=== PATIENT | male | born 1970 | race Caucasian/White ===

== ENCOUNTER 2018-07-04 01:47 | Outpatient (CLI) | payer OTHER, SELFPAY ==
--- NOTE | 2018-07-04 15:35 | DI.RAD_ITS ---
SYMPTOM/DIAGNOSIS: TROUBLE SWALLOWING, SMOKER, R13.10, F17.200 PA AND LATERAL CHEST: There are no prior comparison exams. The cardiac and mediastinal contours have a normal appearance. The lungs are hyperinflated and appear clear. No infiltrate, effusion, mass or adenopathy is seen. There is no evidence of pneumothorax or pneumomediastinum. There are mild degenerative changes in the thoracic spine. IMPRESSION: Hyperinflation. No acute abnormality.
== END 2018-07-04 02:07 ==
PROVIDERS: PCP Nurse Practitioner; Visit Provider Nurse Practitioner
DX: R13.10 Dysphagia, unspecified (principal); F17.200 Nicotine dependence, unspecified, uncomplicated
CPT/HCPCS: 71046

== ENCOUNTER 2018-07-20 15:23 | Outpatient (CLI) | payer OTHER, SELFPAY ==
[2018-07-20 15:48] LABS: HCT 37.2 % (40.0-50.0); HGB 12.6 g/dL (13.5-17.5); Mean Corp. HGB Concentration 33.9 g/dL (32.0-36.0); Mean Corpuscular Hemoglobin 29.8 pg (27.0-33.0); Mean Corpuscular Volume 87.9 fL (80-95); Mean Platelet Volume 10.4 fL (8.0-11.0); Platelet Count 213 x1000/uL (130-400); RBC 4.23 m/cumm (4.50-6.00); RBC Distribution Width 13.3 % (11.8-14.1); White Blood Cell Count 8.41 k/cumm (4.4-10.8)
[2018-07-20 17:12] LABS: ALT 26 U/L (12-78); AST 22 U/L (15-37); Albumin 3.3 g/dL (3.4-5.0); Alkaline Phosphatase 94 U/L (46-116); Anion Gap 7.3 mmol/L (3-11); BUN 10 mg/dL (7-18); Bilirubin, Total 0.4 mg/dL (0.2-1.0); CO2 28.7 mmol/L (21.0-32.0); CREATININE 0.81 mg/dL (0.70-1.30); Calcium 8.8 mg/dL (8.5-10.1); Chloride 103 mmol/L (98-107); Cholesterol 125 mg/dL (50-200); Glucose 89 mg/dL (70-100); HDL Cholesterol 32 mg/dL (40-60); LDL CHOLESTEROL 79 mg/dL (<100); Potassium 3.9 mmol/L (3.5-5.1); Sodium 139 mmol/L (136-145); TSH (W/Ref FT4) 0.61 uIU/mL (0.358-3.74); Total Protein 6.3 g/dL (6.4-8.2); Triglyceride 58 mg/dL (30-150)
== END 2018-07-20 15:43 ==
PROVIDERS: PCP Nurse Practitioner; Visit Provider Nurse Practitioner
DX: R63.4 Abnormal weight loss (principal); R13.10 Dysphagia, unspecified; F17.200 Nicotine dependence, unspecified, uncomplicated
CPT/HCPCS: 36415; 80053; 80061; 83721; 85027; 84443

== ENCOUNTER 2018-08-02 02:11 | Outpatient (CLI) | payer OTHER, SELFPAY | END 2018-08-02 02:31 | PROVIDERS: PCP Nurse Practitioner | DX: R13.19 Other dysphagia (principal) | CPT/HCPCS: 92610 ==

== ENCOUNTER 2018-08-12 13:40 | Inpatient (IN) | payer OTHER, SELFPAY ==
[2018-08-12] VITALS (8 sets, daily range): BP systolic 133–154; BP diastolic 81–92; PULSE 71–81; RESP 16–18; TEMP 35.9–37.1; O2SAT 96–100
[2018-08-12] MEDS: Lactated Ringers 1,000 ML 80 ML IV ×2 (12:01→13:20)
--- NOTE | 2018-08-12 12:45 | ESO_PTH ---
PATIENT: Vaughn Simpson LOC: U#:[id number] AGE/SX: 48/M ROOM: 228 RE08/12/[address]: Leatha Sorenson MD : [id number] BED: A DIS: 08/13/2018 SPEC #: [id number] RECD: 08/12/18 17:00 STATUS: KRISHNA SAHNI #: [id number] LITTLE: 08/12/18 12:[address]: Kerrie Weiss DEPT: Surgical Specimen RECD BY: Arely Posada ENTERED: 08/12/18 17:01 SP TYPE: Khadar VALLE DR: Kena Gustafson APRN Tissues: 1 - ESOPHAGUS BIOPSY Procedures: GROSS AND MICRO LEVEL 4 Comments: [id number]
--- NOTE | 2018-08-12 13:44 | W.PM.ENDDOP ---
Date of service: 08/12/18 Time of Service: 13:44 Endoscopy Report DATE OF PROCEDURE: 08/12/18 PRE-OP DIAGNOSIS: complete obstructing esohpageal cancer POST-OP DIAGNOSIS: same PROCEDURE: egd adn bx. SURGEON: Kerrie Weiss ANESTHESIA: GETA ESTIMATED BLOOD LOSS: 20 PATHOLOGY: other COMPLICATIONS: Other DISPOSITION: PACU INDICATIONS: dysphagia FINDINGS: completely obstructed by tumor could not pass scope into stomach PROCEDURE DESCRIPTION: After informed consent was obtained the patient was take to the procedure room and placed in a supine position. Monitors were applied and a time out was done. The patients name, date of , procedure type, allergies to medications and metal in their body was reviewed. A bite block was placed and the patient was sedated. Once sedated and comfortable the gastroscope was advanced through the oropharynx which was grossly normal into the esophagus. The proximal and mid-esophagus were nl. In the distal esophagus there was lg tumor noted. . The GE junction was at 40 cm. Mult. Bx are done. I am not able to maneuver the scope beyond the tumor. The scope was removed and the patient was woken up and taken back to PACU in stable condition. pt did receive 12mg decadron in OR. Pt will admitted for hydration and monitor for bleeding. CT pd. pt needs to get a feeding tube placed and started on nutritional support. Will plan on placing feeding tube wed or
[2018-08-12 14:21] LABS: HCT 37.5 % (40.0-50.0); HGB 12.5 g/dL (13.5-17.5); Mean Corp. HGB Concentration 33.3 g/dL (32.0-36.0); Mean Corpuscular Hemoglobin 29.8 pg (27.0-33.0); Mean Corpuscular Volume 89.5 fL (80-95); Platelet Count 160 x1000/uL (130-400); RBC 4.19 m/cumm (4.50-6.00); RBC Distribution Width 13.6 % (11.8-14.1)
[2018-08-12 14:41] LABS: ALT 20 U/L (12-78); AST 18 U/L (15-37); Albumin 2.9 g/dL (3.4-5.0); Alkaline Phosphatase 88 U/L (46-116); Anion Gap 5.5 mmol/L (3-11); BUN 7 mg/dL (7-18); Bilirubin, Total 0.5 mg/dL (0.2-1.0); CO2 30.5 mmol/L (21.0-32.0); CREATININE 0.73 mg/dL (0.70-1.30); Calcium 8.2 mg/dL (8.5-10.1); Chloride 101 mmol/L (98-107); Glucose 99 mg/dL (70-100); Sodium 137 mmol/L (136-145)
[2018-08-12] MEDS: Normal Saline 1,000 ML 125 ML IV (14:53)
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
--- NOTE | 2018-08-12 15:29 | DI.CT_ITS ---
SYMPTOMS/DIAGNOSIS: ESOPHAGEAL CANCER, STAGING CHEST, ABDOMEN AND PELVIS CT: CT examination of the chest, abdomen and pelvis was performed with a bolus infusion of 100 cc's of Omnipaque 350. The patient reportedly has a diagnosis of esophageal carcinoma. There is a lower esophageal mass measuring up to about 5.3 cm in diameter. There is poor delineation of the borders of the mass superiorly and inferiorly and there is very little mediastinal fat with poor delineation of the mass from the mediastinal fat. No bulky mediastinal adenopathy identified. Mildly enlarged pretracheal nodes noted at about 14 mm. There are a couple of mildly enlarged nodes adjacent to the gastric fundus posteriorly. There is gastric dilatation. There is scattered mild small bowel dilatation and a moderate amount of fluid is present in the colon. There is wall thickening of the duodenum which is nonspecific. Gastric outlet obstruction or duodenal obstruction not excluded on the basis of this examination. No gross duodenal mass identified. The liver and spleen appear normal as does the pancreas. Gallbladder and bile ducts are CT normal. There is mild generalized abdominal ascites. There is very little abdominal fat. There are predominantly linear radiodensities at the lung apices which appear to represent scarring. Vaguely nodular contour of a couple of areas in the right lung apex is noted without a discrete mass. There are diffuse central lobular emphysematous changes. Minimal areas of atelectasis and/or consolidation present in the lung bases bilaterally. Tracheobronchial tree appears intact. No pleural effusion seen. The adrenals and kidneys are normal. Aorta is unremarkable in appearance. No evidence of pulmonary embolic disease. No abdominal wall hernia seen. No gross abdominal or pelvic adenopathy. No gross evidence of bowel obstruction. Adrenals and kidneys appear normal. No bony lesion identified in the thorax, abdomen or pelvis. CONCLUSION: Esophageal mass consistent with diagnosis of esophageal carcinoma. Indeterminate borders of the mass may represent local invasion. No bulky mediastinal adenopathy. Proximal small bowel obstruction not excluded with dilated stomach and duodenum and duodenal wall thickening. Abdominal ascites is a worrisome finding. No bulky adenopathy identified in the abdomen and no solid organ metastasis identified.
[2018-08-12] MEDS: Omnipaque 350 MG/ML 50 ML BTL IJ ×2 (15:30→15:31)
[2018-08-12] MEDS: Pantoprazole 40 MG VIAL IVP (16:09)
[2018-08-12] MEDS: Normal Saline Flush 10 ML SYR IVP (16:09)
--- NOTE | 2018-08-12 16:18 | NUR.NOTE ---
Nursing Note: 08/12/18 @ 1435-Oriented to room and call nye system. Post op at thsi time. On hold for CT shortly will hold on stretcher since going for test in few minutes. See shift assessment.
[2018-08-12] MEDS: ACETAMINOPHEN 1,000 MG/100 ML BTL 400 MG IVPB (17:18)
[2018-08-12] MEDS: Nicotine 21 MG/24 HR PATCH TD (17:18)
[2018-08-12] MEDS: Budesonide/Formoterol 160/4.5 6 GM 60 PUFF INH IH (21:05)
[2018-08-12] MEDS: Normal Saline 1,000 ML 150 ML IV (21:36)
[2018-08-13] MEDS: Normal Saline 1,000 ML 150 ML IV ×2 (04:24→10:59)
[2018-08-13 07:15] VITALS: BP 131/76; PULSE 73; RESP 18; TEMP 38; O2SAT 97
[2018-08-13 07:28] LABS: Abs Immature Grans 0.02 k/cumm (0.0-0.09); Absolute Basophil Count 0.01 k/cumm (0.0-0.2); Absolute Eosinophil Count 0.01 k/cumm (0.0-0.7); Absolute Lymphocyte Count 1.37 k/cumm (1.2-3.4); Absolute Monocyte Count 0.65 k/cumm (0.11-0.7); Basophils % 0.1; Eosinophils % 0.1; HCT 37.4 % (40.0-50.0); HGB 12.4 g/dL (13.5-17.5); Immature Grans % 0.1; Lymphocytes % 10.1; Mean Corp. HGB Concentration 33.2 g/dL (32.0-36.0); Mean Corpuscular Hemoglobin 29.1 pg (27.0-33.0); Mean Corpuscular Volume 87.8 fL (80-95); Mean Platelet Volume 10.9 fL (8.0-11.0); Monocytes % 4.8; Neutrophils % 84.8; Platelet Count 209 x1000/uL (130-400); RBC 4.26 m/cumm (4.50-6.00); RBC Distribution Width 13.6 % (11.8-14.1); White Blood Cell Count 13.59 k/cumm (4.4-10.8)
[2018-08-13 07:29] LABS: Absolute Neutrophil Count 11.52 k/cumm (1.2-6.7)
[2018-08-13 07:44] LABS: ALT 18 U/L (12-78); AST 16 U/L (15-37); Albumin 2.7 g/dL (3.4-5.0); Alkaline Phosphatase 88 U/L (46-116); Anion Gap 9.9 mmol/L (3-11); BUN 11 mg/dL (7-18); Bilirubin, Total 0.5 mg/dL (0.2-1.0); CO2 24.1 mmol/L (21.0-32.0); CREATININE 0.75 mg/dL (0.70-1.30); Chloride 103 mmol/L (98-107); Glucose 142 mg/dL (70-100); Potassium 3.9 mmol/L (3.5-5.1); Sodium 137 mmol/L (136-145); Total Protein 5.8 g/dL (6.4-8.2)
[2018-08-13] MEDS: Nicotine 21 MG/24 HR PATCH TD (08:15)
[2018-08-13] MEDS: Budesonide/Formoterol 160/4.5 6 GM 60 PUFF INH IH (09:57)
--- NOTE | 2018-08-13 11:12 | PGE_ITS ---
Date of Service Date of service: 08/13/18 Time of Service: 11:01 Assessment and Plan (1) Esophageal cancer: Current visit: Yes Status: Acute A\\ newly diagnosed Near complete obstructing Esophageal cancer Able to tolerate clear liquids Biopsy results pending P\\ Advance diet to full liquids- concern for choking due to inflammation/swelling after biopsies done yesterday Will try to discuss case with either [facility] [place] [facility] surgical oncologist regarding plan of care for this patient Qualifiers: Malignant neoplasm of esophagus location: lower third Qualified Code(s): C15.5 - Malignant neoplasm of lower third of esophagus (2) Protein-calorie malnutrition, moderate: Current visit: Yes Status: Acute P\\ Advance diet to full liquids, low fiber high protein Concerned about advancing patient and having him obstruct if he tries to eat more solid foods (3) COPD (chronic obstructive pulmonary disease): Current visit: Yes Status: Chronic A\\ COPD diagnoses with no treatment at home No oxygen requirement at this time. P\\ Continue with prn INH Qualifiers: COPD type: unspecified COPD Qualified Code(s): J44.9 - Chronic obstructive pulmonary disease, unspecified (4) Tobacco dependence: Current visit: Yes Status: Acute A\\ 2 pack a day smoker for a long time Discussion with patient about need to quit. Discussed that even though he has cancer quiting would still be beneficial for healing if he is a candidate for surgery P\\ Has Nicotine patch but still has cravings. Will add IH Nicotine as well. Will have nursing give him information regarding resources to quit Subjective Interval history since last seen: Vaughn is doing well this morning. He is not having any issues with the clear liquid diet. he tells me that at home he was eating waffles smothered in maple syrup so it would go down. He had trouble with bread and pasta. He has lost 30 lb since March. Passing gas and no abdominal pain Exam Const General: ill appearing Nutritional Appearance: cachectic Orientation: alert and oriented x3 HENMT Head: normocephalic and atraumatic Neck Lymphatic: no lymphadenopathy noted Resp Effort & Inspection: normal respiratory effort Auscultation: clear to auscultation bilaterally Cardio Rate: regular rate Rhythm: regular rhythm Heart Sounds: no gallops, no murmurs and no rubs GI Inspection: normal to inspection Palpation: soft, no hepatosplenomegaly and nontender Auscultation: normal bowel sounds Objective Objective Clinical Data: Abnormal lab results 08/12/18 08/12/18 08/13/18 Range/Units 14:15 14:15 06:48 WBC 13.59 H D (4.4-10.8) k/cumm RBC 4.19 L 4.26 L (4.50-6.00) m/cumm Hgb 12.5 L 12.4 L (13.5-17.5) g/dL Hct 37.5 L 37.4 L (40.0-50.0) % Absolute Neutrophils 11.52 H (1.2-6.7) k/cumm Glucose (70-100) mg/dL Calcium 8.2 L (8.5-10.1) mg/dL Total Protein 6.0 L (6.4-8.2) g/dL Albumin 2.9 L (3.4-5.0) g/dL 08/13/18 Range/Units 06:48 WBC (4.4-10.8) k/cumm RBC (4.50-6.00) m/cumm Hgb (13.5-17.5) g/dL Hct (40.0-50.0) % Absolute Neutrophils (1.2-6.7) k/cumm Glucose 142 H (70-100) mg/dL Calcium 8.0 L (8.5-10.1) mg/dL Total Protein 5.8 L (6.4-8.2) g/dL Albumin 2.7 L (3.4-5.0) g/dL Vital Signs Temperature 100.4 F H 08/13/18 07:15 Temperature Source Tympanic 08/13/18 07:15 Pulse 73 08/13/18 07:15 Pulse Rhythm Regular 08/13/18 08:21 Respiratory Rate 18 08/13/18 07:15 Respiratory Effort Non-Labored 08/13/18 08:21 Respiratory Depth Normal 08/13/18 08:21 Respiratory Pattern Normal 08/13/18 08:21 Blood Pressure 131/76 08/13/18 07:15 Pulse Oximetry 97 08/13/18 07:15 Respiratory End-tidal CO2 34 08/12/18 14:20 Oxygen Delivery Method Room Air 08/13/18 07:15 Oxygen Flow Rate 0 08/13/18 07:15 Pain Level 0 08/13/18 07:15 Comment 08/12/18 14:35 Intake & Output 08/12/18 08/12/18 08/13/18 11:59 23:59 11:59 Intake Total 3042.500 / 3042.500 2705.0 / 2705.0 Output Total 1700 / 1700 350 / 350 Balance 1342.500 / 9279.787 6802.0 / 2355.0 Weight 131 lb 6.328 oz Intake: IV 2592.500 / 2592.500 2705.0 / 2705.0 Oral 450 / 450 Output: Urine 1700 / 1700 350 / 350 Other: Urine Color Pale Yellow Yellow Urine Appearance Clear Clear Urine Odor Normal Emesis Description None Voiding Methods Toilet Toilet Laboratory Results WBC 13.59 k/cumm (4.4-10.8) H D 08/13/18 06:48 RBC 4.26 m/cumm (4.50-6.00) L 08/13/18 06:48 Hgb 12.4 g/dL (13.5-17.5) L 08/13/18 06:48 Hct 37.4 % (40.0-50.0) L 08/13/18 06:48 MCV 87.8 fL (80-95) 08/13/18 06:48 MCH 29.1 pg (27.0-33.0) 08/13/18 06:48 MCHC 33.2 g/dL (32.0-36.0) 08/13/18 06:48 RDW 13.6 % (11.8-14.1) 08/13/18 06:48 Plt Count 209 x1000/uL (130-400) 08/13/18 06:48 MPV 10.9 fL (8.0-11.0) 08/13/18 06:48 Immature Gran % 0.1 08/13/18 06:48 Neutrophils % 84.8 08/13/18 06:48 Lymphocytes % 10.1 08/13/18 06:48 Monocytes % 4.8 08/13/18 06:48 Eosinophils % 0.1 08/13/18 06:48 Basophils % 0.1 08/13/18 06:48 Absolute Neutrophils 11.52 k/cumm (1.2-6.7) H 08/13/18 06:48 Absolute Lymphocytes 1.37 k/cumm (1.2-3.4) 08/13/18 06:48 Absolute Monocytes 0.65 k/cumm (0.11-0.7) 08/13/18 06:48 Absolute Eosinophils 0.01 k/cumm (0.0-0.7) 08/13/18 06:48 Absolute Basophils 0.01 k/cumm (0.0-0.2) 08/13/18 06:48 Sodium 137 mmol/L (136-145) 08/13/18 06:48 Potassium 3.9 mmol/L (3.5-5.1) 08/13/18 06:48 Chloride 103 mmol/L (98-107) 08/13/18 06:48 Carbon Dioxide 24.1 mmol/L (21.0-32.0) 08/13/18 06:48 Anion Gap 9.9 mmol/L (3-11) 08/13/18 06:48 BUN 11 mg/dL (7-18) 08/13/18 06:48 Creatinine 0.75 mg/dL (0.70-1.30) 08/13/18 06:48 Estimated GFR/1.73 m2 >= 60.00 (mL/min/1.73m2) 08/13/18 06:48 Glucose 142 mg/dL (70-100) H 08/13/18 06:48 Calcium 8.0 mg/dL (8.5-10.1) L 08/13/18 06:48 Total Bilirubin 0.5 mg/dL (0.2-1.0) 08/13/18 06:48 AST 16 U/L (15-37) 08/13/18 06:48 ALT 18 U/L (12-78) 08/13/18 06:48 Alkaline Phosphatase 88 U/L (46-116) 08/13/18 06:48 Total Protein 5.8 g/dL (6.4-8.2) L 08/13/18 06:48 Albumin 2.7 g/dL (3.4-5.0) L 08/13/18 06:48 Patient ABO/Rh O Negative 08/12/18 14:15 Antibody Screen Negative 08/12/18 14:15
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
[2018-08-13 15:19] VITALS: BP 124/64; PULSE 72; RESP 18; TEMP 36.8; O2SAT 99
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
[2018-08-13 15:30] VITALS: O2SAT 99
--- NOTE | 2018-08-13 15:38 | W.PM.PROGNOT ---
Date of Service Date of service: 08/13/18 Time of Service: 15:39 Assessment and Plan (1) Esophageal cancer: Current visit: Yes Status: Acute A\\ called made to [facility] and case was discussed with Thoracic surgery and internal medicine. Patient accepted by internal medicine. Patient to be transported in the morning for IR placement of feeding tube and to hopefully expedite completion of workup and to start treatment. Discussed with patient. I did also tell patient that with his low BMI nutrition will be the rollins at the beginning. I also let him know that I am not going to advance his diet past full liquids. Patient is in agreement with transfer to [facility] tomorrow for further treatments, workup and interventions as deemed appropriate by his team at [facility]. Appreciate [facility] accepting patient in transfer Qualifiers: Malignant neoplasm of esophagus location: lower third Qualified Code(s): C15.5 - Malignant neoplasm of lower third of esophagus Subjective Interval history since last seen: Patient doing well and tolerating a full liquid diet. No N/V Exam GI Inspection: normal to inspection Palpation: soft, no hepatosplenomegaly and nontender Auscultation: normal bowel sounds Objective Objective Clinical Data: Abnormal lab results 08/13/18 08/13/18 Range/Units 06:48 06:48 WBC 13.59 H D (4.4-10.8) k/cumm RBC 4.26 L (4.50-6.00) m/cumm Hgb 12.4 L (13.5-17.5) g/dL Hct 37.4 L (40.0-50.0) % Absolute Neutrophils 11.52 H (1.2-6.7) k/cumm Glucose 142 H (70-100) mg/dL Calcium 8.0 L (8.5-10.1) mg/dL Total Protein 5.8 L (6.4-8.2) g/dL Albumin 2.7 L (3.4-5.0) g/dL Vital Signs Temperature 98.2 F 08/13/18 15:19 Temperature Source Tympanic 08/13/18 15:19 Pulse 72 08/13/18 15:19 Pulse Rhythm Regular 08/13/18 08:21 Respiratory Rate 18 08/13/18 15:19 Respiratory Effort Non-Labored 08/13/18 08:21 Respiratory Depth Normal 04/13/19 08:21 Respiratory Pattern Normal 08/13/18 08:21 Blood Pressure 124/64 08/13/18 15:19 Pulse Oximetry 99 08/13/18 15:19 Respiratory End-tidal CO2 34 08/12/18 14:20 Oxygen Delivery Method Room Air 08/13/18 15:19 Oxygen Flow Rate 0 08/13/18 15:19 Pain Level 0 08/13/18 07:15 Comment 08/12/18 14:35 Intake & Output 08/12/18 08/13/18 08/13/18 23:59 11:59 23:59 Intake Total 3042.500 / 3042.500 3530.0 / 4010.0 480 / 4010.0 Output Total 1700 / 1700 350 / 350 Balance 1342.500 / 5044.469 5962.0 / 3660.0 480 / 3660.0 Intake: IV 2592.500 / 2592.500 2810.0 / 2810.0 Oral 450 / 450 720 / 1200 480 / 1200 Output: Urine 1700 / 1700 350 / 350 Other: Urine Color Pale Yellow Yellow Urine Appearance Clear Clear Urine Odor Normal Emesis Description None Voiding Methods Toilet Toilet Laboratory Results WBC 13.59 k/cumm (4.4-10.8) H D 08/13/18 06:48 RBC 4.26 m/cumm (4.50-6.00) L 08/13/18 06:48 Hgb 12.4 g/dL (13.5-17.5) L 08/13/18 06:48 Hct 37.4 % (40.0-50.0) L 08/13/18 06:48 MCV 87.8 fL (80-95) 08/13/18 06:48 MCH 29.1 pg (27.0-33.0) 08/13/18 06:48 MCHC 33.2 g/dL (32.0-36.0) 08/13/18 06:48 RDW 13.6 % (11.8-14.1) 08/13/18 06:48 Plt Count 209 x1000/uL (130-400) 08/13/18 06:48 MPV 10.9 fL (8.0-11.0) 08/13/18 06:48 Immature Gran % 0.1 08/13/18 06:48 Neutrophils % 84.8 04/13/19 06:48 Lymphocytes % 10.1 08/13/18 06:48 Monocytes % 4.8 08/13/18 06:48 Eosinophils % 0.1 08/13/18 06:48 Basophils % 0.1 08/13/18 06:48 Absolute Neutrophils 11.52 k/cumm (1.2-6.7) H 08/13/18 06:48 Absolute Lymphocytes 1.37 k/cumm (1.2-3.4) 08/13/18 06:48 Absolute Monocytes 0.65 k/cumm (0.11-0.7) 08/13/18 06:48 Absolute Eosinophils 0.01 k/cumm (0.0-0.7) 08/13/18 06:48 Absolute Basophils 0.01 k/cumm (0.0-0.2) 08/13/18 06:48 Sodium 137 mmol/L (136-145) 08/13/18 06:48 Potassium 3.9 mmol/L (3.5-5.1) 08/13/18 06:48 Chloride 103 mmol/L (98-107) 08/13/18 06:48 Carbon Dioxide 24.1 mmol/L (21.0-32.0) 08/13/18 06:48 Anion Gap 9.9 mmol/L (3-11) 08/13/18 06:48 BUN 11 mg/dL (7-18) 08/13/18 06:48 Creatinine 0.75 mg/dL (0.70-1.30) 08/13/18 06:48 Estimated GFR/1.73 m2 >= 60.00 (mL/min/1.73m2) 08/13/18 06:48 Glucose 142 mg/dL (70-100) H 08/13/18 06:48 Calcium 8.0 mg/dL (8.5-10.1) L 08/13/18 06:48 Total Bilirubin 0.5 mg/dL (0.2-1.0) 08/13/18 06:48 AST 16 U/L (15-37) 08/13/18 06:48 ALT 18 U/L (12-78) 08/13/18 06:48 Alkaline Phosphatase 88 U/L (46-116) 08/13/18 06:48 Total Protein 5.8 g/dL (6.4-8.2) L 08/13/18 06:48 Albumin 2.7 g/dL (3.4-5.0) L 08/13/18 06:48 Patient ABO/Rh O Negative 08/12/18 14:15 Antibody Screen Negative 08/12/18 14:15
--- NOTE | 2018-08-13 15:44 | PGE_ITS ---
Date of Service Date of service: 08/13/18 Time of Service: 15:39 Assessment and Plan (1) Esophageal cancer: Current visit: Yes Status: Acute A\\ called made to [facility] and case was discussed with Thoracic surgery and internal medicine. Patient accepted by internal medicine. Patient to be transported in the morning for IR placement of feeding tube and to hopefully expedite completion of workup and to start treatment. Discussed with patient. I did also tell patient that with his low BMI nutrition will be the rollins at the beginning. I also let him know that I am not going to advance his diet past full liquids. Patient is in agreement with transfer to [facility] tomorrow for further treatments, workup and interventions as deemed appropriate by his team at [facility]. Appreciate [facility] accepting patient in transfer Qualifiers: Malignant neoplasm of esophagus location: lower third Qualified Code(s): C15.5 - Malignant neoplasm of lower third of esophagus Subjective Interval history since last seen: Patient doing well and tolerating a full liquid diet. No N/V Exam GI Inspection: normal to inspection Palpation: soft, no hepatosplenomegaly and nontender Auscultation: normal bowel sounds Objective Objective Clinical Data: Abnormal lab results 08/13/18 08/13/18 Range/Units 06:48 06:48 WBC 13.59 H D (4.4-10.8) k/cumm RBC 4.26 L (4.50-6.00) m/cumm Hgb 12.4 L (13.5-17.5) g/dL Hct 37.4 L (40.0-50.0) % Absolute Neutrophils 11.52 H (1.2-6.7) k/cumm Glucose 142 H (70-100) mg/dL Calcium 8.0 L (8.5-10.1) mg/dL Total Protein 5.8 L (6.4-8.2) g/dL Albumin 2.7 L (3.4-5.0) g/dL Vital Signs Temperature 98.2 F 08/13/18 15:19 Temperature Source Tympanic 08/13/18 15:19 Pulse 72 08/13/18 15:19 Pulse Rhythm Regular 08/13/18 08:21 Respiratory Rate 18 08/13/18 15:19 Respiratory Effort Non-Labored 08/13/18 08:21 Respiratory Depth Normal 04/13/19 08:21 Respiratory Pattern Normal 08/13/18 08:21 Blood Pressure 124/64 08/13/18 15:19 Pulse Oximetry 99 08/13/18 15:19 Respiratory End-tidal CO2 34 08/12/18 14:20 Oxygen Delivery Method Room Air 08/13/18 15:19 Oxygen Flow Rate 0 08/13/18 15:19 Pain Level 0 08/13/18 07:15 Comment 08/12/18 14:35 Intake & Output 08/12/18 08/13/18 08/13/18 23:59 11:59 23:59 Intake Total 3042.500 / 3042.500 3530.0 / 4010.0 480 / 4010.0 Output Total 1700 / 1700 350 / 350 Balance 1342.500 / 3362.729 2262.0 / 3660.0 480 / 3660.0 Intake: IV 2592.500 / 2592.500 2810.0 / 2810.0 Oral 450 / 450 720 / 1200 480 / 1200 Output: Urine 1700 / 1700 350 / 350 Other: Urine Color Pale Yellow Yellow Urine Appearance Clear Clear Urine Odor Normal Emesis Description None Voiding Methods Toilet Toilet Laboratory Results WBC 13.59 k/cumm (4.4-10.8) H D 08/13/18 06:48 RBC 4.26 m/cumm (4.50-6.00) L 08/13/18 06:48 Hgb 12.4 g/dL (13.5-17.5) L 08/13/18 06:48 Hct 37.4 % (40.0-50.0) L 08/13/18 06:48 MCV 87.8 fL (80-95) 08/13/18 06:48 MCH 29.1 pg (27.0-33.0) 08/13/18 06:48 MCHC 33.2 g/dL (32.0-36.0) 08/13/18 06:48 RDW 13.6 % (11.8-14.1) 08/13/18 06:48 Plt Count 209 x1000/uL (130-400) 08/13/18 06:48 MPV 10.9 fL (8.0-11.0) 08/13/18 06:48 Immature Gran % 0.1 08/13/18 06:48 Neutrophils % 84.8 04/13/19 06:48 Lymphocytes % 10.1 08/13/18 06:48 Monocytes % 4.8 08/13/18 06:48 Eosinophils % 0.1 08/13/18 06:48 Basophils % 0.1 08/13/18 06:48 Absolute Neutrophils 11.52 k/cumm (1.2-6.7) H 08/13/18 06:48 Absolute Lymphocytes 1.37 k/cumm (1.2-3.4) 08/13/18 06:48 Absolute Monocytes 0.65 k/cumm (0.11-0.7) 08/13/18 06:48 Absolute Eosinophils 0.01 k/cumm (0.0-0.7) 08/13/18 06:48 Absolute Basophils 0.01 k/cumm (0.0-0.2) 08/13/18 06:48 Sodium 137 mmol/L (136-145) 08/13/18 06:48 Potassium 3.9 mmol/L (3.5-5.1) 08/13/18 06:48 Chloride 103 mmol/L (98-107) 08/13/18 06:48 Carbon Dioxide 24.1 mmol/L (21.0-32.0) 08/13/18 06:48 Anion Gap 9.9 mmol/L (3-11) 08/13/18 06:48 BUN 11 mg/dL (7-18) 08/13/18 06:48 Creatinine 0.75 mg/dL (0.70-1.30) 08/13/18 06:48 Estimated GFR/1.73 m2 >= 60.00 (mL/min/1.73m2) 08/13/18 06:48 Glucose 142 mg/dL (70-100) H 08/13/18 06:48 Calcium 8.0 mg/dL (8.5-10.1) L 08/13/18 06:48 Total Bilirubin 0.5 mg/dL (0.2-1.0) 08/13/18 06:48 AST 16 U/L (15-37) 08/13/18 06:48 ALT 18 U/L (12-78) 08/13/18 06:48 Alkaline Phosphatase 88 U/L (46-116) 08/13/18 06:48 Total Protein 5.8 g/dL (6.4-8.2) L 08/13/18 06:48 Albumin 2.7 g/dL (3.4-5.0) L 08/13/18 06:48 Patient ABO/Rh O Negative 08/12/18 14:15 Antibody Screen Negative 08/12/18 14:15
--- NOTE | 2018-08-13 15:45 | W.PM.DSUDISC ---
Discharge Plan Discharge Details Reason For Visit: ESOPHAGEAL OBSTRUCTION SECONDARY TO MALIG Admit Date/Time: 08/12/18 13:40 Admit Provider: Kerrie Weiss Attending Provider: Kerrie Weiss Primary Care Provider: Janice Gustafsonyce [facility] Hospital Course: Mr. Simpson is a pleasant 48 year old male who was seen in the surgical office on Wednesday08/08/18 for complaint of dysphagia and weight loss since March. His PMHx is significant for COPD and tobacco dependance. He smokes 2 packs a day. He underwent EGD on 08/12/18 and was noted to have a near complete obstruction of his distal esophagus by a mass. He had to be intubated mid-procedure for coughing and increased secretions. There was concern for aspiration. Once intubated biopsies of the mass were done. The patient was admitted for hydration and observation. Patient is malnourished with a BMI of 17.8. Patient did well overnight. He had a mild fever in the morning of 08/13/18. Ambulation and use of ISP was encouraged and fevers resolved. He tolerated a clear liquid diet through the night and was hungry. He was advanced to a full liquid diet. Diagnosis was discussed with patient as well as need for nutrition. He will need a feeding tube. [facility] was contacted for transfer to facilitate IR placement of feeding tube as well as any other treatments/work up for his newly diagnosed esophageal cancer. Patient was accepted by [facility] for transfer on 08/13/18 or 08/14/18. Appreciate assistance by [facility] Medications started on admission: Albuterol updraft prn Duoenbs prn Liquid tylenol as needed for pain Symbicort BID Home Meds and New Rx's Prescriptions: Continued multivitamin [Once Daily] 1 EACH tablet 1 tab PO DAILY RF: 0 Discharge Instructions Activity:: Activity as Tolerated Activity:: Activity as Tolerated Equipment/Supplies:: No Equipment Needed Diet:: full liquid diet DS: Diagnosis Discharge Diagnosis (1) Esophageal cancer: Status: Acute (2) Tobacco dependence: Status: Acute (3) COPD (chronic obstructive pulmonary disease): Status: Chronic (4) Protein-calorie malnutrition, moderate: Status: Acute (5) Anemia: Status: Chronic
[2018-08-13] MEDS: Normal Saline Flush 10 ML SYR IVP (15:50)
[2018-08-13] MEDS: Pantoprazole 40 MG VIAL IVP (15:50)
--- NOTE | 2018-08-13 15:56 | PDOC.DSDIS_ITS ---
Discharge Plan Discharge Details Reason For Visit: ESOPHAGEAL OBSTRUCTION SECONDARY TO MALIG Admit Date/Time: 08/12/18 13:40 Admit Provider: Kerrie Weiss Attending Provider: Kerrie Weiss Primary Care Provider: Janice Gustafsonyce [facility] Course Hospital Course: Mr. Simpson is a pleasant 48 year old male who was seen in the surgical office on Wednesday08/08/18 for complaint of dysphagia and weight loss since March. His PMHx is significant for COPD and tobacco dependance. He smokes 2 packs a day. He underwent EGD on 08/12/18 and was noted to have a near complete obstruction of his distal esophagus by a mass. He had to be intubated mid-procedure for coughing and increased secretions. There was concern for aspiration. Once intubated biopsies of the mass were done. The patient was admitted for hydration and observation. Patient is malnourished with a BMI of 17.8. Patient did well overnight. He had a mild fever in the morning of 08/13/18. Ambulation and use of ISP was encouraged and fevers resolved. He tolerated a clear liquid diet through the night and was hungry. He was advanced to a full liquid diet. Diagnosis was discussed with patient as well as need for nutrition. He will need a feeding tube. [facility] was contacted for transfer to facilitate IR placement of feeding tube as well as any other treatments/work up for his newly diagnosed esophageal cancer. Patient was accepted by [facility] for transfer on 08/13/18 or 08/14/18. Appreciate assistance by [facility] Medications started on admission: Albuterol updraft prn Duoenbs prn Liquid tylenol as needed for pain Symbicort BID Home Meds and New Rx's Prescriptions: Continued multivitamin [Once Daily] 1 EACH tablet 1 tab PO DAILY RF: 0 Discharge Instructions Activity:: Activity as Tolerated Activity:: Activity as Tolerated Equipment/Supplies:: No Equipment Needed Diet:: full liquid diet DS: Diagnosis Discharge Diagnosis (1) Esophageal cancer: Status: Acute (2) Tobacco dependence: Status: Acute (3) COPD (chronic obstructive pulmonary disease): Status: Chronic (4) Protein-calorie malnutrition, moderate: Status: Acute (5) Anemia: Status: Chronic
== END 2018-08-13 19:10 | disposition short-term general hospital (02) | DRG 375 ==
LOC: MS 14:31
PROVIDERS: Admitting Provider Surgery; PCP Nurse Practitioner; Visit Provider Surgery
PROC: 0DJ68ZZ Inspection of Stomach, Via Natural or Artificial Opening Endoscopic (ICD-10-PCS; CPT 43235; principal; 2018-08-12 12:30)
DX: C15.5 Malignant neoplasm of lower third of esophagus (principal); Z68.1 Body mass index [BMI] 19.9 or less, adult; E44.0 Moderate protein-calorie malnutrition; K22.2 Esophageal obstruction; R13.10 Dysphagia, unspecified; J44.9 Chronic obstructive pulmonary disease, unspecified; F17.210 Nicotine dependence, cigarettes, uncomplicated; D50.9 Iron deficiency anemia, unspecified; Z80.8 Family history of malignant neoplasm of other organs or systems
CPT/HCPCS: 43239; 36415; 74177; 80053; 85027; 86850; 86900; 86901; 88305; 94640; 99222; 99233; NC; 71260; 85025; J0131; J1100; Q9967

== ENCOUNTER 2018-08-18 20:09 | Outpatient (REF) | payer OTHER, SELFPAY ==
[2018-08-18 19:07] LABS: ALT 38 U/L (12-78); AST 29 U/L (15-37); Albumin 3.3 g/dL (3.4-5.0); Alkaline Phosphatase 88 U/L (46-116); BUN 12 mg/dL (7-18); Bilirubin, Total 0.5 mg/dL (0.2-1.0); CREATININE 0.72 mg/dL (0.70-1.30); Calcium 8.6 mg/dL (8.5-10.1); Chloride 101 mmol/L (98-107); Glucose 81 mg/dL (70-100); Magnesium 1.7 mg/dL (1.8-2.4); PHOSPHORUS 4.2 mg/dL (2.6-4.7); Potassium 4.3 mmol/L (3.5-5.1); Sodium 138 mmol/L (136-145); Total Protein 6.6 g/dL (6.4-8.2)
== END 2018-08-18 20:29 ==
LOC: LBN 20:09
PROVIDERS: PCP Nurse Practitioner; Visit Provider Nurse Practitioner
DX: C15.9 Malignant neoplasm of esophagus, unspecified (principal); E44.0 Moderate protein-calorie malnutrition
CPT/HCPCS: 80053; 83735; 84100

== ENCOUNTER 2018-09-22 07:04 | Outpatient (CLI) | payer OTHER, SELFPAY ==
[2018-09-22 07:40] LABS: Abs Immature Grans 0.02 k/cumm (0.0-0.09); Absolute Basophil Count 0.02 k/cumm (0.0-0.2); Absolute Eosinophil Count 0.27 k/cumm (0.0-0.7); Absolute Lymphocyte Count 1.44 k/cumm (1.2-3.4); Absolute Monocyte Count 0.66 k/cumm (0.11-0.7); Absolute Neutrophil Count 5.62 k/cumm (1.2-6.7); Basophils % 0.2; Eosinophils % 3.4; HCT 36.7 % (40.0-50.0); HGB 11.8 g/dL (13.5-17.5); Immature Grans % 0.2; Lymphocytes % 17.9; Mean Corp. HGB Concentration 32.2 g/dL (32.0-36.0); Mean Corpuscular Hemoglobin 29.2 pg (27.0-33.0); Mean Corpuscular Volume 90.8 fL (80-95); Mean Platelet Volume 10.2 fL (8.0-11.0); Monocytes % 8.2; Neutrophils % 70.1; Platelet Count 188 x1000/uL (130-400); RBC 4.04 m/cumm (4.50-6.00); RBC Distribution Width 14.6 % (11.8-14.1); White Blood Cell Count 8.03 k/cumm (4.4-10.8)
[2018-09-22 08:22] LABS: ALT 40 U/L (12-78); AST 21 U/L (15-37); Albumin 3.2 g/dL (3.4-5.0); Alkaline Phosphatase 90 U/L (46-116); Anion Gap 9.2 mmol/L (3-11); BUN 23 mg/dL (7-18); Bilirubin, Total 0.4 mg/dL (0.2-1.0); CO2 27.8 mmol/L (21.0-32.0); CREATININE 0.75 mg/dL (0.70-1.30); Calcium 8.9 mg/dL (8.5-10.1); Chloride 103 mmol/L (98-107); Glucose 110 mg/dL (70-100); Potassium 4.5 mmol/L (3.5-5.1); Sodium 140 mmol/L (136-145); Total Protein 6.8 g/dL (6.4-8.2)
== END 2018-09-22 07:24 ==
PROVIDERS: PCP Nurse Practitioner; Visit Provider Radiology Radiation Oncology
DX: K22.9 Disease of esophagus, unspecified (principal)
CPT/HCPCS: 36415; 80053; 85025

== ENCOUNTER 2018-09-27 06:32 | Outpatient (CLI) | payer OTHER, SELFPAY ==
[2018-09-27 07:41] LABS: Abs Immature Grans 0.02 k/cumm (0.0-0.09); Absolute Basophil Count 0.02 k/cumm (0.0-0.2); Absolute Eosinophil Count 0.16 k/cumm (0.0-0.7); Absolute Lymphocyte Count 1.04 k/cumm (1.2-3.4); Absolute Monocyte Count 0.37 k/cumm (0.11-0.7); Absolute Neutrophil Count 5.42 k/cumm (1.2-6.7); Basophils % 0.3; Eosinophils % 2.3; HCT 38.6 % (40.0-50.0); HGB 12.9 g/dL (13.5-17.5); Immature Grans % 0.3; Lymphocytes % 14.8; Mean Corp. HGB Concentration 33.4 g/dL (32.0-36.0); Mean Corpuscular Hemoglobin 29.9 pg (27.0-33.0); Mean Corpuscular Volume 89.4 fL (80-95); Mean Platelet Volume 10.4 fL (8.0-11.0); Monocytes % 5.3; Platelet Count 215 x1000/uL (130-400); RBC 4.32 m/cumm (4.50-6.00); RBC Distribution Width 14.5 % (11.8-14.1); White Blood Cell Count 7.03 k/cumm (4.4-10.8)
[2018-09-27 07:51] LABS: ALT 38 U/L (12-78); AST 21 U/L (15-37); Albumin 3.3 g/dL (3.4-5.0); Alkaline Phosphatase 93 U/L (46-116); Anion Gap 9.9 mmol/L (3-11); BUN 18 mg/dL (7-18); Bilirubin, Total 0.6 mg/dL (0.2-1.0); CO2 24.1 mmol/L (21.0-32.0); CREATININE 0.62 mg/dL (0.70-1.30); Calcium 8.9 mg/dL (8.5-10.1); Chloride 103 mmol/L (98-107); Glucose 106 mg/dL (70-100); Potassium 4.2 mmol/L (3.5-5.1); Sodium 137 mmol/L (136-145); Total Protein 7.3 g/dL (6.4-8.2)
== END 2018-09-27 06:52 ==
PROVIDERS: PCP Nurse Practitioner; Visit Provider Nurse Practitioner Adult Health
DX: K22.9 Disease of esophagus, unspecified (principal)
CPT/HCPCS: 36415; 80053; 85025

== ENCOUNTER 2018-10-04 01:55 | Outpatient (CLI) | payer OTHER, SELFPAY ==
[2018-10-04 08:28] LABS: Abs Immature Grans 0.02 k/cumm (0.0-0.09); Absolute Basophil Count 0.02 k/cumm (0.0-0.2); Absolute Eosinophil Count 0.08 k/cumm (0.0-0.7); Absolute Lymphocyte Count 0.46 k/cumm (1.2-3.4); Absolute Monocyte Count 0.51 k/cumm (0.11-0.7); Absolute Neutrophil Count 4.06 k/cumm (1.2-6.7); Basophils % 0.4; Eosinophils % 1.6; HCT 35.3 % (40.0-50.0); HGB 11.6 g/dL (13.5-17.5); Immature Grans % 0.4; Lymphocytes % 8.9; Mean Corp. HGB Concentration 32.9 g/dL (32.0-36.0); Mean Corpuscular Hemoglobin 29.7 pg (27.0-33.0); Mean Corpuscular Volume 90.5 fL (80-95); Mean Platelet Volume 9.8 fL (8.0-11.0); Monocytes % 9.9; Neutrophils % 78.8; Platelet Count 181 x1000/uL (130-400); RBC Distribution Width 14.6 % (11.8-14.1); White Blood Cell Count 5.15 k/cumm (4.4-10.8)
[2018-10-04 08:40] LABS: ALT 27 U/L (12-78); AST 15 U/L (15-37); Albumin 3.2 g/dL (3.4-5.0); Alkaline Phosphatase 80 U/L (46-116); Anion Gap 6.6 mmol/L (3-11); BUN 18 mg/dL (7-18); Bilirubin, Total 0.2 mg/dL (0.2-1.0); CO2 26.4 mmol/L (21.0-32.0); CREATININE 0.59 mg/dL (0.70-1.30); Calcium 8.8 mg/dL (8.5-10.1); Chloride 103 mmol/L (98-107); Glucose 105 mg/dL (70-100); Potassium 4.7 mmol/L (3.5-5.1); Sodium 136 mmol/L (136-145); Total Protein 6.8 g/dL (6.4-8.2)
== END 2018-10-04 02:15 ==
PROVIDERS: PCP Nurse Practitioner; Visit Provider Nurse Practitioner Adult Health
DX: K22.9 Disease of esophagus, unspecified (principal)
CPT/HCPCS: 36415; 80053; 85025

== ENCOUNTER 2018-10-11 01:48 | Outpatient (CLI) | payer OTHER, SELFPAY ==
[2018-10-11 08:33] LABS: Abs Immature Grans 0.03 k/cumm (0.0-0.09); Absolute Basophil Count 0.01 k/cumm (0.0-0.2); Absolute Eosinophil Count 0.05 k/cumm (0.0-0.7); Absolute Lymphocyte Count 0.43 k/cumm (1.2-3.4); Absolute Monocyte Count 0.42 k/cumm (0.11-0.7); Absolute Neutrophil Count 3.34 k/cumm (1.2-6.7); Basophils % 0.2; Eosinophils % 1.2; HCT 35.4 % (40.0-50.0); HGB 11.6 g/dL (13.5-17.5); Immature Grans % 0.7; Mean Corp. HGB Concentration 32.8 g/dL (32.0-36.0); Mean Corpuscular Hemoglobin 29.7 pg (27.0-33.0); Mean Corpuscular Volume 90.5 fL (80-95); Monocytes % 9.8; Neutrophils % 78.1; Platelet Count 151 x1000/uL (130-400); RBC 3.91 m/cumm (4.50-6.00); RBC Distribution Width 15.3 % (11.8-14.1); White Blood Cell Count 4.28 k/cumm (4.4-10.8)
[2018-10-11 08:55] LABS: ALT 41 U/L (12-78); AST 22 U/L (15-37); Albumin 3.2 g/dL (3.4-5.0); Alkaline Phosphatase 82 U/L (46-116); Anion Gap 8.8 mmol/L (3-11); BUN 17 mg/dL (7-18); Bilirubin, Total 0.4 mg/dL (0.2-1.0); CO2 27.2 mmol/L (21.0-32.0); CREATININE 0.63 mg/dL (0.70-1.30); Chloride 101 mmol/L (98-107); Glucose 103 mg/dL (70-100); Potassium 4.5 mmol/L (3.5-5.1); Sodium 137 mmol/L (136-145); Total Protein 6.8 g/dL (6.4-8.2)
== END 2018-10-11 02:08 ==
PROVIDERS: PCP Nurse Practitioner; Visit Provider Nurse Practitioner Adult Health
DX: C15.9 Malignant neoplasm of esophagus, unspecified (principal); K22.9 Disease of esophagus, unspecified
CPT/HCPCS: 36415; 80053; 85025

== ENCOUNTER 2018-10-18 01:50 | Outpatient (CLI) | payer OTHER, SELFPAY ==
[2018-10-18 08:54] LABS: Abs Immature Grans 0.02 k/cumm (0.0-0.09); Absolute Basophil Count 0.01 k/cumm (0.0-0.2); Absolute Eosinophil Count 0.05 k/cumm (0.0-0.7); Absolute Lymphocyte Count 0.26 k/cumm (1.2-3.4); Absolute Monocyte Count 0.38 k/cumm (0.11-0.7); Absolute Neutrophil Count 2.69 k/cumm (1.2-6.7); Basophils % 0.3; Eosinophils % 1.5; HCT 34.2 % (40.0-50.0); HGB 11.4 g/dL (13.5-17.5); Immature Grans % 0.6; Lymphocytes % 7.6; Mean Corp. HGB Concentration 33.3 g/dL (32.0-36.0); Mean Corpuscular Hemoglobin 30.4 pg (27.0-33.0); Mean Corpuscular Volume 91.2 fL (80-95); Mean Platelet Volume 9.2 fL (8.0-11.0); Monocytes % 11.1; Neutrophils % 78.9; Platelet Count 122 x1000/uL (130-400); RBC 3.75 m/cumm (4.50-6.00); White Blood Cell Count 3.41 k/cumm (4.4-10.8)
[2018-10-18 09:13] LABS: ALT 35 U/L (12-78); AST 19 U/L (15-37); Albumin 3.3 g/dL (3.4-5.0); Alkaline Phosphatase 81 U/L (46-116); Anion Gap 10.2 mmol/L (3-11); BUN 18 mg/dL (7-18); Bilirubin, Total 0.4 mg/dL (0.2-1.0); CO2 25.8 mmol/L (21.0-32.0); CREATININE 0.64 mg/dL (0.70-1.30); Chloride 104 mmol/L (98-107); Glucose 113 mg/dL (70-100); Potassium 4.5 mmol/L (3.5-5.1); Sodium 140 mmol/L (136-145)
== END 2018-10-18 02:10 ==
PROVIDERS: PCP Nurse Practitioner; Visit Provider Nurse Practitioner Adult Health
DX: C15.5 Malignant neoplasm of lower third of esophagus (principal)
CPT/HCPCS: 36415; 80053; 85025

== ENCOUNTER 2018-10-25 07:08 | Outpatient (CLI) | payer OTHER, SELFPAY ==
[2018-10-25 08:33] LABS: Abs Immature Grans 0.01 k/cumm (0.0-0.09); Absolute Basophil Count 0.01 k/cumm (0.0-0.2); Absolute Eosinophil Count 0.05 k/cumm (0.0-0.7); Absolute Lymphocyte Count 0.19 k/cumm (1.2-3.4); Absolute Monocyte Count 0.32 k/cumm (0.11-0.7); Absolute Neutrophil Count 2.04 k/cumm (1.2-6.7); Basophils % 0.4; Eosinophils % 1.9; HCT 32.9 % (40.0-50.0); HGB 10.7 g/dL (13.5-17.5); Immature Grans % 0.4; Lymphocytes % 7.3; Mean Corp. HGB Concentration 32.5 g/dL (32.0-36.0); Mean Corpuscular Hemoglobin 29.9 pg (27.0-33.0); Mean Corpuscular Volume 91.9 fL (80-95); Mean Platelet Volume 9.2 fL (8.0-11.0); Monocytes % 12.2; Neutrophils % 77.8; Platelet Count 120 x1000/uL (130-400); RBC 3.58 m/cumm (4.50-6.00); RBC Distribution Width 16.6 % (11.8-14.1); White Blood Cell Count 2.62 k/cumm (4.4-10.8)
[2018-10-25 08:54] LABS: ALT 29 U/L (12-78); AST 18 U/L (15-37); Albumin 3.2 g/dL (3.4-5.0); Alkaline Phosphatase 77 U/L (46-116); Anion Gap 10.3 mmol/L (3-11); BUN 16 mg/dL (7-18); Bilirubin, Total 0.2 mg/dL (0.2-1.0); CO2 26.7 mmol/L (21.0-32.0); CREATININE 0.65 mg/dL (0.70-1.30); Calcium 8.7 mg/dL (8.5-10.1); Chloride 104 mmol/L (98-107); Glucose 110 mg/dL (70-100); Potassium 4.5 mmol/L (3.5-5.1); Sodium 141 mmol/L (136-145); Total Protein 6.7 g/dL (6.4-8.2)
== END 2018-10-25 07:28 ==
PROVIDERS: PCP Nurse Practitioner; Visit Provider Nurse Practitioner Adult Health
DX: C15.5 Malignant neoplasm of lower third of esophagus (principal)
CPT/HCPCS: 36415; 80053; 85025

== ENCOUNTER 2018-12-20 10:13 | Day surgery (SDC) | payer OTHER, SELFPAY ==
[2018-12-20 10:28] VITALS: BP 109/74; PULSE 87; RESP 16; TEMP 36.4; O2SAT 96
[2018-12-20] MEDS: Lactated Ringers 1,000 ML 80 ML IV (11:00)
--- NOTE | 2018-12-20 11:57 | DI.RAD_ITS ---
SYMPTOM/DIAGNOSIS: ESOPHAGEAL CA, PICC PLACEMENT C-ARM: Fluoroscopy Time: 10.9 seconds C-arm fluoroscopy was utilized by Dr. Manzano during placement of Portacath. Hard copy shows Portacath in position via left subclavian route, the tip of the catheter overlies the SVC.
--- NOTE | 2018-12-20 12:00 | ROE_ITS ---
DATE: DECEMBER 20, 2018 Preoperative Diagnosis: Esophageal cancer Postoperative Diagnosis: Esophageal cancer Operation: Left subclavian Mediport placement Anesthesia: Local and sedation Surgeon: Ingrid Manzano M.D. Indications: This is a 48 year-old man who is receiving chemotherapy for metastatic esophageal cancer. He presents for Mediport placement. Procedure: He was placed supine on the operating table with his arms tucked. His bilateral chest and neck were prepped and draped sterilely. The skin of the upper left chest was infiltrated with local anesthetic. The subclavian vein was accessed with one pass of the #18 gauge needle. The wire threaded without difficulty and was shown to be in the superior vena cava using fluoroscopy. The needle was removed and the wire was clipped to the drape. A pocket was made by making an incision inferomedial extending down from the wire. Subcutaneous tissue was divided with cautery and then a space created above the pectoralis muscle. The port was attached to the catheter and then the port placed in the pocket. The catheter length was measured using fluoroscopy and trimmed. The peel-away and dilator were passed over the wire and then the wire and dilator removed. The port catheter was passed down the peel-away which was then removed. The port was shown to be in good position on fluoroscopy. The port was then sutured to the chest wall with a #3-0 Prolene stitch. The subcutaneous tissue was closed with interrupted #3-0 Vicryl sutures and the skin was closed with a running #4-0 Monocryl subcuticular stitch. The port was then accessed with a Hernandez needle and flushed with 4.5 cc. of heparinized saline. He tolerated the procedure well. He was stable to recovery.
--- NOTE | 2018-12-20 12:01 | W.PM.DSUDISC ---
Discharge Plan Disposition Patient Disposition: HOME Condition: Good Discharge Details Reason For Visit: Mediport placement Attending Provider: Ingrid Manzano Primary Care Provider: Kena Gustafson Home Meds and New Rx's Prescriptions: Continued potassium, sodium phosphates 280-160-250 mg powder in packet 1 packet PO QID Qty: 120 RF: 12 nicotine (polacrilex) 4 mg gum 4 mg BC Q1H Qty: 200 RF: 12 sennosides 8.8 mg/5 mL syrup 5 ml Feeding Tube DAILY PRNRF: 0 prochlorperazine maleate [Compazine] 10 mg tablet 10 mg PO Q6H PRNRF: 0 Osmolite 1.5 Liam 0.06 gram-1.5 kcal/mL liquid See Patient Comments Feeding Tube .COMPLEX Qty: 279 RF: 12 albuterol sulfate 90 mcg/actuation HFA aerosol inhaler 2 puff IH Q6H PRN (Reason: shortness of breath or wheezing) Qty: 18 RF: 12 multivitamin [Once Daily] 1 EACH tablet 1 tab PO DAILY RF: 0 acetaminophen 325 mg Tablet 325 mg PO Q4H PRN PRNRF: 0 ibuprofen 200 mg Capsule 400 mg PO Q6H PRNRF: 0 Mag-Al-Sim 15 - 30 ml PO .Q2H PRN RF: 0 Discharge Instructions Additional Instructions: The top bandage can be removed in two or three days. The steri strips will usually stick for about a week. When the edges start to curl up, they can be removed. It is okay to shower tomorrow, the water can run over the dressing. Do not swim or soak in a tub for two weeks Call for any concerns including fever, increased pain, shortness of breath, incision redness or drainage. Referrals: Ingrid Manzano MD [ [facility] ST[facility]FF PHYSICIAN] - (Follow up as needed) Activity:: Activity as Tolerated Remove Dressings/Wound Care:: 72 hours Shower/Bathe:: 24 hours Diet:: As Tolerated Discharge Orders Discharge Orders: Discharge Order (Routine); Ordered 12/20/18 Ordered By: Ingrid Manzano DS: Diagnosis Discharge Diagnosis (1) Esophageal cancer: Status: Acute (2) Port-A-Cath in place:
[2018-12-20] MEDS: ceFAZolin 2 GM/50 ML BAG IVPB (12:18)
[2018-12-20] MEDS: Heparin 500 UNITS/5 ML SYRINGE (12:44)
[2018-12-20] MEDS: Normal Saline 50 ML (12:44)
[2018-12-20] MEDS: Lidocaine 1% Multi-Dose 50 ML VIAL (12:46)
[2018-12-20 13:45] VITALS: BP 94/64; PULSE 72; RESP 16; TEMP 36; O2SAT 95
== END 2018-12-20 14:19 | disposition home or self-care (01) ==
PROVIDERS: PCP Nurse Practitioner; Visit Provider Surgery
PROC: (CPT 36561; principal; 2018-12-20 11:30)
DX: C15.5 Malignant neoplasm of lower third of esophagus (principal); Z45.2 Encounter for adjustment and management of vascular access device; J44.9 Chronic obstructive pulmonary disease, unspecified; F17.210 Nicotine dependence, cigarettes, uncomplicated
CPT/HCPCS: 36561; 77001; C1788; J0690; J2250

== ENCOUNTER 2019-01-17 01:12 | Outpatient (RCR) | payer OTHER, SELFPAY ==
[2019-01-04] MEDS: Normal Saline Flush 10 ML SYR IVP (08:19)
[2019-01-04 08:35] LABS: Abs Immature Grans 0.02 k/cumm (0.0-0.09); Absolute Basophil Count 0.02 k/cumm (0.0-0.2); Absolute Eosinophil Count 0.17 k/cumm (0.0-0.7); Absolute Lymphocyte Count 0.59 k/cumm (1.2-3.4); Absolute Monocyte Count 0.48 k/cumm (0.11-0.7); Basophils % 0.4; Eosinophils % 3.5; HCT 37.4 % (40.0-50.0); Immature Grans % 0.4; Lymphocytes % 12.1; Mean Corp. HGB Concentration 32.1 g/dL (32.0-36.0); Mean Corpuscular Hemoglobin 31.7 pg (27.0-33.0); Mean Corpuscular Volume 98.7 fL (80-95); Monocytes % 9.8; Neutrophils % 73.8; Platelet Count 163 x1000/uL (130-400); RBC 3.79 m/cumm (4.50-6.00); RBC Distribution Width 14.1 % (11.8-14.1); White Blood Cell Count 4.88 k/cumm (4.4-10.8)
[2019-01-04 08:50] LABS: ALT 42 U/L (16-63); AST 27 U/L (15-37); Albumin 3.5 g/dL (3.4-5.0); Alkaline Phosphatase 129 U/L (46-116); Anion Gap 8.5 mmol/L (3-11); BUN 22 mg/dL (7-18); Bilirubin, Total 0.3 mg/dL (0.2-1.0); CO2 27.5 mmol/L (21.0-32.0); CREATININE 0.75 mg/dL (0.70-1.30); Calcium 8.7 mg/dL (8.5-10.1); Chloride 104 mmol/L (98-107); Glucose 104 mg/dL (70-100); Sodium 140 mmol/L (136-145); Total Protein 7.4 g/dL (6.4-8.2)
[2019-01-05 10:04] LABS: CEA 1.9 ng/ml
[2019-01-17 08:29] LABS: Abs Immature Grans 0.01 k/cumm (0.0-0.09); Absolute Basophil Count 0.02 k/cumm (0.0-0.2); Absolute Eosinophil Count 0.12 k/cumm (0.0-0.7); Absolute Lymphocyte Count 0.47 k/cumm (1.2-3.4); Absolute Neutrophil Count 1.75 k/cumm (1.2-6.7); Basophils % 0.7; Eosinophils % 4.3; HGB 12.3 g/dL (13.5-17.5); Immature Grans % 0.4; Mean Corp. HGB Concentration 32.4 g/dL (32.0-36.0); Mean Corpuscular Hemoglobin 31.5 pg (27.0-33.0); Mean Corpuscular Volume 97.4 fL (80-95); Mean Platelet Volume 9.9 fL (8.0-11.0); Monocytes % 14.4; Neutrophils % 63.2; Platelet Count 135 x1000/uL (130-400); RBC Distribution Width 13.5 % (11.8-14.1); White Blood Cell Count 2.77 k/cumm (4.4-10.8)
[2019-01-17 08:54] LABS: ALT 42 U/L (16-63); AST 31 U/L (15-37); Albumin 3.6 g/dL (3.4-5.0); Alkaline Phosphatase 137 U/L (46-116); Anion Gap 10.5 mmol/L (3-11); BUN 18 mg/dL (7-18); Bilirubin, Total 0.7 mg/dL (0.2-1.0); CO2 26.5 mmol/L (21.0-32.0); CREATININE 0.77 mg/dL (0.70-1.30); Calcium 8.8 mg/dL (8.5-10.1); Chloride 106 mmol/L (98-107); Glucose 106 mg/dL (70-100); Potassium 3.7 mmol/L (3.5-5.1); Sodium 143 mmol/L (136-145); Total Protein 7.4 g/dL (6.4-8.2)
[2019-01-18 09:55] LABS: CEA 2.3 ng/ml
== END 2019-01-30 23:59 | disposition home or self-care (01) ==
LOC: INF 01:12
PROVIDERS: PCP Nurse Practitioner; Visit Provider Registered Nurse Oncology
DX: C15.5 Malignant neoplasm of lower third of esophagus (principal); Z45.2 Encounter for adjustment and management of vascular access device
CPT/HCPCS: 36591; 80053; 82378; 85025

== ENCOUNTER 2019-02-21 01:54 | Outpatient (RCR) | payer MEDICAID, SELFPAY ==
[2019-01-31] MEDS: Normal Saline Flush 10 ML SYR IVP (13:19)
[2019-01-31 13:35] LABS: Abs Immature Grans 0.01 k/cumm (0.0-0.09); Absolute Basophil Count 0.01 k/cumm (0.0-0.2); Absolute Eosinophil Count 0.06 k/cumm (0.0-0.7); Absolute Lymphocyte Count 0.53 k/cumm (1.2-3.4); Absolute Monocyte Count 0.76 k/cumm (0.11-0.7); Basophils % 0.5; HCT 36.9 % (40.0-50.0); HGB 12.2 g/dL (13.5-17.5); Immature Grans % 0.5; Lymphocytes % 26.9; Mean Corp. HGB Concentration 33.1 g/dL (32.0-36.0); Mean Corpuscular Hemoglobin 31.9 pg (27.0-33.0); Mean Corpuscular Volume 96.3 fL (80-95); Monocytes % 38.6; Neutrophils % 30.5; Platelet Count 150 x1000/uL (130-400); RBC 3.83 m/cumm (4.50-6.00); RBC Distribution Width 13.9 % (11.8-14.1)
[2019-01-31 13:48] LABS: ALT 39 U/L (16-63); AST 25 U/L (15-37); Albumin 3.4 g/dL (3.4-5.0); Alkaline Phosphatase 136 U/L (46-116); Anion Gap 9.4 mmol/L (3-11); BUN 16 mg/dL (7-18); Bilirubin, Total 0.4 mg/dL (0.2-1.0); CO2 26.6 mmol/L (21.0-32.0); CREATININE 0.83 mg/dL (0.70-1.30); Calcium 8.9 mg/dL (8.5-10.1); Chloride 105 mmol/L (98-107); Glucose 102 mg/dL (70-100); Potassium 3.9 mmol/L (3.5-5.1); Sodium 141 mmol/L (136-145); Total Protein 7.5 g/dL (6.4-8.2)
[2019-01-31 13:57] LABS: White Blood Cell Count 1.97 k/cumm (4.4-10.8)
[2019-01-31 13:59] LABS: Diff Comment Diff Reviewed; RBC Morphology Normal
[2019-02-01 16:39] LABS: CEA 2.8 ng/ml
[2019-02-07] MEDS: Normal Saline Flush 10 ML SYR IVP (09:21)
[2019-02-07 09:31] LABS: Abs Immature Grans 0.15 k/cumm (0.0-0.09); HGB 11.9 g/dL (13.5-17.5); Mean Corp. HGB Concentration 32.2 g/dL (32.0-36.0); Mean Corpuscular Hemoglobin 31.3 pg (27.0-33.0); Mean Corpuscular Volume 97.4 fL (80-95); Mean Platelet Volume 9.6 fL (8.0-11.0); Platelet Count 196 x1000/uL (130-400); RBC Distribution Width 14.4 % (11.8-14.1)
[2019-02-07 09:40] LABS: ALT 34 U/L (16-63); AST 28 U/L (15-37); Albumin 3.2 g/dL (3.4-5.0); Alkaline Phosphatase 143 U/L (46-116); BUN 20 mg/dL (7-18); Bilirubin, Total 0.3 mg/dL (0.2-1.0); CREATININE 0.81 mg/dL (0.70-1.30); Calcium 8.8 mg/dL (8.5-10.1); Chloride 105 mmol/L (98-107); Glucose 101 mg/dL (70-100); Potassium 4.3 mmol/L (3.5-5.1); Sodium 142 mmol/L (136-145); Total Protein 7.4 g/dL (6.4-8.2)
[2019-02-07 09:48] LABS: Absolute Lymphocyte Count 0.53 k/cumm (1.2-3.4); Absolute Neutrophil Count 4.31 k/cumm (1.2-6.7)
[2019-02-07 09:49] LABS: Absolute Eosinophil Count 0.12 k/cumm (0.0-0.7); Absolute Monocyte Count 0.77 k/cumm (0.11-0.7); Basophilic Stippling Present; Diff Comment Manual Differential; Polychromasia Present
[2019-02-08 10:04] LABS: CEA 2.8 ng/ml
[2019-02-21] MEDS: Normal Saline Flush 10 ML SYR IVP (10:41)
[2019-02-21 10:57] LABS: Abs Immature Grans 0.15 k/cumm (0.0-0.09); Absolute Basophil Count 0.03 k/cumm (0.0-0.2); Absolute Eosinophil Count 0.18 k/cumm (0.0-0.7); Absolute Lymphocyte Count 0.62 k/cumm (1.2-3.4); Absolute Monocyte Count 1.02 k/cumm (0.11-0.7); Absolute Neutrophil Count 7.48 k/cumm (1.2-6.7); Basophils % 0.3; Eosinophils % 1.9; HGB 12.2 g/dL (13.5-17.5); Immature Grans % 1.6; Lymphocytes % 6.5; Mean Corp. HGB Concentration 32.1 g/dL (32.0-36.0); Mean Corpuscular Hemoglobin 30.9 pg (27.0-33.0); Mean Corpuscular Volume 96.2 fL (80-95); Mean Platelet Volume 10.2 fL (8.0-11.0); Monocytes % 10.8; Neutrophils % 78.9; Platelet Count 113 x1000/uL (130-400); RBC 3.95 m/cumm (4.50-6.00); RBC Distribution Width 14.9 % (11.8-14.1); White Blood Cell Count 9.48 k/cumm (4.4-10.8)
[2019-02-21 11:08] LABS: ALT 50 U/L (16-63); AST 42 U/L (15-37); Albumin 3.4 g/dL (3.4-5.0); Alkaline Phosphatase 165 U/L (46-116); Anion Gap 9.9 mmol/L (3-11); BUN 15 mg/dL (7-18); Bilirubin, Total 0.2 mg/dL (0.2-1.0); CO2 29.1 mmol/L (21.0-32.0); CREATININE 0.79 mg/dL (0.70-1.30); Calcium 8.7 mg/dL (8.5-10.1); Chloride 105 mmol/L (98-107); Glucose 99 mg/dL (70-100); Potassium 3.7 mmol/L (3.5-5.1); Sodium 144 mmol/L (136-145); Total Protein 7.3 g/dL (6.4-8.2)
[2019-02-22 10:58] LABS: CEA 2.4 ng/ml
== END 2019-03-02 23:59 | disposition home or self-care (01) ==
LOC: INF 01:54
PROVIDERS: PCP Nurse Practitioner; Visit Provider Registered Nurse Oncology
DX: C15.5 Malignant neoplasm of lower third of esophagus (principal); Z45.2 Encounter for adjustment and management of vascular access device
CPT/HCPCS: 36591; 80053; 82378; 85025

== ENCOUNTER 2019-03-14 00:41 | Outpatient (CLI) | payer MEDICAID, SELFPAY ==
--- NOTE | 2019-03-14 08:00 | DI.CT_ITS ---
EXAM: CT CHEST/ABD W CLINICAL HISTORY: ESOPHAGUS CA,LIVER METS,RESTAGING EXAM, ? RESPONSE, C78.7, C15.5. TECHNIQUE: Imaging Protocol: Axial computed tomography images with coronal and sagittal reformatted images were created and reviewed CONTRAST MATERIAL: Intravenous: Omnipaque 350 Contrast volume:100 ml contrast route:IV - Oral: yes COMPARISON: CT CHEST/ABD/PEL W from 08/12/2018 FINDINGS: CHEST: Tracheobronchial tree: Patent where visualized. Mediastinum and Rubi: There is persistent thickening of the wall of the distal esophagus consistent w ith the patient's history of esophageal carcinoma. No significant mediastinal adenopathy is present. Pulmonary parenchyma: Centrilobular emphysematous changes are present in the lungs. There is scarrin g or atelectasis seen in the lower lobes bilaterally. No pulmonary nodules are identified. No archi tectural distortion. Pleura: No effusion or pneumothorax. Lymph nodes: Within normal limits. Aorta: Thoracic portion non-dilated. ABDOMEN: Liver: Normal density. There is a 2.4 x 3 x 2.4 cm heterogeneous mass in the right lobe of the liver. The portal, superior mesenteric and splenic veins are patent. Gallbladder and biliary tract: No radiodense calculus or dilation. Pancreas: Normal density, no abnormal calcifications or inflammatory process. Spleen: Normal. Kidneys: Normal size, contour and axis. No radiodense stones or obstructive uropathy. No masses seen. There is a stable left renal cyst. Adrenal glands: No masses seen. Aorta: Abdominal portion non-dilated. Atherosclerosis. Lymph nodes: Within normal limits. Bowel: No obstruction or bowel wall thickening. The appendix is normal in size without evidence of ad jacent mesenteric fat stranding or adjacent fluid collection. There is an enteric feeding tube in th e left upper quadrant. Peritoneal cavity: No ascites, collection or mesenteric inflammatory response. Bones: Within normal limits. IMPRESSION: 1. 2.4 x 3 x 2.4 cm heterogeneous mass in the right lobe of the liver. The findings suspicious from hepatic metastasis. 2. Esophageal mass consistent with the patient's diagnosis of esophageal carcinoma. DATA REPOSITORY: All CT scans at this facility are submitted to the National Radiology Data Registry (NRDR) Dose Index Registry (DIR) with the [employer] (A[employer]). RADIATION OPTIMIZATION: All CT scans at this facility use at least one of these dose optimization te chniques: automated exposure control; mA and/or kV adjustment per patient size (includes targeted exa ms where dose is matched to clinical indication); or iterative reconstruction.
[2019-03-14] MEDS: Omnipaque 350 MG/ML 50 ML BTL IJ (08:38)
[2019-03-14] MEDS: Omnipaque 350 MG/ML 100 ML BTL IJ (08:40)
[2019-03-14] MEDS: Breeza Beverage 473 ML BTL PO (08:40)
== END 2019-03-14 01:01 ==
PROVIDERS: PCP Nurse Practitioner; Visit Provider Internal Medicine
DX: C78.7 Secondary malignant neoplasm of liver and intrahepatic bile duct (principal); C15.5 Malignant neoplasm of lower third of esophagus; Z12.89 Encounter for screening for malignant neoplasm of other sites; J98.4 Other disorders of lung
CPT/HCPCS: 71260; 74160; J3490; Q9967

== ENCOUNTER 2019-03-22 07:00 | Outpatient (RCR) | payer MEDICAID, SELFPAY ==
[2019-03-07] MEDS: Normal Saline Flush 10 ML SYR IVP (13:21)
[2019-03-07 13:29] LABS: Absolute Basophil Count 0.02 k/cumm (0.0-0.2); Absolute Eosinophil Count 0.15 k/cumm (0.0-0.7); Absolute Lymphocyte Count 0.76 k/cumm (1.2-3.4); Absolute Monocyte Count 1.35 k/cumm (0.11-0.7); Absolute Neutrophil Count 9.74 k/cumm (1.2-6.7); Basophils % 0.2; Eosinophils % 1.2; HCT 35.9 % (40.0-50.0); HGB 11.7 g/dL (13.5-17.5); Immature Grans % 0.8; Lymphocytes % 6.3; Mean Corp. HGB Concentration 32.6 g/dL (32.0-36.0); Mean Corpuscular Hemoglobin 31.3 pg (27.0-33.0); Mean Platelet Volume 10.7 fL (8.0-11.0); Monocytes % 11.1; Neutrophils % 80.4; Platelet Count 104 x1000/uL (130-400); RBC 3.74 m/cumm (4.50-6.00); RBC Distribution Width 16.2 % (11.8-14.1); White Blood Cell Count 12.12 k/cumm (4.4-10.8)
[2019-03-07 13:45] LABS: ALT 63 U/L (16-63); AST 37 U/L (15-37); Albumin 3.4 g/dL (3.4-5.0); Alkaline Phosphatase 156 U/L (46-116); Anion Gap 9.8 mmol/L (3-11); BUN 9 mg/dL (7-18); Bilirubin, Total 0.4 mg/dL (0.2-1.0); CO2 29.2 mmol/L (21.0-32.0); CREATININE 0.75 mg/dL (0.70-1.30); Calcium 8.7 mg/dL (8.5-10.1); Chloride 106 mmol/L (98-107); Glucose 93 mg/dL (70-100); Potassium 3.5 mmol/L (3.5-5.1); Sodium 145 mmol/L (136-145); Total Protein 7.2 g/dL (6.4-8.2)
[2019-03-22] MEDS: Normal Saline Flush 10 ML SYR IVP (07:15)
[2019-03-22 07:30] LABS: Absolute Basophil Count 0.03 k/cumm (0.0-0.2); Absolute Eosinophil Count 0.16 k/cumm (0.0-0.7); Absolute Neutrophil Count 4.06 k/cumm (1.2-6.7); Basophils % 0.5; Eosinophils % 2.8; HCT 36.4 % (40.0-50.0); HGB 11.7 g/dL (13.5-17.5); Immature Grans % 1.8; Lymphocytes % 10.6; Mean Corp. HGB Concentration 32.1 g/dL (32.0-36.0); Mean Corpuscular Volume 96.6 fL (80-95); Mean Platelet Volume 10.7 fL (8.0-11.0); Monocytes % 12.4; Neutrophils % 71.9; Platelet Count 119 x1000/uL (130-400); RBC 3.77 m/cumm (4.50-6.00); RBC Distribution Width 17.9 % (11.8-14.1); White Blood Cell Count 5.65 k/cumm (4.4-10.8)
[2019-03-22 07:37] LABS: ALT 68 U/L (16-63); AST 53 U/L (15-37); Albumin 3.4 g/dL (3.4-5.0); Alkaline Phosphatase 157 U/L (46-116); Anion Gap 10.2 mmol/L (3-11); BUN 9 mg/dL (7-18); Bilirubin, Total 0.4 mg/dL (0.2-1.0); CO2 27.8 mmol/L (21.0-32.0); CREATININE 0.79 mg/dL (0.70-1.30); Calcium 8.9 mg/dL (8.5-10.1); Chloride 106 mmol/L (98-107); Glucose 107 mg/dL (74-106); Potassium 3.5 mmol/L (3.5-5.1); Sodium 144 mmol/L (136-145); Total Protein 6.9 g/dL (6.4-8.2)
[2019-03-23 11:47] LABS: CEA 3.4 ng/mL (See Note)
== END 2019-04-01 23:59 | disposition home or self-care (01) ==
LOC: INF 07:00
PROVIDERS: PCP Nurse Practitioner; Visit Provider Registered Nurse Oncology
DX: C15.5 Malignant neoplasm of lower third of esophagus (principal); Z45.2 Encounter for adjustment and management of vascular access device
CPT/HCPCS: 36591; 80053; 96523; 82378; 85025

== ENCOUNTER 2019-04-12 18:24 | Emergency (ER) | payer MEDICAID, SELFPAY ==
[2019-04-12] VITALS (38 sets, daily range): BP systolic 75–115; BP diastolic 39–84; PULSE 89–115; RESP 10–18; TEMP 36.5–36.7; O2SAT 82–100
[2019-04-12] MEDS: LORazepam 2 MG/ML VIAL (18:50)
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
[2019-04-12 19:04] LABS: Abs Immature Grans 0.36 k/cumm (0.0-0.09); Absolute Eosinophil Count 0.04 k/cumm (0.0-0.7); Absolute Lymphocyte Count 2.38 k/cumm (1.2-3.4); Absolute Neutrophil Count 14.29 k/cumm (1.2-6.7); Basophils % 0.3; Eosinophils % 0.2; HCT 41.6 % (40.0-50.0); HGB 13.1 g/dL (13.5-17.5); Immature Grans % 1.8; Mean Corp. HGB Concentration 31.5 g/dL (32.0-36.0); Mean Corpuscular Hemoglobin 32.6 pg (27.0-33.0); Mean Corpuscular Volume 103.5 fL (80-95); Mean Platelet Volume 10.5 fL (8.0-11.0); Monocytes % 13.8; Neutrophils % 71.9; Platelet Count 232 x1000/uL (130-400); RBC 4.02 m/cumm (4.50-6.00); RBC Distribution Width 19.3 % (11.8-14.1); White Blood Cell Count 19.87 k/cumm (4.4-10.8)
[2019-04-12 19:05] LABS: Absolute Basophil Count 0.06 k/cumm (0.0-0.2); Absolute Monocyte Count 2.74 k/cumm (0.11-0.7)
--- NOTE | 2019-04-12 19:10 | DI.CT_ITS ---
EXAM: CT HEAD WO CLINICAL HISTORY: s/p seizure, h/o esophageal cancer TECHNIQUE: Noncontrast COMPARISON: No exams were available for comparison FINDINGS: There is a mass in the right temporoparietal region measuring 4.5 cm. There is a large amount of mays rrounding edema, causing midline shift. There is some compression of the right lateral ventricle and dilatation of the posterior horn of the left lateral ventricle. The midline shift is 7 millimeters and there is mild uncal herniation. There is high density within the mass which could represent hemor rhagic or calcific components. The patient has a history of esophageal carcinoma and the findings ar e suspicious for metastatic lesion. No additional masses are identified. No destructive bony lesion s are seen. The orbits, sinuses and mastoid air cells are unremarkable. IMPRESSION: 4.5 centimeter lobulated mass in the right temporoparietal lobe with significant vasogenic edema caus ing midline shift and mild uncal herniation.
--- NOTE | 2019-04-12 19:10 | DI.RAD_ITS ---
EXAM: XR CHEST 1V IN DI DEPT INDICATION: seizure, r/o acute disease. COMPARISON: XR CHEST 2V PA LATERAL from 07/04/2018 TECHNIQUE: 2D digital imaging was performed. FINDINGS: A port has been placed via the left subclavian since the previous exam. The tip lies in the superior vena cava. Heart size is normal. The lungs appear clear. IMPRESSION: Negative portable chest.
[2019-04-12 19:18] LABS: AST 61 U/L (15-37); Albumin 3.8 g/dL (3.4-5.0); Alkaline Phosphatase 162 U/L (46-116); Anion Gap 33.9 mmol/L (3-11); BUN 12 mg/dL (7-18); Bilirubin, Total 0.6 mg/dL (0.2-1.0); CO2 10.1 mmol/L (21.0-32.0); Calcium 9.2 mg/dL (8.5-10.1); Chloride 104 mmol/L (98-107); Estimated GFR 49.54 (mL/min/1.73m2); Glucose 159 mg/dL (74-106); Magnesium 2.2 mg/dL (1.8-2.4); Sodium 148 mmol/L (136-145); Total Protein 7.8 g/dL (6.4-8.2)
[2019-04-12 19:19] LABS: Potassium 2.9 mmol/L (3.5-5.1); Troponin I < 0.05 ng/Ml (<0.06)
--- NOTE | 2019-04-12 19:30 | DI.VRAD_ITS ---
PROCEDURE INFORMATION: Exam: CT Head Without Contrast Exam date and time: 04/12/2019 7:04 PM Age: 48 years old Clinical history: Patient HX: Seizure, known esophageal cancer TECHNIQUE: Imaging protocol: Computed tomography of the head without contrast. Radiation optimization: All CT scans at this facility use at least one of these dose optimization techniques: automated exposure control; mA and/or kV adjustment per patient size (includes targeted exams where dose is matched to clinical indication); or iterative reconstruction. COMPARISON: No relevant prior studies available. FINDINGS: Brain: There is a large lobulated heterogeneous and hyperdense mass centered in the posterior right temporal lobe measuring approximately 4.5 x 4.1 x 3.2 cm (craniocaudal x AP x transverse). There is significant surrounding vasogenic edema and findings are concerning for a metastatic lesion. Linear regions of increased density within the lesion may be secondary to foci of hemorrhage or calcification. There is significant mass effect associated with the lesion and vasogenic edema with a 7.5 mm leftward midline shift and mild right uncal herniation. No acute infarct is seen. A region of hypodensity seen in the right bright may be artifactual. Ventricles: No ventriculomegaly. There is effacement of the right lateral ventricle and 3rd ventricle secondary to mass effect. Bones/joints: Unremarkable. No acute fracture. Sinuses: Visualized sinuses are unremarkable. No fluid levels. Mastoid air cells: Visualized mastoid air cells are well aerated. Soft tissues: Unremarkable. IMPRESSION: Large 4.5 cm lobulated mass centered in the right posterior temporal lobe with significant associated vasogenic edema. There is a 7.5 mm leftward midline shift and mild right uncal herniation. Findings are suspicious for a solitary metastatic lesion. Increased density associated with the lesion could be secondary to associated hemorrhage or calcifications. An MRI with and without contrast is recommended for further evaluation. THIS REPORT CONTAINS FINDINGS THAT MAY BE CRITICAL TO PATIENT CARE. The findings were verbally communicated via telephone conference with Joanna Castorena at 7:15 PM EST on 04/12/2019. The findings were acknowledged and understood. Dictated and Authenticated by: Jacqui Alatorre MD. Ordering:ANASTASIA Marshall MD
--- NOTE | 2019-04-12 19:31 | DI.VRAD_ITS ---
PROCEDURE INFORMATION: Exam: XR Chest, 1 View Exam date and time: 04/12/2019 7:13 PM Age: 48 years old Clinical history: Other: Seizure; Patient HX: Esophageal cancer TECHNIQUE: Imaging protocol: XR of the chest Views: 1 view. COMPARISON: CR XR CHEST 2V PA LATERAL 07/04/2018 3:37 PM FINDINGS: Tubes, catheters and devices: A left-sided chest port is noted with tip at the superior cavoatrial junction. Lungs: Unremarkable. No consolidation. Pleural space: Unremarkable. No pleural effusion. No pneumothorax. Heart/Mediastinum: Unremarkable. No cardiomegaly. Bones/joints: Unremarkable. IMPRESSION: No definite acute lung findings. Dictated and Authenticated by: Jacqui Alatorre MD. Ordering:ANASTASIA Marshall MD
[2019-04-12 19:34] LABS: Diff Comment Agrees w/ Instrument; RBC Morphology Normal
[2019-04-12] MEDS: Dexamethasone 10 MG/ML VIAL IVP (19:34)
[2019-04-12 19:45] LABS: ALT 73 U/L (16-63)
[2019-04-12] MEDS: levETIRAcetam 1,000 MG in Normal Saline 100 ML 400 MG IVPB (19:45)
[2019-04-12] MEDS: Normal Saline 1,000 ML 1000 ML IV (19:50)
[2019-04-12] MEDS: POTASSIUM CHLORIDE 20 MEQ/100 ML BAG 50 MEQ IVPB ×2 (20:07→21:53)
[2019-04-12] MEDS: Normal Saline 1,000 ML 250 ML IV (21:00)
[2019-04-12 21:10] LABS: Bilirubin Negative (Negative); Blood Moderate (Negative); Clarity Clear (Clear); Glucose Negative (Negative); Ketones Negative (Negative); Leukocyte Esterase Negative (Negative); Nitrite Negative (Negative); Specific Gravity >= 1.030 (1.005-1.025); Urobilinogen 0.2 EU/dL (Up TO 0.2); pH 5.5 (5-8)
[2019-04-12 21:23] LABS: Bacteria Negative HPF (Negative); C & S Indicated? No; Casts 5-10 Hyaline LPF (Negative); Crystals Negative HPF (Negative); Epithelial Cells Negative HPF (Negative); Mucus Trace (Negative); WBC 0-2 HPF (0-5)
== END 2019-04-12 22:25 | disposition short-term general hospital (02) ==
PROVIDERS: Emergency Provider Physician Assistant; PCP Nurse Practitioner
DX: G93.6 Cerebral edema (principal); C79.31 Secondary malignant neoplasm of brain; R56.9 Unspecified convulsions; E87.6 Hypokalemia; C15.9 Malignant neoplasm of esophagus, unspecified; C78.7 Secondary malignant neoplasm of liver and intrahepatic bile duct; Z79.899 Other long term (current) drug therapy; J44.9 Chronic obstructive pulmonary disease, unspecified; F17.210 Nicotine dependence, cigarettes, uncomplicated; Z95.828 Presence of other vascular implants and grafts
CPT/HCPCS: 36591; 80053; 93005; 96361; 96365; 96366; 96372; 96375; 99291; 70450; 71045; 81003; 81015; 83735; 84484; 85025; 93010; J1100; J1953; J2060; J3480

== ENCOUNTER 2019-04-14 01:18 | Outpatient (RCR) | payer MEDICAID, SELFPAY ==
[2019-04-04 07:54] LABS: Abs Immature Grans 0.08 k/cumm (0.0-0.09); Absolute Basophil Count 0.03 k/cumm (0.0-0.2); Absolute Eosinophil Count 0.41 k/cumm (0.0-0.7); Absolute Lymphocyte Count 0.51 k/cumm (1.2-3.4); Absolute Monocyte Count 0.77 k/cumm (0.11-0.7); Basophils % 0.5; Eosinophils % 6.7; HCT 36.8 % (40.0-50.0); HGB 11.7 g/dL (13.5-17.5); Immature Grans % 1.3; Lymphocytes % 8.4; Mean Corp. HGB Concentration 31.8 g/dL (32.0-36.0); Mean Corpuscular Hemoglobin 31.2 pg (27.0-33.0); Mean Corpuscular Volume 98.1 fL (80-95); Mean Platelet Volume 10.9 fL (8.0-11.0); Monocytes % 12.6; Neutrophils % 70.5; RBC 3.75 m/cumm (4.50-6.00); RBC Distribution Width 18.8 % (11.8-14.1)
[2019-04-04 08:07] LABS: ALT 97 U/L (16-63); AST 63 U/L (15-37); Albumin 3.5 g/dL (3.4-5.0); Alkaline Phosphatase 163 U/L (46-116); Anion Gap 10.6 mmol/L (3-11); BUN 11 mg/dL (7-18); Bilirubin, Total 0.6 mg/dL (0.2-1.0); CO2 28.4 mmol/L (21.0-32.0); CREATININE 0.86 mg/dL (0.70-1.30); Calcium 8.9 mg/dL (8.5-10.1); Chloride 104 mmol/L (98-107); Glucose 97 mg/dL (74-106); Potassium 3.3 mmol/L (3.5-5.1); Sodium 143 mmol/L (136-145); Total Protein 7.2 g/dL (6.4-8.2)
[2019-04-04 08:15] LABS: Diff Comment Diff Reviewed; Platelet Count 61 x1000/uL (130-400)
[2019-04-04 08:16] LABS: RBC Morphology Normal
[2019-04-04] MEDS: Normal Saline Flush 10 ML SYR IVP (08:17)
[2019-04-11] MEDS: Normal Saline Flush 10 ML SYR IVP (08:35)
[2019-04-11 08:53] LABS: Abs Immature Grans 0.03 k/cumm (0.0-0.09); Absolute Basophil Count 0.03 k/cumm (0.0-0.2); Absolute Eosinophil Count 0.16 k/cumm (0.0-0.7); Absolute Lymphocyte Count 0.47 k/cumm (1.2-3.4); Absolute Monocyte Count 0.74 k/cumm (0.11-0.7); Absolute Neutrophil Count 5.73 k/cumm (1.2-6.7); Basophils % 0.4; Eosinophils % 2.2; HCT 37.3 % (40.0-50.0); HGB 11.9 g/dL (13.5-17.5); Immature Grans % 0.4; Lymphocytes % 6.6; Mean Corp. HGB Concentration 31.9 g/dL (32.0-36.0); Mean Corpuscular Hemoglobin 31.8 pg (27.0-33.0); Mean Corpuscular Volume 99.7 fL (80-95); Mean Platelet Volume 10.1 fL (8.0-11.0); Monocytes % 10.3; Neutrophils % 80.1; Platelet Count 145 x1000/uL (130-400); RBC 3.74 m/cumm (4.50-6.00); RBC Distribution Width 19.2 % (11.8-14.1); White Blood Cell Count 7.16 k/cumm (4.4-10.8)
[2019-04-11 09:06] LABS: ALT 75 U/L (16-63); AST 62 U/L (15-37); Albumin 3.4 g/dL (3.4-5.0); Alkaline Phosphatase 144 U/L (46-116); Anion Gap 11.2 mmol/L (3-11); BUN 7 mg/dL (7-18); Bilirubin, Total 0.5 mg/dL (0.2-1.0); CO2 26.8 mmol/L (21.0-32.0); CREATININE 0.93 mg/dL (0.70-1.30); Chloride 106 mmol/L (98-107); Glucose 127 mg/dL (74-106); Potassium 3.5 mmol/L (3.5-5.1); Sodium 144 mmol/L (136-145); Total Protein 7.1 g/dL (6.4-8.2)
== END 2019-05-02 23:59 | disposition home or self-care (01) ==
LOC: INF 01:18
PROVIDERS: Registered Nurse Oncology; PCP Nurse Practitioner; Visit Provider Internal Medicine
DX: C15.5 Malignant neoplasm of lower third of esophagus (principal); Z45.2 Encounter for adjustment and management of vascular access device
CPT/HCPCS: 36591; 80053; 85025

== ENCOUNTER 2019-05-23 08:37 | Outpatient (RCR) | payer MEDICAID, SELFPAY ==
[2019-05-23] MEDS: Normal Saline Flush 10 ML SYR IVP (08:48)
[2019-05-23 09:02] LABS: Abs Immature Grans 0.01 k/cumm (0.0-0.09); Absolute Basophil Count 0.03 k/cumm (0.0-0.2); Absolute Eosinophil Count 0.08 k/cumm (0.0-0.7); Absolute Lymphocyte Count 0.68 k/cumm (1.2-3.4); Absolute Monocyte Count 0.72 k/cumm (0.11-0.7); Absolute Neutrophil Count 3.63 k/cumm (1.2-6.7); Basophils % 0.6; Eosinophils % 1.6; HCT 35.3 % (40.0-50.0); HGB 11.1 g/dL (13.5-17.5); Immature Grans % 0.2 %; Lymphocytes % 13.2; Mean Corp. HGB Concentration 31.4 g/dL (32.0-36.0); Mean Corpuscular Hemoglobin 31.9 pg (27.0-33.0); Mean Corpuscular Volume 101.4 fL (80-95); Mean Platelet Volume 8.9 fL (8.0-11.0); Neutrophils % 70.4; Platelet Count 203 x1000/uL (130-400); RBC 3.48 m/cumm (4.50-6.00); RBC Distribution Width 14.8 % (11.8-14.1); White Blood Cell Count 5.15 k/cumm (4.4-10.8)
[2019-05-23 09:16] LABS: ALT 31 U/L (16-63); AST 27 U/L (15-37); Albumin 3.3 g/dL (3.4-5.0); Alkaline Phosphatase 120 U/L (46-116); Anion Gap 9.6 mmol/L (3-11); BUN 20 mg/dL (7-18); Bilirubin, Total 0.4 mg/dL (0.2-1.0); CO2 26.4 mmol/L (21.0-32.0); CREATININE 0.64 mg/dL (0.70-1.30); Calcium 8.5 mg/dL (8.5-10.1); Chloride 107 mmol/L (98-107); Glucose 103 mg/dL (74-106); Potassium 4.3 mmol/L (3.5-5.1); Sodium 143 mmol/L (136-145); Total Protein 6.9 g/dL (6.4-8.2)
[2019-05-24 10:20] LABS: CEA 1.9 ng/mL (See Note)
== END 2019-06-02 23:59 | disposition home or self-care (01) ==
LOC: INF 08:37
PROVIDERS: PCP Nurse Practitioner; Visit Provider Internal Medicine
DX: C15.9 Malignant neoplasm of esophagus, unspecified (principal); Z45.2 Encounter for adjustment and management of vascular access device
CPT/HCPCS: 36591; 80053; 82378; 85025

== ENCOUNTER 2019-06-15 02:04 | Outpatient (CLI) | payer MEDICAID, SELFPAY ==
--- NOTE | 2019-06-15 07:40 | DI.CT_ITS ---
EXAM: CT CHEST/ABD/PEL W CLINICAL HISTORY: ESOPHAGEAL CA STAGE IV, C15.9, RESTAGING exam TECHNIQUE: Imaging Protocol: Axial computed tomography images with coronal and sagittal reformatted images were created and reviewed CONTRAST MATERIAL: Intravenous: Omnipaque 350 Contrast volume:100 mL Oral: Yes COMPARISON: CT CHEST/ABD W from 03/14/2019 FINDINGS: CHEST: Thyroid: Visualized portions unremarkable. Tracheobronchial tree: Patent where visualized. Mediastinum and Rubi: No dominant adenopathy or fluid collection. Persistent thickening of the wall o f the distal esophagus. This appears unchanged compared to the prior examination. Pulmonary parenchyma: Emphysematous changes in the lungs. No pulmonary nodules. No focal consolidat ing infiltrates are present. Pleura: No effusion or pneumothorax. Lymph nodes: Within normal limits. Aorta: Thoracic portion non-dilated. Heart: No cardiomegaly. Moderate coronary artery calcification. No significant pericardial effusion. Bones: Degenerative changes seen in the spine. Stable appearance of the thoracic spine. Stable scle rotic focus seen at T5. Bone scan may be considered for evaluation of osseous metastatic disease. ABDOMEN: Liver: Normal density. There has been interval increase in size of the mass in the right lobe of the liver since the prior examination. The mass currently measures 5.5 AP by 4.6 transverse cm. This com pares with 3.3 x 2.7 cm on the prior examination. No new hepatic masses are seen. Gallbladder and biliary tract: No radiodense calculus or dilation. Pancreas: Normal density, no abnormal calcifications or inflammatory process. Spleen: Normal. Kidneys: Normal size, contour and axis. No radiodense stones or obstructive uropathy. Stable renal cy sts. Adrenal glands: No masses seen. Aorta: Abdominal portion non-dilated. Atherosclerosis. Lymph nodes: Within normal limits. PELVIS: Bladder: Symmetric distention, no gross wall thickening. Bowel: No obstruction or bowel wall thickening. Normal appendix is visualized. Peritoneal cavity: No ascites, collection or mesenteric inflammatory response. Bones: Mild degenerative changes. No aggressive osseous changes. Reproductive organs: Within normal limits. IMPRESSION: 1. Interval increase in size of hepatic mass. 2. Stable appearance of the distal esophagus. Persistent wall thickening in the distal esophagus sug gesting carcinoma. 3. Stable sclerotic focus in the T5 vertebral body. If there is concern for osseous metastatic disea se, a bone scan should be considered. DATA REPOSITORY: All CT scans at this facility are submitted to the National Radiology Data Registry (NRDR) Dose Index Registry (DIR) with the [employer] (ACR). RADIATION OPTIMIZATION: All CT scans at this facility use at least one of these dose optimization te chniques: automated exposure control; mA and/or kV adjustment per patient size (includes targeted exa ms where dose is matched to clinical indication); or iterative reconstruction.
[2019-06-15] MEDS: Omnipaque 350 MG/ML 100 ML BTL IJ (09:47)
== END 2019-06-15 02:24 ==
PROVIDERS: PCP Nurse Practitioner; Visit Provider Internal Medicine
DX: C15.9 Malignant neoplasm of esophagus, unspecified (principal); Z12.89 Encounter for screening for malignant neoplasm of other sites; N28.1 Cyst of kidney, acquired; K76.89 Other specified diseases of liver
CPT/HCPCS: 74177; 71260; J3490

== ENCOUNTER 2019-06-20 09:00 | Outpatient (RCR) | payer MEDICAID, SELFPAY ==
[2019-06-13 08:55] LABS: Absolute Basophil Count 0.01 k/cumm (0.0-0.2); Absolute Eosinophil Count 0.08 k/cumm (0.0-0.7); Absolute Lymphocyte Count 0.44 k/cumm (1.2-3.4); Absolute Monocyte Count 0.33 k/cumm (0.11-0.7); Absolute Neutrophil Count 4.77 k/cumm (1.2-6.7); Basophils % 0.2; Eosinophils % 1.4; HCT 36.5 % (40.0-50.0); HGB 11.7 g/dL (13.5-17.5); Lymphocytes % 7.8; Mean Corp. HGB Concentration 32.1 g/dL (32.0-36.0); Mean Corpuscular Hemoglobin 31.3 pg (27.0-33.0); Mean Corpuscular Volume 97.6 fL (80-95); Mean Platelet Volume 9.2 fL (8.0-11.0); Monocytes % 5.9; Neutrophils % 84.7; Platelet Count 238 x1000/uL (130-400); RBC 3.74 m/cumm (4.50-6.00); RBC Distribution Width 13.7 % (11.8-14.1); White Blood Cell Count 5.63 k/cumm (4.4-10.8)
[2019-06-13 09:16] LABS: ALT 28 U/L (16-63); AST 20 U/L (15-37); Albumin 3.7 g/dL (3.4-5.0); Alkaline Phosphatase 104 U/L (46-116); Anion Gap 10.9 mmol/L (3-11); BUN 21 mg/dL (7-18); Bilirubin, Total 0.4 mg/dL (0.2-1.0); CO2 26.1 mmol/L (21.0-32.0); CREATININE 0.87 mg/dL (0.70-1.30); Chloride 105 mmol/L (98-107); Glucose 120 mg/dL (74-106); Potassium 3.9 mmol/L (3.5-5.1); Sodium 142 mmol/L (136-145); Total Protein 7.2 g/dL (6.4-8.2)
[2019-06-13] MEDS: Normal Saline Flush 10 ML SYR IVP (09:22)
[2019-06-15] MEDS: Normal Saline Flush 10 ML SYR IVP (07:42)
[2019-06-15] MEDS: Heparin 500 UNITS/5 ML SYRINGE IV (07:43)
[2019-06-20] MEDS: Normal Saline Flush 10 ML SYR IVP (09:15)
[2019-06-20 09:32] LABS: Abs Immature Grans 0.01 k/cumm (0.0-0.09); Absolute Basophil Count 0.01 k/cumm (0.0-0.2); Absolute Eosinophil Count 0.07 k/cumm (0.0-0.7); Absolute Lymphocyte Count 0.37 k/cumm (1.2-3.4); Absolute Monocyte Count 0.27 k/cumm (0.11-0.7); Absolute Neutrophil Count 5.28 k/cumm (1.2-6.7); Basophils % 0.2; Eosinophils % 1.2; HCT 37.2 % (40.0-50.0); HGB 11.8 g/dL (13.5-17.5); Immature Grans % 0.2 %; Lymphocytes % 6.2; Mean Corp. HGB Concentration 31.7 g/dL (32.0-36.0); Mean Corpuscular Hemoglobin 30.8 pg (27.0-33.0); Mean Corpuscular Volume 97.1 fL (80-95); Mean Platelet Volume 9.1 fL (8.0-11.0); Monocytes % 4.5; Neutrophils % 87.7; Platelet Count 187 x1000/uL (130-400); RBC 3.83 m/cumm (4.50-6.00); RBC Distribution Width 13.4 % (11.8-14.1); White Blood Cell Count 6.01 k/cumm (4.4-10.8)
[2019-06-20 09:44] LABS: ALT 39 U/L (16-63); AST 22 U/L (15-37); Albumin 3.5 g/dL (3.4-5.0); Alkaline Phosphatase 101 U/L (46-116); Anion Gap 9.7 mmol/L (3-11); BUN 21 mg/dL (7-18); Bilirubin, Total 0.3 mg/dL (0.2-1.0); CO2 28.3 mmol/L (21.0-32.0); CREATININE 0.76 mg/dL (0.70-1.30); Calcium 8.6 mg/dL (8.5-10.1); Chloride 103 mmol/L (98-107); Glucose 113 mg/dL (74-106); Potassium 4.2 mmol/L (3.5-5.1); Sodium 141 mmol/L (136-145); Total Protein 6.9 g/dL (6.4-8.2)
[2019-06-21 10:09] LABS: CEA 1.6 ng/mL (See Note)
== END 2019-07-01 23:59 | disposition home or self-care (01) ==
LOC: INF 09:00
PROVIDERS: Internal Medicine Hematology & Oncology; PCP Nurse Practitioner; Visit Provider Internal Medicine
DX: C15.9 Malignant neoplasm of esophagus, unspecified (principal); Z45.2 Encounter for adjustment and management of vascular access device
CPT/HCPCS: 36591; 80053; 96523; 82378; 85025

== ENCOUNTER 2019-08-01 04:02 | Outpatient (RCR) | payer MEDICAID, SELFPAY ==
[2019-07-04 09:01] LABS: Absolute Basophil Count 0.02 k/cumm (0.0-0.2); Absolute Eosinophil Count 0.13 k/cumm (0.0-0.7); Absolute Lymphocyte Count 0.37 k/cumm (1.2-3.4); Absolute Monocyte Count 0.32 k/cumm (0.11-0.7); Absolute Neutrophil Count 1.13 k/cumm (1.2-6.7); Eosinophils % 6.6; HGB 11.4 g/dL (13.5-17.5); Lymphocytes % 18.8; Mean Corp. HGB Concentration 32.6 g/dL (32.0-36.0); Mean Corpuscular Hemoglobin 30.6 pg (27.0-33.0); Mean Corpuscular Volume 93.8 fL (80-95); Mean Platelet Volume 8.5 fL (8.0-11.0); Monocytes % 16.2; Neutrophils % 57.4; Platelet Count 129 x1000/uL (130-400); RBC 3.73 m/cumm (4.50-6.00); RBC Distribution Width 13.5 % (11.8-14.1)
[2019-07-04 09:13] LABS: White Blood Cell Count 1.97 k/cumm (4.4-10.8)
[2019-07-04 09:25] LABS: ALT 35 U/L (16-63); AST 26 U/L (15-37); Albumin 3.3 g/dL (3.4-5.0); Alkaline Phosphatase 119 U/L (46-116); BUN 8 mg/dL (7-18); Bilirubin, Total 0.2 mg/dL (0.2-1.0); CREATININE 0.81 mg/dL (0.70-1.30); Calcium 7.7 mg/dL (8.5-10.1); Chloride 108 mmol/L (98-107); Glucose 93 mg/dL (74-106); Potassium 3.3 mmol/L (3.5-5.1); Sodium 144 mmol/L (136-145); Total Protein 6.9 g/dL (6.4-8.2)
[2019-07-04] MEDS: Normal Saline Flush 10 ML SYR IVP (09:55)
[2019-07-05 11:45] LABS: CEA 1.9 ng/mL (See Note)
[2019-07-18] MEDS: Normal Saline Flush 10 ML SYR IVP (08:54)
[2019-07-18 09:18] LABS: Abs Immature Grans 0.09 k/cumm (0.0-0.09); Absolute Basophil Count 0.03 k/cumm (0.0-0.2); Absolute Lymphocyte Count 0.63 k/cumm (1.2-3.4); Absolute Neutrophil Count 6.51 k/cumm (1.2-6.7); Basophils % 0.4; Eosinophils % 3.6; HCT 39.4 % (40.0-50.0); HGB 12.4 g/dL (13.5-17.5); Immature Grans % 1.1 %; Lymphocytes % 7.6; Mean Corp. HGB Concentration 31.5 g/dL (32.0-36.0); Mean Corpuscular Hemoglobin 29.8 pg (27.0-33.0); Mean Corpuscular Volume 94.7 fL (80-95); Monocytes % 8.5; Neutrophils % 78.8; Platelet Count 148 x1000/uL (130-400); RBC 4.16 m/cumm (4.50-6.00); RBC Distribution Width 15.1 % (11.8-14.1); White Blood Cell Count 8.26 k/cumm (4.4-10.8)
[2019-07-18 09:26] LABS: ALT 26 U/L (16-63); AST 23 U/L (15-37); Albumin 3.7 g/dL (3.4-5.0); Alkaline Phosphatase 144 U/L (46-116); Anion Gap 8.2 mmol/L (3-11); BUN 12 mg/dL (7-18); Bilirubin, Total 0.3 mg/dL (0.2-1.0); CO2 28.8 mmol/L (21.0-32.0); CREATININE 0.91 mg/dL (0.70-1.30); Calcium 8.7 mg/dL (8.5-10.1); Chloride 107 mmol/L (98-107); Glucose 105 mg/dL (74-106); Potassium 4.1 mmol/L (3.5-5.1); Sodium 144 mmol/L (136-145); Total Protein 7.4 g/dL (6.4-8.2)
[2019-07-19 08:46] LABS: CEA 1.9 ng/mL (See Note)
[2019-08-01 09:47] LABS: Abs Immature Grans 0.11 k/cumm (0.0-0.09); Basophils % 0.1; Eosinophils % 1.9; HCT 37.2 % (40.0-50.0); HGB 11.7 g/dL (13.5-17.5); Immature Grans % 0.7 %; Mean Corp. HGB Concentration 31.5 g/dL (32.0-36.0); Mean Corpuscular Hemoglobin 30.1 pg (27.0-33.0); Mean Corpuscular Volume 95.6 fL (80-95); Mean Platelet Volume 9.4 fL (8.0-11.0); Monocytes % 8.3; Platelet Count 147 x1000/uL (130-400); RBC 3.89 m/cumm (4.50-6.00)
[2019-08-01 09:48] LABS: Absolute Basophil Count 0.01 k/cumm (0.0-0.2); Absolute Eosinophil Count 0.28 k/cumm (0.0-0.7); Absolute Monocyte Count 1.24 k/cumm (0.11-0.7); Absolute Neutrophil Count 12.67 k/cumm (1.2-6.7)
[2019-08-01] MEDS: Normal Saline Flush 10 ML SYR 30 ML IVP (09:49)
[2019-08-01 10:03] LABS: ALT 31 U/L (16-63); AST 20 U/L (15-37); Albumin 3.7 g/dL (3.4-5.0); Alkaline Phosphatase 158 U/L (46-116); Anion Gap 8.4 mmol/L (3-11); BUN 14 mg/dL (7-18); Bilirubin, Total 0.4 mg/dL (0.2-1.0); CO2 28.6 mmol/L (21.0-32.0); CREATININE 0.89 mg/dL (0.70-1.30); Calcium 8.9 mg/dL (8.5-10.1); Chloride 106 mmol/L (98-107); Glucose 108 mg/dL (74-106); Sodium 143 mmol/L (136-145); Total Protein 7.2 g/dL (6.4-8.2)
[2019-08-02 10:15] LABS: CEA 1.9 ng/mL (See Note)
== END 2019-08-01 23:59 | disposition home or self-care (01) ==
LOC: INF 04:02
PROVIDERS: PCP Nurse Practitioner; Visit Provider Internal Medicine
DX: C15.9 Malignant neoplasm of esophagus, unspecified (principal); Z45.2 Encounter for adjustment and management of vascular access device
CPT/HCPCS: 36591; 80053; 82378; 85025

== ENCOUNTER 2019-08-29 09:00 | Outpatient (RCR) | payer MEDICAID, SELFPAY ==
[2019-08-15] MEDS: Normal Saline Flush 10 ML SYR IVP (08:19)
[2019-08-15 08:27] LABS: Abs Immature Grans 0.11 k/cumm (0.0-0.09); Absolute Basophil Count 0.03 k/cumm (0.0-0.2); Absolute Eosinophil Count 0.17 k/cumm (0.0-0.7); Absolute Lymphocyte Count 0.62 k/cumm (1.2-3.4); Absolute Monocyte Count 0.65 k/cumm (0.11-0.7); Absolute Neutrophil Count 5.69 k/cumm (1.2-6.7); Basophils % 0.4; Eosinophils % 2.3; HCT 35.9 % (40.0-50.0); HGB 11.3 g/dL (13.5-17.5); Immature Grans % 1.5 %; Lymphocytes % 8.5; Mean Corp. HGB Concentration 31.5 g/dL (32.0-36.0); Mean Corpuscular Hemoglobin 30.4 pg (27.0-33.0); Mean Corpuscular Volume 96.5 fL (80-95); Mean Platelet Volume 9.3 fL (8.0-11.0); Monocytes % 8.9; Neutrophils % 78.4; Platelet Count 185 x1000/uL (130-400); RBC 3.72 m/cumm (4.50-6.00); RBC Distribution Width 18.7 % (11.8-14.1); White Blood Cell Count 7.27 k/cumm (4.4-10.8)
[2019-08-15 08:45] LABS: ALT 36 U/L (16-63); AST 27 U/L (15-37); Albumin 3.7 g/dL (3.4-5.0); Alkaline Phosphatase 168 U/L (46-116); BUN 16 mg/dL (7-18); Bilirubin, Total 0.4 mg/dL (0.2-1.0); CREATININE 1.06 mg/dL (0.70-1.30); Calcium 8.6 mg/dL (8.5-10.1); Chloride 107 mmol/L (98-107); Glucose 126 mg/dL (74-106); Potassium 3.6 mmol/L (3.5-5.1); Sodium 144 mmol/L (136-145); Total Protein 7.2 g/dL (6.4-8.2)
[2019-08-16 15:16] LABS: CEA 1.9 ng/mL (See Note)
[2019-08-29] MEDS: Normal Saline Flush 10 ML SYR IVP (09:24)
[2019-08-29 09:31] LABS: Abs Immature Grans 0.12 k/cumm (0.0-0.09); Absolute Basophil Count 0.02 k/cumm (0.0-0.2); Absolute Lymphocyte Count 0.65 k/cumm (1.2-3.4); Absolute Monocyte Count 0.75 k/cumm (0.11-0.7); Absolute Neutrophil Count 6.73 k/cumm (1.2-6.7); Basophils % 0.2; Eosinophils % 2.4; HCT 35.2 % (40.0-50.0); Immature Grans % 1.4 %; Lymphocytes % 7.7; Mean Corp. HGB Concentration 31.3 g/dL (32.0-36.0); Mean Corpuscular Hemoglobin 30.3 pg (27.0-33.0); Mean Platelet Volume 9.6 fL (8.0-11.0); Monocytes % 8.9; Neutrophils % 79.4; Platelet Count 179 x1000/uL (130-400); RBC 3.63 m/cumm (4.50-6.00); RBC Distribution Width 19.2 % (11.8-14.1); White Blood Cell Count 8.47 k/cumm (4.4-10.8)
[2019-08-29 09:48] LABS: ALT 42 U/L (16-63); AST 26 U/L (15-37); Albumin 3.6 g/dL (3.4-5.0); Alkaline Phosphatase 167 U/L (46-116); Anion Gap 8.8 mmol/L (3-11); BUN 12 mg/dL (7-18); Bilirubin, Total 0.4 mg/dL (0.2-1.0); CO2 27.2 mmol/L (21.0-32.0); CREATININE 1.02 mg/dL (0.70-1.30); Calcium 8.7 mg/dL (8.5-10.1); Chloride 107 mmol/L (98-107); Glucose 103 mg/dL (74-106); Potassium 3.7 mmol/L (3.5-5.1); Sodium 143 mmol/L (136-145)
[2019-08-30 10:46] LABS: CEA 1.7 ng/mL (See Note)
== END 2019-08-31 23:59 | disposition home or self-care (01) ==
LOC: INF 09:00
PROVIDERS: PCP Nurse Practitioner; Visit Provider Internal Medicine
DX: C15.9 Malignant neoplasm of esophagus, unspecified (principal); Z45.2 Encounter for adjustment and management of vascular access device
CPT/HCPCS: 36591; 80053; 82378; 85025

== ENCOUNTER 2019-09-08 01:49 | Outpatient (CLI) | payer MEDICAID, SELFPAY ==
--- NOTE | 2019-09-08 | DI.MRI_ITS ---
EXAM: MR BRAIN WO/W CLINICAL HISTORY: ESOPHAGEAL CA,C15.9,BRAIN METS, C79.31,METASTATIC HER2 GE JUNCTION. TECHNIQUE: Multiplanar multisequence MRI of the brain was performed. CONTRAST MATERIAL: IV Contrast: 14 ML of Dotarem contrast administered. COMPARISON: CT CT HEAD WO from 04/12/2019 MR MRI BRAIN WWO CONTRAST (GENERIC) from 06/01/2019 FINDINGS: There is a 5 millimeter enhancing lesion seen posteriorly near the midline of the right parietal lobe . There is no longer significant surrounding edema. The enhancing focus has decreased significantly in size when compared with the previous exam. Previously noted mass in the right temporal lobe as w ell as 2 lesions in the left cerebellar hemisphere, and small lesion in the right occipital lobe are no longer seen. Postsurgical changes are seen in the right temporoparietal region. There are no new abnormalities. There is a small old area of infarct in the high left parietal region. The vascular flow voids appea r intact. The orbits, sinuses and mastoid air cells are unremarkable. IMPRESSION: Marked interval improvement when compared with the previous exam. There has been significant interva l decrease in size of previously noted right parietal mass, now measuring 5 millimeters in greatest d imension. The previously noted surrounding edema has resolved. The other smaller lesions are no keisha anais seen. Stable postsurgical changes in the right temporoparietal region.. DATA REPOSITORY:
[2019-09-08] MEDS: Normal Saline Flush 10 ML SYR IVP (11:17)
[2019-09-08] MEDS: Gadoterate meglumine 20 ML VIAL 14 ML IVP (11:18)
== END 2019-09-08 02:09 ==
PROVIDERS: PCP Nurse Practitioner; Visit Provider Internal Medicine
DX: C15.9 Malignant neoplasm of esophagus, unspecified (principal); C79.31 Secondary malignant neoplasm of brain
CPT/HCPCS: 70553

== ENCOUNTER 2019-09-13 01:53 | Outpatient (CLI) | payer MEDICAID, SELFPAY ==
--- NOTE | 2019-09-13 07:37 | DI.US_ITS ---
APPROVED REPORT EXAM: Comprehensive 2D, Doppler, and color-flow Echocardiogram Patient Location: Out-Patient Professional Caster: Aleah Wheatley RDCS (AE) Indications: Metastatic Cancer, Chemotherapy Other Information Study Quality: Good Conclusion Left Ventricle : The left ventricle is normal size. The left ventricular systolic function is normal. The left ventricular ejection fraction is within the normal range. There is normal left ventricular wall thickness. There is normal LV segmental wall motion. The left ventricular diastolic function is normal. LVEF is 55-60%. Average global longitudinal strain is -16%. Right Ventricle : The right ventricle is normal size. The right ventricular systolic function is norm al. The RVSP is 17.4 mmHg. Atria : The left atrium size is normal. The right atrium size is normal. Aortic Valve : The Aortic valve is sclerotic. Aortic valve is bicuspid. Mild aortic stenosis. Mild to moderate aortic regurgitation. Great Vessels : IVC is normal in size and collapses >50% with inspiration. Please see remainder of study for additional findings. There was no prior echocardiogram available for comparison. Wall motion Left Ventricle The left ventricle is normal size. The left ventricular systolic function is normal. The left ventric ular ejection fraction is within the normal range. There is normal left ventricular wall thickness. T here is normal LV segmental wall motion. The left ventricular diastolic function is normal. There is no ventricular septal defect visualized. LVEF is 55-60%. Average global longitudinal strain is -16%. Right Ventricle The right ventricle is normal size. The right ventricular systolic function is normal. The RVSP is 17 .4 mmHg. Atria The left atrium size is normal. The right atrium size is normal. The interatrial septum is intact wit h no evidence for an atrial septal defect. Aortic Valve The Aortic valve is sclerotic. Aortic valve is bicuspid. Mild aortic stenosis. Mild to moderate aorti c regurgitation. Mitral Valve The mitral valve is normal in structure. No evidence of mitral valve stenosis. Trace mitral regurgita tion. Tricuspid Valve The tricuspid valve is normal in structure. There is no tricuspid valve stenosis. Trace tricuspid reg urgitation. Pulmonic Valve The pulmonary valve is normal in structure. There is no pulmonic valvular stenosis. There is no pulmo david valvular regurgitation. Great Vessels The aortic root is normal in size. The ascending aorta is normal in size. Aortic arch is normal in ca liber. IVC is normal in size and collapses >50% with inspiration. Pericardium Trace pericardial effusion. There is no pleural effusion. 2D Dimensions IVSD d PLAX 0.69 cm M: 0.6-1.2 LV Vol A2C d MOD 99.3 mL LVPW d PLAX 0.68 cm M: 0.6 - 1.2 LV Vol A4C d MOD 101.2 mL LVID d PLAX 4.61 cm M: 4.2 - 5.8 LA vol/ BSA A2C s A-L 21.5 mL/m2 LVDs 3.45 cm M: 2.5 - 4.0 LA vol/ BSA A4C s A-L 30.8 mL/m2 Ao Root d 3.45 cm M: 3.1 - 3.7 LA Vol/ BSA Biplane s A-L 28.4 mL/m2 RA Area A4C 12.09 cm2 LA Area A4C s MOD 21.03 cm2 RA Vol/ BSA A4C s A-L 14.9 mL/m2 LA Area A2C s MOD 15.92 cm2 Ao Asc Diam d 3.54 cm M: 2.6 - 3.4 LV EF A4C MOD 57.5 % LV EF Teichholz 48.5 % LV EF A2C MOD 58.4 % LVEF (Priest's) 57.45 % M: 52 - 72 LV EF Biplane MOD 57.4 % LV Volume 80.32 mL M: 62 - 150 SV 58.10 mL LV Volume Index 42.49 mL/m2 M: 34 - 74 SV Index 30.60 mL/m2 LV Vol Biplane MOD 105.2 mL FS 24.35 % M-Mode TAPSE 2.24 cm (M/F) >1.7 LV Diastology MV E' medial 0.081 (>0.07 m/s) E/A Ratio 0.9 LV E/e MED 9.85 (<14) MV E Vmax 0.80 (0.4-1.3 m/s) MV E' lateral 0.093 (>0.1 m/s) MV A Vmax 0.90 (0.4-1.3 m/s) LV E/e LAT 8.55 (<14) MV E/A Ratio 0.85 MV E/E' medial 9.87 MV E/E' lateral 8.57 Aortic Valve LVOT Area 3.54 cm2 AoV Area Vmax 1.86 cm2 LVOT Vmax 1.09 m/s AoV Area/ BSA (Vmax) 0.98 cm2/m2 LVOT Mean Andrea. 0.75 m/s MARCIE Mean Andrea. 1.74 cm2 LVOT Peak Grad 4.8 mmHg MARCIE Mean Andrea. Index 0.91 cm2/m2 LVOT Mean Grad 2.6 mmHg AR DT 1774 msec LVOT VTI 0.237 m AR PHT 514 msec LVOT Diam s 2.10 cm (M/F) 1.5-2.5 AoV Vmax 2.07 (0.5-1.3 m/s) Velocity Ratio 0.52 AoV Mean Andrea. 1.53 m/s AoV Peak Grad 17.2 mmHg LVOT SV 83.99 mL AoV Mean Grad 10.0 (<5 mmHg) AoV VTI 0.399 (0.18-0.25 m) AoV Area VTI 2.10 (2.5-4.5 cm2) AoV Area/ BSA (VTI) 1.11 cm/m2 Mitral Valve MV DT 233 (160-240 msec) MV PHT 68 msec MV Area PHT 3.25 cm2 Pulmonary Valve PV Vmax 0.83 (0.5-1.5 m/s) RVOT Peak Gr. 1.82 mmHg PV Peak Grad 2.8 mmHg RVOT Mean Gr. 0.90 mmHg PV Mean Grad 1.5 mmHg RVOT VTI 0.136 m PV VTI 0.163 m RVOT Vmax 0.68 m/s Tricuspid Valve TR Peak Grad 14.3 mmHg TR Vmax 1.89 m/s RA Pressure 3.00 mmHg RVSP (TR) 17.4 mmHg
== END 2019-09-13 02:13 ==
PROVIDERS: PCP Nurse Practitioner; Visit Provider Internal Medicine
DX: C15.4 Malignant neoplasm of middle third of esophagus (principal); Z92.21 Personal history of antineoplastic chemotherapy; I35.2 Nonrheumatic aortic (valve) stenosis with insufficiency
CPT/HCPCS: 93306

== ENCOUNTER 2019-09-14 00:50 | Outpatient (CLI) | payer MEDICAID, SELFPAY ==
--- NOTE | 2019-09-14 | DI.CT_ITS ---
EXAM: CT CHEST/ABD/PEL W CLINICAL HISTORY: GE JUNCTION CA, C79.9, C16.0, LIVER METS, C78.7, ESOPHAGEAL CA, C15.9, RESTAGING E XAM TECHNIQUE: CT examination of the chest, abdomen and pelvis was performed with a bolus infusion of 1 00 cc of Omnipaque 350. COMPARISON: CT CT CHEST/ABD/PEL W from 06/15/2019 FINDINGS: There are emphysematous changes of the lungs. There is a 3 millimeter in diameter anteriorly located nodule in the right upper lobe, unchanged from prior study of June 15. No additional intrapul monary lesion seen. No pleural effusion. Marked thickening of the wall of distal esophagus again no laney, grossly unchanged from prior study. No gross mediastinal or hilar adenopathy. Left Port-A-Cath noted in position with tip in superior vena cava. No evidence of pulmonary embolic disease. Unremarkable appearance of the thoracic aorta and major br anches. Previously noted 56 millimeter in diameter right lobe hepatic lesion now measures 45 millimeters in d iameter. Spleen is unremarkable in appearance. No biliary dilatation. Pancreas appears normal. Ad renals and kidneys are unremarkable in appearance. No significant change in appearance of abdominal aorta and major visceral branches, dilatation of celiac trunk noted, which may be poststenotic. No abdominal or pelvic adenopathy. No evidence of bowel obstruction or focal bowel lesion. Normal a ppearance of the appendix. Fat-containing left inguinal hernia noted with possible undescended testi s. Geographic decreased attenuation of lower thoracic and upper lumbar vertebral bodies is presumably se condary to radiation therapy. No convincing destructive lesion or sclerotic lesion identified at thi s time in the bones on scanning of the chest, abdomen and pelvis. Previously noted T5 questionable v ertebral body lesion is grossly unchanged. IMPRESSION: Interval decrease in size of right lobe hepatic metastatic lesion, which now measures 45 millimeters in diameter. No gross interval change in wall thickening of the distal esophagus. Patient reportedly has history of esophageal carcinoma.
[2019-09-14] MEDS: Omnipaque 350 MG/ML 100 ML BTL IJ (13:26)
[2019-09-14] MEDS: Breeza Beverage 473 ML BTL PO (13:28)
[2019-09-14] MEDS: Omnipaque 350 MG/ML 50 ML BTL IJ (13:28)
== END 2019-09-14 01:10 ==
PROVIDERS: PCP Nurse Practitioner; Visit Provider Internal Medicine
DX: C78.7 Secondary malignant neoplasm of liver and intrahepatic bile duct; C15.4 Malignant neoplasm of middle third of esophagus; J43.8 Other emphysema; R91.1 Solitary pulmonary nodule
CPT/HCPCS: 74177; 80053; 71260; 85025; J3490; Q9967

== ENCOUNTER 2019-09-26 07:30 | Outpatient (RCR) | payer MEDICAID, SELFPAY ==
[2019-09-08] MEDS: Normal Saline Flush 10 ML SYR IVP (10:47)
[2019-09-08] MEDS: Heparin 500 UNITS/5 ML SYRINGE IV (10:47)
[2019-09-08 10:56] LABS: Abs Immature Grans 0.02 k/cumm (0.0-0.09); HCT 32.4 % (40.0-50.0); HGB 10.3 g/dL (13.5-17.5); Mean Corp. HGB Concentration 31.8 g/dL (32.0-36.0); Mean Corpuscular Hemoglobin 30.4 pg (27.0-33.0); Mean Corpuscular Volume 95.6 fL (80-95); Mean Platelet Volume 10.4 fL (8.0-11.0); RBC 3.39 m/cumm (4.50-6.00); RBC Distribution Width 18.5 % (11.8-14.1); White Blood Cell Count 2.51 k/cumm (4.4-10.8)
[2019-09-08 11:15] LABS: ALT 51 U/L (16-63); AST 26 U/L (15-37); Absolute Basophil Count 0.03 k/cumm (0.0-0.2); Absolute Eosinophil Count 0.23 k/cumm (0.0-0.7); Absolute Lymphocyte Count 0.45 k/cumm (1.2-3.4); Absolute Monocyte Count 0.55 k/cumm (0.11-0.7); Absolute Neutrophil Count 1.26 k/cumm (1.2-6.7); Albumin 3.7 g/dL (3.4-5.0); Alkaline Phosphatase 171 U/L (46-116); Anion Gap 10.3 mmol/L (3-11); Atypical Lymphocytes % 3; BUN 9 mg/dL (7-18); Bilirubin, Total 0.5 mg/dL (0.2-1.0); CO2 26.7 mmol/L (21.0-32.0); CREATININE 0.93 mg/dL (0.70-1.30); Calcium 9.2 mg/dL (8.5-10.1); Chloride 104 mmol/L (98-107); Glucose 97 mg/dL (74-106); Platelet Count 90 x1000/uL (130-400); Potassium 3.4 mmol/L (3.5-5.1); Sodium 141 mmol/L (136-145); Total Protein 7.1 g/dL (6.4-8.2)
[2019-09-08 11:16] LABS: Anisocytosis 2+; Diff Comment Manual Differential; Nucleated RBC 1 /100WBC; Polychromasia Present
[2019-09-11 08:53] LABS: CEA 1.3 ng/mL (See Note)
[2019-09-12 08:36] LABS: Absolute Basophil Count 0.03 k/cumm (0.0-0.2); Absolute Eosinophil Count 0.15 k/cumm (0.0-0.7); Absolute Lymphocyte Count 0.58 k/cumm (1.2-3.4); Absolute Monocyte Count 0.76 k/cumm (0.11-0.7); Absolute Neutrophil Count 5.49 k/cumm (1.2-6.7); Basophils % 0.4; Eosinophils % 2.1; HGB 10.9 g/dL (13.5-17.5); Immature Grans % 1.4 %; Lymphocytes % 8.2; Mean Corp. HGB Concentration 31.1 g/dL (32.0-36.0); Mean Corpuscular Hemoglobin 30.5 pg (27.0-33.0); Mean Platelet Volume 9.9 fL (8.0-11.0); Monocytes % 10.7; Neutrophils % 77.2; Platelet Count 151 x1000/uL (130-400); RBC 3.57 m/cumm (4.50-6.00); RBC Distribution Width 19.4 % (11.8-14.1); White Blood Cell Count 7.11 k/cumm (4.4-10.8)
[2019-09-12] MEDS: Normal Saline Flush 10 ML SYR IVP (08:46)
[2019-09-14] MEDS: Heparin 500 UNITS/5 ML SYRINGE IV (14:40)
[2019-09-14] MEDS: Normal Saline Flush 10 ML SYR IVP (14:40)
[2019-09-26 08:02] LABS: Abs Immature Grans 0.07 k/cumm (0.0-0.09); Absolute Basophil Count 0.02 k/cumm (0.0-0.2); Absolute Eosinophil Count 0.23 k/cumm (0.0-0.7); Absolute Lymphocyte Count 0.67 k/cumm (1.2-3.4); Absolute Monocyte Count 0.79 k/cumm (0.11-0.7); Absolute Neutrophil Count 5.92 k/cumm (1.2-6.7); Basophils % 0.3; HCT 35.9 % (40.0-50.0); HGB 11.3 g/dL (13.5-17.5); Immature Grans % 0.9 %; Lymphocytes % 8.7; Mean Corp. HGB Concentration 31.5 g/dL (32.0-36.0); Mean Corpuscular Hemoglobin 30.9 pg (27.0-33.0); Mean Corpuscular Volume 98.1 fL (80-95); Mean Platelet Volume 10.2 fL (8.0-11.0); Monocytes % 10.3; Neutrophils % 76.8; Platelet Count 164 x1000/uL (130-400); RBC 3.66 m/cumm (4.50-6.00); RBC Distribution Width 18.6 % (11.8-14.1)
[2019-09-26 08:21] LABS: ALT 79 U/L (16-63); AST 37 U/L (15-37); Albumin 3.8 g/dL (3.4-5.0); Alkaline Phosphatase 227 U/L (46-116); Anion Gap 6.8 mmol/L (3-11); BUN 4 mg/dL (7-18); Bilirubin, Total 0.7 mg/dL (0.2-1.0); CO2 29.2 mmol/L (21.0-32.0); Calcium 8.6 mg/dL (8.5-10.1); Chloride 105 mmol/L (98-107); Glucose 97 mg/dL (74-106); Sodium 141 mmol/L (136-145); Total Protein 6.8 g/dL (6.4-8.2)
[2019-09-26 08:25] LABS: Potassium 2.9 mmol/L (3.5-5.1)
[2019-09-26] MEDS: Normal Saline Flush 10 ML SYR IVP (08:26)
== END 2019-10-01 23:59 | disposition home or self-care (01) ==
LOC: INF 07:30
PROVIDERS: PCP Nurse Practitioner; Visit Provider Internal Medicine
DX: C15.9 Malignant neoplasm of esophagus, unspecified (principal); Z45.2 Encounter for adjustment and management of vascular access device
CPT/HCPCS: 36591; 80053; 96523; 82378; 85025

== ENCOUNTER 2019-10-24 00:45 | Outpatient (RCR) | payer MEDICAID, SELFPAY ==
[2019-10-10] MEDS: Normal Saline Flush 10 ML SYR IVP (07:51)
[2019-10-10 08:06] LABS: ALT 62 U/L (16-63); AST 29 U/L (15-37); Abs Immature Grans 0.04 k/cumm (0.0-0.09); Absolute Basophil Count 0.01 k/cumm (0.0-0.2); Absolute Eosinophil Count 0.18 k/cumm (0.0-0.7); Absolute Lymphocyte Count 0.63 k/cumm (1.2-3.4); Absolute Monocyte Count 0.71 k/cumm (0.11-0.7); Absolute Neutrophil Count 3.97 k/cumm (1.2-6.7); Albumin 3.5 g/dL (3.4-5.0); Alkaline Phosphatase 209 U/L (46-116); Anion Gap 9.2 mmol/L (3-11); BUN 5 mg/dL (7-18); Basophils % 0.2; Bilirubin, Total 0.4 mg/dL (0.2-1.0); CO2 27.8 mmol/L (21.0-32.0); CREATININE 1.01 mg/dL (0.70-1.30); Calcium 8.6 mg/dL (8.5-10.1); Chloride 109 mmol/L (98-107); Eosinophils % 3.2; Glucose 108 mg/dL (74-106); HGB 10.8 g/dL (13.5-17.5); Immature Grans % 0.7 %; Lymphocytes % 11.4; Mean Corp. HGB Concentration 30.9 g/dL (32.0-36.0); Mean Corpuscular Hemoglobin 30.7 pg (27.0-33.0); Mean Corpuscular Volume 99.4 fL (80-95); Monocytes % 12.8; Neutrophils % 71.7; Platelet Count 196 x1000/uL (130-400); Potassium 3.2 mmol/L (3.5-5.1); RBC 3.52 m/cumm (4.50-6.00); RBC Distribution Width 17.1 % (11.8-14.1); Sodium 146 mmol/L (136-145); Total Protein 6.6 g/dL (6.4-8.2); White Blood Cell Count 5.54 k/cumm (4.4-10.8)
[2019-10-11 09:52] LABS: CEA 2.2 ng/mL (See Note)
[2019-10-24] MEDS: Normal Saline Flush 10 ML SYR IVP (07:52)
[2019-10-24 08:06] LABS: Abs Immature Grans 0.07 k/cumm (0.0-0.09); Absolute Basophil Count 0.03 k/cumm (0.0-0.2); Absolute Eosinophil Count 0.19 k/cumm (0.0-0.7); Absolute Lymphocyte Count 0.95 k/cumm (1.2-3.4); Absolute Monocyte Count 0.61 k/cumm (0.11-0.7); Absolute Neutrophil Count 4.14 k/cumm (1.2-6.7); Basophils % 0.5; Eosinophils % 3.2; HCT 34.7 % (40.0-50.0); HGB 10.9 g/dL (13.5-17.5); Immature Grans % 1.2 %; Lymphocytes % 15.9; Mean Corp. HGB Concentration 31.4 g/dL (32.0-36.0); Mean Corpuscular Hemoglobin 31.3 pg (27.0-33.0); Mean Corpuscular Volume 99.7 fL (80-95); Mean Platelet Volume 9.9 fL (8.0-11.0); Monocytes % 10.2; Platelet Count 184 x1000/uL (130-400); RBC 3.48 m/cumm (4.50-6.00); RBC Distribution Width 16.3 % (11.8-14.1); White Blood Cell Count 5.99 k/cumm (4.4-10.8)
[2019-10-24 08:16] LABS: ALT 39 U/L (16-63); AST 24 U/L (15-37); Albumin 3.5 g/dL (3.4-5.0); Alkaline Phosphatase 216 U/L (46-116); Anion Gap 9.7 mmol/L (3-11); BUN 6 mg/dL (7-18); Bilirubin, Total 0.4 mg/dL (0.2-1.0); CO2 26.3 mmol/L (21.0-32.0); CREATININE 1.05 mg/dL (0.70-1.30); Calcium 8.6 mg/dL (8.5-10.1); Chloride 107 mmol/L (98-107); Glucose 109 mg/dL (74-106); Potassium 3.3 mmol/L (3.5-5.1); Sodium 143 mmol/L (136-145); Total Protein 6.7 g/dL (6.4-8.2)
== END 2019-10-31 23:59 | disposition home or self-care (01) ==
LOC: INF 00:45
PROVIDERS: PCP Nurse Practitioner; Visit Provider Internal Medicine
DX: C15.9 Malignant neoplasm of esophagus, unspecified (principal); Z45.2 Encounter for adjustment and management of vascular access device
CPT/HCPCS: 36591; 80053; 82378; 85025

== ENCOUNTER 2019-11-21 01:51 | Outpatient (RCR) | payer MEDICAID, SELFPAY ==
[2019-11-07] MEDS: Normal Saline Flush 10 ML SYR IVP (07:51)
[2019-11-07 08:06] LABS: Abs Immature Grans 0.18 k/cumm (0.0-0.09); Absolute Eosinophil Count 0.21 k/cumm (0.0-0.7); Absolute Lymphocyte Count 0.91 k/cumm (1.2-3.4); Basophils % 0.2; Eosinophils % 1.7; HCT 35.5 % (40.0-50.0); HGB 10.9 g/dL (13.5-17.5); Immature Grans % 1.5 %; Lymphocytes % 7.4; Mean Corp. HGB Concentration 30.7 g/dL (32.0-36.0); Mean Corpuscular Hemoglobin 30.6 pg (27.0-33.0); Mean Corpuscular Volume 99.7 fL (80-95); Mean Platelet Volume 9.9 fL (8.0-11.0); Monocytes % 8.6; Neutrophils % 80.6; Platelet Count 210 x1000/uL (130-400); RBC 3.56 m/cumm (4.50-6.00); White Blood Cell Count 12.28 k/cumm (4.4-10.8)
[2019-11-07 08:07] LABS: Absolute Basophil Count 0.02 k/cumm (0.0-0.2); Absolute Monocyte Count 1.06 k/cumm (0.11-0.7)
[2019-11-07 08:18] LABS: ALT 24 U/L (16-63); AST 16 U/L (15-37); Albumin 3.5 g/dL (3.4-5.0); Alkaline Phosphatase 190 U/L (46-116); Anion Gap 9.5 mmol/L (3-11); BUN 11 mg/dL (7-18); Bilirubin, Total 0.3 mg/dL (0.2-1.0); CO2 27.5 mmol/L (21.0-32.0); CREATININE 0.84 mg/dL (0.70-1.30); Calcium 8.6 mg/dL (8.5-10.1); Chloride 106 mmol/L (98-107); Glucose 111 mg/dL (74-106); Potassium 3.3 mmol/L (3.5-5.1); Sodium 143 mmol/L (136-145); Total Protein 6.7 g/dL (6.4-8.2)
[2019-11-08 08:52] LABS: CEA 2.8 ng/mL (See Note)
[2019-11-21] MEDS: Normal Saline Flush 10 ML SYR IVP (07:40)
[2019-11-21 07:59] LABS: Abs Immature Grans 0.11 k/cumm (0.0-0.09); Absolute Basophil Count 0.02 k/cumm (0.0-0.2); Absolute Eosinophil Count 0.18 k/cumm (0.0-0.7); Absolute Lymphocyte Count 0.65 k/cumm (1.2-3.4); Absolute Monocyte Count 0.96 k/cumm (0.11-0.7); Absolute Neutrophil Count 7.42 k/cumm (1.2-6.7); Basophils % 0.2; Eosinophils % 1.9; HCT 34.5 % (40.0-50.0); HGB 10.7 g/dL (13.5-17.5); Immature Grans % 1.2 %; Mean Corpuscular Hemoglobin 30.5 pg (27.0-33.0); Mean Corpuscular Volume 98.3 fL (80-95); Mean Platelet Volume 9.5 fL (8.0-11.0); Monocytes % 10.3; Neutrophils % 79.4; Platelet Count 197 x1000/uL (130-400); RBC 3.51 m/cumm (4.50-6.00); RBC Distribution Width 15.7 % (11.8-14.1); White Blood Cell Count 9.34 k/cumm (4.4-10.8)
[2019-11-21 08:16] LABS: ALT 22 U/L (16-63); AST 18 U/L (15-37); Albumin 3.3 g/dL (3.4-5.0); Alkaline Phosphatase 167 U/L (46-116); Anion Gap 9.7 mmol/L (3-11); BUN 10 mg/dL (7-18); Bilirubin, Total 0.3 mg/dL (0.2-1.0); CO2 27.3 mmol/L (21.0-32.0); Calcium 8.6 mg/dL (8.5-10.1); Chloride 105 mmol/L (98-107); Glucose 113 mg/dL (74-106); Potassium 3.8 mmol/L (3.5-5.1); Sodium 142 mmol/L (136-145); Total Protein 6.6 g/dL (6.4-8.2)
[2019-11-22 09:19] LABS: CEA 2.5 ng/mL (See Note)
== END 2019-12-01 23:59 | disposition home or self-care (01) ==
LOC: INF 01:51
PROVIDERS: PCP Nurse Practitioner; Visit Provider Internal Medicine
DX: C15.9 Malignant neoplasm of esophagus, unspecified (principal); Z45.2 Encounter for adjustment and management of vascular access device
CPT/HCPCS: 36591; 80053; 82378; 85025

== ENCOUNTER 2019-12-11 01:34 | Outpatient (CLI) | payer MEDICAID, SELFPAY ==
--- NOTE | 2019-12-11 | DI.CT_ITS ---
EXAM: CT CHEST/ABD/PEL W CLINICAL HISTORY: ESOPHAGEAL CA,C15.5,METASTATIC CA,C79.9,C16.0,LIVER METS,C78.7 TECHNIQUE: Imaging Protocol: Axial computed tomography images with coronal and sagittal reformatted images were created and reviewed CONTRAST MATERIAL: Intravenous: Omnipaque 350 Contrast volume:100 mL Oral: Yes COMPARISON: CT CT CHEST/ABD/PEL W from 09/14/2019 FINDINGS: CHEST: Tracheobronchial tree: Patent where visualized. Mediastinum and Rubi: No thoracic adenopathy. Persistent concentric thickening of the wall of the di stal esophagus. Pulmonary parenchyma: Centrilobular and paraseptal emphysematous changes are present. There is a sta ble 3 mm nodule in the anterior aspect of the right upper lobe. Scarring in the lung bases. No new pulmonary nodules or focal consolidating infiltrates are seen. Pleura: No effusion or pneumothorax. Heart: The heart is not dilated. Mild coronary artery calcification. No pericardial effusion. Aorta: Thoracic aorta non-dilated. Lymph nodes: Within normal limits. Bones:Stable probable post radiation changes in the sternum, lower thoracic and upper lumbar spine. Degenerative changes in the thoracic spine. Tubes, Catheters, and Lines: The tip of the indwelling central venous catheter is in good position in the superior vena cava. Soft tissues: Unremarkable. ABDOMEN: Liver: Normal density. As measured on the arterial images, the right hepatic mass has shown interval increase in size measuring 6.5 x 5.4 cm compared with 5.1 x 3.6 cm on the prior examination. No new hepatic masses are identified. Portal, Superior Mesenteric, and Splenic Veins: Unremarkable. Gallbladder and Biliary Tract: No radiodense calculus or dilation. Pancreas: Normal density, no abnormal calcifications or inflammatory process. Spleen: Normal. Adrenals: No masses seen. Kidneys: Normal size, contour and axis. No radiodense stones or obstructive uropathy. Cyst on the sup erior pole of the left kidney. Abdominal Aorta: Abdominal portion non-dilated. Atherosclerosis. Bowel: No obstruction or bowel wall thickening. Normal appendix is identified. There is an enteric f eeding tube again noted. Peritoneal Cavity: No ascites, collection or mesenteric inflammatory response. Lymph Nodes: Within normal limits. Bones: Probable post radiation therapy changes in the lower thoracic and upper lumbar vertebral kaci s. Degenerative changes are present. No suspicious osseous lesions are seen. Soft Tissues: Unremarkable. PELVIS: Bladder: Symmetric distention, no gross wall thickening. Reproductive Organs: Unremarkable as visualized. Lymph Nodes: Within normal limits. Bones: Please see above. IMPRESSION: 1. Interval increase in size of hepatic metastasis. 2. No gross interval change in the thickening of the wall of the distal esophagus. RADIATION DOSE DELIVERED: 1,286.33mGy.cm Total DLP DATA REPOSITORY: All CT scans at this facility are submitted to the National Radiology Data Registry (NRDR) Dose Index Registry (DIR) with the [employer] (ACR). RADIATION OPTIMIZATION: All CT scans at this facility use at least one of these dose optimization te chniques: automated exposure control; mA and/or kV adjustment per patient size (includes targeted exa ms where dose is matched to clinical indication); or iterative reconstruction.
[2019-12-11] MEDS: Omnipaque 350 MG/ML 50 ML BTL IJ (10:51)
[2019-12-11] MEDS: Breeza Beverage 473 ML BTL PO ×2 (10:52→10:53)
[2019-12-11] MEDS: Omnipaque 350 MG/ML 100 ML BTL IJ (11:46)
[2019-12-11] MEDS: Normal Saline - Diluent 50 ML VIAL IV (11:48)
== END 2019-12-11 01:54 ==
PROVIDERS: PCP Nurse Practitioner; Visit Provider Internal Medicine
DX: C15.5 Malignant neoplasm of lower third of esophagus (principal); C78.7 Secondary malignant neoplasm of liver and intrahepatic bile duct; C16.0 Malignant neoplasm of cardia
CPT/HCPCS: 74177; 71260; J3490; Q9967

== ENCOUNTER 2019-12-13 01:33 | Outpatient (CLI) | payer MEDICAID, SELFPAY ==
--- NOTE | 2019-12-13 | DI.MRI_ITS ---
EXAM: MR BRAIN WO/W CLINICAL HISTORY: NEOPLASM GE JUNCTION,C79.9,C16.0,BRAIN METS,C79.31. TECHNIQUE: Multiplanar multisequence MRI of the brain was performed. CONTRAST MATERIAL: IV Contrast: 13 ML of Dotarem contrast administered. COMPARISON: MR MRI BRAIN WWO CONTRAST (GENERIC) from 06/01/2019 MR MR BRAIN WO/W from 09/08/2019 FINDINGS: VENTRICLES AND EXTRA AXIAL SPACES: Normal in size and morphology for the patient's age. HEMORRHAGE: None. CEREBRAL PARENCHYMA: No focus of restricted diffusion to suggest acute infarct. There are two 2 mm en hancing nodules in the left cerebellum and a 2 mm lesion in the right temporal lobe. They correspond in location to the metastases seen on the examination from 06/01/2019. The posterior right parietal e nhancing lesion now measures 3 mm compared with 5 mm on 09/08/2019. There is a new 3 mm enhancing lesi on in the right parietal lobe with associated edema. There also is a question of a 1-2 mm enhancing lesion in the left frontal lobe. There is associated edema seen on the FLAIR and T2 weighted images in this region not present on prior examinations. Multiple foci of hyperintense signal on the T2 and FLAIR images are noted likely reflecting microvascular ischemic disease. Postsurgical changes are a gain seen in the right parietal temporal lobe. Stable area of encephalomalacia in the high left carmencita etal lobe. MIDLINE SHIFT: None. BRAINSTEM/CEREBELLUM: Normal. CALVARIUM: Normal. ENHANCEMENT: Please see cerebral parenchyma above. VISUALIZED PARANASAL SINUSES/MASTOIDS: Clear. [place]: Normal flow void. [place]IT[place]: Unremarkable. OTHER FINDINGS: IMPRESSION: 1. Two new enhancing lesions. One in the left frontal lobe and 1 in the right parietal lobe. These are consistent with metastatic disease. 2. Stable postsurgical changes in the right temporoparietal lobe. DATA REPOSITORY:
[2019-12-13] MEDS: Normal Saline Flush 10 ML SYR IVP (11:21)
[2019-12-13] MEDS: Gadoterate meglumine 20 ML VIAL 13 ML IVP (11:22)
== END 2019-12-13 01:53 ==
PROVIDERS: PCP Nurse Practitioner; Visit Provider Internal Medicine
DX: C79.9 Secondary malignant neoplasm of unspecified site (principal); C16.0 Malignant neoplasm of cardia; C79.31 Secondary malignant neoplasm of brain; Z98.890 Other specified postprocedural states
CPT/HCPCS: 70553

== ENCOUNTER 2019-12-19 01:23 | Outpatient (RCR) | payer MEDICAID, SELFPAY ==
[2019-12-05] MEDS: Normal Saline Flush 10 ML SYR IVP (08:10)
[2019-12-05 08:58] LABS: Abs Immature Grans 0.15 10^3/uL (0.0-0.06); Absolute Eosinophil Count 0.32 10^3/uL (0.0-0.7); Absolute Lymphocyte Count 0.74 10^3/uL (1.2-3.4); Absolute Monocyte Count 1.21 10^3/uL (0.1-0.8); Basophils % 0.4; Eosinophils % 2.3; HCT 33.1 % (40.0-50.0); HGB 10.3 g/dL (13.5-17.5); Immature Grans % 1.1; Lymphocytes % 5.4; MCH 29.6 pg (27.0-33.0); MCHC 31.1 % (32.0-36.0); MCV 95.1 fL (80-95); MPV 10.4 fL (8.0-11.0); Monocytes % 8.8; Platelet Count 196 10^3/uL (130-400); RBC 3.48 10^6/uL (4.36-5.78); RDW 15.5 % (11.8-14.1); RDW-SD 54.1 fL; WBC 13.76 10^3/uL (4.4-10.8)
[2019-12-05 08:59] LABS: Absolute Basophil Count 0.06 10^3/uL (0.0-0.2); Absolute Neutrophil Count 11.28 10^3/uL (1.2-6.7)
[2019-12-05 09:11] LABS: ALT 20 U/L (16-63); AST 15 U/L (15-37); Albumin 3.4 g/dL (3.4-5.0); Alkaline Phosphatase 163 U/L (46-116); Anion Gap 9.5 mmol/L (3-11); BUN 11 mg/dL (7-18); Bilirubin, Total 0.4 mg/dL (0.2-1.0); CO2 26.5 mmol/L (21.0-32.0); CREATININE 0.84 mg/dL (0.70-1.30); Calcium 8.7 mg/dL (8.5-10.1); Chloride 106 mmol/L (98-107); Glucose 99 mg/dL (74-106); Potassium 4.1 mmol/L (3.5-5.1); Sodium 142 mmol/L (136-145); Total Protein 6.7 g/dL (6.4-8.2)
[2019-12-06 09:41] LABS: CEA 1.5 ng/mL (See Note)
[2019-12-11] MEDS: Heparin 500 UNITS/5 ML SYRINGE IV (10:25)
[2019-12-11] MEDS: Normal Saline Flush 10 ML SYR IVP (10:25)
[2019-12-11 10:58] LABS: ALT 26 U/L (16-63); AST 16 U/L (15-37); Albumin 3.5 g/dL (3.4-5.0); Alkaline Phosphatase 254 U/L (46-116); Anion Gap 8.7 mmol/L (3-11); BUN 21 mg/dL (7-18); Bilirubin, Total 0.5 mg/dL (0.2-1.0); CO2 27.3 mmol/L (21.0-32.0); CREATININE 0.73 mg/dL (0.70-1.30); Calcium 8.5 mg/dL (8.5-10.1); Chloride 103 mmol/L (98-107); Glucose 118 mg/dL (74-106); Potassium 3.7 mmol/L (3.5-5.1); Sodium 139 mmol/L (136-145); Total Protein 6.9 g/dL (6.4-8.2)
[2019-12-13] MEDS: Normal Saline Flush 10 ML SYR IVP (11:55)
[2019-12-13] MEDS: Heparin 500 UNITS/5 ML SYRINGE IV (11:55)
[2019-12-19] MEDS: Normal Saline Flush 10 ML SYR IVP (09:05)
[2019-12-19 09:25] LABS: Abs Immature Grans 0.19 10^3/uL (0.0-0.06); Absolute Basophil Count 0.04 10^3/uL (0.0-0.2); Absolute Eosinophil Count 0.26 10^3/uL (0.0-0.7); Absolute Lymphocyte Count 0.64 10^3/uL (1.2-3.4); Absolute Monocyte Count 0.98 10^3/uL (0.1-0.8); Absolute Neutrophil Count 10.73 10^3/uL (1.2-6.7); Basophils % 0.3; HGB 10.7 g/dL (13.5-17.5); Immature Grans % 1.5; MCH 29.2 pg (27.0-33.0); MCHC 30.6 % (32.0-36.0); MCV 95.6 fL (80-95); MPV 9.6 fL (8.0-11.0); Monocytes % 7.6; Neutrophils % 83.6; Nucleated RBC 0 %; Platelet Count 205 10^3/uL (130-400); RBC 3.66 10^6/uL (4.36-5.78); RDW 15.8 % (11.8-14.1); RDW-SD 55.5 fL; WBC 12.84 10^3/uL (4.4-10.8)
[2019-12-19 09:46] LABS: ALT 21 U/L (16-63); AST 15 U/L (15-37); Albumin 3.5 g/dL (3.4-5.0); Alkaline Phosphatase 152 U/L (46-116); Anion Gap 10.1 mmol/L (3-11); BUN 12 mg/dL (7-18); Bilirubin, Total 0.3 mg/dL (0.2-1.0); CO2 27.9 mmol/L (21.0-32.0); Calcium 8.7 mg/dL (8.5-10.1); Chloride 105 mmol/L (98-107); Glucose 106 mg/dL (74-106); Potassium 4.3 mmol/L (3.5-5.1); Sodium 143 mmol/L (136-145); Total Protein 6.7 g/dL (6.4-8.2)
[2019-12-20 08:29] LABS: CEA 1.9 ng/mL (See Note)
== END 2020-01-01 23:59 | disposition home or self-care (01) ==
LOC: INF 01:23
PROVIDERS: PCP Nurse Practitioner; Visit Provider Internal Medicine
DX: C15.9 Malignant neoplasm of esophagus, unspecified (principal); Z45.2 Encounter for adjustment and management of vascular access device
CPT/HCPCS: 36591; 80053; 96523; 82378; 85025

== ENCOUNTER 2020-01-11 00:47 | Outpatient (CLI) | payer MEDICAID, SELFPAY ==
--- NOTE | 2020-01-11 | DI.US_ITS ---
APPROVED REPORT EXAM: Comprehensive 2D, Doppler, and color-flow Echocardiogram Patient Location: Out-Patient Geochemical Manager: Aleah Wheatley RDCS (AE) Indications: Metastatic Cancer, High risk Medication Other Information Study Quality: Adequate Conclusion Left Ventricle : The left ventricle is normal size. The left ventricular ejection fraction is within the normal range. There is normal left ventricular wall thickness. There is normal LV segmental wall motion. The left ventricular diastolic function is normal. LVEF is 55-60%. Global longitudinal strai n is -15% Right Ventricle : The right ventricle is normal size. The right ventricular systolic function is norm al. The RVSP is 18.9mmHg. Atria : The left atrium size is normal. The right atrium size is normal. Aortic Valve : The Aortic valve is sclerotic. Aortic valve is bicuspid. No hemodynamically significan t valvular aortic stenosis. Mild to moderate aortic regurgitation. Great Vessels : The aortic root is normal in size. The ascending aorta is normal in size. Aortic arch is normal in caliber. IVC is normal in size and collapses >50% with inspiration. Compared to study from 09/13/2019, global longitudinal strain has decreased from -16% to -15% which is just below normal. Wall motion Left Ventricle The left ventricle is normal size. The left ventricular ejection fraction is within the normal range. There is normal left ventricular wall thickness. There is normal LV segmental wall motion. The left ventricular diastolic function is normal. There is no ventricular septal defect visualized. LVEF is 5 5-60%. Global longitudinal strain is -15% Right Ventricle The right ventricle is normal size. The right ventricular systolic function is normal. The RVSP is 18 .9mmHg. Atria The left atrium size is normal. The right atrium size is normal. The interatrial septum is intact wit h no evidence for an atrial septal defect. Aortic Valve The Aortic valve is sclerotic. Aortic valve is bicuspid. No hemodynamically significant valvular aort ic stenosis. Mild to moderate aortic regurgitation. Mitral Valve The mitral valve is normal in structure. No evidence of mitral valve stenosis. Trace mitral regurgita tion. Tricuspid Valve The tricuspid valve is normal in structure. There is no tricuspid valve stenosis. Trace tricuspid reg urgitation. Pulmonic Valve The pulmonary valve is normal in structure. There is no pulmonic valvular stenosis. Trace pulmonic re gurgitation. Great Vessels The aortic root is normal in size. The ascending aorta is normal in size. Aortic arch is normal in ca liber. IVC is normal in size and collapses >50% with inspiration. Pericardium There is no pericardial effusion. 2D Dimensions IVSD d PLAX 0.65 cm M: 0.6-1.2 LV Vol A2C d MOD 98.8 mL LVPW d PLAX 0.67 cm M: 0.6 - 1.2 LV Vol A4C d MOD 89.3 mL LVID d PLAX 4.53 cm M: 4.2 - 5.8 LA vol/ BSA A2C s A-L 23.7 mL/m2 LVDs 3.25 cm M: 2.5 - 4.0 LA vol/ BSA A4C s A-L 16.3 mL/m2 Ao Root d 3.39 cm M: 3.1 - 3.7 LA Vol/ BSA Biplane s A-L 20.5 mL/m2 RA Area A4C 9.46 cm2 LA Area A4C s MOD 13.37 cm2 RA Vol/ BSA A4C s A-L 9.3 mL/m2 LA Area A2C s MOD 15.46 cm2 Ao Asc Diam d 3.34 cm M: 2.6 - 3.4 LV EF A4C MOD 55.2 % LV EF Teichholz 53.7 % LV EF A2C MOD 58.1 % LVEF (Priest's) 55.74 % M: 52 - 72 LV EF Biplane MOD 55.7 % LV Volume 73.89 mL M: 62 - 150 SV 53.42 mL LV Volume Index 40.15 mL/m2 M: 34 - 74 SV Index 28.96 mL/m2 LV Vol Biplane MOD 95.8 mL FS 27.55 % M-Mode TAPSE 1.66 cm (M/F) >1.7 LV Diastology MV E' medial 0.100 (>0.07 m/s) E/A Ratio 0.7 LV E/e MED 6.40 (<14) MV E Vmax 0.64 (0.4-1.3 m/s) MV E' lateral 0.065 (>0.1 m/s) MV A Vmax 0.90 (0.4-1.3 m/s) LV E/e LAT 9.90 (<14) MV E/A Ratio 0.69 MV E/E' medial 6.41 MV E/E' lateral 9.91 Aortic Valve LVOT Area 3.28 cm2 AoV Area Vmax 1.73 cm2 LVOT Vmax 1.09 m/s AoV Area/ BSA (Vmax) 0.94 cm2/m2 LVOT Mean Andrea. 0.72 m/s MARCIE Mean Andrea. 1.59 cm2 LVOT Peak Grad 4.7 mmHg MARCIE Mean Andrea. Index 0.86 cm2/m2 LVOT Mean Grad 2.4 mmHg AR DT 1364 msec LVOT VTI 0.177 m AR PHT 396 msec LVOT Diam s 2.00 cm AoV Vmax 2.05 m/s Velocity Ratio 0.53 AoV Mean Andrea. 1.49 m/s AoV Peak Grad 16.9 mmHg LVOT SV 58.09 mL AoV Mean Grad 9.6 mmHg AoV VTI 0.328 m AoV Area VTI 1.77 cm2 AoV Area/ BSA (VTI) 0.96 cm/m2 Mitral Valve MV DT 131 (160-240 msec) MV PHT 38 msec MV Area PHT 5.81 cm2 Pulmonary Valve PV Vmax 0.76 (0.5-1.5 m/s) RVOT Peak Gr. 1.49 mmHg PV Peak Grad 2.3 mmHg RVOT Mean Gr. 0.85 mmHg PV Mean Grad 1.3 mmHg RVOT VTI 0.113 m PV VTI 0.107 m RVOT Vmax 0.61 m/s Tricuspid Valve TR Peak Grad 15.8 mmHg TR Vmax 1.99 m/s RA Pressure 3.00 mmHg RVSP (TR) 18.9 mmHg
== END 2020-01-11 01:07 ==
PROVIDERS: PCP Nurse Practitioner; Visit Provider Internal Medicine
DX: I35.1 Nonrheumatic aortic (valve) insufficiency (principal)
CPT/HCPCS: 93306

== ENCOUNTER 2020-01-30 01:58 | Outpatient (RCR) | payer MEDICAID, SELFPAY ==
[2020-01-02 08:02] LABS: Abs Immature Grans 0.02 10^3/uL (0.0-0.06); Absolute Basophil Count 0.07 10^3/uL (0.0-0.2); Absolute Eosinophil Count 0.26 10^3/uL (0.0-0.7); Absolute Lymphocyte Count 0.58 10^3/uL (1.2-3.4); Absolute Monocyte Count 0.61 10^3/uL (0.1-0.8); Absolute Neutrophil Count 5.89 10^3/uL (1.2-6.7); Basophils % 0.9; Eosinophils % 3.5; HCT 33.4 % (40.0-50.0); HGB 10.3 g/dL (13.5-17.5); Immature Grans % 0.3; Lymphocytes % 7.8; MCH 28.8 pg (27.0-33.0); MCHC 30.8 % (32.0-36.0); MCV 93.3 fL (80-95); MPV 9.9 fL (8.0-11.0); Monocytes % 8.2; Neutrophils % 79.3; Nucleated RBC 0 %; RBC 3.58 10^6/uL (4.36-5.78); RDW 15.4 % (11.8-14.1); RDW-SD 52.4 fL; WBC 7.43 10^3/uL (4.4-10.8)
[2020-01-02 08:03] LABS: Platelet Count 314 10^3/uL (130-400)
[2020-01-02 08:14] LABS: ALT 34 U/L (16-63); AST 21 U/L (15-37); Albumin 3.3 g/dL (3.4-5.0); Alkaline Phosphatase 145 U/L (46-116); Anion Gap 8.6 mmol/L (3-11); BUN 16 mg/dL (7-18); Bilirubin, Total 0.3 mg/dL (0.2-1.0); CO2 29.4 mmol/L (21.0-32.0); CREATININE 0.69 mg/dL (0.70-1.30); Chloride 103 mmol/L (98-107); Glucose 114 mg/dL (74-106); Potassium 4.1 mmol/L (3.5-5.1); Sodium 141 mmol/L (136-145); Total Protein 7.1 g/dL (6.4-8.2)
[2020-01-02] MEDS: Normal Saline Flush 10 ML SYR IVP (08:35)
[2020-01-09] MEDS: Normal Saline Flush 10 ML SYR IVP (07:49)
[2020-01-09 08:01] LABS: Abs Immature Grans 0.04 10^3/uL (0.0-0.06); Absolute Basophil Count 0.05 10^3/uL (0.0-0.2); Absolute Eosinophil Count 0.35 10^3/uL (0.0-0.7); Absolute Lymphocyte Count 0.61 10^3/uL (1.2-3.4); Absolute Monocyte Count 0.29 10^3/uL (0.1-0.8); Absolute Neutrophil Count 3.61 10^3/uL (1.2-6.7); Eosinophils % 7.1; HCT 32.7 % (40.0-50.0); HGB 10.2 g/dL (13.5-17.5); Immature Grans % 0.8; Lymphocytes % 12.3; MCH 28.5 pg (27.0-33.0); MCHC 31.2 % (32.0-36.0); MCV 91.3 fL (80-95); MPV 9.7 fL (8.0-11.0); Monocytes % 5.9; Neutrophils % 72.9; Nucleated RBC 0 %; Platelet Count 279 10^3/uL (130-400); RBC 3.58 10^6/uL (4.36-5.78); RDW 15.2 % (11.8-14.1); RDW-SD 50.4 fL; WBC 4.95 10^3/uL (4.4-10.8)
[2020-01-09 08:13] LABS: ALT 31 U/L (16-63); AST 20 U/L (15-37); Albumin 3.5 g/dL (3.4-5.0); Alkaline Phosphatase 118 U/L (46-116); Anion Gap 6.5 mmol/L (3-11); BUN 15 mg/dL (7-18); Bilirubin, Total 0.3 mg/dL (0.2-1.0); CO2 30.5 mmol/L (21.0-32.0); CREATININE 0.68 mg/dL (0.70-1.30); Calcium 8.8 mg/dL (8.5-10.1); Chloride 103 mmol/L (98-107); Glucose 111 mg/dL (74-106); Potassium 3.9 mmol/L (3.5-5.1); Sodium 140 mmol/L (136-145); Total Protein 6.9 g/dL (6.4-8.2)
[2020-01-16 08:00] LABS: Abs Immature Grans 0.02 10^3/uL (0.0-0.06); Absolute Basophil Count 0.04 10^3/uL (0.0-0.2); Absolute Eosinophil Count 0.18 10^3/uL (0.0-0.7); Absolute Lymphocyte Count 0.54 10^3/uL (1.2-3.4); Absolute Neutrophil Count 2.11 10^3/uL (1.2-6.7); Basophils % 1.3; Eosinophils % 5.8; HCT 31.8 % (40.0-50.0); HGB 10.2 g/dL (13.5-17.5); Immature Grans % 0.6; Lymphocytes % 17.5; MCHC 32.1 % (32.0-36.0); MCV 90.3 fL (80-95); MPV 10.1 fL (8.0-11.0); Monocytes % 6.5; Neutrophils % 68.3; Nucleated RBC 0 %; Platelet Count 225 10^3/uL (130-400); RBC 3.52 10^6/uL (4.36-5.78); RDW 15.3 % (11.8-14.1); RDW-SD 50.4 fL; WBC 3.09 10^3/uL (4.4-10.8)
[2020-01-16] MEDS: Normal Saline Flush 10 ML SYR IVP (08:00)
[2020-01-16 08:10] LABS: ALT 37 U/L (16-63); AST 27 U/L (15-37); Albumin 3.5 g/dL (3.4-5.0); Alkaline Phosphatase 111 U/L (46-116); Anion Gap 5.7 mmol/L (3-11); BUN 15 mg/dL (7-18); Bilirubin, Total 0.5 mg/dL (0.2-1.0); CO2 30.3 mmol/L (21.0-32.0); CREATININE 0.81 mg/dL (0.70-1.30); Calcium 8.8 mg/dL (8.5-10.1); Chloride 105 mmol/L (98-107); Glucose 110 mg/dL (74-106); Potassium 3.9 mmol/L (3.5-5.1); Sodium 141 mmol/L (136-145); Total Protein 6.8 g/dL (6.4-8.2)
[2020-01-30] MEDS: Normal Saline Flush 10 ML SYR IVP (09:53)
[2020-01-30 09:57] LABS: Abs Immature Grans 0.05 10^3/uL (0.0-0.06); Absolute Basophil Count 0.05 10^3/uL (0.0-0.2); Absolute Eosinophil Count 0.09 10^3/uL (0.0-0.7); Absolute Lymphocyte Count 0.74 10^3/uL (1.2-3.4); Absolute Monocyte Count 0.81 10^3/uL (0.1-0.8); Absolute Neutrophil Count 6.58 10^3/uL (1.2-6.7); Basophils % 0.6; Eosinophils % 1.1; HCT 35.3 % (40.0-50.0); HGB 10.9 g/dL (13.5-17.5); Immature Grans % 0.6; Lymphocytes % 8.9; MCH 28.8 pg (27.0-33.0); MCHC 30.9 % (32.0-36.0); MCV 93.1 fL (80-95); MPV 9.5 fL (8.0-11.0); Monocytes % 9.7; Neutrophils % 79.1; Nucleated RBC 0 %; Platelet Count 209 10^3/uL (130-400); RBC 3.79 10^6/uL (4.36-5.78); RDW 17.3 % (11.8-14.1); RDW-SD 57.4 fL; WBC 8.32 10^3/uL (4.4-10.8)
[2020-01-30 10:10] LABS: ALT 30 U/L (16-63); AST 20 U/L (15-37); Albumin 3.6 g/dL (3.4-5.0); Alkaline Phosphatase 117 U/L (46-116); Anion Gap 7.8 mmol/L (3-11); BUN 20 mg/dL (7-18); Bilirubin, Total 0.4 mg/dL (0.2-1.0); CO2 28.2 mmol/L (21.0-32.0); Calcium 8.7 mg/dL (8.5-10.1); Chloride 106 mmol/L (98-107); Glucose 107 mg/dL (74-106); Potassium 4.3 mmol/L (3.5-5.1); Sodium 142 mmol/L (136-145); Total Protein 6.9 g/dL (6.4-8.2)
== END 2020-01-31 23:59 | disposition home or self-care (01) ==
LOC: INF 01:58
PROVIDERS: PCP Nurse Practitioner; Visit Provider Internal Medicine
DX: C15.9 Malignant neoplasm of esophagus, unspecified (principal); Z45.2 Encounter for adjustment and management of vascular access device
CPT/HCPCS: 36591; 80053; 85025

== ENCOUNTER 2020-02-29 01:17 | Outpatient (CLI) | payer MEDICAID, SELFPAY ==
--- NOTE | 2020-02-29 | DI.MRI_ITS ---
EXAM: MR BRAIN WO/W CLINICAL HISTORY: BRAIN METS FROM GE [place],S/P SRS. TECHNIQUE: Multiplanar multisequence MRI was performed. COMPARISON: MR MR BRAIN WO/W from 12/13/2019 FINDINGS: Brain MRI was performed according to the usual protocol with additional post contrast axial and coron al T1 weighted imaging. Examination is compared with prior scan of December 12, the previous examina tion showed enhance sing lesions consistent with widespread intracranial metastatic disease, 2 of the se were identified as new on prior examination, these were in the right parietal lobe. These 2 lesions have now increased in size, lesion in the anterior portion of parietal lobe on the ri ght measures about 9 millimeters in diameter as compared to 3 millimeters in diameter on the prior st udy. The more posteriorly located lesion measures up to about 4 millimeters in diameter as compared to about 3 millimeters in diameter on the prior study. Tiny lesions are now seen in the right occipital lobe which were not present on prior study, these me asure 1-2 millimeters in diameter. A right temporal lobe lesion has mildly increased in size. Left cerebellar hemisphere lesions are grossly unchanged. New or enlarging left frontal lobe lesion also seen measuring up to about 6 millimeters in diameter. There is no evidence of intracranial hemorrhage. Diffusion-weighted imaging is within normal limits. No other significant change in comparison with the prior study. IMPRESSION: Interval increase in size of previously noted intracranial metastatic lesions, the largest in the rig ht parietal lobe now measures about 9 millimeters in diameter. A couple of tiny new lesions are also present in the right occipital lobe as described above. DATA REPOSITORY:
[2020-02-29] MEDS: Normal Saline Flush 10 ML SYR IVP (14:16)
[2020-02-29] MEDS: Gadoterate meglumine 20 ML VIAL 14 ML IVP (14:17)
== END 2020-02-29 01:37 ==
PROVIDERS: PCP Nurse Practitioner; Visit Provider Radiology Radiation Oncology
DX: C79.31 Secondary malignant neoplasm of brain (principal)
CPT/HCPCS: 70553

== ENCOUNTER 2020-02-29 01:36 | Outpatient (RCR) | payer MEDICAID, SELFPAY ==
[2020-02-06] MEDS: Normal Saline Flush 10 ML SYR IVP (08:15)
[2020-02-06 08:21] LABS: Abs Immature Grans 0.04 10^3/uL (0.0-0.06); Absolute Basophil Count 0.05 10^3/uL (0.0-0.2); Absolute Eosinophil Count 0.09 10^3/uL (0.0-0.7); Absolute Lymphocyte Count 0.68 10^3/uL (1.2-3.4); Absolute Monocyte Count 0.22 10^3/uL (0.1-0.8); Absolute Neutrophil Count 2.82 10^3/uL (1.2-6.7); Basophils % 1.3; Eosinophils % 2.3; HCT 32.3 % (40.0-50.0); HGB 10.1 g/dL (13.5-17.5); Lymphocytes % 17.4; MCHC 31.3 % (32.0-36.0); MCV 92.8 fL (80-95); MPV 10.1 fL (8.0-11.0); Monocytes % 5.6; Neutrophils % 72.4; Nucleated RBC 0 %; Platelet Count 223 10^3/uL (130-400); RBC 3.48 10^6/uL (4.36-5.78); RDW 16.8 % (11.8-14.1); RDW-SD 55.8 fL
[2020-02-06 08:35] LABS: ALT 31 U/L (16-63); AST 23 U/L (15-37); Albumin 3.5 g/dL (3.4-5.0); Alkaline Phosphatase 98 U/L (46-116); Anion Gap 6.7 mmol/L (3-11); BUN 19 mg/dL (7-18); Bilirubin, Total 0.5 mg/dL (0.2-1.0); CO2 28.3 mmol/L (21.0-32.0); CREATININE 0.74 mg/dL (0.70-1.30); Calcium 8.4 mg/dL (8.5-10.1); Chloride 106 mmol/L (98-107); Glucose 99 mg/dL (74-106); Potassium 4.1 mmol/L (3.5-5.1); Sodium 141 mmol/L (136-145); Total Protein 6.7 g/dL (6.4-8.2)
[2020-02-06 10:53] LABS: Magnesium 2.1 mg/dL (1.8-2.4)
[2020-02-06 18:10] LABS: CEA 1.5 ng/mL (See Note)
[2020-02-13] MEDS: Normal Saline Flush 10 ML SYR IVP (10:17)
[2020-02-13 10:25] LABS: Absolute Basophil Count 0.03 10^3/uL (0.0-0.2); Absolute Eosinophil Count 0.13 10^3/uL (0.0-0.7); Absolute Lymphocyte Count 0.44 10^3/uL (1.2-3.4); Absolute Monocyte Count 0.14 10^3/uL (0.1-0.8); Absolute Neutrophil Count 0.97 10^3/uL (1.2-6.7); Basophils % 1.8; Eosinophils % 7.6; HCT 30.1 % (40.0-50.0); HGB 9.5 g/dL (13.5-17.5); Lymphocytes % 25.7; MCH 28.8 pg (27.0-33.0); MCHC 31.6 % (32.0-36.0); MCV 91.2 fL (80-95); MPV 9.8 fL (8.0-11.0); Monocytes % 8.2; Neutrophils % 56.7; Nucleated RBC 0 %; Platelet Count 253 10^3/uL (130-400); RDW 16.7 % (11.8-14.1); RDW-SD 55.2 fL
[2020-02-13 10:41] LABS: ALT 38 U/L (16-63); AST 26 U/L (15-37); Albumin 3.6 g/dL (3.4-5.0); Alkaline Phosphatase 99 U/L (46-116); Anion Gap 5.9 mmol/L (3-11); BUN 19 mg/dL (7-18); Bilirubin, Total 0.4 mg/dL (0.2-1.0); CO2 30.1 mmol/L (21.0-32.0); CREATININE 0.68 mg/dL (0.70-1.30); Calcium 8.6 mg/dL (8.5-10.1); Chloride 105 mmol/L (98-107); Glucose 101 mg/dL (74-106); Potassium 4.3 mmol/L (3.5-5.1); Sodium 141 mmol/L (136-145); Total Protein 6.8 g/dL (6.4-8.2)
[2020-02-13 10:59] LABS: Diff Comment Agrees w/ Instrument; WBC 1.71 10^3/uL (4.4-10.8)
[2020-02-13 11:00] LABS: RBC Morphology Normal
[2020-02-27] MEDS: Normal Saline Flush 10 ML SYR IVP (08:23)
[2020-02-27 08:24] LABS: Abs Immature Grans 0.02 10^3/uL (0.0-0.06); Absolute Basophil Count 0.04 10^3/uL (0.0-0.2); Absolute Eosinophil Count 0.11 10^3/uL (0.0-0.7); Absolute Lymphocyte Count 0.64 10^3/uL (1.2-3.4); Basophils % 0.6; Eosinophils % 1.6; HCT 35.3 % (40.0-50.0); HGB 10.9 g/dL (13.5-17.5); Immature Grans % 0.3; Lymphocytes % 9.4; MCH 28.4 pg (27.0-33.0); MCHC 30.9 % (32.0-36.0); MCV 91.9 fL (80-95); MPV 10.5 fL (8.0-11.0); Monocytes % 8.8; Neutrophils % 79.3; Nucleated RBC 0 %; Platelet Count 197 10^3/uL (130-400); RBC 3.84 10^6/uL (4.36-5.78); RDW 18.7 % (11.8-14.1); RDW-SD 62.1 fL; WBC 6.81 10^3/uL (4.4-10.8)
[2020-02-27 08:37] LABS: ALT 25 U/L (16-63); AST 17 U/L (15-37); Albumin 3.7 g/dL (3.4-5.0); Alkaline Phosphatase 125 U/L (46-116); Anion Gap 4.6 mmol/L (3-11); BUN 24 mg/dL (7-18); Bilirubin, Total 0.4 mg/dL (0.2-1.0); CO2 28.4 mmol/L (21.0-32.0); Calcium 8.5 mg/dL (8.5-10.1); Chloride 105 mmol/L (98-107); Glucose 110 mg/dL (74-106); Potassium 4.1 mmol/L (3.5-5.1); Sodium 138 mmol/L (136-145); Total Protein 7.2 g/dL (6.4-8.2)
[2020-02-29] MEDS: Normal Saline Flush 10 ML SYR IVP (14:16)
[2020-02-29] MEDS: Heparin 500 UNITS/5 ML SYRINGE IV (14:16)
== END 2020-03-02 23:59 | disposition home or self-care (01) ==
LOC: INF 01:36
PROVIDERS: PCP Nurse Practitioner; Visit Provider Internal Medicine
DX: C15.9 Malignant neoplasm of esophagus, unspecified (principal); Z45.2 Encounter for adjustment and management of vascular access device
CPT/HCPCS: 36591; 80053; 96523; 82378; 83735; 85025

== ENCOUNTER 2020-03-07 00:46 | Outpatient (CLI) | payer MEDICAID, SELFPAY ==
[2020-03-07] MEDS: Omnipaque 350 MG/ML 50 ML BTL IJ (09:19)
[2020-03-07] MEDS: Breeza Beverage 473 ML BTL PO ×2 (09:19→09:20)
[2020-03-07] MEDS: Omnipaque 350 MG/ML 100 ML BTL IJ (11:19)
--- NOTE | 2020-03-07 11:30 | DI.CT_ITS ---
EXAM: CT CHEST/ABD/PEL W CLINICAL HISTORY: ESOPHAGEAL CA,C15.9,BRAIN METS,C79.31,LIVER METS,C78.7,RECENT MRI SHOWED TECHNIQUE: Imaging Protocol: Axial computed tomography images with coronal and sagittal reformatted images were created and reviewed CONTRAST MATERIAL: Intravenous: Omnipaque 350 Contrast volume:100 mL Oral: Yes COMPARISON: CT CT CHEST/ABD/PEL W from 12/11/2019 FINDINGS: CHEST: Tracheobronchial tree: Patent where visualized. Mediastinum and Rubi: No dominant adenopathy or fluid collection. Persistent thickening of the wall o f the esophagus distally. Pulmonary parenchyma: No focal consolidation. Emphysematous changes in the lungs. There is a stable nodule in the anterior aspect of the right upper lobe. The nodule in the lateral aspect of the left upper lobe is unchanged. No new pulmonary nodules are identified Pleura: No effusion or pneumothorax. Heart: The heart is not dilated. Mild coronary artery calcification. No pericardial effusion. Aorta: Thoracic aorta non-dilated. Lymph nodes: Within normal limits. Bones:Degenerative changes. Tubes, Catheters, and Lines: There is a indwelling central venous catheter. The tip is in good posit ion at the junction of the superior vena cava and right atrium. Soft tissues: Unremarkable. ABDOMEN: Liver: Normal density. The mass in the right lobe of the liver measures 6.3 x 5.5 cm. This compares with 6.5 x 5.4 cm on the prior examination. No new hepatic masses are present. Portal, Superior Mesenteric, and Splenic Veins: Unremarkable. Gallbladder and Biliary Tract: No radiodense calculus or dilation. Pancreas: Normal density, no abnormal calcifications or inflammatory process. Spleen: Normal. Adrenals: No masses seen. Kidneys: Normal size, contour and axis. No radiodense stones or obstructive uropathy. Stable cyst in the superior pole of the left kidney. Abdominal Aorta: Abdominal portion non-dilated. Atherosclerosis. 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 Bowel: No obstruction or bowel wall thickening. Appendix is unremarkable. Colonic diverticulosis. No evidence of acute diverticulitis. There is an enteric feeding tube present. Peritoneal Cavity: No ascites, collection or mesenteric inflammatory response. Lymph Nodes: Within normal limits. Bones: Post radiation changes are seen in the lower thoracic and upper lumbar spine. No acute fractu re or subluxation. No suspicious lytic or sclerotic lesions are seen in the bones. Soft Tissues: Unremarkable. PELVIS: Bladder: Symmetric distention, no gross wall thickening. Reproductive Organs: Unremarkable as visualized. Lymph Nodes: Within normal limits. Bones: Please see above. IMPRESSION: 1. No significant change in appearance of the chest, abdomen or pelvis since 12/11/2019. 2. RADIATION DOSE DELIVERED: 1,357.67mGy.cm Total DLP DATA REPOSITORY: All CT scans at this facility are submitted to the National Radiology Data Registry (NRDR) Dose Index Registry (DIR) with the [employer] (ACR). RADIATION OPTIMIZATION: All CT scans at this facility use at least one of these dose optimization te chniques: automated exposure control; mA and/or kV adjustment per patient size (includes targeted exa ms where dose is matched to clinical indication); or iterative reconstruction.
== END 2020-03-07 01:06 ==
PROVIDERS: PCP Nurse Practitioner; Visit Provider Nurse Practitioner Adult Health
DX: C79.31 Secondary malignant neoplasm of brain (principal); C78.7 Secondary malignant neoplasm of liver and intrahepatic bile duct; C15.9 Malignant neoplasm of esophagus, unspecified
CPT/HCPCS: 74177; 80053; 71260; 85025; J3490; Q9967

== ENCOUNTER 2020-03-07 01:52 | Outpatient (RCR) | payer MEDICAID, SELFPAY ==
[2020-03-07] MEDS: Heparin 500 UNITS/5 ML SYRINGE IV (09:07)
[2020-03-07] MEDS: Normal Saline Flush 10 ML SYR IVP (09:07)
== END 2020-04-01 23:59 | disposition home or self-care (01) ==
LOC: INF 01:52
PROVIDERS: PCP Nurse Practitioner; Visit Provider Internal Medicine
DX: C15.5 Malignant neoplasm of lower third of esophagus (principal); Z45.2 Encounter for adjustment and management of vascular access device
CPT/HCPCS: 96523

== ENCOUNTER 2020-04-01 13:56 | Outpatient (RCR) | payer MEDICAID, SELFPAY ==
[2020-03-05] MEDS: Normal Saline Flush 10 ML SYR IVP (08:42)
[2020-03-05 08:56] LABS: Abs Immature Grans 0.02 10^3/uL (0.0-0.06); Absolute Basophil Count 0.04 10^3/uL (0.0-0.2); Absolute Eosinophil Count 0.28 10^3/uL (0.0-0.7); Absolute Lymphocyte Count 1.22 10^3/uL (1.2-3.4); Absolute Monocyte Count 0.37 10^3/uL (0.1-0.8); Absolute Neutrophil Count 3.48 10^3/uL (1.2-6.7); Basophils % 0.7; Eosinophils % 5.2; HCT 34.3 % (40.0-50.0); HGB 10.9 g/dL (13.5-17.5); Immature Grans % 0.4; Lymphocytes % 22.6; MCH 29.2 pg (27.0-33.0); MCHC 31.8 % (32.0-36.0); MPV 10.3 fL (8.0-11.0); Monocytes % 6.8; Neutrophils % 64.3; Nucleated RBC 0 %; Platelet Count 258 10^3/uL (130-400); RBC 3.73 10^6/uL (4.36-5.78); RDW 18.2 % (11.8-14.1); WBC 5.41 10^3/uL (4.4-10.8)
[2020-03-05 09:11] LABS: ALT 28 U/L (16-63); AST 22 U/L (15-37); Albumin 3.7 g/dL (3.4-5.0); Alkaline Phosphatase 106 U/L (46-116); Anion Gap 6.2 mmol/L (3-11); BUN 21 mg/dL (7-18); Bilirubin, Total 0.4 mg/dL (0.2-1.0); CO2 27.8 mmol/L (21.0-32.0); CREATININE 0.82 mg/dL (0.70-1.30); Calcium 8.6 mg/dL (8.5-10.1); Chloride 106 mmol/L (98-107); Glucose 113 mg/dL (74-106); Potassium 4.2 mmol/L (3.5-5.1); Sodium 140 mmol/L (136-145); Total Protein 7.1 g/dL (6.4-8.2)
== END 2020-04-01 23:59 | disposition home or self-care (01) ==
LOC: INF 13:56
PROVIDERS: PCP Nurse Practitioner; Visit Provider Internal Medicine
DX: C15.9 Malignant neoplasm of esophagus, unspecified (principal); Z45.2 Encounter for adjustment and management of vascular access device
CPT/HCPCS: 36591; 80053; 85025

== ENCOUNTER 2020-04-23 01:28 | Outpatient (RCR) | payer MEDICAID, SELFPAY ==
[2020-04-02] MEDS: Normal Saline Flush 10 ML SYR IVP (08:21)
[2020-04-02 08:23] LABS: Abs Immature Grans 0.01 10^3/uL (0.0-0.06); Absolute Basophil Count 0.02 10^3/uL (0.0-0.2); Absolute Eosinophil Count 0.25 10^3/uL (0.0-0.7); Absolute Lymphocyte Count 0.79 10^3/uL (1.2-3.4); Absolute Monocyte Count 0.44 10^3/uL (0.1-0.8); Basophils % 0.4; HCT 37.8 % (40.0-50.0); Immature Grans % 0.2; Lymphocytes % 15.8; MCH 28.6 pg (27.0-33.0); MCHC 31.7 % (32.0-36.0); MCV 90.2 fL (80-95); Monocytes % 8.8; Neutrophils % 69.8; Nucleated RBC 0 %; Platelet Count 232 10^3/uL (130-400); RBC 4.19 10^6/uL (4.36-5.78); RDW 17.3 % (11.8-14.1); RDW-SD 57.7 fL; WBC 5.01 10^3/uL (4.4-10.8)
[2020-04-02 08:45] LABS: ALT 39 U/L (16-63); AST 28 U/L (15-37); Albumin 3.8 g/dL (3.4-5.0); Alkaline Phosphatase 121 U/L (46-116); Anion Gap 6.4 mmol/L (3-11); BUN 29 mg/dL (7-18); Bilirubin, Total 0.4 mg/dL (0.2-1.0); CO2 27.6 mmol/L (21.0-32.0); CREATININE 0.84 mg/dL (0.70-1.30); Calcium 8.7 mg/dL (8.5-10.1); Chloride 108 mmol/L (98-107); FREE T4 1.28 ng/dL (0.76-1.46); Glucose 100 mg/dL (74-106); Potassium 4.3 mmol/L (3.5-5.1); Sodium 142 mmol/L (136-145); Total Protein 7.5 g/dL (6.4-8.2)
[2020-04-23] MEDS: Normal Saline Flush 10 ML SYR IVP (09:33)
[2020-04-23 09:36] LABS: Abs Immature Grans 0.01 10^3/uL (0.0-0.06); Absolute Basophil Count 0.02 10^3/uL (0.0-0.2); Absolute Eosinophil Count 0.14 10^3/uL (0.0-0.7); Absolute Lymphocyte Count 0.82 10^3/uL (1.2-3.4); Absolute Monocyte Count 0.57 10^3/uL (0.1-0.8); Absolute Neutrophil Count 3.37 10^3/uL (1.2-6.7); Basophils % 0.4; Eosinophils % 2.8; HCT 39.1 % (40.0-50.0); HGB 12.4 g/dL (13.5-17.5); Immature Grans % 0.2; Lymphocytes % 16.6; MCH 28.2 pg (27.0-33.0); MCHC 31.7 % (32.0-36.0); MCV 88.9 fL (80-95); MPV 9.6 fL (8.0-11.0); Monocytes % 11.6; Neutrophils % 68.4; Nucleated RBC 0 %; Platelet Count 223 10^3/uL (130-400); RDW 16.4 % (11.8-14.1); RDW-SD 53.7 fL; WBC 4.93 10^3/uL (4.4-10.8)
[2020-04-23 09:57] LABS: ALT 32 U/L (16-63); AST 33 U/L (15-37); Albumin 3.7 g/dL (3.4-5.0); Alkaline Phosphatase 126 U/L (46-116); Anion Gap 8.9 mmol/L (3-11); BUN 23 mg/dL (7-18); Bilirubin, Total 0.4 mg/dL (0.2-1.0); CO2 28.1 mmol/L (21.0-32.0); CREATININE 0.77 mg/dL (0.70-1.30); Calcium 8.7 mg/dL (8.5-10.1); Chloride 104 mmol/L (98-107); FREE T4 1.41 ng/dL (0.76-1.46); Glucose 105 mg/dL (74-106); Potassium 4.5 mmol/L (3.5-5.1); Sodium 141 mmol/L (136-145); TSH 0.89 uIU/mL (0.36-3.74); Total Protein 7.5 g/dL (6.4-8.2)
== END 2020-05-02 23:59 | disposition home or self-care (01) ==
LOC: INF 01:28
PROVIDERS: PCP Nurse Practitioner; Visit Provider Internal Medicine
DX: C15.5 Malignant neoplasm of lower third of esophagus (principal); Z45.2 Encounter for adjustment and management of vascular access device; R94.6 Abnormal results of thyroid function studies; Z79.899 Other long term (current) drug therapy
CPT/HCPCS: 36591; 80053; 84439; 84443; 85025

== ENCOUNTER 2020-05-14 01:48 | Outpatient (RCR) | payer MEDICAID, SELFPAY ==
[2020-05-14 13:11] LABS: Abs Immature Grans 0.02 10^3/uL (0.0-0.06); Absolute Basophil Count 0.02 10^3/uL (0.0-0.2); Absolute Eosinophil Count 0.12 10^3/uL (0.0-0.7); Absolute Lymphocyte Count 0.75 10^3/uL (1.2-3.4); Absolute Monocyte Count 0.72 10^3/uL (0.1-0.8); Absolute Neutrophil Count 3.84 10^3/uL (1.2-6.7); Basophils % 0.4; Eosinophils % 2.2; HCT 37.7 % (40.0-50.0); Immature Grans % 0.4; Lymphocytes % 13.7; MCHC 31.8 % (32.0-36.0); MCV 88.1 fL (80-95); MPV 9.9 fL (8.0-11.0); Monocytes % 13.2; Neutrophils % 70.1; Nucleated RBC 0 %; Platelet Count 207 10^3/uL (130-400); RBC 4.28 10^6/uL (4.36-5.78); RDW 15.9 % (11.8-14.1); RDW-SD 51.9 fL; WBC 5.47 10^3/uL (4.4-10.8)
[2020-05-14 13:35] LABS: ALT 63 U/L (16-63); AST 49 U/L (15-37); Albumin 3.4 g/dL (3.4-5.0); Alkaline Phosphatase 145 U/L (46-116); Anion Gap 9.7 mmol/L (3-11); BUN 28 mg/dL (7-18); Bilirubin, Total 0.5 mg/dL (0.2-1.0); CO2 26.3 mmol/L (21.0-32.0); CREATININE 0.71 mg/dL (0.70-1.30); Calcium 9.4 mg/dL (8.5-10.1); Chloride 106 mmol/L (98-107); FREE T4 5.93 ng/dL (0.76-1.46); Glucose 107 mg/dL (74-106); Potassium 4.5 mmol/L (3.5-5.1); Sodium 142 mmol/L (136-145); Total Protein 7.6 g/dL (6.4-8.2)
[2020-05-14 13:36] LABS: TSH < 0.01 uIU/mL (0.36-3.74)
[2020-05-14] MEDS: Normal Saline Flush 10 ML SYR IVP (13:37)
== END 2020-06-02 23:59 | disposition home or self-care (01) ==
LOC: INF 01:48
PROVIDERS: PCP Nurse Practitioner; Visit Provider Internal Medicine
DX: C15.5 Malignant neoplasm of lower third of esophagus (principal); Z45.2 Encounter for adjustment and management of vascular access device; Z79.899 Other long term (current) drug therapy; R94.6 Abnormal results of thyroid function studies
CPT/HCPCS: 36591; 80053; 84439; 84443; 85025

== ENCOUNTER 2020-06-12 02:01 | Outpatient (CLI) | payer MEDICAID, SELFPAY ==
[2020-06-12] MEDS: Omnipaque 350 MG/ML 50 ML BTL IJ (11:20)
[2020-06-12] MEDS: Breeza Beverage 473 ML BTL PO ×2 (11:20→11:21)
--- NOTE | 2020-06-12 12:00 | DI.CT_ITS ---
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 TECHNIQUE: Imaging Protocol: Axial computed tomography images with coronal and sagittal reformatted images were created and reviewed CONTRAST MATERIAL: Intravenous: Omnipaque 350 Contrast volume:100 cc ml Oral: yes / COMPARISON: CT CT CHEST/ABD/PEL W from 03/07/2020 FINDINGS: CHEST: Thyroid: Unremarkable Tracheobronchial tree: Patent where visualized. Mediastinum and Rubi: No dominant adenopathy. Dilated esophagus. Stable appearance of wall thickeni ng of the distal esophagus. No discrete visible mass. Pulmonary parenchyma: There has been interval increase in size of a previously noted right upper lobe nodule to 6 millimeters. Numerous other pulmonary nodules are seen. There is a 7.5 millimeter nodule in the right middle lobe which is significantly increased in size. There is 7 millimeter nodule in t he lateral left upper lobe which was barely visible on the previous exam. Other small bilateral lower lobe nodules are seen measuring 4-5 millimeters in size. There are underlying emphysematous changes. No infiltrates, pleural or pericardial effusions are seen. Pleura: No effusion or pneumothorax. Lymph nodes: Within normal limits. Aorta: Ascending aorta measures 3.7 cm in diameter. The descending aorta measures 2.5 cm. There is no evidence dissection. Heart: Normal size. Bones: No lytic or blastic lesions are seen. Mild degenerative changes in the spine. ABDOMEN: Liver: Normal density. Marked interval increase in size of hepatic metastases. The largest mass is in the right lobe and now measures the 11 x 8 by 11.5 cm compared with 6.3 x 5.5 cm on previous exam. M asses in the left lobe however also significantly increased in size. The portal vein appears patent. Gallbladder and biliary tract: No radiodense calculus or dilation. Pancreas: Normal density, no abnormal calcifications or inflammatory process. Spleen: Normal. Kidneys: Normal size, contour and axis. No radiodense stones or obstructive uropathy. No masses seen. Adrenal glands: No masses seen. Aorta: Abdominal portion non-dilated. Lymph nodes: Within normal limits. PELVIS: Bladder: Symmetric distention, no gross wall thickening. Bowel: The feeding tube is again noted. Normal appendix. Mild diverticulosis. No obstruction or neil l wall thickening. Peritoneal cavity: No ascites, collection or mesenteric inflammatory response. Bones: Stable post radiations sclerosis in the lower thoracic and upper lumbar spine. No lytic or saurav stic lesions. Mild degenerative changes. Reproductive organs: Within normal limits. IMPRESSION: Marked interval increase in size of hepatic metastases. Marked interval increase in size and number o f pulmonary metastases. RADIATION DOSE DELIVERED: 1,364.3mGy.cm Total DLP DATA REPOSITORY: All CT scans at this facility are submitted to the National Radiology Data Registry (NRDR) Dose Index Registry (DIR) with the [employer] (ACR). RADIATION OPTIMIZATION: All CT scans at this facility use at least one of these dose optimization te chniques: automated exposure control; mA and/or kV adjustment per patient size (includes targeted exa ms where dose is matched to clinical indication); or iterative reconstruction.
[2020-06-12] MEDS: Omnipaque 350 MG/ML 100 ML BTL IJ (13:49)
== END 2020-06-12 02:02 ==
LOC: DI 02:02
PROVIDERS: PCP Nurse Practitioner; Visit Provider Nurse Practitioner Adult Health
DX: C78.7 Secondary malignant neoplasm of liver and intrahepatic bile duct (principal); C79.31 Secondary malignant neoplasm of brain; C15.9 Malignant neoplasm of esophagus, unspecified
CPT/HCPCS: 74177; 71260; J3490; Q9967

== ENCOUNTER 2020-06-25 01:51 | Outpatient (RCR) | payer MEDICAID, SELFPAY ==
[2020-06-04] MEDS: Normal Saline Flush 10 ML SYR IVP (12:21)
[2020-06-04 12:25] LABS: Abs Immature Grans 0.02 10^3/uL (0.0-0.06); Absolute Basophil Count 0.03 10^3/uL (0.0-0.2); Absolute Eosinophil Count 0.25 10^3/uL (0.0-0.7); Absolute Lymphocyte Count 0.95 10^3/uL (1.2-3.4); Absolute Monocyte Count 0.46 10^3/uL (0.1-0.8); Basophils % 0.5; Eosinophils % 4.5; HGB 12.4 g/dL (13.5-17.5); Immature Grans % 0.4; Lymphocytes % 17.2; MCH 28.2 pg (27.0-33.0); MCHC 32.6 % (32.0-36.0); MCV 86.4 fL (80-95); MPV 10.5 fL (8.0-11.0); Monocytes % 8.3; Neutrophils % 69.1; Nucleated RBC 0 %; Platelet Count 203 10^3/uL (130-400); RDW 15.3 % (11.8-14.1); RDW-SD 48.2 fL; WBC 5.51 10^3/uL (4.4-10.8)
[2020-06-04 12:47] LABS: ALT 50 U/L (16-63); AST 45 U/L (15-37); Albumin 3.5 g/dL (3.4-5.0); Alkaline Phosphatase 170 U/L (46-116); Anion Gap 6.8 mmol/L (3-11); BUN 23 mg/dL (7-18); Bilirubin, Total 0.4 mg/dL (0.2-1.0); CO2 29.2 mmol/L (21.0-32.0); CREATININE 0.7 mg/dL (0.70-1.30); Calcium 9.2 mg/dL (8.5-10.1); Chloride 104 mmol/L (98-107); FREE T4 1.12 ng/dL (0.76-1.46); Glucose 95 mg/dL (74-106); Potassium 4.4 mmol/L (3.5-5.1); Sodium 140 mmol/L (136-145); TSH 0.01 uIU/mL (0.36-3.74); Total Protein 7.4 g/dL (6.4-8.2)
[2020-06-12] MEDS: Heparin 500 UNITS/5 ML SYRINGE IV (11:44)
[2020-06-12] MEDS: Normal Saline Flush 10 ML SYR IVP (11:44)
[2020-06-18] MEDS: Heparin 500 UNITS/5 ML SYRINGE IV (14:59)
[2020-06-18] MEDS: Normal Saline Flush 10 ML SYR IVP (14:59)
[2020-06-18 15:17] LABS: Abs Immature Grans 0.02 10^3/uL (0.0-0.06); Absolute Basophil Count 0.03 10^3/uL (0.0-0.2); Absolute Eosinophil Count 0.22 10^3/uL (0.0-0.7); Absolute Monocyte Count 0.51 10^3/uL (0.1-0.8); Absolute Neutrophil Count 4.79 10^3/uL (1.2-6.7); Basophils % 0.5; Eosinophils % 3.4; HCT 37.7 % (40.0-50.0); HGB 12.1 g/dL (13.5-17.5); Immature Grans % 0.3; Lymphocytes % 13.9; MCH 28.1 pg (27.0-33.0); MCHC 32.1 % (32.0-36.0); MCV 87.5 fL (80-95); Monocytes % 7.9; Nucleated RBC 0 %; Platelet Count 214 10^3/uL (130-400); RBC 4.31 10^6/uL (4.36-5.78); RDW 15.9 % (11.8-14.1); RDW-SD 51.2 fL; WBC 6.47 10^3/uL (4.4-10.8)
[2020-06-18 15:30] LABS: ALT 65 U/L (16-63); AST 77 U/L (15-37); Albumin 3.7 g/dL (3.4-5.0); Alkaline Phosphatase 182 U/L (46-116); Anion Gap 9.2 mmol/L (3-11); BUN 20 mg/dL (7-18); Bilirubin, Total 0.4 mg/dL (0.2-1.0); CO2 28.8 mmol/L (21.0-32.0); CREATININE 0.8 mg/dL (0.70-1.30); Chloride 102 mmol/L (98-107); FREE T4 0.78 ng/dL (0.76-1.46); Glucose 88 mg/dL (74-106); Potassium 4.2 mmol/L (3.5-5.1); Sodium 140 mmol/L (136-145); TSH 13.99 uIU/mL (0.36-3.74); Total Protein 7.6 g/dL (6.4-8.2)
== END 2020-06-30 23:59 | disposition home or self-care (01) ==
LOC: INF 01:51
PROVIDERS: PCP Nurse Practitioner; Visit Provider Internal Medicine
DX: C15.5 Malignant neoplasm of lower third of esophagus (principal); Z45.2 Encounter for adjustment and management of vascular access device; R94.6 Abnormal results of thyroid function studies; Z79.899 Other long term (current) drug therapy
CPT/HCPCS: 36591; 80053; 96523; 84439; 84443; 85025

== ENCOUNTER 2020-07-03 00:55 | Outpatient (CLI) | payer MEDICAID, SELFPAY ==
--- NOTE | 2020-07-03 | DI.MRI_ITS ---
EXAM: MR BRAIN WO/W CLINICAL HISTORY: SECONDARY BRAIN METS,C79.31,S/P SRS,F/U,RESTAGING TECHNIQUE: Multiplanar multisequence MRI of the brain was performed. CONTRAST MATERIAL: IV Contrast: 14 ML of Dotarem contrast administered. COMPARISON: MR MR BRAIN WO/W from 02/29/2020 FINDINGS: VENTRICLES AND EXTRA AXIAL SPACES: Normal in size and morphology for the patient's age. HEMORRHAGE: None. CEREBRAL PARENCHYMA: No focus of restricted diffusion to suggest acute infarct. There are scattered areas of T2 hyperintensity in the brain consistent with microvascular ischemic change. MIDLINE SHIFT: None. BRAINSTEM/CEREBELLUM: Normal. CALVARIUM: Normal. ENHANCEMENT: There is a new 1.3 x 0.9 cm enhancing lesion in the left cerebellum. Mild residual enha ncement is again seen in the right temporal lobe. The left frontal lesion now measures 5.3 mm compar ed with 5.7 mm on the prior examination. The enhancing focus previously seen in the splenium of the corpus callosum is not visualized on the current examination. There has been interval decrease in si ze of the enhancing lesion in the right parietal lobe which now measures 6.4 mm compared with 9.0 mm. There is a new enhancing lesion in the left parietal lobe measuring 5.3 mm. Mild edema is associat ed with each of these lesions. VISUALIZED PARANASAL SINUSES/MASTOIDS: Clear. [place]: Normal flow void. PITUITARY GLAND: Unremarkable. OTHER FINDINGS: IMPRESSION: 1. Interval decrease in size of the right parietal and left frontal lesions since 02/29/2020. 2. New intracranial metastases are present. The largest is seen in the left cerebellum and measures 1.3 x 0.9 cm. DATA REPOSITORY:
[2020-07-03] MEDS: Gadoterate meglumine 20 ML VIAL 14 ML IVP (10:11)
[2020-07-03] MEDS: Normal Saline Flush 10 ML SYR IVP (10:11)
== END 2020-07-03 01:15 ==
PROVIDERS: PCP Nurse Practitioner; Visit Provider Radiology Radiation Oncology
DX: C79.31 Secondary malignant neoplasm of brain (principal)
CPT/HCPCS: 70553

== ENCOUNTER 2020-07-30 03:01 | Outpatient (RCR) | payer MEDICAID, SELFPAY ==
[2020-07-02 07:36] LABS: HCT 35.7 % (40.0-50.0); HGB 11.2 g/dL (13.5-17.5); MCH 28.1 pg (27.0-33.0); MCHC 31.4 % (32.0-36.0); MCV 89.5 fL (80-95); MPV 9.9 fL (8.0-11.0); Platelet Count 236 10^3/uL (130-400); RBC 3.99 10^6/uL (4.36-5.78); RDW 15.8 % (11.8-14.1); RDW-SD 51.5 fL; WBC 4.42 10^3/uL (4.4-10.8)
[2020-07-02] MEDS: Normal Saline Flush 10 ML SYR IVP (07:39)
[2020-07-02 07:54] LABS: ALT 82 U/L (16-63); AST 85 U/L (15-37); Albumin 3.1 g/dL (3.4-5.0); Alkaline Phosphatase 247 U/L (46-116); Anion Gap 9.8 mmol/L (3-11); BUN 27 mg/dL (7-18); Bilirubin, Total 0.3 mg/dL (0.2-1.0); CO2 27.2 mmol/L (21.0-32.0); CREATININE 0.8 mg/dL (0.70-1.30); Calcium 8.6 mg/dL (8.5-10.1); Chloride 107 mmol/L (98-107); FREE T4 0.93 ng/dL (0.76-1.46); Glucose 99 mg/dL (74-106); Potassium 4.4 mmol/L (3.5-5.1); Sodium 144 mmol/L (136-145); TSH 11.75 uIU/mL (0.36-3.74); Total Protein 7.5 g/dL (6.4-8.2)
[2020-07-02 08:14] LABS: Abs Immature Grans 0.01 10^3/uL (0.0-0.06); Absolute Basophil Count 0.04 10^3/uL (0.0-0.2); Absolute Lymphocyte Count 0.74 10^3/uL (1.2-3.4); Absolute Monocyte Count 0.43 10^3/uL (0.1-0.8); Absolute Neutrophil Count 2.87 10^3/uL (1.2-6.7); Basophils % 0.9; Eosinophils % 4.7; Immature Grans % 0.2; Lymphocytes % 17.2
[2020-07-09 07:16] LABS: Abs Immature Grans 0.02 10^3/uL (0.0-0.06); Absolute Basophil Count 0.04 10^3/uL (0.0-0.2); Absolute Eosinophil Count 0.13 10^3/uL (0.0-0.7); Absolute Lymphocyte Count 0.86 10^3/uL (1.2-3.4); Absolute Monocyte Count 0.36 10^3/uL (0.1-0.8); Absolute Neutrophil Count 2.29 10^3/uL (1.2-6.7); Basophils % 1.1; Eosinophils % 3.5; HCT 37.8 % (40.0-50.0); HGB 11.9 g/dL (13.5-17.5); Immature Grans % 0.5; Lymphocytes % 23.2; MCH 28.5 pg (27.0-33.0); MCHC 31.5 % (32.0-36.0); MCV 90.6 fL (80-95); Monocytes % 9.7; Nucleated RBC 0 %; Platelet Count 317 10^3/uL (130-400); RBC 4.17 10^6/uL (4.36-5.78); RDW 16.3 % (11.8-14.1); RDW-SD 52.9 fL
[2020-07-09] MEDS: Normal Saline Flush 10 ML SYR IVP (07:20)
[2020-07-09 07:40] LABS: ALT 54 U/L (16-63); AST 62 U/L (15-37); Albumin 3.4 g/dL (3.4-5.0); Alkaline Phosphatase 251 U/L (46-116); Anion Gap 8.7 mmol/L (3-11); BUN 27 mg/dL (7-18); Bilirubin, Total 0.3 mg/dL (0.2-1.0); CO2 26.3 mmol/L (21.0-32.0); CREATININE 0.8 mg/dL (0.70-1.30); Calcium 8.6 mg/dL (8.5-10.1); Chloride 107 mmol/L (98-107); FREE T4 0.92 ng/dL (0.76-1.46); Glucose 102 mg/dL (74-106); Potassium 4.5 mmol/L (3.5-5.1); Sodium 142 mmol/L (136-145); Total Protein 7.6 g/dL (6.4-8.2)
[2020-07-23] MEDS: Normal Saline Flush 10 ML SYR IVP (10:05)
[2020-07-23 10:48] LABS: Abs Immature Grans 0.03 10^3/uL (0.0-0.06); Absolute Basophil Count 0.05 10^3/uL (0.0-0.2); Absolute Eosinophil Count 0.09 10^3/uL (0.0-0.7); Absolute Lymphocyte Count 0.86 10^3/uL (1.2-3.4); Absolute Monocyte Count 0.63 10^3/uL (0.1-0.8); Absolute Neutrophil Count 2.87 10^3/uL (1.2-6.7); Basophils % 1.1; HCT 39.3 % (40.0-50.0); HGB 12.6 g/dL (13.5-17.5); Immature Grans % 0.7; MCH 28.9 pg (27.0-33.0); MCHC 32.1 % (32.0-36.0); MCV 90.1 fL (80-95); Monocytes % 13.9; Neutrophils % 63.3; Nucleated RBC 0 %; Platelet Count 187 10^3/uL (130-400); RBC 4.36 10^6/uL (4.36-5.78); RDW 16.8 % (11.8-14.1); WBC 4.53 10^3/uL (4.4-10.8)
[2020-07-23 11:07] LABS: ALT 49 U/L (16-63); AST 41 U/L (15-37); Albumin 3.6 g/dL (3.4-5.0); Alkaline Phosphatase 190 U/L (46-116); Anion Gap 8.4 mmol/L (3-11); BUN 26 mg/dL (7-18); Bilirubin, Total 0.3 mg/dL (0.2-1.0); CO2 28.6 mmol/L (21.0-32.0); CREATININE 0.8 mg/dL (0.70-1.30); Calcium 8.6 mg/dL (8.5-10.1); Chloride 106 mmol/L (98-107); FREE T4 0.98 ng/dL (0.76-1.46); Glucose 95 mg/dL (74-106); Potassium 4.7 mmol/L (3.5-5.1); Sodium 143 mmol/L (136-145); TSH 4.17 uIU/mL (0.36-3.74); Total Protein 7.5 g/dL (6.4-8.2)
[2020-07-30 09:58] LABS: Abs Immature Grans 0.02 10^3/uL (0.0-0.06); Absolute Basophil Count 0.05 10^3/uL (0.0-0.2); Absolute Eosinophil Count 0.14 10^3/uL (0.0-0.7); Absolute Lymphocyte Count 0.79 10^3/uL (1.2-3.4); Absolute Monocyte Count 0.25 10^3/uL (0.1-0.8); Absolute Neutrophil Count 3.27 10^3/uL (1.2-6.7); Basophils % 1.1; Eosinophils % 3.1; HCT 38.8 % (40.0-50.0); HGB 12.3 g/dL (13.5-17.5); Immature Grans % 0.4; Lymphocytes % 17.5; MCH 28.6 pg (27.0-33.0); MCHC 31.7 % (32.0-36.0); MCV 90.2 fL (80-95); MPV 10.1 fL (8.0-11.0); Monocytes % 5.5; Neutrophils % 72.4; Nucleated RBC 0 %; Platelet Count 187 10^3/uL (130-400); RDW 16.6 % (11.8-14.1); RDW-SD 54.2 fL; WBC 4.52 10^3/uL (4.4-10.8)
[2020-07-30] MEDS: Normal Saline Flush 10 ML SYR IVP (10:10)
[2020-07-30 10:26] LABS: ALT 53 U/L (16-63); AST 45 U/L (15-37); Albumin 3.5 g/dL (3.4-5.0); Alkaline Phosphatase 181 U/L (46-116); Anion Gap 8.8 mmol/L (3-11); BUN 23 mg/dL (7-18); Bilirubin, Total 0.4 mg/dL (0.2-1.0); CO2 27.2 mmol/L (21.0-32.0); CREATININE 0.7 mg/dL (0.70-1.30); Calcium 8.8 mg/dL (8.5-10.1); Chloride 106 mmol/L (98-107); Glucose 102 mg/dL (74-106); Potassium 4.8 mmol/L (3.5-5.1); Sodium 142 mmol/L (136-145); TSH 4.04 uIU/mL (0.36-3.74); Total Protein 7.5 g/dL (6.4-8.2)
== END 2020-07-31 23:59 | disposition home or self-care (01) ==
LOC: INF 03:01
PROVIDERS: PCP Nurse Practitioner; Visit Provider Internal Medicine
DX: R94.6 Abnormal results of thyroid function studies (principal); Z79.899 Other long term (current) drug therapy; C15.5 Malignant neoplasm of lower third of esophagus; Z45.2 Encounter for adjustment and management of vascular access device
CPT/HCPCS: 36591; 80053; 85027; 84439; 84443; 85007; 85025

== ENCOUNTER 2020-08-27 02:38 | Outpatient (RCR) | payer MEDICAID, SELFPAY ==
[2020-08-06] MEDS: Normal Saline Flush 10 ML SYR IVP (09:49)
[2020-08-06 09:57] LABS: Abs Immature Grans 0.01 10^3/uL (0.0-0.06); Absolute Basophil Count 0.03 10^3/uL (0.0-0.2); Absolute Eosinophil Count 0.08 10^3/uL (0.0-0.7); Absolute Lymphocyte Count 0.79 10^3/uL (1.2-3.4); Absolute Monocyte Count 0.23 10^3/uL (0.1-0.8); Absolute Neutrophil Count 1.45 10^3/uL (1.2-6.7); Basophils % 1.2; Eosinophils % 3.1; HCT 37.4 % (40.0-50.0); HGB 11.9 g/dL (13.5-17.5); Immature Grans % 0.4; Lymphocytes % 30.5; MCH 29.2 pg (27.0-33.0); MCHC 31.8 % (32.0-36.0); MCV 91.9 fL (80-95); Monocytes % 8.9; Neutrophils % 55.9; Nucleated RBC 0 %; Platelet Count 187 10^3/uL (130-400); RBC 4.07 10^6/uL (4.36-5.78); RDW 17.3 % (11.8-14.1); RDW-SD 56.7 fL; WBC 2.59 10^3/uL (4.4-10.8)
[2020-08-06 10:28] LABS: ALT 60 U/L (16-63); AST 50 U/L (15-37); Albumin 3.6 g/dL (3.4-5.0); Alkaline Phosphatase 169 U/L (46-116); Anion Gap 8.8 mmol/L (3-11); BUN 23 mg/dL (7-18); Bilirubin, Total 0.3 mg/dL (0.2-1.0); CO2 28.2 mmol/L (21.0-32.0); CREATININE 0.8 mg/dL (0.70-1.30); Calcium 8.5 mg/dL (8.5-10.1); Chloride 106 mmol/L (98-107); FREE T4 1.08 ng/dL (0.76-1.46); Glucose 110 mg/dL (74-106); Potassium 4.3 mmol/L (3.5-5.1); Sodium 143 mmol/L (136-145); TSH 3.42 uIU/mL (0.36-3.74); Total Protein 7.2 g/dL (6.4-8.2)
[2020-08-27] MEDS: Normal Saline Flush 10 ML SYR IVP (09:39)
[2020-08-27 09:46] LABS: Abs Immature Grans 0.03 10^3/uL (0.0-0.06); Absolute Basophil Count 0.07 10^3/uL (0.0-0.2); Absolute Eosinophil Count 0.18 10^3/uL (0.0-0.7); Absolute Lymphocyte Count 0.87 10^3/uL (1.2-3.4); Absolute Monocyte Count 0.64 10^3/uL (0.1-0.8); Absolute Neutrophil Count 6.76 10^3/uL (1.2-6.7); Basophils % 0.8; Eosinophils % 2.1; HCT 41.6 % (40.0-50.0); HGB 13.1 g/dL (13.5-17.5); Immature Grans % 0.4; Lymphocytes % 10.2; MCH 29.4 pg (27.0-33.0); MCHC 31.5 % (32.0-36.0); MCV 93.5 fL (80-95); MPV 10.1 fL (8.0-11.0); Monocytes % 7.5; Nucleated RBC 0 %; Platelet Count 187 10^3/uL (130-400); RBC 4.45 10^6/uL (4.36-5.78); RDW 18.2 % (11.8-14.1); RDW-SD 61.3 fL; WBC 8.55 10^3/uL (4.4-10.8)
[2020-08-27 10:09] LABS: ALT 68 U/L (16-63); AST 58 U/L (15-37); Albumin 3.6 g/dL (3.4-5.0); Alkaline Phosphatase 188 U/L (46-116); Anion Gap 6.6 mmol/L (3-11); BUN 27 mg/dL (7-18); Bilirubin, Total 0.3 mg/dL (0.2-1.0); CO2 27.4 mmol/L (21.0-32.0); CREATININE 0.8 mg/dL (0.70-1.30); Calcium 8.8 mg/dL (8.5-10.1); Chloride 107 mmol/L (98-107); FREE T4 1.13 ng/dL (0.76-1.46); Glucose 100 mg/dL (74-106); Potassium 4.9 mmol/L (3.5-5.1); Sodium 141 mmol/L (136-145); TSH 3.83 uIU/mL (0.36-3.74); Total Protein 7.5 g/dL (6.4-8.2)
== END 2020-08-30 23:59 | disposition home or self-care (01) ==
LOC: INF 02:38
PROVIDERS: PCP Nurse Practitioner; Visit Provider Internal Medicine
DX: C15.5 Malignant neoplasm of lower third of esophagus (principal); Z45.2 Encounter for adjustment and management of vascular access device; R94.6 Abnormal results of thyroid function studies; Z79.899 Other long term (current) drug therapy
CPT/HCPCS: 36591; 80053; 84439; 84443; 85025

== ENCOUNTER 2020-09-25 20:27 | Outpatient (REF) | payer MEDICAID, SELFPAY ==
[2020-09-25 18:02] LABS: PROTEIN 56.9 mg/dL (0.0-11.9)
[2020-09-25 18:03] LABS: TOTAL PROTEIN,URINE TIMED 398.3 mg/24hr (0.0-149.1); Total Volume 700 ml
== END 2020-09-25 20:28 | disposition home or self-care (01) ==
LOC: LBN 20:27
PROVIDERS: PCP Nurse Practitioner; Visit Provider Nurse Practitioner Adult Health
DX: C15.9 Malignant neoplasm of esophagus, unspecified (principal); C79.31 Secondary malignant neoplasm of brain; E86.0 Dehydration; R80.9 Proteinuria, unspecified
CPT/HCPCS: 81050; 84155

== ENCOUNTER 2020-09-27 03:19 | Outpatient (CLI) | payer MEDICAID, SELFPAY ==
--- NOTE | 2020-09-27 | DI.CT_ITS ---
Exam(s) CT CHEST/ABD/PEL W EXAM: CT CHEST/ABD/PEL W CLINICAL HISTORY: ESOPHAGEAL CA,C15.9,BRAIN METS,C79.31,ON CHEMO,COMPARE TO 06/12/20 TECHNIQUE: CT examination of the chest, abdomen, and pelvis was performed utilizing intravenous inf usion of 100 cc of Omnipaque 350 with biphasic hepatic imaging. Oral contrast was also administered. COMPARISON: CT CT CHEST/ABD/PEL W from 06/12/2020 FINDINGS: There are numerous bilateral pulmonary metastatic lesions. Many of these are unchanged in size, higgins lian there is also increased size of multiple nodules, largest nodule is a 12-13 millimeter in diamete r right basilar nodule which measured about 5 millimeters in diameter on the prior examination. Ther e are 2 or 3 new of 4-5 millimeter in diameter left lower lobe nodules.. No pleural effusion. No pl eural based mass. No mediastinal or hilar adenopathy. No axillary or supraclavicular adenopathy. Tracheobronchial stephen e appears intact. Previously described thickening of the distal esophagus is slightly more prominent on today's examina tion. Paraesophageal soft tissue planes are not ideally defined, presumably due to prior radiation t herapy. No evidence of pulmonary embolic disease. Unremarkable appearance of thoracic aorta and major branch vessels. Previously described large hepatic metastases are significantly smaller on today's examination, the l argest lesion in the right hepatic lobe previously measured up to 11.5 cm in diameter and now measure s about 8 x 6 cm in diameter. Spleen is unremarkable in appearance. Pancreas appears intact. Adrenals appear normal. Kidneys are unremarkable in appearance with no renal mass, hydronephrosis, or nephrolithiasis. Abdominal aorta and major visceral branches appear intact. No focal bowel pathology. Appendix is normal. No evidence of diverticulitis. No abdominal or pelvic adenopathy. No significant abdominal wall hernia. And enterostomy tube is again noted in position. No focal bony lesion identified on scanning of the chest, abdomen, and pelvis. Note is made of lucen cy of vertebral bodies T7 through L1 in a pattern suggestive of radiation therapy portal. IMPRESSION: Interval increase in number and size of intrapulmonary metastatic lesions. Interval decrease in size of hepatic metastatic lesions. RADIATION DOSE DELIVERED: 1,382.89mGy.cm Total DLP 1,382.89mGy.cm Total DLP RADIATION OPTIMIZATION: All CT scans at this facility use at least one of these dose optimization te chniques: automated exposure control; mA and/or kV adjustment per patient size (includes targeted exa ms where dose is matched to clinical indication); or iterative reconstruction.
[2020-09-27] MEDS: Breeza Beverage 473 ML BTL PO (09:46)
[2020-09-27] MEDS: Omnipaque 350 MG/ML 50 ML BTL IJ (09:47)
[2020-09-27] MEDS: Omnipaque 350 MG/ML 100 ML BTL IV (11:36)
[2020-09-27] MEDS: Normal Saline - Diluent 50 ML VIAL IV (11:36)
[2020-09-27] MEDS: Normal Saline Flush 10 ML SYR IVP (11:37)
== END 2020-09-27 03:39 ==
PROVIDERS: PCP Nurse Practitioner; Visit Provider Nurse Practitioner Adult Health
DX: C15.9 Malignant neoplasm of esophagus, unspecified (principal); C79.31 Secondary malignant neoplasm of brain; Z92.21 Personal history of antineoplastic chemotherapy; C78.01 Secondary malignant neoplasm of right lung; C78.02 Secondary malignant neoplasm of left lung; C78.7 Secondary malignant neoplasm of liver and intrahepatic bile duct
CPT/HCPCS: 74177; 71260; J3490; Q9967

== ENCOUNTER 2020-09-27 03:57 | Outpatient (RCR) | payer MEDICAID, SELFPAY ==
[2020-09-03] MEDS: Normal Saline Flush 10 ML SYR IVP (09:45)
[2020-09-03 09:51] LABS: Abs Immature Grans 0.03 10^3/uL (0.0-0.06); Absolute Basophil Count 0.06 10^3/uL (0.0-0.2); Absolute Eosinophil Count 0.22 10^3/uL (0.0-0.7); Absolute Lymphocyte Count 0.84 10^3/uL (1.2-3.4); Absolute Monocyte Count 0.32 10^3/uL (0.1-0.8); Absolute Neutrophil Count 4.33 10^3/uL (1.2-6.7); Eosinophils % 3.8; HCT 38.9 % (40.0-50.0); HGB 12.2 g/dL (13.5-17.5); Immature Grans % 0.5; Lymphocytes % 14.5; MCH 29.5 pg (27.0-33.0); MCHC 31.4 % (32.0-36.0); MCV 94.2 fL (80-95); MPV 9.9 fL (8.0-11.0); Monocytes % 5.5; Neutrophils % 74.7; Nucleated RBC 0 %; Platelet Count 186 10^3/uL (130-400); RBC 4.13 10^6/uL (4.36-5.78); RDW 18.2 % (11.8-14.1); RDW-SD 61.6 fL
[2020-09-03 10:13] LABS: ALT 61 U/L (16-63); AST 45 U/L (15-37); Albumin 3.5 g/dL (3.4-5.0); Alkaline Phosphatase 163 U/L (46-116); Anion Gap 9.1 mmol/L (3-11); BUN 25 mg/dL (7-18); Bilirubin, Total 0.4 mg/dL (0.2-1.0); CO2 27.9 mmol/L (21.0-32.0); CREATININE 0.8 mg/dL (0.70-1.30); Calcium 8.5 mg/dL (8.5-10.1); Chloride 109 mmol/L (98-107); FREE T4 1.06 ng/dL (0.76-1.46); Glucose 105 mg/dL (74-106); Potassium 4.9 mmol/L (3.5-5.1); Sodium 146 mmol/L (136-145); TSH 3.47 uIU/mL (0.36-3.74); Total Protein 7.3 g/dL (6.4-8.2)
[2020-09-11] MEDS: Normal Saline Flush 10 ML SYR IVP (07:46)
[2020-09-11 07:54] LABS: Abs Immature Grans 0.01 10^3/uL (0.0-0.06); Absolute Basophil Count 0.04 10^3/uL (0.0-0.2); Absolute Eosinophil Count 0.15 10^3/uL (0.0-0.7); Absolute Monocyte Count 0.62 10^3/uL (0.1-0.8); Absolute Neutrophil Count 2.84 10^3/uL (1.2-6.7); Basophils % 0.8; Eosinophils % 3.1; HCT 38.9 % (40.0-50.0); HGB 12.2 g/dL (13.5-17.5); Immature Grans % 0.2; Lymphocytes % 24.7; MCH 30.3 pg (27.0-33.0); MCHC 31.4 % (32.0-36.0); MCV 96.8 fL (80-95); MPV 10.1 fL (8.0-11.0); Monocytes % 12.8; Neutrophils % 58.4; Nucleated RBC 0 %; Platelet Count 230 10^3/uL (130-400); RBC 4.02 10^6/uL (4.36-5.78); RDW 18.7 % (11.8-14.1); RDW-SD 65.4 fL; WBC 4.86 10^3/uL (4.4-10.8)
[2020-09-11 08:16] LABS: ALT 58 U/L (16-63); AST 42 U/L (15-37); Albumin 3.5 g/dL (3.4-5.0); Alkaline Phosphatase 175 U/L (46-116); Anion Gap 8.1 mmol/L (3-11); BUN 30 mg/dL (7-18); Bilirubin, Total 0.3 mg/dL (0.2-1.0); CO2 27.9 mmol/L (21.0-32.0); CREATININE 0.8 mg/dL (0.70-1.30); Calcium 8.5 mg/dL (8.5-10.1); Chloride 110 mmol/L (98-107); FREE T4 1.13 ng/dL (0.76-1.46); Glucose 103 mg/dL (74-106); Potassium 4.4 mmol/L (3.5-5.1); Sodium 146 mmol/L (136-145); TSH 3.73 uIU/mL (0.36-3.74); Total Protein 7.6 g/dL (6.4-8.2)
[2020-09-24] MEDS: Normal Saline Flush 10 ML SYR IVP (09:34)
[2020-09-24 09:51] LABS: Abs Immature Grans 0.01 10^3/uL (0.0-0.06); Absolute Basophil Count 0.04 10^3/uL (0.0-0.2); Absolute Eosinophil Count 0.09 10^3/uL (0.0-0.7); Absolute Neutrophil Count 3.75 10^3/uL (1.2-6.7); Basophils % 0.7; Eosinophils % 1.7; HCT 39.7 % (40.0-50.0); HGB 12.3 g/dL (13.5-17.5); Immature Grans % 0.2; Lymphocytes % 14.8; MCH 29.7 pg (27.0-33.0); MCV 95.9 fL (80-95); Neutrophils % 69.6; Nucleated RBC 0 %; Platelet Count 197 10^3/uL (130-400); RBC 4.14 10^6/uL (4.36-5.78); RDW 18.2 % (11.8-14.1); RDW-SD 63.6 fL; WBC 5.39 10^3/uL (4.4-10.8)
[2020-09-24 10:14] LABS: ALT 47 U/L (16-63); AST 36 U/L (15-37); Albumin 3.5 g/dL (3.4-5.0); Alkaline Phosphatase 160 U/L (46-116); Anion Gap 7.2 mmol/L (3-11); BUN 26 mg/dL (7-18); Bilirubin, Total 0.3 mg/dL (0.2-1.0); CO2 29.8 mmol/L (21.0-32.0); CREATININE 0.8 mg/dL (0.70-1.30); Calcium 8.7 mg/dL (8.5-10.1); Chloride 108 mmol/L (98-107); FREE T4 1.09 ng/dL (0.76-1.46); Glucose 103 mg/dL (74-106); Potassium 4.8 mmol/L (3.5-5.1); Sodium 145 mmol/L (136-145); TSH 2.87 uIU/mL (0.36-3.74); Total Protein 7.6 g/dL (6.4-8.2)
[2020-09-27] MEDS: Normal Saline Flush 10 ML SYR IVP (09:00)
[2020-09-27] MEDS: Heparin 500 UNITS/5 ML SYRINGE IV (09:00)
== END 2020-09-30 23:59 | disposition home or self-care (01) ==
LOC: INF 03:57
PROVIDERS: PCP Nurse Practitioner; Visit Provider Internal Medicine
DX: C15.5 Malignant neoplasm of lower third of esophagus (principal); R94.6 Abnormal results of thyroid function studies; Z79.899 Other long term (current) drug therapy; Z45.2 Encounter for adjustment and management of vascular access device
CPT/HCPCS: 36591; 80053; 96523; 84439; 84443; 85025

== ENCOUNTER 2020-10-29 02:38 | Outpatient (RCR) | payer MEDICAID, SELFPAY ==
[2020-10-01] MEDS: Normal Saline Flush 10 ML SYR IVP (08:14)
[2020-10-01 08:40] LABS: Abs Immature Grans 0.02 10^3/uL (0.0-0.06); Absolute Basophil Count 0.05 10^3/uL (0.0-0.2); Absolute Eosinophil Count 0.19 10^3/uL (0.0-0.7); Absolute Lymphocyte Count 0.84 10^3/uL (1.2-3.4); Absolute Monocyte Count 0.43 10^3/uL (0.1-0.8); Absolute Neutrophil Count 4.18 10^3/uL (1.2-6.7); Basophils % 0.9; Eosinophils % 3.3; HCT 38.6 % (40.0-50.0); HGB 12.5 g/dL (13.5-17.5); Immature Grans % 0.4; Lymphocytes % 14.7; MCH 30.3 pg (27.0-33.0); MCHC 32.4 % (32.0-36.0); MCV 93.5 fL (80-95); MPV 10.5 fL (8.0-11.0); Monocytes % 7.5; Neutrophils % 73.2; Nucleated RBC 0 %; Platelet Count 240 10^3/uL (130-400); RBC 4.13 10^6/uL (4.36-5.78); RDW 17.6 % (11.8-14.1); WBC 5.71 10^3/uL (4.4-10.8)
[2020-10-01 09:05] LABS: ALT 39 U/L (16-63); AST 32 U/L (15-37); Albumin 3.3 g/dL (3.4-5.0); Alkaline Phosphatase 161 U/L (46-116); Anion Gap 8.4 mmol/L (3-11); BUN 19 mg/dL (7-18); Bilirubin, Total 0.4 mg/dL (0.2-1.0); CO2 28.6 mmol/L (21.0-32.0); CREATININE 0.8 mg/dL (0.70-1.30); Calcium 8.7 mg/dL (8.5-10.1); Chloride 103 mmol/L (98-107); Glucose 117 mg/dL (74-106); Potassium 4.2 mmol/L (3.5-5.1); Sodium 140 mmol/L (136-145); TSH 9.69 uIU/mL (0.36-3.74); Total Protein 7.5 g/dL (6.4-8.2)
[2020-10-08] MEDS: Normal Saline Flush 10 ML SYR IVP (07:47)
[2020-10-08 07:52] LABS: Abs Immature Grans 0.02 10^3/uL (0.0-0.06); Absolute Basophil Count 0.05 10^3/uL (0.0-0.2); Absolute Eosinophil Count 0.16 10^3/uL (0.0-0.7); Absolute Lymphocyte Count 1.19 10^3/uL (1.2-3.4); Absolute Monocyte Count 0.61 10^3/uL (0.1-0.8); Absolute Neutrophil Count 4.01 10^3/uL (1.2-6.7); Basophils % 0.8; Eosinophils % 2.6; HCT 41.5 % (40.0-50.0); Immature Grans % 0.3; Lymphocytes % 19.7; MCH 30.4 pg (27.0-33.0); MCHC 31.3 % (32.0-36.0); MPV 9.9 fL (8.0-11.0); Monocytes % 10.1; Neutrophils % 66.5; Nucleated RBC 0 %; Platelet Count 318 10^3/uL (130-400); RBC 4.28 10^6/uL (4.36-5.78); RDW 17.8 % (11.8-14.1); RDW-SD 62.5 fL; WBC 6.04 10^3/uL (4.4-10.8)
[2020-10-08 08:17] LABS: ALT 79 U/L (16-63); AST 62 U/L (15-37); Albumin 3.8 g/dL (3.4-5.0); Alkaline Phosphatase 244 U/L (46-116); Anion Gap 11.5 mmol/L (3-11); BUN 74 mg/dL (7-18); Bilirubin, Total 0.4 mg/dL (0.2-1.0); CO2 26.5 mmol/L (21.0-32.0); CREATININE 1.6 mg/dL (0.70-1.30); Calcium 9.1 mg/dL (8.5-10.1); Chloride 105 mmol/L (98-107); Estimated GFR 45.62 (mL/min/1.73m2); FREE T4 1.26 ng/dL (0.76-1.46); Glucose 143 mg/dL (74-106); Potassium 4.2 mmol/L (3.5-5.1); Sodium 143 mmol/L (136-145); TSH 2.29 uIU/mL (0.36-3.74); Total Protein 8.6 g/dL (6.4-8.2)
[2020-10-09] MEDS: Normal Saline Flush 10 ML SYR IVP (08:36)
[2020-10-09 08:57] LABS: ALT 62 U/L (16-63); AST 45 U/L (15-37); Albumin 3.6 g/dL (3.4-5.0); Alkaline Phosphatase 219 U/L (46-116); BUN 48 mg/dL (7-18); Bilirubin, Total 0.3 mg/dL (0.2-1.0); CREATININE 1.1 mg/dL (0.70-1.30); Calcium 8.9 mg/dL (8.5-10.1); Chloride 109 mmol/L (98-107); Glucose 114 mg/dL (74-106); Potassium 4.1 mmol/L (3.5-5.1); Sodium 145 mmol/L (136-145); Total Protein 7.9 g/dL (6.4-8.2)
[2020-10-22 09:03] LABS: Abs Immature Grans 0.02 10^3/uL (0.0-0.06); Absolute Basophil Count 0.04 10^3/uL (0.0-0.2); Absolute Eosinophil Count 0.12 10^3/uL (0.0-0.7); Absolute Lymphocyte Count 0.97 10^3/uL (1.2-3.4); Absolute Monocyte Count 0.78 10^3/uL (0.1-0.8); Absolute Neutrophil Count 4.49 10^3/uL (1.2-6.7); Basophils % 0.6; Eosinophils % 1.9; HCT 37.3 % (40.0-50.0); HGB 11.6 g/dL (13.5-17.5); Immature Grans % 0.3; Lymphocytes % 15.1; MCHC 31.1 % (32.0-36.0); MCV 96.4 fL (80-95); MPV 9.4 fL (8.0-11.0); Monocytes % 12.1; Nucleated RBC 0 %; Platelet Count 225 10^3/uL (130-400); RBC 3.87 10^6/uL (4.36-5.78); RDW 17.9 % (11.8-14.1); RDW-SD 62.6 fL; WBC 6.42 10^3/uL (4.4-10.8)
[2020-10-22] MEDS: Normal Saline Flush 10 ML SYR IVP (09:10)
[2020-10-22 09:28] LABS: ALT 49 U/L (16-63); AST 45 U/L (15-37); Albumin 3.2 g/dL (3.4-5.0); Alkaline Phosphatase 185 U/L (46-116); Anion Gap 13.2 mmol/L (3-11); BUN 24 mg/dL (7-18); Bilirubin, Total 0.3 mg/dL (0.2-1.0); CO2 23.8 mmol/L (21.0-32.0); CREATININE 0.8 mg/dL (0.70-1.30); Calcium 8.4 mg/dL (8.5-10.1); Chloride 109 mmol/L (98-107); FREE T4 1.11 ng/dL (0.76-1.46); Glucose 109 mg/dL (74-106); Potassium 4.4 mmol/L (3.5-5.1); Sodium 146 mmol/L (136-145); TSH 1.99 uIU/mL (0.36-3.74); Total Protein 7.3 g/dL (6.4-8.2)
[2020-10-29] MEDS: Normal Saline Flush 10 ML SYR IVP (08:50)
[2020-10-29 08:58] LABS: Abs Immature Grans 0.04 10^3/uL (0.0-0.06); Absolute Basophil Count 0.06 10^3/uL (0.0-0.2); Absolute Eosinophil Count 0.17 10^3/uL (0.0-0.7); Absolute Lymphocyte Count 0.76 10^3/uL (1.2-3.4); Absolute Monocyte Count 0.52 10^3/uL (0.1-0.8); Absolute Neutrophil Count 5.68 10^3/uL (1.2-6.7); Basophils % 0.8; Eosinophils % 2.4; HCT 38.5 % (40.0-50.0); HGB 11.9 g/dL (13.5-17.5); Immature Grans % 0.6; Lymphocytes % 10.5; MCHC 30.9 % (32.0-36.0); MPV 10.2 fL (8.0-11.0); Monocytes % 7.2; Neutrophils % 78.5; Nucleated RBC 0 %; Platelet Count 226 10^3/uL (130-400); RBC 3.97 10^6/uL (4.36-5.78); RDW 17.4 % (11.8-14.1); RDW-SD 61.7 fL; WBC 7.23 10^3/uL (4.4-10.8)
[2020-10-29 09:35] LABS: ALT 62 U/L (16-63); AST 50 U/L (15-37); Albumin 3.4 g/dL (3.4-5.0); Alkaline Phosphatase 194 U/L (46-116); Anion Gap 8.2 mmol/L (3-11); BUN 23 mg/dL (7-18); Bilirubin, Total 0.4 mg/dL (0.2-1.0); CO2 26.8 mmol/L (21.0-32.0); CREATININE 0.8 mg/dL (0.70-1.30); Calcium 8.6 mg/dL (8.5-10.1); Chloride 108 mmol/L (98-107); FREE T4 1.26 ng/dL (0.76-1.46); Glucose 107 mg/dL (74-106); Potassium 4.8 mmol/L (3.5-5.1); Sodium 143 mmol/L (136-145); TSH 2.83 uIU/mL (0.36-3.74); Total Protein 7.4 g/dL (6.4-8.2)
== END 2020-10-30 23:59 | disposition home or self-care (01) ==
LOC: INF 02:38
PROVIDERS: PCP Nurse Practitioner; Visit Provider Internal Medicine
DX: C15.5 Malignant neoplasm of lower third of esophagus (principal); Z45.2 Encounter for adjustment and management of vascular access device; R94.6 Abnormal results of thyroid function studies; Z79.899 Other long term (current) drug therapy
CPT/HCPCS: 36415; 36591; 80053; 84439; 84443; 85025

== ENCOUNTER 2020-11-07 13:51 | Outpatient (CLI) | payer MEDICAID, SELFPAY ==
--- NOTE | 2020-11-07 10:00 | DI.RAD_ITS ---
Exam(s) RF GI TUBE INJECTION EXAM: RF GI TUBE INJECTION CLINICAL HISTORY: leakage around J tube,jejunostomy tube leak,neoplasm esophagus,mets liver/. TECHNIQUE: 2D and realtime digital imaging was performed. CONTRAST MATERIAL: 50 cc Omnipaque 350 injected via the percutaneous jejunostomy tube. COMPARISON: CT CT CHEST/ABD/PEL W from 09/27/[address] CHEST/ABD/PEL W from 09/27/2020 FINDINGS: Contrast was injected into the jejunostomy tube. The contrast flowed into the jejunum without resist ance. No leak was observed. There is no bowel dilatation. Fluoro time: 25 seconds RADIATION DOSE DELIVERED: Ka,r=12.5 mGy
[2020-11-07] MEDS: Omnipaque 350 MG/ML 50 ML BTL IJ (14:38)
== END 2020-11-07 14:11 ==
PROVIDERS: PCP Nurse Practitioner; Visit Provider Surgery
DX: K94.13 Enterostomy malfunction (principal); C15.5 Malignant neoplasm of lower third of esophagus; C78.7 Secondary malignant neoplasm of liver and intrahepatic bile duct; C79.31 Secondary malignant neoplasm of brain; D64.9 Anemia, unspecified; E44.0 Moderate protein-calorie malnutrition; F17.200 Nicotine dependence, unspecified, uncomplicated; J44.9 Chronic obstructive pulmonary disease, unspecified
CPT/HCPCS: 49465; Q9967

== ENCOUNTER 2020-11-21 00:41 | Outpatient (CLI) | payer MEDICAID, SELFPAY ==
--- NOTE | 2020-11-21 | DI.CT_ITS ---
Exam(s) CT CHEST/ABD/PEL W EXAM: CT CHEST/ABD/PEL W CLINICAL HISTORY: CA OF ESOPHAGUS,C15.9,BRAIN METS,C79.31,COMPARE TO 09/17/20, ASSESS TREATMEN. TECHNIQUE: Imaging Protocol: Axial computed tomography images with coronal and sagittal reformatted images were created and reviewed CONTRAST MATERIAL: Intravenous: Omnipaque 350 Contrast volume:100 ml Oral: None COMPARISON: CT CT CHEST/ABD/PEL W from 09/27/2020 FINDINGS: CHEST: LUNGS: A few of the bilateral pulmonary nodules have slightly decreased in size.. None have increase d in size and there are no new additional nodules. Largest nodules again noted to be the nodule post erior basal segment of the right lower lobe which again measures 10 millimeters by 8 millimeters. Th ere are no pleural effusions. No new findings in the trachea and mainstem bronchi. MEDIASTINUM: There is no hilar nor mediastinal adenopathy. Visualized thyroid unremarkable.The lower esophagus is again noted be circumferentially thickened in similar fashion to the previous study. CARDIAC: Heart size is normal. There is no pericardial effusion.Ascending thoracic diameters slightl y prominent, measuring 3.8 cm. Aortic arch diameter is 2.5 cm. Descending thoracic aorta diameter i s upper normal at 2.5 cm. There is no dissection. OSSEOUS: No significant osseous lesions.. ABDOMEN: There is no ascites. LIVER: There is stable appearance of the previously described multiple hepatic lesions. There do not appear to be additional lesions nor significant growth in size of the pre-existing lesions. GALLBLADDER/BILIARY: No obvious gallbladder pathology. CBD is not dilated. PANCREAS: No evidence of pancreatic mass nor dilatation of the pancreatic duct. SPLEEN: Spleen size is unchanged. There are no intrasplenic lesions identified. Splenic and portal veins are patent. ADRENALS: There are no significant adrenal masses. KIDNEYS: Small benign cysts are again noted superior pole of the left kidney. No other significant r enal findings. No hydronephrosis.. No solid renal masses ABDOMINAL AORTA: Calcified-atherosclerotic but not enlarged. No para-aortic adenopathy. LYMPH NODES: There is no retroperitoneal nor paraaortic adenopathy. ABDOMINAL WALL: No evidence of significant anterior abdominal wall hernia. GI: There is a left of center percutaneous enterostomy tube it is secured by an intraluminal balloon which exhibits a diameter of 2.5 cm. Mild dilatation the bowel loop just proximal to this. There is no free air nor abnormal fluid collection related to the central ostomy tube. PELVIS: LYMPH NODES: There is no intrapelvic nor inguinal adenopathy. GI: There is subtle suggestion of a colitis pattern throughout the length of the colon. There is no oral contrast in the colon at the time of image acquisition.Appendix appears unremarkable. Few sigmo id diverticuli noted but without evidence of acute diverticulitis. URINARY BLADDER: No calculi nor masses evident REPRODUCTIVE: Prostate mildly enlarged. OSSEOUS: No significant osseous lesions. IMPRESSION: 1. Compared to the prior CT scan of 09/27/2020 there are no new additional pulmonary nodules and some of the previously present pulmonary nodules have slightly decreased in size. None of increased in s ize. No new nodules and no pleural effusions nor intrathoracic adenopathy. 2. Circumferential thickening of the lower esophagus is again noted. There is no obvious paraesophag eal adenopathy. 3. Stable appearance of the multiple previously described lesions in the liver. There is no ascites. No omental cake. No obvious new mesenteric adenopathy. 4. There appears to be a landin colitis pattern on today's study. This may be exaggerated by lack of or al contrast within the lumen of the colon on today's study. Nevertheless, the appearance is differen t from the appearance of the colon on the prior study. 5. Left-sided enterostomy tube again noted. Balloon diameter is 2.5 cm. No free fluid nor free air around the tube. RADIATION DOSE DELIVERED: 1,250.99mGy.cm Total DLP DATA REPOSITORY: All CT scans at this facility are submitted to the National Radiology Data Registry (NRDR) Dose Index Registry (DIR) with the [employer] (ACR). RADIATION OPTIMIZATION: All CT scans at this facility use at least one of these dose optimization te chniques: automated exposure control; mA and/or kV adjustment per patient size (includes targeted exa ms where dose is matched to clinical indication); or iterative reconstruction.
[2020-11-21] MEDS: Omnipaque 350 MG/ML 100 ML BTL IV (08:34)
[2020-11-21] MEDS: Normal Saline - Diluent 50 ML VIAL IV (08:34)
[2020-11-21] MEDS: Breeza Beverage 473 ML BTL PO ×2 (08:35→08:36)
[2020-11-21] MEDS: Omnipaque 350 MG/ML 50 ML BTL PO (08:36)
== END 2020-11-21 01:01 ==
PROVIDERS: PCP Nurse Practitioner; Visit Provider Internal Medicine
DX: C79.31 Secondary malignant neoplasm of brain; C15.9 Malignant neoplasm of esophagus, unspecified; R91.8 Other nonspecific abnormal finding of lung field; K22.8 Other specified diseases of esophagus; K76.9 Liver disease, unspecified; K52.9 Noninfective gastroenteritis and colitis, unspecified; Z93.4 Other artificial openings of gastrointestinal tract status
CPT/HCPCS: 74177; 71260; J3490; Q9967

== ENCOUNTER 2020-11-21 03:55 | Outpatient (CLI) | payer MEDICAID, SELFPAY ==
[2020-11-21] MEDS: Inhaler, Assist Device 1 EACH MC (10:59)
[2020-11-21] MEDS: Albuterol HFA 18 GM 200 PUFF INH IH (10:59)
--- NOTE | 2020-11-22 15:41 | W.PFT ---
Date of service: 11/21/20 Time of Service: 09:58 Pulmonary Function Test Result Requesting Provider Kayla Alcazar Interpretation Spirometry: There is no airflow obstruction. There is no significant bronchodilator effect. Lung Volumes: Lung volumes are normal with the exception of a slightly elevated residual volume. Diffusion Capacity: Diffusion is reduced. Airway Pressure: Airways resistance is within normal limits by sGaw. Impression Normal airflow. The reduced diffusion capacity along with the elevated residual volume may indicate pulmonary function changes related to emphysema. Clinical Correlation therefore is recommended.
== END 2020-11-21 03:56 | disposition home or self-care (01) ==
LOC: RT 03:55
PROVIDERS: PCP Nurse Practitioner; Visit Provider Nurse Practitioner Adult Health
DX: C15.9 Malignant neoplasm of esophagus, unspecified (principal); C79.31 Secondary malignant neoplasm of brain; Z01.811 Encounter for preprocedural respiratory examination
CPT/HCPCS: 94060; 94726; 94729

== ENCOUNTER 2020-11-28 03:54 | Outpatient (RCR) | payer MEDICAID, SELFPAY ==
[2020-11-05 08:22] LABS: Abs Immature Grans 0.01 10^3/uL (0.0-0.06); Absolute Basophil Count 0.04 10^3/uL (0.0-0.2); Absolute Eosinophil Count 0.13 10^3/uL (0.0-0.7); Absolute Lymphocyte Count 0.84 10^3/uL (1.2-3.4); Absolute Monocyte Count 0.48 10^3/uL (0.1-0.8); Absolute Neutrophil Count 3.47 10^3/uL (1.2-6.7); Basophils % 0.8; Eosinophils % 2.6; HGB 12.2 g/dL (13.5-17.5); Immature Grans % 0.2; Lymphocytes % 16.9; MCH 30.3 pg (27.0-33.0); MCHC 31.3 % (32.0-36.0); MCV 96.8 fL (80-95); MPV 9.8 fL (8.0-11.0); Monocytes % 9.7; Neutrophils % 69.8; Nucleated RBC 0 %; Platelet Count 224 10^3/uL (130-400); RBC 4.03 10^6/uL (4.36-5.78); RDW 17.8 % (11.8-14.1); WBC 4.97 10^3/uL (4.4-10.8)
[2020-11-05] MEDS: Normal Saline Flush 10 ML SYR IVP (08:44)
[2020-11-05 08:46] LABS: ALT 59 U/L (16-63); AST 55 U/L (15-37); Albumin 3.4 g/dL (3.4-5.0); Alkaline Phosphatase 191 U/L (46-116); Anion Gap 9.9 mmol/L (3-11); BUN 21 mg/dL (7-18); Bilirubin, Total 0.3 mg/dL (0.2-1.0); CO2 25.1 mmol/L (21.0-32.0); CREATININE 0.8 mg/dL (0.70-1.30); Calcium 8.6 mg/dL (8.5-10.1); Chloride 107 mmol/L (98-107); Glucose 120 mg/dL (74-106); Magnesium 2.1 mg/dL (1.8-2.4); Potassium 4.4 mmol/L (3.5-5.1); Sodium 142 mmol/L (136-145); Total Protein 7.4 g/dL (6.4-8.2)
[2020-11-12] MEDS: Normal Saline Flush 10 ML SYR IVP (09:10)
[2020-11-12 09:33] LABS: Abs Immature Grans 0.02 10^3/uL (0.0-0.06); Absolute Basophil Count 0.05 10^3/uL (0.0-0.2); Absolute Eosinophil Count 0.11 10^3/uL (0.0-0.7); Absolute Lymphocyte Count 0.75 10^3/uL (1.2-3.4); Absolute Monocyte Count 0.42 10^3/uL (0.1-0.8); Absolute Neutrophil Count 2.54 10^3/uL (1.2-6.7); Basophils % 1.3; Eosinophils % 2.8; Immature Grans % 0.5; Lymphocytes % 19.3; MCH 30.6 pg (27.0-33.0); MCHC 31.6 % (32.0-36.0); MCV 96.9 fL (80-95); MPV 10.5 fL (8.0-11.0); Monocytes % 10.8; Neutrophils % 65.3; Nucleated RBC 0 %; Platelet Count 250 10^3/uL (130-400); RBC 3.92 10^6/uL (4.36-5.78); RDW 18.4 % (11.8-14.1); RDW-SD 64.5 fL; WBC 3.89 10^3/uL (4.4-10.8)
[2020-11-12 09:57] LABS: ALT 64 U/L (16-63); AST 47 U/L (15-37); Albumin 3.4 g/dL (3.4-5.0); Alkaline Phosphatase 214 U/L (46-116); Anion Gap 9.8 mmol/L (3-11); BUN 21 mg/dL (7-18); Bilirubin, Total 0.3 mg/dL (0.2-1.0); CO2 26.2 mmol/L (21.0-32.0); CREATININE 0.9 mg/dL (0.70-1.30); Calcium 8.6 mg/dL (8.5-10.1); Chloride 108 mmol/L (98-107); FREE T4 1.23 ng/dL (0.76-1.46); Glucose 108 mg/dL (74-106); Magnesium 2.1 mg/dL (1.8-2.4); Potassium 4.4 mmol/L (3.5-5.1); Sodium 144 mmol/L (136-145); TSH 4.41 uIU/mL (0.36-3.74); Total Protein 7.7 g/dL (6.4-8.2)
[2020-11-21] MEDS: Heparin 500 UNITS/5 ML SYRINGE IV (07:14)
[2020-11-21] MEDS: Normal Saline Flush 10 ML SYR IVP (07:14)
== END 2020-11-30 23:59 | disposition home or self-care (01) ==
LOC: INF 03:54
PROVIDERS: PCP Nurse Practitioner; Visit Provider Internal Medicine
DX: C15.5 Malignant neoplasm of lower third of esophagus (principal); Z45.2 Encounter for adjustment and management of vascular access device; R94.6 Abnormal results of thyroid function studies; Z79.899 Other long term (current) drug therapy
CPT/HCPCS: 36591; 80053; 96523; 83735; 84439; 84443; 85025

== ENCOUNTER 2020-12-10 01:27 | Outpatient (CLI) | payer MEDICAID, SELFPAY ==
--- NOTE | 2020-12-10 07:38 | DI.US_ITS ---
APPROVED REPORT EXAM: Comprehensive 2D, Doppler, and color-flow Echocardiogram Patient Location: [facility] Sales Consultant: Aleah Wheatley RDCS (AE) Indications: Esophageal Cancer, Brain Mets, Chemo Other Information Study Quality: Poor. Technically limited study due to abdominal bandage from surgery one week ago.. Conclusion Left Ventricle : The left ventricle is normal size. The left ventricular ejection fraction is within the normal range. There is normal left ventricular wall thickness. There is normal LV segmental wall motion. LVEF is 56%. Right Ventricle : Right ventricle is grossly normal in size. Right ventricular systolic function is g rossly normal. Atria : The left atrium size is normal. The right atrium size is normal. Valves: There are no hemodynamically significant valvular lesions. Great Vessels : The aortic root is normal in size. Ascending aorta is not well visualized. Due to ext ensive abdominal bandage the IVC could not be assessed. Please see remainder of study for further details. Wall motion Left Ventricle The left ventricle is normal size. The left ventricular ejection fraction is within the normal range. There is normal left ventricular wall thickness. There is normal LV segmental wall motion. LVEF is 56%. Right Ventricle Right ventricle is grossly normal in size. Right ventricular systolic function is grossly normal. Atria The left atrium size is normal. The right atrium size is normal. Aortic Valve The aortic valve is normal in structure. There is no aortic valvular stenosis. No aortic regurgitatio n is present. Mitral Valve The mitral valve is normal in structure. No evidence of mitral valve stenosis. Trace mitral regurgita tion. Tricuspid Valve The tricuspid valve is normal in structure. There is no tricuspid valve stenosis. Trace tricuspid reg urgitation. Unable to assess PA pressure. Pulmonic Valve Pulmonic valve is not well visualized. There is no pulmonic valvular stenosis. There is no pulmonic v alvular regurgitation. Great Vessels The aortic root is normal in size. Ascending aorta is not well visualized. Due to extensive abdominal bandage the IVC could not be assessed. 2D Dimensions IVSD d PLAX 0.70 cm M: 0.6-1.2 LV Vol A2C d MOD 75.7 mL LVPW d PLAX 0.78 cm M: 0.6 - 1.2 LV Vol A4C d MOD 98.8 mL LVID d PLAX 4.61 cm M: 4.2 - 5.8 LA vol/ BSA A2C s A-L 17.3 mL/m2 LVDs 3.25 cm M: 2.5 - 4.0 LA vol/ BSA A4C s A-L 17.0 mL/m2 Ao Root d 3.40 cm M: 3.1 - 3.7 LA Vol/ BSA Biplane s A-L 17.8 mL/m2 RA Area A4C 8.53 cm2 LA Area A4C s MOD 12.73 cm2 RA Vol/ BSA A4C s A-L 9.1 mL/m2 LA Area A2C s MOD 12.37 cm2 LV EF Teichholz 56.0 % LV EF A4C MOD 56.6 % LVEF (Priest's) 56.46 % M: 52 - 72 LV EF A2C MOD 56.1 % LV Volume 67.30 mL M: 62 - 150 LV EF Biplane MOD 56.5 % LV Volume Index 36.57 mL/m2 M: 34 - 74 SV 49.28 mL LV Vol Biplane MOD 87.3 mL SV Index 26.71 mL/m2 FS 29.15 % LV Diastology E/A Ratio 0.7 MV E Vmax 0.72 (0.4-1.3 m/s) MV A Vmax 1.00 (0.4-1.3 m/s) MV E/A Ratio 0.71 Aortic Valve LVOT Area 3.35 cm2 AoV Area Vmax 2.56 cm2 LVOT Vmax 1.04 m/s AoV Area/ BSA (Vmax) 1.39 cm2/m2 LVOT Mean Andrea. 0.62 m/s MARCIE Mean Andrea. 2.48 cm2 LVOT Peak Grad 4.3 mmHg MARCIE Mean Andrea. Index 1.34 cm2/m2 LVOT Mean Grad 1.9 mmHg LVOT VTI 0.172 m LVOT Diam s 2.05 cm AoV Vmax 1.36 m/s Velocity Ratio 0.76 AoV Mean Andrea. 0.84 m/s AoV Peak Grad 7.4 mmHg LVOT SV 57.80 mL AoV Mean Grad 3.3 mmHg AoV VTI 0.167 m AoV Area VTI 3.46 cm2 AoV Area/ BSA (VTI) 1.87 cm/m2 Mitral Valve MV DT 386 (160-240 msec) MV PHT 112 msec MV Area PHT 1.96 cm2 Pulmonary Valve PV Vmax 0.73 (0.5-1.5 m/s) RVOT Peak Gr. 1.72 mmHg PV Peak Grad 2.1 mmHg RVOT Mean Gr. 0.75 mmHg PV Mean Grad 1.5 mmHg RVOT VTI 0.082 m PV VTI 0.101 m RVOT Vmax 0.66 m/s
== END 2020-12-10 01:47 ==
PROVIDERS: PCP Nurse Practitioner; Visit Provider Internal Medicine
DX: C15.9 Malignant neoplasm of esophagus, unspecified (principal); C79.31 Secondary malignant neoplasm of brain; Z79.899 Other long term (current) drug therapy
CPT/HCPCS: 93306

== ENCOUNTER 2020-12-24 03:59 | Outpatient (RCR) | payer MEDICAID, SELFPAY ==
[2020-12-03] MEDS: Normal Saline Flush 10 ML SYR IVP (10:30)
[2020-12-03 10:45] LABS: Abs Immature Grans 0.02 10^3/uL (0.0-0.06); Absolute Basophil Count 0.07 10^3/uL (0.0-0.2); Absolute Eosinophil Count 0.19 10^3/uL (0.0-0.7); Absolute Lymphocyte Count 0.68 10^3/uL (1.2-3.4); Absolute Monocyte Count 0.75 10^3/uL (0.1-0.8); Absolute Neutrophil Count 4.25 10^3/uL (1.2-6.7); Basophils % 1.2; Eosinophils % 3.2; HCT 38.3 % (40.0-50.0); HGB 12.3 g/dL (13.5-17.5); Immature Grans % 0.3; Lymphocytes % 11.4; MCH 31.4 pg (27.0-33.0); MCHC 32.1 % (32.0-36.0); MCV 97.7 fL (80-95); Monocytes % 12.6; Neutrophils % 71.3; Nucleated RBC 0 %; Platelet Count 207 10^3/uL (130-400); RBC 3.92 10^6/uL (4.36-5.78); RDW 19.1 % (11.8-14.1); RDW-SD 68.4 fL; WBC 5.96 10^3/uL (4.4-10.8)
[2020-12-03 11:17] LABS: ALT 44 U/L (16-63); AST 36 U/L (15-37); Albumin 3.3 g/dL (3.4-5.0); Alkaline Phosphatase 153 U/L (46-116); Anion Gap 6.9 mmol/L (3-11); BUN 19 mg/dL (7-18); Bilirubin, Total 0.3 mg/dL (0.2-1.0); CO2 28.1 mmol/L (21.0-32.0); CREATININE 0.6 mg/dL (0.70-1.30); Calcium 8.7 mg/dL (8.5-10.1); Chloride 108 mmol/L (98-107); FREE T4 1.16 ng/dL (0.76-1.46); Glucose 101 mg/dL (74-106); Magnesium 2.1 mg/dL (1.8-2.4); Potassium 4.4 mmol/L (3.5-5.1); Sodium 143 mmol/L (136-145); TSH 1.94 uIU/mL (0.36-3.74); Total Protein 7.3 g/dL (6.4-8.2)
[2020-12-24] MEDS: Normal Saline Flush 10 ML SYR IVP (09:45)
[2020-12-24 09:54] LABS: Abs Immature Grans 0.04 10^3/uL (0.0-0.06); Absolute Basophil Count 0.08 10^3/uL (0.0-0.2); Absolute Lymphocyte Count 0.96 10^3/uL (1.2-3.4); Absolute Monocyte Count 0.87 10^3/uL (0.1-0.8); Absolute Neutrophil Count 4.99 10^3/uL (1.2-6.7); Basophils % 1.1; Eosinophils % 4.1; HCT 38.3 % (40.0-50.0); HGB 11.9 g/dL (13.5-17.5); Immature Grans % 0.6; Lymphocytes % 13.3; MCH 30.7 pg (27.0-33.0); MCHC 31.1 % (32.0-36.0); MPV 9.4 fL (8.0-11.0); Neutrophils % 68.9; Nucleated RBC 0 %; Platelet Count 233 10^3/uL (130-400); RBC 3.87 10^6/uL (4.36-5.78); RDW 18.9 % (11.8-14.1); RDW-SD 67.4 fL; WBC 7.24 10^3/uL (4.4-10.8)
[2020-12-24 10:17] LABS: ALT 29 U/L (16-63); AST 24 U/L (15-37); Albumin 3.4 g/dL (3.4-5.0); Alkaline Phosphatase 137 U/L (46-116); Anion Gap 8.2 mmol/L (3-11); BUN 21 mg/dL (7-18); Bilirubin, Total 0.3 mg/dL (0.2-1.0); CO2 27.8 mmol/L (21.0-32.0); CREATININE 0.7 mg/dL (0.70-1.30); Chloride 106 mmol/L (98-107); FREE T4 1.18 ng/dL (0.76-1.46); Glucose 104 mg/dL (74-106); Potassium 4.7 mmol/L (3.5-5.1); Sodium 142 mmol/L (136-145); TSH 2.37 uIU/mL (0.36-3.74); Total Protein 7.6 g/dL (6.4-8.2)
== END 2020-12-31 23:59 | disposition home or self-care (01) ==
LOC: INF 03:59
PROVIDERS: PCP Nurse Practitioner; Visit Provider Internal Medicine
DX: R94.6 Abnormal results of thyroid function studies (principal); Z79.899 Other long term (current) drug therapy; C15.5 Malignant neoplasm of lower third of esophagus; Z45.2 Encounter for adjustment and management of vascular access device
CPT/HCPCS: 36591; 80053; 83735; 84439; 84443; 85025

== ENCOUNTER 2021-01-02 01:19 | Outpatient (CLI) | payer MEDICAID, SELFPAY ==
--- NOTE | 2021-01-02 | DI.MRI_ITS ---
Exam(s) MR BRAIN WO/W EXAM: MR BRAIN WO/W CLINICAL HISTORY: BRAIN METS,S/P TREATMENT,ASSESS RESPONSE. TECHNIQUE: Multiplanar multisequence MRI of the brain was performed. CONTRAST MATERIAL: IV Contrast: ML of Dotarem contrast administered. COMPARISON: MR MR BRAIN WO/W from 07/03/2020 FINDINGS: VENTRICLES AND EXTRA AXIAL SPACES: Normal in size and morphology for the patient's age. HEMORRHAGE: None. CEREBRAL PARENCHYMA: No focus of restricted diffusion to suggest acute infarct. Significant interval increase in size of right parietal lesion now measuring 17 millimeters AP by 12 millimeters transver se. There has been significant interval increase in surrounding edema. A right temporal craniotomy defect is again noted. There has been marked interval increase in size of the right temporal lobe le kevon areas of abnormal enhancement extending to the meninges. The meninges also show thickening and enhancement. The area of abnormal enhancement measures 2.5 cm transverse by 3.2 cm AP. A smaller f ocus of abnormal enhancement is seen more anteriorly in the right temporal measuring 10 millimeters. There has been interval increase in size of the lesion in the anterior inferior left frontal lobe me asuring 10 millimeters compared with 5 on the previous exam. Two tiny areas of abnormal enhancement are noted in the left cerebellum. The more anterior left cerebellar lesion is no longer seen. The s mall focus of enhancement seen in the high left parietal lobe is no longer seen.. MIDLINE SHIFT: None. VISUALIZED PARANASAL SINUSES/MASTOIDS: Clear. Orbits: Unremarkable. Pituitary normal in size. Vascular flow voids are intact. IMPRESSION: Interval increase in size previously noted right temporal, right parietal and left frontal lobe maverick hammonds. DATA REPOSITORY:
[2021-01-02] MEDS: Normal Saline Flush 10 ML SYR IVP (11:24)
[2021-01-02] MEDS: Gadoterate meglumine 20 ML VIAL 13 ML IVP (11:24)
== END 2021-01-02 01:39 ==
PROVIDERS: PCP Nurse Practitioner; Visit Provider Radiology Radiation Oncology
DX: C79.31 Secondary malignant neoplasm of brain (principal)
CPT/HCPCS: 70553

== ENCOUNTER 2021-01-14 06:37 | Outpatient (RCR) | payer MEDICAID, SELFPAY ==
[2021-01-02] MEDS: Heparin 500 UNITS/5 ML SYRINGE IV (10:40)
[2021-01-02] MEDS: Normal Saline Flush 10 ML SYR IVP (10:40)
[2021-01-14 08:25] LABS: Abs Immature Grans 0.03 10^3/uL (0.0-0.06); Absolute Basophil Count 0.05 10^3/uL (0.0-0.2); Absolute Eosinophil Count 0.19 10^3/uL (0.0-0.7); Absolute Lymphocyte Count 0.71 10^3/uL (1.2-3.4); Absolute Monocyte Count 0.68 10^3/uL (0.1-0.8); Absolute Neutrophil Count 4.14 10^3/uL (1.2-6.7); Basophils % 0.9; Eosinophils % 3.3; HCT 35.9 % (40.0-50.0); HGB 11.3 g/dL (13.5-17.5); Immature Grans % 0.5; Lymphocytes % 12.2; MCH 31.7 pg (27.0-33.0); MCHC 31.5 % (32.0-36.0); MCV 100.8 fL (80-95); MPV 9.4 fL (8.0-11.0); Monocytes % 11.7; Neutrophils % 71.4; Nucleated RBC 0 %; Platelet Count 194 10^3/uL (130-400); RBC 3.56 10^6/uL (4.36-5.78); RDW 18.1 % (11.8-14.1); RDW-SD 67.2 fL
[2021-01-14] MEDS: Normal Saline Flush 10 ML SYR IVP (08:35)
[2021-01-14 08:47] LABS: ALT 43 U/L (16-63); AST 36 U/L (15-37); Albumin 3.5 g/dL (3.4-5.0); Alkaline Phosphatase 157 U/L (46-116); BUN 20 mg/dL (7-18); Bilirubin, Total 0.3 mg/dL (0.2-1.0); CREATININE 0.7 mg/dL (0.70-1.30); Calcium 9.1 mg/dL (8.5-10.1); Chloride 106 mmol/L (98-107); FREE T4 1.17 ng/dL (0.76-1.46); Glucose 114 mg/dL (74-106); Potassium 4.4 mmol/L (3.5-5.1); Sodium 142 mmol/L (136-145); TSH 2.07 uIU/mL (0.36-3.74); Total Protein 7.5 g/dL (6.4-8.2)
== END 2021-01-30 23:59 | disposition home or self-care (01) ==
LOC: INF 06:37
PROVIDERS: PCP Nurse Practitioner; Visit Provider Internal Medicine
DX: C15.5 Malignant neoplasm of lower third of esophagus (principal); Z45.2 Encounter for adjustment and management of vascular access device
CPT/HCPCS: 36591; 80053; 96523; 83735; 84439; 84443; 85025

== ENCOUNTER 2021-02-04 10:01 | Emergency (ER) | payer MEDICARE, MEDICAID, SELFPAY ==
[2021-02-04 10:03] VITALS: PULSE 103; RESP 16; TEMP 36.5; O2SAT 98
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
[2021-02-04 11:22] LABS: PTT Activated 25.8 sec (21.0-27.5); Prothrombin Time 10.4 sec (9.3-11.0)
--- NOTE | 2021-02-04 12:01 | DI.CT_ITS ---
Exam(s) CT BRAIN NECK CTA EXAM: CT BRAIN NECK CTA CLINICAL HISTORY: Left sided weakness, Hx of Brain CA. TECHNIQUE: Imaging Protocol: Axial CT angiography was performed with multi-slice acquisition and mu lti-planar and/or 3D reconstructions. CONTRAST MATERIAL: Intravenous: Omnipaque 350 Contrast volume:85 mL COMPARISON: MR MR BRAIN WO/W from 01/02/2021 MR MR BRAIN WO/W from 01/02/2021 FINDINGS: CT Head W/O and W: Ventricles and Extra axial spaces: Normal in size and morphology for the patient's age. Hemorrhage: None. Cerebral parenchyma: There has been interval increase in size of the peripherally enhancing lesion in the right parietal lobe. It currently measures 1.8 x 2.0 cm. This compares to 1.1 x 1.5 cm on 2020. There is an increase in the vasogenic edema and sulcal effacement. The left frontal lesion me asures 0.8 x 0.9 cm. This compares to 0.7 x 0.9 cm. There is a persistent enhancement in the right parietal lobe. The left frontal and right parietal edema appears stable. No new enhancing lesions a re identified. Midline shift: None. Brainstem/Cerebellum: Normal. Calvarium: Old right parietal craniotomy. Visualized Paranasal sinuses/Mastoids: Clear. Soft Tissues: Unremarkable. Enhancement: Please see above. CTA Neck W: Common Carotid: Right: No dissection, occlusion or significant stenosis. Atherosclerosis in the carotid bulb. Left: No dissection, occlusion or significant stenosis. Atherosclerosis in the carotid bulb. External Carotid: Right: No occlusion or significant stenosis. Left: No occlusion or significant stenosis. Internal Carotid: Right: No dissection, occlusion or significant stenosis. Left: No dissection, occlusion or significant stenosis. Vertebral Artery: Right: No dissection, occlusion or significant stenosis. Left: No dissection, occlusion or significant stenosis. Lung Apices: Centrilobular and paraseptal emphysema. Bones: Normal. Soft Tissues: There is new left supraclavicular adenopathy. The largest measures 2.2 x 2.3 cm. Ther e is a 1.4 x 1.4 cm left supraclavicular lymph node. CTA Brain W: Internal Carotid Arteries: Petrous: Normal. Cavernous: Normal. Cerebral: Normal. Anterior Cerebral Arteries: Right: No aneurysm, occlusion or significant stenosis. Left: No aneurysm, occlusion or significant stenosis. Middle Cerebral Arteries: Right: No aneurysm, occlusion or significant stenosis. Left: No aneurysm, occlusion or significant stenosis. Posterior cerebral Arteries: Right: No aneurysm, occlusion or significant stenosis. The right ZINC PLATER appears to arise from the right PCOM which is a normal variant. Left: No aneurysm, occlusion or significant stenosis. Vertebral Arteries: Right: No aneurysm, occlusion or significant stenosis. Left: No aneurysm, occlusion or significant stenosis. Basilar Artery: No aneurysm, occlusion or significant stenosis. IMPRESSION: 1. No large vessel occlusion or significant stenosis on the CT angiography of the head. 2. New left supraclavicular adenopathy. 3. There are again seen findings of intracranial metastatic disease. 4. Interval increase in size and surrounding edema of the right parietal lesion as described above. 5. No occlusion or significant stenosis on the CT angiography of the neck. 6. Results of this exam have been verbally communicated with provider. RADIATION DOSE DELIVERED: 1,941.29mGy.cm Total DLP DATA REPOSITORY: All CT scans at this facility are submitted to the National Radiology Data Registry (NRDR) Dose Index Registry (DIR) with the [employer] (ACR). RADIATION OPTIMIZATION: All CT scans at this facility use at least one of these dose optimization te chniques: automated exposure control; mA and/or kV adjustment per patient size (includes targeted exa ms where dose is matched to clinical indication); or iterative reconstruction.
[2021-02-04 12:09] VITALS: BP 114/77; PULSE 94; RESP 18; O2SAT 99
[2021-02-04] MEDS: Normal Saline - Diluent 50 ML VIAL IV (12:10)
[2021-02-04] MEDS: Omnipaque 350 MG/ML 100 ML BTL IJ (12:11)
--- NOTE | 2021-02-04 12:14 | NUR.NOTE ---
Patient unable to void at this time. Urinal provided. Verbalizes understanding and agreement. Call light in reach.Nursing Note:
[2021-02-04 12:31] LABS: Bilirubin Negative (Negative); Blood Negative (Negative); Clarity Clear (Clear); Glucose Negative (Negative); Ketones Negative (Negative); Leukocyte Esterase Negative (Negative); Nitrite Negative (Negative); Specific Gravity 1.015 (1.005-1.025); Urobilinogen 0.2 EU/dL (Up TO 0.2); pH 5.5 (5-8)
[2021-02-04 12:40] LABS: Bacteria Rare HPF (Negative); C & S Indicated? No; Casts Negative LPF (Negative); Crystals Negative HPF (Negative); Epithelial Cells Negative HPF (Negative); Mucus Trace (Negative); Other Cells Negative (Negative); RBC Negative HPF (0-2); WBC Negative HPF (0-5)
[2021-02-04 13:11] VITALS: BP 114/81; PULSE 70; RESP 16; TEMP 36.3; O2SAT 98
[2021-02-04] MEDS: Heparin 500 UNITS/5 ML SYRINGE IVP (13:15)
[2021-02-04] MEDS: Normal Saline Flush 10 ML SYR IVP (13:15)
--- NOTE | 2021-02-04 13:43 | NT_ITS ---
Date of service: 02/04/21 Time of Service: 13:43 PT Notes Patient left the ED ealier with plan to refer to OP PT services. No skilled services provided for this referral. Thank you for the opportunity to participate in the care of this patient. Ara Lewis PT, DPT, CLT [facility] [place], [place]
== END 2021-02-04 13:31 | disposition home or self-care (01) ==
PROVIDERS: Emergency Provider Registered Nurse Emergency; PCP Nurse Practitioner
DX: G81.94 Hemiplegia, unspecified affecting left nondominant side (principal); C71.3 Malignant neoplasm of parietal lobe; Z45.2 Encounter for adjustment and management of vascular access device
CPT/HCPCS: 36415; 36591; 70496; 70498; 80053; 99285; 81003; 81015; 83735; 85025; 85610; 85730; J3490

== ENCOUNTER 2021-02-25 01:04 | Outpatient (RCR) | payer MEDICARE, MEDICAID, SELFPAY ==
[2021-02-04] MEDS: Normal Saline Flush 10 ML SYR IVP (08:28)
[2021-02-04 08:31] LABS: Abs Immature Grans 0.01 10^3/uL (0.0-0.06); Absolute Basophil Count 0.04 10^3/uL (0.0-0.2); Absolute Eosinophil Count 0.18 10^3/uL (0.0-0.7); Absolute Lymphocyte Count 0.86 10^3/uL (1.2-3.4); Absolute Monocyte Count 0.86 10^3/uL (0.1-0.8); Absolute Neutrophil Count 3.52 10^3/uL (1.2-6.7); Basophils % 0.7; Eosinophils % 3.3; HCT 34.9 % (40.0-50.0); Immature Grans % 0.2; Lymphocytes % 15.7; MCH 32.3 pg (27.0-33.0); MCHC 31.5 % (32.0-36.0); MCV 102.3 fL (80-95); MPV 9.7 fL (8.0-11.0); Monocytes % 15.7; Neutrophils % 64.4; Nucleated RBC 0 %; Platelet Count 200 10^3/uL (130-400); RBC 3.41 10^6/uL (4.36-5.78); RDW 17.9 % (11.8-14.1); RDW-SD 66.7 fL; WBC 5.47 10^3/uL (4.4-10.8)
[2021-02-04 08:39] LABS: ALT 48 U/L (16-63); AST 50 U/L (15-37); Albumin 3.4 g/dL (3.4-5.0); Alkaline Phosphatase 186 U/L (46-116); Anion Gap 8.3 mmol/L (3-11); BUN 19 mg/dL (7-18); Bilirubin, Total 0.4 mg/dL (0.2-1.0); CO2 27.7 mmol/L (21.0-32.0); CREATININE 0.8 mg/dL (0.70-1.30); Calcium 8.9 mg/dL (8.5-10.1); Chloride 108 mmol/L (98-107); Glucose 101 mg/dL (74-106); Potassium 4.4 mmol/L (3.5-5.1); Sodium 144 mmol/L (136-145); Total Protein 7.3 g/dL (6.4-8.2)
[2021-02-25] MEDS: Normal Saline Flush 10 ML SYR IVP (08:16)
[2021-02-25 08:34] LABS: Abs Immature Grans 0.19 10^3/uL (0.0-0.06); Absolute Basophil Count 0.02 10^3/uL (0.0-0.2); Absolute Eosinophil Count 0.04 10^3/uL (0.0-0.7); Absolute Monocyte Count 0.74 10^3/uL (0.1-0.8); Basophils % 0.1; Eosinophils % 0.2; HCT 40.4 % (40.0-50.0); HGB 13.2 g/dL (13.5-17.5); Immature Grans % 1.1; Lymphocytes % 2.8; MCH 31.9 pg (27.0-33.0); MCHC 32.7 % (32.0-36.0); MCV 97.6 fL (80-95); MPV 9.1 fL (8.0-11.0); Monocytes % 4.2; Neutrophils % 91.6; Nucleated RBC 0 %; Platelet Count 258 10^3/uL (130-400); RBC 4.14 10^6/uL (4.36-5.78); RDW 15.3 % (11.8-14.1); RDW-SD 55.2 fL; WBC 17.62 10^3/uL (4.4-10.8)
[2021-02-25 08:39] LABS: Absolute Lymphocyte Count 0.49 10^3/uL (1.2-3.4); Absolute Neutrophil Count 16.14 10^3/uL (1.2-6.7)
[2021-02-25 09:00] LABS: ALT 85 U/L (16-63); AST 51 U/L (15-37); Albumin 3.2 g/dL (3.4-5.0); Alkaline Phosphatase 190 U/L (46-116); Anion Gap 7.8 mmol/L (3-11); BUN 25 mg/dL (7-18); Bilirubin, Total 0.6 mg/dL (0.2-1.0); CO2 30.2 mmol/L (21.0-32.0); CREATININE 0.8 mg/dL (0.70-1.30); Calcium 8.7 mg/dL (8.5-10.1); Chloride 100 mmol/L (98-107); Glucose 104 mg/dL (74-106); Magnesium 2.2 mg/dL (1.8-2.4); Potassium 4.1 mmol/L (3.5-5.1); Sodium 138 mmol/L (136-145); Total Protein 7.1 g/dL (6.4-8.2)
== END 2021-03-02 23:59 | disposition home or self-care (01) ==
LOC: INF 01:04
PROVIDERS: PCP Nurse Practitioner; Visit Provider Internal Medicine
DX: C15.5 Malignant neoplasm of lower third of esophagus (principal); Z45.2 Encounter for adjustment and management of vascular access device
CPT/HCPCS: 36591; 80053; 83735; 85025

== ENCOUNTER 2021-03-20 01:40 | Outpatient (RCR) | payer MEDICARE, MEDICAID, SELFPAY ==
[2021-03-18 09:41] LABS: Abs Immature Grans 0.32 10^3/uL (0.0-0.06); Absolute Basophil Count 0.01 10^3/uL (0.0-0.2); Absolute Eosinophil Count 0.01 10^3/uL (0.0-0.7); Absolute Lymphocyte Count 0.59 10^3/uL (1.2-3.4); Absolute Monocyte Count 0.68 10^3/uL (0.1-0.8); Absolute Neutrophil Count 6.87 10^3/uL (1.2-6.7); Basophils % 0.1; Eosinophils % 0.1; HCT 38.9 % (40.0-50.0); HGB 12.8 g/dL (13.5-17.5); Immature Grans % 3.8; MCHC 32.9 % (32.0-36.0); MCV 94.2 fL (80-95); Nucleated RBC 1 %; Platelet Count 172 10^3/uL (130-400); RBC 4.13 10^6/uL (4.36-5.78); RDW 17.2 % (11.8-14.1); RDW-SD 57.7 fL; WBC 8.48 10^3/uL (4.4-10.8)
[2021-03-18 10:29] LABS: ALT 89 U/L (16-63); AST 45 U/L (15-37); Albumin 3.1 g/dL (3.4-5.0); Alkaline Phosphatase 165 U/L (46-116); Anion Gap 9.1 mmol/L (3-11); BUN 20 mg/dL (7-18); Bilirubin, Total 0.6 mg/dL (0.2-1.0); CO2 29.9 mmol/L (21.0-32.0); CREATININE 0.8 mg/dL (0.70-1.30); Calcium 8.5 mg/dL (8.5-10.1); Chloride 101 mmol/L (98-107); FREE T4 0.83 ng/dL (0.76-1.46); Glucose 97 mg/dL (74-106); Magnesium 2.1 mg/dL (1.8-2.4); Potassium 4.2 mmol/L (3.5-5.1); Sodium 140 mmol/L (136-145); TSH 0.49 uIU/mL (0.36-3.74); Total Protein 6.4 g/dL (6.4-8.2)
[2021-03-18] MEDS: Normal Saline Flush 10 ML SYR IVP (14:05)
[2021-03-20] MEDS: Normal Saline Flush 10 ML SYR IVP (08:47)
[2021-03-20] MEDS: Heparin 500 UNITS/5 ML SYRINGE IV (08:47)
== END 2021-04-01 23:59 | disposition home or self-care (01) ==
LOC: INF 01:40
PROVIDERS: Nurse Practitioner Adult Health; PCP Nurse Practitioner; Visit Provider Internal Medicine
DX: C15.9 Malignant neoplasm of esophagus, unspecified (principal); Z45.2 Encounter for adjustment and management of vascular access device; C79.89 Secondary malignant neoplasm of other specified sites
CPT/HCPCS: 36591; 74177; 80053; 71260; 83735; 84439; 84443; 85025; J3490; Q9967

== ENCOUNTER 2021-04-07 12:50 | Inpatient (IN) | payer MEDICARE, MEDICAID, SELFPAY ==
[2021-04-07] VITALS (27 sets, daily range): BP systolic 96–127; BP diastolic 64–84; PULSE 85–108; RESP 15–25; TEMP 36.6–36.7; O2SAT 91–95
--- NOTE | 2021-04-07 12:45 | RT.EKG_ITS ---
APPROVED REPORT Exam: Resting ECG Reason for Exam: weakness Patient Location: E HR:93 bpm ECG Measurements Heart Rate 93 AXIS MI 156 P 65 QRSd 83 QRS 65 QT 348 T 53 QTc 434 Conclusion Sinus rhythm...normal P axis, V-rate 60- 99. Sinus. No STEMI. I have reviewed and interpreted ECG and agree with software generated interpretation.
[2021-04-07 13:34] LABS: HGB 10.8 g/dL (13.5-17.5); MCHC 32.7 % (32.0-36.0); MCV 94.8 fL (80-95); MPV 9.1 fL (8.0-11.0); Nucleated RBC 0 %; Platelet Count 197 10^3/uL (130-400); RBC 3.48 10^6/uL (4.36-5.78); RDW 18.8 % (11.8-14.1); RDW-SD 61.6 fL; WBC 6.09 10^3/uL (4.4-10.8)
[2021-04-07 13:34] LABS: Source Nasal/Nares
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
[2021-04-07 13:57] LABS: Bilirubin Negative (Negative); Blood Negative (Negative); Clarity Clear (Clear); Glucose Negative (Negative); Ketones Negative (Negative); Leukocyte Esterase Negative (Negative); Nitrite Negative (Negative); Specific Gravity 1.025 (1.005-1.025); Urobilinogen 0.2 EU/dL (Up TO 0.2); pH 5.5 (5-8)
[2021-04-07 13:57] LABS: Absolute Lymphocyte Count 0.12 10^3/uL (1.2-3.4); Absolute Monocyte Count 0.37 10^3/uL (0.1-0.8); Absolute Neutrophil Count 5.48 10^3/uL (1.2-6.7); Bands % 5; Metamyelocytes % 2
[2021-04-07 13:58] LABS: Diff Comment Manual Differential; RBC Morphology Normal
[2021-04-07 14:03] LABS: ALT 223 U/L (16-63); AST 74 U/L (15-37); Alkaline Phosphatase 506 U/L (46-116); Anion Gap 8.5 mmol/L (3-11); BUN 46 mg/dL (7-18); Bilirubin, Total 0.7 mg/dL (0.2-1.0); CO2 28.5 mmol/L (21.0-32.0); CREATININE 0.9 mg/dL (0.70-1.30); Calcium 8.8 mg/dL (8.5-10.1); Chloride 104 mmol/L (98-107); Glucose 174 mg/dL (74-106); Magnesium 2.6 mg/dL (1.8-2.4); Potassium 4.3 mmol/L (3.5-5.1); Sodium 141 mmol/L (136-145); Troponin I < 0.05 ng/mL (<0.06)
[2021-04-07 14:09] LABS: Bacteria Rare HPF (Negative); Crystals Negative HPF (Negative); Epithelial Cells Negative HPF (Negative); Mucus Negative (Negative); RBC Negative HPF (0-2)
[2021-04-07 14:10] LABS: C & S Indicated? Yes
[2021-04-07 14:16] LABS: COVID-19 PCR Negative (Negative)
[2021-04-07] MEDS: Omnipaque 350 MG/ML 100 ML BTL IJ (15:02)
--- NOTE | 2021-04-07 15:04 | DI.CT_ITS ---
Exam(s) CT THORACIC LUMBAR SPINE REC EXAM: CT THORACIC LUMBAR SPINE REC CLINICAL HISTORY: RECONs, h/o liver ca with mets TECHNIQUE: COMPARISON: CT CT CHEST/ABD/PEL W from 03/20/2021 FINDINGS: THORACIC SPINAL COLUMN: No evidence of fracture. No osseous lesions. Facets unremarkable. Right pl eural effusion now evident volume loss right lower lobe segments. This was not evident CT scan of LUMBOSACRAL SPINAL COLUMN: There are no fractures evident. No listhesis. No disc space narrowing. No lytic osseous lesions evident IMPRESSION: No fractures nor lytic osseous lesions in the thoracolumbar spine Right pleural effusion evident which was not evident on prior CT scan of 03/20/2021. Metastatic lesi ons in the liver again noted. Distended urinary bladder.
--- NOTE | 2021-04-07 15:25 | DI.CT_ITS ---
Exam(s) CT CHEST PE ABD PELVIS W EXAM: CT CHEST PE ABD PELVIS W CLINICAL HISTORY: R sided chest pain, R mid/ L low back pain. TECHNIQUE: Imaging Protocol: Axial CT angiography was performed with multi-slice acquisition and m ulti-planar and/or 3D reconstructions. CONTRAST MATERIAL: Intravenous: Omnipaque 350 Contrast volume:100 ml Oral: None COMPARISON: CT CT CHEST/ABD/PEL W from 03/20/2021 FINDINGS: CHEST: PULMONARY ARTERIES: There are no intra-arterial filling defects to suggest the presence of acute pulm onary emboli. LUNGS: There is a new sub pulmonic right pleural effusion moderate-large size with volume loss in the right lower lobe basal segments. This finding was not evident on 03/20/2021.. No pleural effusion on the opposite-left side. There is a small pleural based 6 millimeter nodule in the posterior basa l segment of the left lower lobe, unchanged. No pleural effusion on the left side. MEDIASTINUM: There is no hilar nor mediastinal adenopathy. Visualized thyroid unremarkable.There is a n enlarged abnormal lymph node in the lower left neck noted which measures 2.8 by 2 cm located optometric coordinator ior to left common carotid artery in the supraclavicular region. A slightly smaller but also patholo gic left supraclavicular lymph node is also noted just lateral to this. Most probably consistent wit h Virchow pathologic lymph node. CARDIAC: Heart size is normal. There is no pericardial effusion. There is no significant shift of t he interventricular septum.Ascending thoracic aorta is dilated to diameter of 3.9 cm. No dissection evident. OSSEOUS: No significant osseous lesions.. ABDOMEN: Gastric PEG appears extra luminal on the present study, different from previous. There is no ascites. Epigastric lymphadenopathy noted. Largest lymph node at this level measures 17 by 11 millimeters unchanged other lymph nodes slightly below this are also unchanged. Also unchange d para-aortic adenopathy just below the left renal vein, slightly right of center. Also left para-ao rtic adenopathy which show some is unchanged. Atherosclerotic abdominal aorta again noted maximum di ameter 2 cm.. LIVER: The previously described large hepatic metastases are again noted. Largest of these is again noted to be in the right hepatic lobe. No dilatation of intrahepatic ducts. GALLBLADDER/BILIARY: No obvious acute gallbladder pathology CBD is not dilated. PANCREAS: No evidence of pancreatic mass nor dilatation of the pancreatic duct. SPLEEN: Spleen size upper normal. No intrasplenic lesions. Splenic and portal veins are patent. ADRENALS: No significant adrenal masses. KIDNEYS:Small left kidney cysts again noted. No calculi nor hydronephrosis. No solid renal masses. ABDOMINAL AORTA: Abdominal aorta is not enlarged. LYMPH NODES: Stable lymphadenopathy as described above. ABDOMINAL WALL/GI: Peg is no longer in satisfactory position in the stomach. No bowel obstruction. PELVIS: LYMPH NODES: There is no intrapelvic nor inguinal adenopathy. GI: No evidence of appendicitis.No evidence of sigmoid diverticulitis. URINARY BLADDER: Distended. REPRODUCTIVE: Prostate not enlarged. OSSEOUS: Sclerotic bone lesion in the right iliac bone again noted IMPRESSION: 1. Compared to the CT scan of 03/20/2021 there is now a prominent new right-sided pleural effusion wi th significant volume loss basal segments of the right lower lobe. 2. No pleural effusion on the opposite-left side. Small 6 millimeter pleural-based left lower lobe n odule again noted. 3. Left supraclavicular adenopathy again noted (Virchow nodes). 4. Dilated 4 cm diameter ascending thoracic aorta. No dissection 5. Multiple hepatic masses/metastases again noted. 6. Epigastric and retroperitoneal para-aortic adenopathy again noted. The gastric PEG does not appear to be in satisfactory position within the stomach on the present stud y. Is distal tip appears to be in the anterior abdominal wall musculature. There is no abnormal flu id collection. No free air. RADIATION DOSE DELIVERED: Total DLP DATA REPOSITORY: All CT scans at this facility are submitted to the National Radiology Data Registry (NRDR) Dose Index Registry (DIR) with the [employer] (ACR). RADIATION OPTIMIZATION: All CT scans at this facility use at least one of these dose optimization te chniques: automated exposure control; mA and/or kV adjustment per patient size (includes targeted exa ms where dose is matched to clinical indication); or iterative reconstruction.
--- NOTE | 2021-04-07 15:38 | DI.MRI_ITS ---
Exam(s) MR LUMBAR SPINE WO/W EXAM: MR LUMBAR SPINE WO/W CLINICAL HISTORY: low back pain, r/o cauda equina syndrome. TECHNIQUE: Multiplanar multisequence MRI of the Lumbar Spine was performed. CONTRAST MATERIAL: IV Contrast: 13 mL of Dotarem contrast administered. COMPARISON: CT CT THORACIC LUMBAR SPINE REC from 04/07/[address] THORACIC LUMBAR SPINE REC from 04/07/[address] CHEST PE ABD PELVIS W from 04/07/[address] CHEST PE ABD PELVIS W from 04/07/2021 FINDINGS: Bones: The last intervertebral disc space is designated the L5/S1 level for the numbering purpose of this examination. The vertebral body heights are well maintained. Alignment is satisfactory. There i s a 1 cm hyperintense lesion seen in the T1 and T2 weighted images in the L3 vertebral body. It show s mild peripheral enhancement following contrast administration. Cord: The conus tip ends at the L1 level. It is of normal size and signal intensity. T12-L1: No disc herniations or bulges are present. No central spinal canal or neural foraminal stenos is. L1-2: No disc herniations or bulges are present. No central spinal canal or neural foraminal stenosis . L2-3: No disc herniations or bulges are present. No central spinal canal or neural foraminal stenosis . L3-4: No disc herniations or bulges are present. No central spinal canal or neural foraminal stenosis . L4-5: There is a diffuse disc bulge. There is disc desiccation. Minimal narrowing of the central sp inal canal and left neural foramen is present. L5-S1: No disc herniations or bulges are present. No central spinal canal or neural foraminal stenosi s. Soft tissues: The visualized SI joints and sacrum are well maintained. The paraspinal soft tissues ar e unremarkable. There is a right pleural effusion. There are small simple left renal cysts. There i s again seen a heterogeneously enhancing right hepatic mass. This is incompletely imaged. It is bet ter characterized on the CT scan of the chest abdomen and pelvis performed the same day. There is no evidence of suspicious enhancement. IMPRESSION: 1. Solitary lesion in the L3 vertebral body as described above. This may represent a hemangioma alth ough metastatic focus cannot be entirely excluded. 2. Degenerative changes in the lumbar spine particularly at the L4-L5 level. 3. Right hepatic mass consistent with the patient's known metastatic disease. 4. Right pleural effusion. 5. No spinal cord or intrathecal lesion. DATA REPOSITORY:
[2021-04-07] MEDS: Normal Saline Flush 10 ML SYR IVP (16:15)
[2021-04-07] MEDS: Gadoterate meglumine 20 ML VIAL 13 ML IVP (16:17)
[2021-04-07] MEDS: Normal Saline 1,000 ML 1000 ML IV (17:30)
--- NOTE | 2021-04-07 17:39 | DI.VRAD_ITS ---
PROCEDURE INFORMATION: Exam: MR Lumbar Spine Without and With Contrast Exam date and time: 04/07/2021 4:18 PM Age: 50 years old Clinical indication: Weakness and other: Low back pain, unable to stand due to leg/hip weakness; Patient HX: H/o cancer (esophagus, brain, liver) TECHNIQUE: Imaging protocol: Multiplanar magnetic resonance images of the lumbar spine without and with intravenous contrast. Total images: 341 Contrast material: DOTAREM; Contrast volume: 13 ml; Contrast route: INTRAVENOUS (IV); COMPARISON: CT THORACIC LUMBAR SPINE REC 04/07/2021 3:18 PM FINDINGS: Vertebrae: There is a 9 mm T1/T2 hyperintense well-circumscribed nodule in the L3 vertebral body with mild rim enhancement. No additional significant bony lesion. Spinal cord: Conus and roots of the cauda equina are unremarkable. L1-L2: No significant disc disease. No significant spinal canal stenosis. No neural foraminal stenosis. L2-L3: No significant disc disease. No significant spinal canal stenosis. No neural foraminal stenosis. L3-L4: Minimal disc bulging at L3-L4 associated with mild ligamentum flavum hypertrophy which results in mild central canal narrowing without stenosis. L4-L5: At L4-L5 there is disc bulging which mildly narrows the central canal without stenosis. There is mild left neural foraminal narrowing at L4-L5. L5-S1: No significant disc disease. No significant spinal canal stenosis. No neural foraminal stenosis. Soft tissues: Unremarkable. Liver: There is a large partially visualized mass demonstrating heterogeneous enhancement occupying much of the visualized right hepatic lobe. Kidneys and ureters: Small left upper pole renal cysts. IMPRESSION: 1. Solitary bony lesion in the L3 vertebral body which may represent an hemangioma although a solitary metastatic focus cannot be completely excluded. 2. L3-L4 and L4-L5 disc bulging. Mild secondary central canal narrowing and mild left foraminal narrowing at L4-L5. No associated stenosis. 3. Evidence of known right hepatic metastasis. 4. No evidence of intrathecal metastatic disease. Dictated and Authenticated by: Colby De Jesus MD. Ordering:ANASTASIA Marshall MD
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
[2021-04-07] MEDS: Lactated Ringers 1,000 ML 100 ML IV (21:45)
[2021-04-07] MEDS: CIPROFLOXACIN 400 MG/200 ML BAG 200 MG IVPB (22:41)
[2021-04-08] MEDS: LORazepam 2 MG/ML VIAL 1 MG IVP ×2 (01:18→21:56)
[2021-04-08] MEDS: Dexamethasone 4 MG/ML VIAL IVP ×3 (01:18→21:16)
[2021-04-08 01:22] VITALS: BP 114/72; PULSE 105; RESP 16; TEMP 37.5; O2SAT 94
[2021-04-08] MEDS: levETIRAcetam 1,000 MG in Normal Saline 100 ML 440 MG IVPB ×2 (01:54→14:13)
[2021-04-08] MEDS: MORPHine 4 MG/ML SYR IVP ×5 (06:55→21:57)
[2021-04-08 07:18] LABS: HCT 31.3 % (40.0-50.0); MCH 30.8 pg (27.0-33.0); MCHC 31.9 % (32.0-36.0); MCV 96.3 fL (80-95); MPV 9.7 fL (8.0-11.0); Platelet Count 188 10^3/uL (130-400); RBC 3.25 10^6/uL (4.36-5.78); RDW 18.6 % (11.8-14.1); RDW-SD 62.2 fL; WBC 6.14 10^3/uL (4.4-10.8)
[2021-04-08 07:26] LABS: Anion Gap 10.8 mmol/L (3-11); BUN 26 mg/dL (7-18); CO2 27.2 mmol/L (21.0-32.0); CREATININE 0.7 mg/dL (0.70-1.30); Calcium 8.5 mg/dL (8.5-10.1); Chloride 105 mmol/L (98-107); Glucose 114 mg/dL (74-106); Potassium 3.9 mmol/L (3.5-5.1); Sodium 143 mmol/L (136-145)
[2021-04-08] MEDS: Lactated Ringers 1,000 ML 100 ML IV (08:32)
[2021-04-08 08:38] VITALS: BP 94/62; PULSE 91; RESP 16; TEMP 36.6; O2SAT 92
[2021-04-08] MEDS: Normal Saline Flush 10 ML SYR IVP ×3 (10:15→18:18)
[2021-04-08] MEDS: CIPROFLOXACIN 400 MG/200 ML BAG 200 MG IVPB ×2 (10:15→21:16)
[2021-04-08] MEDS: Pantoprazole 40 MG VIAL IVP (10:15)
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
--- NOTE | 2021-04-08 10:48 | NUR.NOTE ---
Nursing Note: spoke with pt's partner, Nichelle, about pt's tube feeds. She informed me that pt uses osmolite 1.5, with no free water flushes, and that pt has been adjusting his own rate.
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
--- NOTE | 2021-04-08 12:33 | W.NUTRFU ---
Date of service: 04/08/21 Time of Service: 12:33 Nutrition Note NOTE: 50yo male admitted with weakness and back pain with PMH significant for esophageal cancer with brain and liver mets. J-tube in place and pt states osmolite 1.2 is the formula he uses at home. [employer] does not have this formula in stock currently and will order. Due to j-tube placement, a low fiber, isotonic formula would be appropriate and closest option currently carried would be Vital AF 1.2. Delivered this to nursing to find he doesn?t follow a set feeding volume at home and does not usually administer free water at feeds. Nursing verbalized that they are sorting out some barriers to other aspects of his 3-port j-tube and would like to consult pt on his delivery and rate as they would like him to have some control in decision making. Recommendation at this time would be to run Vital AF 1.2 continuously over 24hours @ 65mL/hr to provide 117g protein (1.7g/kg ? 118% of estimated needs), 1872kcals (28kcal/kg ? 102% of estimated needs) and 1248mL fluid (.67mL/kcal - 68% of estimated needs). Ad garrison 600mL in total flushes per day to meet his fluid needs of 1840mL. Will monitor and communicate with nursing and Mr. Simpson to best meet his wishes and nutrition needs with enteral feeding support. Delvin Sarmiento NDTR ? Stem Processing Machine Operator Time Spent in Nutritional Counseling and Treatment: 30 minutes
--- NOTE | 2021-04-08 13:13 | PGE_ITS ---
Date of Service Date of service: 04/08/21 Time of Service: 13:14 Assessment and Plan Assessment and plan (1) Back pain: Status: Acute Assessment and plan: Does have a solitary bony lesion in L3. It may or may not be responsible for his back pain. It seems like his back pain is better controlled today with morphine and lorazepam. Until his J tube set up is figured out, will keep his medications IV with plans to transition to per tube. (2) Weakness: Status: Acute Assessment and plan: ?due to UTI. The patient does not have evidence of leucocyte esterase or nitrites on UA, but is immunosuppressed and is not necessarily expected to mount leucocyte esterase in the urine. For this reason, I do think the patient should complete at least 3 days of therapy and we need to r/o urinary retention. Meanwhile, continue working with PT. Anticipate discharge home with home health services. 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 The patient states he is not quite interested in hospice and not interested in palliative care while in the hospital. Continue keppra, dexamethasone. Tube feeding. (4) Brain metastases: Status: Acute Assessment and plan: As above (5) DVT prophylaxis: Status: Acute Assessment and plan: SCDs Will avoid chemical DVT ppx due to brain mets. (6) Discharge planning issues: Status: Acute Assessment and plan: Full code at this time. Not interested in palliative care or hospice. Subjective Subjective Interval history since last seen: Mr Simpson states he is feeling a little bit better. He admits to sometimes having difficulty emptying his bladder. Ativan really helps with his back pain. He has been able to do some walking today. He is not interested in going to a usp but would agree to home health PT/nursing, he states. He is not interested in discussion about hospice at this time. We had a long conversation about palliative care - he stated that he would definitely consider meeting with them as an outpatient, but is not interested in doing so on this admission. I did spend a long time explaining to him what palliative care does, including but not limited to maximizing quality of life, advocating on behalf of the patient, pain control. Denies dizziness, chest pain, shortness of breath, nausea. Exam Narrative Exam Narrative: General: Very plesasant middle-aged male, jaundiced, A&Ox3, NAD HEENT: EOMI, MMM Heart: RRR Lungs: CTAB Abdomen: soft, nondistended Extremities: no edema BLE's Objective Last Vital Signs Temp 36.6 C 04/08/21 08:38 Pulse 91 H 04/08/21 08:38 Resp 16 04/08/21 08:38 BP 94/62 L 04/08/21 08:38 Pulse Ox 92 04/08/21 08:38 Laboratory Results - last 24 hr 04/07/21 04/07/21 04/07/21 13:25 13:25 13:30 WBC 6.09 RBC 3.48 L Hgb 10.8 L Hct 33.0 L MCV 94.8 MCH 31.0 MCHC 32.7 RDW 18.8 H Plt Count 197 MPV 9.1 Immature Gran % 0.0 Neutrophils % 85.0 Band Neutrophils % 5 Lymphocytes % 2.0 Monocytes % 6.0 Eosinophils % 0.0 Basophils % 0.0 Metamyelocytes % 2 Nucleated RBC % 0 Absolute Neutrophils 5.48 Absolute Lymphocytes 0.12 L Absolute Monocytes 0.37 Absolute Eosinophils 0.00 Absolute Basophils 0.00 RBC Morphology Normal Sodium 141 Potassium 4.3 Chloride 104 Carbon Dioxide 28.5 Anion Gap 8.5 BUN 46 H Creatinine 0.9 Estimated GFR/1.73 m2 >= 60.00 Glucose 174 H Calcium 8.8 Magnesium 2.6 H Total Bilirubin 0.7 AST 74 H ALT 223 H Alkaline Phosphatase 506 H Troponin I < 0.05 Total Protein 7.0 Albumin 2.0 L Urine Color Urine Clarity Urine pH Ur Specific [place] Urine Protein Urine Ketones Urine Blood Urine Nitrite Urine Bilirubin Urine Urobilinogen Ur Leukocyte Esterase Urine RBC Urine WBC Ur Epithelial Cells Urine Crystals Urine Bacteria Urine Casts Urine Mucus Ur Culture Indicated? Urine Glucose COVID-19 Source Nasal/Nares SARS-CoV-2 (PCR) Negative 04/07/21 04/08/21 04/08/21 13:40 06:50 06:50 WBC 6.14 RBC 3.25 L Hgb 10.0 L Hct 31.3 L MCV 96.3 H MCH 30.8 MCHC 31.9 L RDW 18.6 H Plt Count 188 MPV 9.7 Immature Gran % Neutrophils % Band Neutrophils % Lymphocytes % Monocytes % Eosinophils % Basophils % Metamyelocytes % Nucleated RBC % Absolute Neutrophils Absolute Lymphocytes Absolute Monocytes Absolute Eosinophils Absolute Basophils RBC Morphology Sodium 143 Potassium 3.9 Chloride 105 Carbon Dioxide 27.2 Anion Gap 10.8 BUN 26 H D Creatinine 0.7 Estimated GFR/1.73 m2 >= 60.00 Glucose 114 H Calcium 8.5 Magnesium Total Bilirubin AST ALT Alkaline Phosphatase Troponin I Total Protein Albumin Urine Color Yellow Urine Clarity Clear Urine pH 5.[address] [place] [address] [place] 1.025 Urine Protein 100 H Urine Ketones Negative Urine Blood Negative Urine Nitrite Negative Urine Bilirubin Negative Urine Urobilinogen 0.2 Ur Leukocyte Esterase Negative Urine RBC Negative Urine WBC 5-10 Ur Epithelial Cells Negative Urine Crystals Negative Urine Bacteria Rare Urine Casts 5-10 WBC Urine Mucus Negative Ur Culture Indicated? Yes Urine Glucose Negative COVID-19 Source SARS-CoV-2 (PCR)
--- NOTE | 2021-04-08 13:23 | PHA.REVIEW ---
Pharmacy Admission Review - Admission Clinical Review (Last Reviewed 04/07/21 @ 18:30 by Christophe Castillo MD) Weakness (Acute) Back pain (Acute) Generalized weakness (Acute) Bilateral leg weakness (Acute) Liver metastases (Acute) Brain metastases (Acute) History of esophageal cancer (Acute) No Known Allergies Allergy (Verified 04/07/21 13:03) Resuscitation Status Full Code Height 5 ft 11 in Weight 66.224 kg WEAKNESS - Comments Comments/Follow Ups: Palliative care consult possibly at discharge, Esophageal cancer w/mets, pain, has Morphine/Ativan. J-tube with tube feeds, most meds being given IV. Watch for BM and if not, suggest additional scheduled bowel meds. Cipro IV for UTI (<10K gram neg nakul preliminary), follow Micro, anemia workup, dietary assessment. On IV steroids and IV Keppra - Renal Dosing Renal Dosing: BUN 26 mg/dL (7-18) H D 04/08/21 06:50 Creatinine 0.7 mg/dL (0.70-1.30) 04/08/21 06:50 Medications needing adjustments: Reviewed (CrCl>100ml/min) - Anticoagulation Anticoagulation: Hgb 10.0 g/dL (13.5-17.5) L 04/08/21 06:50 Hct 31.3 % (40.0-50.0) L 04/08/21 06:50 Plt Count 188 10^3/uL (130-400) 04/08/21 06:50 Creatinine 0.7 mg/dL (0.70-1.30) 04/08/21 06:50 DVT Prophylaxis: N/A - Opiate Usage Evaluate Pain Scale/Pains Meds: Reviewed (Pain 11/09, Morphine 4mg q3h/prn) Scheduled Bowel Reg ordered if on Opiates?: No (Docusate prn) - Relevant Labs Sodium 143 mmol/L (136-145) 04/08/21 06:50 Potassium 3.9 mmol/L (3.5-5.1) 04/08/21 06:50 Chloride 105 mmol/L (98-107) 04/08/21 06:50 Magnesium 2.6 mg/dL (1.8-2.4) H 04/07/21 13:25 Electrolytes, C-Reactive P, ESR: Reviewed (H/H 10.0/31.3-follow) - DM Control DM Control: Glucose 114 mg/dL (74-106) H 04/08/21 06:50 Insulin Dosing: N/A - Heart Failure/NH Heart Failure/NH: Troponin I < 0.05 ng/mL (<0.06) 04/07/21 13:25 EF%, WINNIE's, B-Blockers, Diuretics: N/A - BP Control BP Control: Blood Pressure 94/62 If elevated: N/A (BP soft 94/62) - Qtc Review If Elevated: Reviewed (QTC 434) - IV to PO Switch IV Medications: Reviewed (troubles with J-tube and special adapters for tube feeds, will obtain, all meds IV at this time) - Home Meds Home Med List reviewed: Reviewed (ordered as inpt)
--- NOTE | 2021-04-08 15:25 | PT.INTREAT ---
Date of service: 04/08/21 Time of Service: 15:03 PT Notes Visit Reasons: Weakness Inpatient Physical Therapy Treatment Note [facility] Date: 04/08/2021 PRECAUTIONS: Activity as tolerated SUBJECTIVE: Vaughn is pleasant and agreeable to participating in PT. He declines all OOB activities this afternoon, stating that he is very tired. OBJECTIVE: PAIN: No c/o pain BED MOBILITY/TRANSFERS/GAIT: Declined THEREX: Patient was instructed in a resisted supine UE and LE strengthening program, as per flow sheet. He demonstrates global weakness L>R at this time. Utilized yellow Theraband and 1# dumbbells with all exercises. ASSESSMENT: Patient tolerated session well, with increased fatigue with ther ex completion. He demonstrates global weakness L>R. PLAN: Continue with global strengthening and general conditioning, as tolerated for improved mobility and activity tolerance. TREATMENT CODE/TIME: 19 minutes; 97209 (15:03)
--- NOTE | 2021-04-08 16:06 | CHAPLAIN ---
Cristobal is a patient with back pain and esophageal cancer, here to gain some strength and return home. He has 10 steps to get into his house, he told me. He's been about to be in contact with family and friends by phone. Vaughn was very pleasant when I introduced myself, explained my role and offered support. I also let him know that bio medical technician is available 23/11. I will continue to visit.
[2021-04-08] MEDS: Lactated Ringers 1,000 ML 75 ML IV (18:13)
[2021-04-08 18:16] VITALS: BP 100/66; PULSE 94; RESP 17; TEMP 36.5; O2SAT 91
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
[2021-04-08 22:47] VITALS: BP 104/69; PULSE 99; RESP 16; TEMP 37.2; O2SAT 94
[2021-04-09] MEDS: levETIRAcetam 1,000 MG in Normal Saline 100 ML 440 MG IVPB ×2 (02:08→15:19)
[2021-04-09 06:10] VITALS: BP 102/69; PULSE 95; RESP 16; TEMP 36.4; O2SAT 97
[2021-04-09 07:32] LABS: HCT 28.9 % (40.0-50.0); HGB 9.3 g/dL (13.5-17.5); MCH 30.6 pg (27.0-33.0); MCHC 32.2 % (32.0-36.0); MCV 95.1 fL (80-95); MPV 9.2 fL (8.0-11.0); Nucleated RBC 0 %; Platelet Count 167 10^3/uL (130-400); RBC 3.04 10^6/uL (4.36-5.78); RDW 18.7 % (11.8-14.1); WBC 5.57 10^3/uL (4.4-10.8)
[2021-04-09 07:34] VITALS: BP 108/70; PULSE 101; RESP 17; TEMP 37; O2SAT 90
[2021-04-09 07:44] LABS: ALT 103 U/L (16-63); AST 37 U/L (15-37); Albumin 1.5 g/dL (3.4-5.0); Alkaline Phosphatase 325 U/L (46-116); Anion Gap 10.4 mmol/L (3-11); BUN 22 mg/dL (7-18); Bilirubin, Direct 0.3 mg/dL (0.0-0.2); Bilirubin, Total 0.7 mg/dL (0.2-1.0); CO2 25.6 mmol/L (21.0-32.0); CREATININE 0.5 mg/dL (0.70-1.30); Calcium 8.2 mg/dL (8.5-10.1); Chloride 103 mmol/L (98-107); Glucose 103 mg/dL (74-106); Magnesium 1.9 mg/dL (1.8-2.4); Potassium 3.7 mmol/L (3.5-5.1); Sodium 139 mmol/L (136-145); Total Protein 5.6 g/dL (6.4-8.2)
[2021-04-09] MEDS: Pantoprazole 40 MG VIAL IVP (07:56)
[2021-04-09] MEDS: Lactated Ringers 1,000 ML 75 ML IV (07:56)
[2021-04-09] MEDS: MORPHine 4 MG/ML SYR IVP ×3 (07:57→19:41)
[2021-04-09] MEDS: CIPROFLOXACIN 400 MG/200 ML BAG 200 MG IVPB ×2 (07:57→21:47)
[2021-04-09] MEDS: Dexamethasone 4 MG/ML VIAL IVP ×2 (07:57→19:41)
[2021-04-09 08:04] LABS: Absolute Lymphocyte Count 0.22 10^3/uL (1.2-3.4); Absolute Monocyte Count 0.39 10^3/uL (0.1-0.8); Absolute Neutrophil Count 4.96 10^3/uL (1.2-6.7); Atypical Lymphocytes % 0; Bands % 11
[2021-04-09 08:05] LABS: Anisocytosis 1+; Diff Comment Manual Differential; Macrocytosis 1+
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
--- NOTE | 2021-04-09 14:40 | W.PM.PROGNOT ---
Date of Service Date of service: 04/09/21 Time of Service: 14:40 Assessment and Plan Assessment and plan (1) Dislodged gastrostomy tube: Status: Acute Assessment and plan: Replaced last night by Dr. Weiss Working well (2) Pleural effusion, right: Status: Acute Assessment and plan: Patient is not short of breath Most likely malignant Doesn't need a tap at this time If he becomes short of breath then we can perform a thorasenthesis. We will sign off for now Please call us if you need us for anything Subjective Subjective Interval history since last seen: Patient sleeping comfortably. Feeding tube working per nursing staff No SOB Objective Last Vital Signs Temp 98.6 F 04/09/21 07:34 Pulse 101 H 04/09/21 07:34 Resp 17 04/09/21 07:34 BP 108/70 04/09/21 07:34 Pulse Ox 90 L 04/09/21 07:34 Laboratory Results - last 24 hr 04/09/21 04/09/21 07:15 07:15 WBC 5.57 RBC 3.04 L Hgb 9.3 L Hct 28.9 L MCV 95.1 H MCH 30.6 MCHC 32.2 RDW 18.7 H Plt Count 167 MPV 9.2 Immature Gran % 0.0 Neutrophils % 78.0 Band Neutrophils % 11 Lymphocytes % 4.0 Atypical Lymphs % 0 Monocytes % 7.0 Eosinophils % 0.0 Basophils % 0.0 Nucleated RBC % 0 Absolute Neutrophils 4.96 Absolute Lymphocytes 0.22 L Absolute Monocytes 0.39 Absolute Eosinophils 0.00 Absolute Basophils 0.00 RBC Morphology See Below Anisocytosis 1+ Macrocytosis 1+ Sodium 139 Potassium 3.7 Chloride 103 Carbon Dioxide 25.6 Anion Gap 10.4 BUN 22 H Creatinine 0.5 L Estimated GFR/1.73 m2 >= 60.00 Glucose 103 Calcium 8.2 L Magnesium 1.9 Total Bilirubin 0.7 Conjugated Bilirubin 0.3 H AST 37 ALT 103 H Alkaline Phosphatase 325 H Total Protein 5.6 L Albumin 1.5 L
--- NOTE | 2021-04-09 16:21 | W.PM.PROGNOT ---
Date of Service Date of service: 04/09/21 Time of Service: 16:21 Assessment and Plan Assessment and plan (1) Back pain: Status: Acute Assessment and plan: Does have a solitary bony lesion in L3. Pain is better. Will try heat as well. It seems like his back pain is better controlled today with morphine and lorazepam. Will hold off of transitioning to PO meds for today as the tube is leaking, and the patient does not want anything to be given through it. (2) Weakness: Status: Acute Assessment and plan: ?due to UTI. The patient does not have evidence of leucocyte esterase or nitrites on UA, but is immunosuppressed and is not necessarily expected to mount leucocyte esterase in the urine. Complete 3 days of abx. Meanwhile, continue working with PT. Anticipate discharge home with home health services, but may require swing bed stay until then. 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 The patient states he is not quite interested in hospice and not interested in palliative care while in the hospital. His oncologist, Dr Penaloza, made it clear in his notes that the chemo he is receiving is palliative. Continue keppra, dexamethasone. Tube feeding. Not interested in palliative care. Consider ethics consult as still is full code. (4) Brain metastases: Status: Acute Assessment and plan: As above (5) DVT prophylaxis: Status: Acute Assessment and plan: SCDs Will avoid chemical DVT ppx due to brain mets. (6) Discharge planning issues: Status: Acute Assessment and plan: Full code at this time. Not interested in palliative care or hospice. Subjective Subjective Interval history since last seen: The patient states that his back pain is better - it is being controlled with IV medicines. He denies dizziness, chest pain, shortness of breath, nausea. Has 10 steps to walk up in his house. He has not tried steps yet with PT, but has been walking in his room with a walker. He is interested in the possibility of staying here in a swing bed. G-tube had come out and was replaced yesterday. The patient did not feel comfortable with getting feeds overnight, afraid that the stoma was too wide and needed to tigten a little bit so that it would not leak. Apparently it did leak after he did some walking today, so he asked to place his tubefeeding on hold again for tonight. Exam Narrative Exam Narrative: General: Very plesasant middle-aged male, jaundiced, A&Ox3, NAD, sitting comfortably in a chair, bright affect HEENT: EOMI, MMM Heart: RRR Lungs: CTAB Abdomen: soft, nondistended Extremities: no edema BLE's Objective Last Vital Signs Temp 37.0 C 04/09/21 07:34 Pulse 101 H 04/09/21 07:34 Resp 17 04/09/21 07:34 BP 108/70 04/09/21 07:34 Pulse Ox 90 L 04/09/21 07:34 Laboratory Results - last 24 hr 04/09/21 04/09/21 07:15 07:15 WBC 5.57 RBC 3.04 L Hgb 9.3 L Hct 28.9 L MCV 95.1 H MCH 30.6 MCHC 32.2 RDW 18.7 H Plt Count 167 MPV 9.2 Immature Gran % 0.0 Neutrophils % 78.0 Band Neutrophils % 11 Lymphocytes % 4.0 Atypical Lymphs % 0 Monocytes % 7.0 Eosinophils % 0.0 Basophils % 0.0 Nucleated RBC % 0 Absolute Neutrophils 4.96 Absolute Lymphocytes 0.22 L Absolute Monocytes 0.39 Absolute Eosinophils 0.00 Absolute Basophils 0.00 RBC Morphology See Below Anisocytosis 1+ Macrocytosis 1+ Sodium 139 Potassium 3.7 Chloride 103 Carbon Dioxide 25.6 Anion Gap 10.4 BUN 22 H Creatinine 0.5 L Estimated GFR/1.73 m2 >= 60.00 Glucose 103 Calcium 8.2 L Magnesium 1.9 Total Bilirubin 0.7 Conjugated Bilirubin 0.3 H AST 37 ALT 103 H Alkaline Phosphatase 325 H Total Protein 5.6 L Albumin 1.5 L
--- NOTE | 2021-04-09 17:56 | PTTR_ITS ---
Date of service: 04/09/21 Time of Service: 14:30 PT Notes Visit Reasons: Weakness Inpatient Physical Therapy Treatment Note [facility] Date: 04/09/2021 PRECAUTIONS: Fall. Activity as toelrated. G-tube in situ and L subclavian vein port-a-cath in place, place gait belt around pelvis. SUBJECTIVE: Vaughn is highly anxious about messing up his G-tube site while on feeding. Agreeable to working with PT if feeding is temporarily stopped. Reports pain in L back area which Nurse Ioana is aware of. OBJECTIVE: PAIN: Moderate pain in L back area BED MOBILITY/TRANSFERS/GAIT: Supine to sit minimal assist with HOB at 45 degrees Sit to stand contact-guard assist Stand to sit contact-guard assist Bed to chair contact-guard assist THEREX: Continue with upper extremity and lower extremity strengthening exercises as documented in the exercise therapy sheet to facilitate functional mobility progression. Gait: Continued to train patient with level surface ambulation of 20 feet +20 feet to and from toilet seat using a walker with full weight bearing requiring contact-guard assist with patient reporting pain in his L back area. Complained of fatigue after activity and demonstrated mild shortness of breath that resolved with rest. ASSESSMENT: Per nurse supervisor rough end Kayla patient is ordered to be on continuous G- tube feeding with change schedule to every after 8 hours. Feeding may be temporarily stopped for physical therapy sessions as patient gets highly anxious about causing any leak with movement. Minimal leak did occur after today's session even with feeding stopped. We will plan on coordinating with nurse assigned regarding feeding hold for PT sessions and premedication for pain. PLAN: Progress functional mobility level and strength to patient's tolerance to achieve goals. DISCHARGE RECOMMENDATIONS: [] Home with no services [] [X] Home with services. Patient will benefit from home health PT services in order to progress mobility level using least restrictive assistive ambulatory device, assess home safety, caregiver education, identify additional equipment needs, and establish a functional maintenance program that will increase ability of patient to remain at home. [] Home with outpatient PT [] [] SNF for continued rehabilitation [] [] [facility] [facility] [] [] SNF versus LTC based on ability to participate and progress [] TREATMENT CODE/TIME: 83772 x 15 minutes, 51999 x 12 minutes beginning at 14:30 PM.
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
[2021-04-09] MEDS: LORazepam 2 MG/ML VIAL 1 MG IVP (19:41)
[2021-04-09 21:29] VITALS: BP 103/72; PULSE 100; RESP 18; TEMP 37.4; O2SAT 91
[2021-04-10] MEDS: levETIRAcetam 1,000 MG in Normal Saline 100 ML 440 MG IVPB ×2 (02:05→14:52)
[2021-04-10] MEDS: MORPHine 4 MG/ML SYR IVP ×4 (05:53→20:19)
[2021-04-10 07:40] VITALS: BP 103/67; PULSE 95; RESP 17; TEMP 36.9; O2SAT 93
[2021-04-10] MEDS: Normal Saline Flush 10 ML SYR IVP ×4 (08:38→20:18)
[2021-04-10] MEDS: Dexamethasone 4 MG/ML VIAL IVP ×2 (08:38→20:18)
[2021-04-10] MEDS: Pantoprazole 40 MG VIAL IVP (08:38)
--- NOTE | 2021-04-10 08:48 | PDOC.CMPRO ---
- If Service Date Differs Date of service: 04/10/21 Time of Service: 08:48 Care Management Progress Note S/O: Vaughn was sitting up in bed low kimble's position when CM met with him. No changes from yesterday. He was pleasant, easily engaged in conversation and remains incredibly optimistic. He denies pain and reports that he feels pretty good. He shared with CM that he met with a palliative provider yesterday and his views have not changed. He wants to continue medical treatment and remain a full code. A: 50 year old male admitted to [facility] on 04/07/21 for Weakness, Acute Back Pain P: Anticipate Vaughn will return home with new [facility] services vs. [facility] for short term rehab before returning home. Transportation will be dependent on his disposition and ability to transfer. CM will continue to support discharge planning needs.
[2021-04-10] MEDS: CIPROFLOXACIN 400 MG/200 ML BAG 200 MG IVPB (10:00)
[2021-04-10] MEDS: Doxazosin 1 MG TAB NG (12:34)
--- NOTE | 2021-04-10 15:19 | PT.INTREAT ---
Date of service: 04/10/21 Time of Service: 14:32 PT Notes Visit Reasons: Weakness Inpatient Physical Therapy Treatment Note [facility] Date: 04/10/2021 PRECAUTIONS: Fall, activity as tolerated SUBJECTIVE: Vaughn states that he is feeling a little better today, although admits that he is very weak. He remains very positive and polite in conversation with hopes of continuing to regain global strength. OBJECTIVE: PAIN: Patient c/o back pain BED MOBILITY/TRANSFERS Supine-sit: SBA at 40 degrees Sit-stand: SBA Stand-sit: SBA GAIT Assistive Device: FWW Weight bearing: Full Assist: CGA Distance: 80' Deviation: C/o back pain, step-through instruction, cueing for continuous FWW advancement THEREX:Patient was instructed in standing heel raises. He declined further ther ex due to increased fatigue. ASSESSMENT: Patient tolerated session with c/o increased fatigue and back pain with all activity. He was able to tolerate a progression in gait distance with FWW support and CGA. At this point, it does not appear that he could tolerate ascending 10 stairs to get into his home. PLAN: Continue with global strengthening and general conditioning for improved mobility and activity tolerance. Recommending SNF for continued strengthening and mobility training upon discharge. TREATMENT CODE/TIME: 24 minutes; [id number] x2 (14:32)
[2021-04-10 16:12] VITALS: BP 101/69; PULSE 97; RESP 16; TEMP 36.9; O2SAT 92
--- NOTE | 2021-04-10 17:09 | CHAPLAIN ---
Vaughn was resting in bed when I visited this morning. He has cancer has metastasized. He remains full code and want to continue with whatever treatment is available, according to Dr. Anton Palliative Care notes. He moved to [place] from [place] and lives with his a son. His has had some health issue as well so their so, who is 21, has been providing care and support. Vaughn said he is here because of weakness and he can't walk very far right now. He is working with PT to walk farther and so he can make it up 10 steps to his home. He is not connected to a karuna community, but includes traditions from other faiths in his belief system.
--- NOTE | 2021-04-10 17:31 | W.PM.PROGNOT ---
Date of Service Date of service: 04/10/21 Time of Service: 17:31 Assessment and Plan Assessment and plan (1) Back pain: Status: Acute Assessment and plan: Does have a solitary bony lesion in L3. Pain is better. Continue working with PT. Tomorrow, will transition to PO meds. (2) Weakness: Status: Chronic Assessment and plan: ?due to UTI. The patient does not have evidence of leucocyte esterase or nitrites on UA, but is immunosuppressed and is not necessarily expected to mount leucocyte esterase in the urine. Completed abx. Meanwhile, continue working with PT. Anticipate discharge home with home health services, but may require swing bed stay until then. 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 The patient states he is not quite interested in hospice and not interested in palliative care while in the hospital. His oncologist, Dr Penaloza, made it clear in his notes that the chemo he is receiving is palliative. Continue keppra, dexamethasone. Tube feeding. Met with palliative care, wants to continue aggressive measures and to remain full code. (4) Brain metastases: Status: Acute Assessment and plan: As above (5) DVT prophylaxis: Status: Acute Assessment and plan: SCDs Will avoid chemical DVT ppx due to brain mets. (6) Discharge planning issues: Status: Acute Assessment and plan: Full code at this time. Not interested in palliative care or hospice. Subjective Subjective Interval history since last seen: States he is not feeling too bad today. States he does not like being on tube feeding all the time - his stomach needs time to empty, he says. Denies dizziness, chest pain, shortness of breath, nausea. We talked about how he is not getting enough calories because he does not permit tube feeding to run. Exam Narrative Exam Narrative: General: Very plesasant middle-aged male, jaundiced, A&Ox3, NAD, sitting comfortably in a chair, bright affect HEENT: EOMI, MMM Heart: RRR Lungs: CTAB Abdomen: soft, nondistended Extremities: no edema BLE's Objective Last Vital Signs Temp 36.9 C 04/10/21 16:12 Pulse 97 H 04/10/21 16:12 Resp 16 04/10/21 16:12 BP 101/69 04/10/21 16:12 Pulse Ox 92 04/10/21 16:12
[2021-04-10] MEDS: LORazepam 2 MG/ML VIAL 1 MG IVP (20:19)
[2021-04-10 22:42] VITALS: BP 107/69; PULSE 88; RESP 16; TEMP 37.4; O2SAT 90
--- NOTE | 2021-04-11 | DI.RAD_ITS ---
Exam(s) XR PORTABLE CHEST AP EXAM: XR PORTABLE CHEST AP CLINICAL HISTORY: Cough, concern for aspiration pneumonia TECHNIQUE: 2D digital imaging was performed of the chest. One image was obtained. An AP view was ob tained. COMPARISON: CR,XR XR CHEST 1V IN DI DEPT from 04/12/2019 CR,XR XR CHEST 1V IN DI DEPT from 04/12/2019 CR,RF RF GI TUBE INJECTION from 11/07/2020 CR,RF RF GI TUBE INJECTION from 11/07/[address] CHEST PE ABD PELVIS W from 04/07/[address] CHEST PE ABD PELVIS W from 04/07/2021 FINDINGS: MEDIASTINUM: Normal. HEART: Normal. PULMONARY VASCULATURE: Normal. LUNGS: No focal consolidating infiltrates are seen. PLEURAL SPACE: There is again seen a large right pleural effusion. BONE:Within normal limits for the patient's age. OTHER FINDINGS:There is a left sided indwelling central venous catheter. The tip is in good position at the cavoatrial junction. IMPRESSION: There is a large right pleural effusion which obscures the right lung base. DATA REPOSITORY: RADIATION DOSE DELIVERED:
[2021-04-11] MEDS: levETIRAcetam 1,000 MG in Normal Saline 100 ML 440 MG IVPB ×2 (01:25→14:54)
[2021-04-11] MEDS: Normal Saline Flush 10 ML SYR IVP ×4 (01:26→19:40)
[2021-04-11] MEDS: MORPHine 4 MG/ML SYR IVP (06:04)
[2021-04-11 08:11] VITALS: BP 104/69; PULSE 100; RESP 18; TEMP 37.4; O2SAT 92
[2021-04-11] MEDS: Dexamethasone 4 MG/ML VIAL IVP ×2 (08:20→19:41)
[2021-04-11] MEDS: Pantoprazole 40 MG VIAL IVP (08:21)
[2021-04-11] MEDS: Doxazosin 1 MG TAB NG (08:21)
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
[2021-04-11] MEDS: guaiFENesin 200 MG/10 ML CUP JT ×2 (12:22→17:08)
[2021-04-11] MEDS: oxyCODONE 5 MG/5 ML CUP JT ×3 (12:22→21:18)
--- NOTE | 2021-04-11 13:18 | PT.INTREAT ---
Date of service: 04/11/21 Time of Service: 12:48 PT Notes Visit Reasons: Weakness Inpatient Physical Therapy Treatment Note [facility] Date: 04/11/2021 PRECAUTIONS: Fall, activity as tolerated SUBJECTIVE: Vaughn continues to admit that he is very weak. He is adament that he will not go to an old people home or rehab. He states that his goals are to get stronger and go back home, where he has 24/7 care. He remains very positive and polite in conversation with hopes of continuing to regain global strength. OBJECTIVE: PAIN: Patient c/o back soreness BED MOBILITY/TRANSFERS Supine-sit: I at 40 degrees Sit-stand: SBA from bed-level surface; Min A from low wc surface Stand-sit: CGA onto low wc surface GAIT Assistive Device: FWW Weight bearing: Full Assist: SBA Distance: 15' + 5' Deviation: C/o back pain STAIRS: Up/down 3x4 using B rails and a step-to pattern with Min A due to global weakness. ASSESSMENT: Patient tolerated session with c/o increased fatigue and back pain with all activity. He was able to tolerate the addition of stair training, although requires Min A due to global weakness. He was unable to participate in further therapeutic interventions due to excessive fatigue. At this point, it does not appear that he would tolerate ascending 10 stairs to get into his home, nor does it appear that he will make significant functional mobility progress due to increasing weakness, decreased caloric intake, and progressive disease process. PLAN: Will continue with light global strengthening, as tolerated. Recommending SNF for LTC or home with 24/7 care and lift assist into home, as patient demonstrates inability to ascend 10 consecutive stairs. These recommendations are based on patient's inconsistency with mobility and functional ability due to globalized pain, constant fatigue, and progressive disease. TREATMENT CODE/TIME: 23 minutes; 53697 x2 (12:48)
--- NOTE | 2021-04-11 14:24 | PDOC.CMPRO ---
Care Management Progress Note S/O: Vaughn was sitting up in bed low kimble's position when CM met with him. He remains pleasant, easily engaged in conversation and remains optimistic. He shared feeling he's doing all he needs to do to improve including following a reasonable feeding schedule and working with PT. CM navigated goal planning discussion central to focusing on solutions to increase safety in the home setting-as this remains Vaughn's goal. He also identified wanting ear plugs, to share with staff that he does not want to be constantly questioned about he conceptualization of his illness and treatment path and requested something to supress his cough and feeling like his throat is dry and full. CM communicated Vaughns wishes to Dr. Romero who stated she would likely order some imaging and cough suppressant. Anticipate Vaughn may require short term SWB1 prior to returning home. He is advocating for the opportunity to strengthen for a few more days but is not agreeable to SNF. CM continues to follow. A: 50 year old male admitted to [facility] on 04/07/21 for Weakness, Acute Back Pain P: Anticipate Vaughn will return home with new [facility] services after a short term swing bed stay at [facility]. He is agreeable to private transport with lift assist as needed upon discharge. He will continue to be followed by Palliative Care. CM continues to follow.
--- NOTE | 2021-04-11 15:48 | W.NUTRFU ---
Date of service: 04/11/21 Time of Service: 15:48 Nutrition Note NOTE: Follow up on enteral feeding toleration. Unable to visit with pt this morning ? it appears the Vital AF is being tolerated per nursing but not run continuously run due to Vaughn?s concerns about needing his ?stomach to empty? and does not want it running all the time. As the rate and concentration is calculated to meet pt?s entire nutrition needs, his hesitancy to have it run continuously at 65mL/hr will most likely compound his already existing nutrition deficit and weakness. Will continue to follow up with patient and encourage continuous feeds as ordered. Delvin Sarmiento NDTR ? Supervisor [employer] Time Spent in Nutritional Counseling and Treatment: 15 minutes
--- NOTE | 2021-04-11 15:49 | W.PM.PROGNOT ---
Date of Service Date of service: 04/11/21 Time of Service: 15:49 Assessment and Plan Assessment and plan (1) Cough: Status: Acute Assessment and plan: Probably being triggers by underlying esophageal cancer vs large R pleural effusion. The patient is not short of breath and feels that he just needs something to help him bring up his secretions. Will trial guaifenesin, IS, and acapella. Consider thoracenthesis. (2) Back pain: Status: Acute Assessment and plan: Does have a solitary bony lesion in L3. Pain is better. Continue working with PT. Transition to PO meds (3) Weakness: Status: Chronic Assessment and plan: ?due to UTI (UA was not consistent). The patient does not have evidence of leucocyte esterase or nitrites on UA, but is immunosuppressed and is not necessarily expected to mount leucocyte esterase in the urine. Abx now completed. Meanwhile, continue working with PT. Anticipate discharge home with home health services, but may require swing bed stay until then. 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 The patient states he is not quite interested in hospice and not interested in palliative care while in the hospital. His oncologist, Dr Penaloza, made it clear in his notes that the chemo he is receiving is palliative. Continue keppra, dexamethasone. Tube feeding. Met with palliative care, wants to continue aggressive measures and to remain full code. (5) Brain metastases: Status: Acute Assessment and plan: As above (6) DVT prophylaxis: Status: Acute Assessment and plan: SCDs Will avoid chemical DVT ppx due to brain mets. (7) Discharge planning issues: Status: Acute Assessment and plan: Full code at this time. Not interested in palliative care or hospice. Subjective Subjective Interval history since last seen: Mr Simpson states that the thing that bothers him the most today is his nonproductive cough. He denies dizziness chest pain, shortness of breath, nausea. This has been going on for 1-2 weeks, he says. Exam Narrative Exam Narrative: General: Very plesasant middle-aged male, jaundiced, A&Ox3, laying comfortably in bed, does have a cough HEENT: EOMI, MMM Heart: RRR Lungs: Diminished at B bases, R>L Abdomen: soft, nondistended Extremities: no edema BLE's Objective Last Vital Signs Temp 37.4 C 04/11/21 08:11 Pulse 100 H 04/11/21 08:11 Resp 18 04/11/21 08:11 BP 104/69 04/11/21 08:11 Pulse Ox 92 04/11/21 08:11 Objective Narrative Objective Narrative: CXR: There is a large right pleural effusion which obscures the right lung base.
[2021-04-11 19:30] VITALS: BP 94/58; PULSE 96; RESP 18; TEMP 36.8; O2SAT 92
[2021-04-11] MEDS: Docusate Sodium 100 MG/10 ML CUP JT (19:40)
[2021-04-11] MEDS: LORazepam 2 MG/1 ML Oral Concentrate 1 MG UD (21:18)
[2021-04-11 22:55] VITALS: O2SAT 92
[2021-04-12] MEDS: guaiFENesin 200 MG/10 ML CUP JT ×4 (00:29→17:23)
[2021-04-12 00:46] VITALS: BP 108/61; PULSE 105; RESP 16; TEMP 37.4; O2SAT 92
[2021-04-12] MEDS: levETIRAcetam 1,000 MG in Normal Saline 100 ML 440 MG IVPB ×2 (02:15→13:52)
[2021-04-12] MEDS: Normal Saline Flush 10 ML SYR IVP ×4 (02:16→19:59)
[2021-04-12] MEDS: Normal Saline 500 ML 30 ML IVPB (02:20)
[2021-04-12] MEDS: LORazepam 2 MG/1 ML Oral Concentrate 1 MG UD ×2 (04:40→17:29)
[2021-04-12] MEDS: oxyCODONE 5 MG/5 ML CUP JT ×3 (04:41→16:15)
[2021-04-12] MEDS: ACETAMINOPHEN 1,000 MG/100 ML BTL 400 MG IVPB (04:42)
[2021-04-12 07:18] VITALS: BP 93/56; PULSE 94; RESP 17; TEMP 36.5; O2SAT 93
[2021-04-12] MEDS: Dexamethasone 4 MG/ML VIAL IVP ×2 (08:09→19:59)
[2021-04-12] MEDS: Pantoprazole 40 MG VIAL IVP (08:09)
[2021-04-12 08:47] VITALS: BP 94/52
[2021-04-12] MEDS: Doxazosin 1 MG TAB NG (09:10)
--- NOTE | 2021-04-12 09:51 | PT.INTREAT ---
PT Notes Visit Reasons: Weakness 04/12/2021 SUBJECTIVE: Some discomfort noted L sided low back with weight bearing. Pt notes he is determined to get a little stronger each day. OBJECTIVE: TRANSFERS Supine to sit: Min A Sit to stand: Min A Stand to sit: Min A GAIT Device: FWW Weight bearing: AT Assist: CGA x 2 Distance: 50' Deviation: Increasing fatigue with distance THEREX: Supine light UE/LE strengthening exercises performed per flow sheet. ASSESSMENT: Tolerates slightly increased gait distance today although is quite fatigued afterwards. Was not able to perform stair climbing today due to increased fatigue. We will continue to progress per pt's symptoms and fatigue level. PLAN: Continue per POC. Treatment time: 23' [id number], [id number] Araseli Lara, ITZEL
[2021-04-12 11:49] VITALS: BP 99/66
[2021-04-12 12:28] LABS: C Diff PCR Negative (Negative)
[2021-04-12] MEDS: Normal Saline 500 ML 100 ML IVPB (13:52)
--- NOTE | 2021-04-12 14:40 | W.PM.PROGNOT ---
Date of Service Date of service: 04/12/21 Time of Service: 14:40 Assessment and Plan Assessment and plan (1) Cough: Status: Acute Assessment and plan: Probably being triggers by underlying esophageal cancer vs large R pleural effusion. The patient is not short of breath and feels that he just needs something to help him bring up his secretions. Improved guaifenesin, IS, and acapella. Consider thoracentesis if doesn't cont to improve (2) Back pain: Status: Acute Assessment and plan: Does have a solitary bony lesion in L3. Pain is better. Continue working with PT. Now on PO meds (3) Weakness: Status: Chronic Assessment and plan: Considered UTI as a cause (UA was not consistent) but cx neg. Abx now completed. Meanwhile, continue working with PT. Anticipate discharge home with home health services, but may require swing bed stay until then. 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 The patient states he is not quite interested in hospice and not interested in palliative care while in the hospital. His oncologist, Dr Penaloza, made it clear in his notes that the chemo he is receiving is palliative. Continue keppra, dexamethasone. Tube feeding. Met with palliative care, wants to continue aggressive measures and to remain full code. (5) Brain metastases: Status: Acute Assessment and plan: As above (6) DVT prophylaxis: Status: Acute Assessment and plan: SCDs Will avoid chemical DVT ppx due to brain mets. (7) Discharge planning issues: Status: Acute Assessment and plan: Full code at this time. Not interested in palliative care or hospice. Subjective Subjective Patient reports: no new complaints and afebrile; denies nausea and vomiting Interval history since last seen: Ongoing BLE weakness. Working with PT. Walked 20ft into the hallway today. Exam Const General: cooperative, comfortable and not in acute distress Nutritional Appearance: thin Orientation: alert, awake and oriented x3 HENMT Head: normal to inspection and normocephalic Ears: hearing grossly normal bilaterally Eyes Conjunctivae: conjunctivae normal Sclera: sclerae normal Resp Effort & Inspection: normal respiratory effort, able to speak in complete sentences, no cough and no use of accessory muscles Cardio Jugular venous pressure: no JVD GI Inspection: scar and other (has feeding tube in place, he was holding it with his hand) Skin General skin exam: pallor Hair: general thinning Neuro General: patient alert, patient awake and patient oriented x3 Cognition: normal cognition (no obvious cognitive deficits) Speech: speech normal Psych Appearance: disheveled Mental Status: mental status grossly normal Mood: congruent mood Affect: normal affect Insight: fair Judgment: fair Objective Last Vital Signs Temp 36.5 C 04/12/21 07:18 Pulse 94 H 04/12/21 07:18 Resp 17 04/12/21 07:18 BP 99/66 L 04/12/21 11:49 Pulse Ox 93 04/12/21 07:18 Laboratory Results - last 24 hr 04/12/21 10:50 Stl C.difficile Tox PCR Negative
[2021-04-12 15:18] VITALS: BP 100/64; PULSE 96; RESP 16; TEMP 36.6; O2SAT 92
[2021-04-12 23:30] VITALS: BP 100/66; PULSE 102; RESP 16; TEMP 37.1; O2SAT 90
[2021-04-13] MEDS: guaiFENesin 200 MG/10 ML CUP JT ×5 (00:26→23:32)
[2021-04-13] MEDS: LORazepam 2 MG/1 ML Oral Concentrate 1 MG UD ×3 (00:27→21:16)
[2021-04-13] MEDS: oxyCODONE 5 MG/5 ML CUP JT ×5 (00:27→21:15)
[2021-04-13] MEDS: levETIRAcetam 1,000 MG in Normal Saline 100 ML 440 MG IVPB ×2 (01:22→14:34)
[2021-04-13] MEDS: Normal Saline Flush 10 ML SYR IVP ×4 (01:24→14:34)
[2021-04-13] MEDS: Pantoprazole 40 MG VIAL IVP (07:45)
[2021-04-13] MEDS: Doxazosin 1 MG TAB NG (07:45)
[2021-04-13] MEDS: Dexamethasone 4 MG/ML VIAL IVP ×2 (07:45→20:08)
[2021-04-13] MEDS: ACETAMINOPHEN 1,000 MG/100 ML BTL 400 MG IVPB (07:45)
[2021-04-13 08:00] VITALS: BP 99/67; PULSE 107; RESP 17; TEMP 36.8; O2SAT 91
[2021-04-13 09:40] VITALS: O2SAT 94
--- NOTE | 2021-04-13 09:45 | PT.INTREAT ---
PT Notes Visit Reasons: Weakness 04/13/2021 SUBJECTIVE: Complains of some low back discomfort today. Fatigued overall. Continues to have cough. OBJECTIVE: TRANSFERS Supine to sit: Min A Sit to stand: Min A Stand to sit: CGA GAIT Device: FWW Weight bearing: Full Assist: CGA Distance: 10' Deviation: Stood in place x 1' for increased weight bearing time THEREX: Light seated activities for the UE/LE's as noted on flow sheet. ASSESSMENT: Fatigues very quickly today and we defer further ambulation because of this. He continues to be very positive and is motivated to improve his condition. PLAN: Continue per POC. Treatment time: 20' [id number] Araseli Lara PTA Clinic location: [facility] [place], [place]
--- NOTE | 2021-04-13 11:22 | W.PM.PROGNOT ---
Date of Service Date of service: 04/13/21 Time of Service: 11:22 Assessment and Plan Assessment and plan (1) Cough: Status: Acute Assessment and plan: Probably being triggers by underlying esophageal cancer vs large R pleural effusion. The patient is not short of breath and feels that he just needs something to help him bring up his secretions. guaifenesin, IS, and acapella. Consider thoracentesis if doesn't cont to improve (2) Back pain: Status: Acute Assessment and plan: Does have a solitary bony lesion in L3. Pain is better. Continue working with PT. Now on PO meds (3) Weakness: Status: Chronic Assessment and plan: Considered UTI as a cause (UA was not consistent) but cx neg. Abx now completed. Meanwhile, continue working with PT. Anticipate discharge home with home health services, but may require swing bed stay until then. 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 The patient states he is not quite interested in hospice and not interested in palliative care while in the hospital. His oncologist, Dr Penaloza, made it clear in his notes that the chemo he is receiving is palliative. Continue keppra, dexamethasone. Tube feeding. Met with palliative care, wants to continue aggressive measures and to remain full code. (5) Brain metastases: Status: Acute Assessment and plan: As above (6) DVT prophylaxis: Status: Acute Assessment and plan: SCDs Will avoid chemical DVT ppx due to brain mets. (7) Discharge planning issues: Status: Acute Assessment and plan: Full code at this time. Not interested in palliative care or hospice. Subjective Subjective Patient reports: no new complaints and afebrile; denies nausea and vomiting Interval history since last seen: chronic intermittent dry cough; does wake him at night. Working with PT; walked again today but felt more fatigued. Walked 20'. Exam Const General: cooperative, comfortable and not in acute distress Nutritional Appearance: thin Orientation: alert, awake and oriented x3 HENMT Head: normal to inspection and normocephalic Ears: hearing grossly normal bilaterally Eyes Conjunctivae: conjunctivae normal Sclera: sclerae normal Resp Effort & Inspection: normal respiratory effort, able to speak in complete sentences, cough (coughed once during my evaluation time. ) and no use of accessory muscles Cardio Jugular venous pressure: no JVD GI Inspection: scar and other (has feeding tube in place, he was holding it with his hand) Skin General skin exam: no rashes or lesions noted and pallor Hair: general thinning Neuro General: patient alert, patient awake and patient oriented x3 Cognition: normal cognition (no obvious cognitive deficits) Speech: speech normal Psych Appearance: disheveled Mental Status: mental status grossly normal Mood: congruent mood Affect: normal affect Insight: fair Judgment: fair Objective Last Vital Signs Temp 36.8 C 04/13/21 08:00 Pulse 107 H 04/13/21 08:00 Resp 17 04/13/21 08:00 BP 99/67 L 04/13/21 08:00 Pulse Ox 94 04/13/21 09:40 Laboratory Results - last 24 hr 04/12/21 10:50 Stl C.difficile Tox PCR Negative
[2021-04-13] MEDS: Normal Saline 500 ML 100 ML IVPB (14:34)
[2021-04-13] MEDS: Docusate Sodium 100 MG/10 ML CUP JT (14:35)
[2021-04-13 14:50] VITALS: BP 99/53; PULSE 104; RESP 16; TEMP 36.9; O2SAT 90
[2021-04-13 15:14] VITALS: BP 101/69; PULSE 94; RESP 16; TEMP 36.5; O2SAT 94
[2021-04-13] MEDS: Lidocaine 2% Jelly 11 ML SYR UR (16:35)
[2021-04-13 23:04] VITALS: BP 113/77; PULSE 116; RESP 18; TEMP 38.3; O2SAT 89
[2021-04-14] MEDS: levETIRAcetam 1,000 MG in Normal Saline 100 ML 440 MG IVPB (01:59)
[2021-04-14] MEDS: oxyCODONE 5 MG/5 ML CUP JT ×4 (04:44→20:42)
[2021-04-14] MEDS: guaiFENesin 200 MG/10 ML CUP JT ×3 (05:50→18:25)
[2021-04-14 07:45] VITALS: BP 100/66; PULSE 109; RESP 19; TEMP 36.7; O2SAT 91
[2021-04-14] MEDS: Dexamethasone 4 MG/ML VIAL IVP ×2 (07:55→20:43)
[2021-04-14] MEDS: Pantoprazole 40 MG VIAL IVP (07:55)
[2021-04-14] MEDS: Normal Saline Flush 10 ML SYR IVP ×5 (07:55→20:44)
[2021-04-14] MEDS: Doxazosin 1 MG TAB NG (07:56)
[2021-04-14 08:43] VITALS: TEMP 36.7
[2021-04-14] MEDS: ACETAMINOPHEN 1,000 MG/100 ML BTL 400 MG IVPB ×2 (08:43→20:42)
--- NOTE | 2021-04-14 09:14 | OTTR_ITS ---
Date of service: 04/14/21 Time of Service: 08:50 Occupational Therapy Notes Occupational Therapy Inpatient Treatment Note Date: 04/14/21 PRECAUTIONS: Fall, standard, Full SUBJECTIVE: Pt was sitting in bed when OT arrived, he is agreeable to OT session and states that he is in pain. He notes that he didn't have much of a weekend but is trying to make the best of it. OBJECTIVE: PAIN:c/o pain in abdomen, low back, (B) UE and (B) LE FUNCTIONAL MOBILITY Supine-sit: Mod (A) with mod vc throughout Sit-supine: Mod (A) With mod vc throughout Sit-stand: CGAx2 Stand-sit: CGAx2 Bed-Chair: CGA, FWW BATHING: sitting on side of the bed, notable fatigue, rest breaks needed and min-mod vc for performance Upper Body: (I) face, min (A) (B) UE, max (A) (B) LE *Pt has notable fatigue and requires rest breaks due to pain. He is able to bring his (B) LE up to his knee but this is tasking for him. DRESSING: sitting on side of the bed, notable fatigue and pain Lower Extremity: Max (A) don and doffing pants and socks. Pt has to sit down to get pants over his (B) feet because he has no strength to lift his legs in the standing position. ASSESSMENT/PLAN: Pt is receptive to performance of his ADLs but he weak and demonstrating a decline in his overall functional activity tolerance. Based on pts current level of function OT recommends that pt go to LTC when medically cleared per MD due to his decline in functional activity tolerance, high risk of readmission and medical hx at this time. TREATMENT CODES/TIME: [id number], 25 minutes (08:50) Lillie Holguin OTR/[facility]
[2021-04-14 10:29] LABS: MCH 30.5 pg (27.0-33.0); MCHC 32.1 % (32.0-36.0); MCV 94.9 fL (80-95); Platelet Count 175 10^3/uL (130-400); RBC 2.95 10^6/uL (4.36-5.78); RDW 19.1 % (11.8-14.1); RDW-SD 64.1 fL; WBC 6.88 10^3/uL (4.4-10.8)
[2021-04-14 10:46] LABS: Absolute Lymphocyte Count 0.48 10^3/uL (1.2-3.4); Absolute Monocyte Count 0.14 10^3/uL (0.1-0.8); Absolute Neutrophil Count 6.05 10^3/uL (1.2-6.7); Bands % 14; Diff Comment Manual Differential; Metamyelocytes % 2; Myelocytes % 1; Nucleated RBC 1 %
[2021-04-14 10:47] LABS: Anisocytosis 1+
--- NOTE | 2021-04-14 10:50 | CMPROGNOTE_ITS ---
- If Service Date Differs Date of service: 04/14/21 Time of Service: 10:50 Care Management Progress Note S/O: Vaughn was sitting up in his chair when CM met with him. He remains pleasant and optimistic, however he is notably more weak compared to when this commercial insurance underwriter saw him last. Per report, OT noted an overall decline in his functional activity tolerance and recommend LTC placement when he is medically cleared per MD. Anticipate Vaughn may require short term SWB1 prior to returning home. He continues to advocate for the opportunity work with PT to regain strength and is not agreeable to SNF or LTC placement. CM continues to follow. A: 50 year old male admitted to [facility] on 04/07/21 for Weakness, Acute Back Pain P: Anticipate Vaughn will return home with new [facility] services after a short term swing bed stay at [facility]. He is agreeable to private transport with lift assist as needed upon discharge. Palliative Care will continue to follow patient, although he is not ready for services at this time. CM continues to follow.
[2021-04-14] MEDS: Senna TAB 1 TAB PO (11:03)
--- NOTE | 2021-04-14 11:31 | W.NUTRFU ---
Date of service: 04/14/21 Time of Service: 11:31 Nutrition Note NOTE: Met with Vaughn this morning with only complaint of some recent bloating. His current enteral order is for Vital AF 1.2 enteral formula 65mL/hour continuous feed (he uses Osmolite 1.2 at home and this was ordered by [employer], however will take another week or more to arrive). This formula stock has also run out and will need to recommend an alternative product. Also spoke with pt about his concerns for the rate of his feed and would like to have his feedings intermittent with 2 hours between to ?allow stomach to empty?. Enteral feeding recommendation: Jevity 1.2 run intermittently @ 75mL over 6 hours TID with 2 hours between feeds and 250mL flushes TID to meet fluid needs. This formula is slightly higher in fiber and may help with Vaughn?s concerns with bloating. Noted last weight taken on 04/07 when enteral feeding was initiated. Would recommend weights twice per week to help better assess enteral feeding progress. Delvin Sarmiento NDTR ? [employer] Laboratory Assistant. Time Spent in Nutritional Counseling and Treatment: 15 minutes
--- NOTE | 2021-04-14 13:40 | PT.INPN ---
Date of service: 04/14/21 Time of Service: 13:40 PT Notes Visit Reasons: Weakness Physical Therapy Inpatient Discharge Summary Date: 04/15/2021 Dates of Service: 04/08/2021 through 04/14/2021 Precautions: Fall. Standard. Activity as tolerated. Gastrotomy tube in place. Left subclavian vein Port-A-Cath in place. Subjective: Initially refused being seen by PT in the morning as he states that he had a hard time getting up with OT and nursing staff early this morning and he wanted to take the rest of the morning recovering from that difficult transfer. Vaughn does not want to give up on trying to get his strength and functional mobility back. He wants to continue with this goal at home. He understands that he may not be able to go back to full mobility independence and that assistance of one person may be what he will need when he gets home. He remains firm about not going to a SNF. He is unsure about getting the 23/11 recommendation at home given to him by this PT. Objective: General Observation: Cachectic. Seated on chair. Left venous catheter in place. Gastrotomy tube in place. Mental Status: Alert and oriented as to person, place, time, and purpose. Able to pay attention, focus, and respond appropriately. Pain: 3-4/10 in trunk ROM: Right Upper Extremity: Shoulder Flexion WFL. Shoulder abduction WFL. Elbow flexion WFL. Wrist flexion WFL. Functional opening and closing of hand WFL. Left Upper Extremity: Shoulder Flexion lacks the last 10 degrees. Shoulder abduction lacks the last 10 degrees. Elbow flexion WFL. Wrist flexion WFL. Functional opening and closing of hand WFL. Right Lower Extremity: Hip flexion lacks of the last 50% of available motion. Hip abduction WFL. Knee flexion WFL. Knee extension -20 degrees ankle dorsiflexion WFL. Ankle plantarflexion WFL. Left Lower Extremity: Hip flexion Hip flexion lacks of the last 50% of available motionL. Hip abduction WFL. Knee flexion WFL. Knee extension -10 degrees. Ankle dorsiflexion WFL. Ankle plantarflexion WFL. Strength: Right Upper Extremity: Shoulder flexors 3-/5. Shoulder abductors 3-/5. Elbow flexors 3+/5. Elbow extensors 3+/5. Projector Operator weak but functional. Left Upper Extremity: Shoulder flexors 4-/5. Shoulder abductors 4-/5. Elbow flexors 4-/5. Elbow extensors 4-/5. Projector Operator weak but functional. Right Lower Extremity: Hip flexors 3-/5. Hip abductors 3-/5. Knee flexors 4-/5. Knee extensors 3-/5. Ankle dorsiflexors 3+/5. Ankle plantarflexors 4-/5. Left Lower Extremity: Hip flexors 3-/5. Hip abductors 3-/5. Knee flexors 4-/5. Knee extensors 3-/5. Ankle dorsiflexors 3+/5. Ankle plantarflexors 4-/5. Bed Mobility/Transfers: Sit to stand minimal assist Stand to sit with minimal assist Bed to reclining chair minimal assist Gait: Instructed patient with level surface ambulation of 75 feet requiring contact-guard assist. Carmel decreased. Step height decreased. Step length decreased. Mild SOB and report of chest discomfort that needed seated rest. Oxygen saturation stayed at 91% on room air. Balance: Static Sitting: Normal Dynamic Sitting: Normal Static Standing: Fair Dynamic Standing: Fair Special Tests: Mobility Limitations Standardized Measure [facility]-PAC 6 clicks Basic Mobility Inpatient Short Form: Raw Score: 18 CMS Score: 47% deficit Informed Consent/Education: Patient was instructed in purpose of PT consult and plan of care. Agreeable to continue with established PT POC to achieve personal goals. Assessment: Vaughn has not demonstrated consistent functional mobility gains since start of care. Prognosis for achieving goals set below are poor due to easy fatiguability, persistent back pain, nutritional intake issues, and overall cancer trajectory. An honest conversation with patient regarding these functional barriers have been made today with emphasis given on rethinking goals that are more realistic and achievable. Stressed that needing the assistance of one person for all transfer task performance using the FWW may be his new baseline due to the unpredictability of his day to day mobility level and decreasing activity tolerance. Advised patient that the frequency of HH PT visit will be more favorable for him considering his level of fatigue; HH PT visit of 2-3x/week will allow his body to rest and recover better. Will require 24/7 care at home to reduce fall risk. Patient continues to present with clinical signs and symptoms consistent with current/admitting diagnoses that have resulted to mobility limitations, gait instability, generalized weakness, and overall ADL decline as demonstrated by the following impairment level findings: 1. Decreased strength to BUE/LE major muscle groups 2. Impaired sitting/standing balance 3. Impaired activity tolerance 4. Limitation of joint range of motion in left shoulder, B knees, and B hips 5. Cachexia 6. Chronic low back pain Impairments are contributing to the following functional limitations: 1. Decline in bed mobility skills 2. Decline in transfer skills 3. Difficulty with ambulation without assistive device and physical assistance 4. Increased completion time for mobility ADL performance 5. Increased risk for falls 6. Difficulty with managing steps alone safely Patient is assessed as a 74908 moderate complexity based on the following: History: 50-year-old male with past medical history as indicated above Examination: Demonstrable impairment in strength, balance, and mobility level with underlying impairments and functional limitations as exhibited above as well as deficit score of 47% utilizing the [facility] Mobility Inpatient Short Form Presentation: Evolving Decision Makin moderate complexity Goals: Goals X1 week 1. Supine-Sit independent NOT MET 2. Sit-Supine independent NOT MET 3. Sit-Stand independent NOT MET 4. Stand-Sit independent with FWW NOT MET 5. Bed-Chair independent with FWW NOT MET 6. Chair-Bed independent with FWW NOT MET 7. Standby assist gait on level surface with use of FWW for at least 50 feet without report of pain nor dyspnea NOT MET 8. Standby assist stair negotiation while holding onto 1 rail for at least 10 steps without report of pain nor dyspnea NOT MET 9. Fair static and dynamic standing balance/tolerance NOT MET Plan of Care/Treatment Plan: 1-2x/day, 7 days/week x 1 week. Plan of care has been reviewed with the GUEST SERVICE HOST providing the service under Physical Therapy direction. Initiate Physical Therapy intervention for pain management as needed, strengthening, bed mobility, transfers, gait, stairs, balance training, and use of assistive device. DISCHARGE RECOMMENDATIONS: [] Home with no services [] [X] Home with services. 23/11 supervision. May benefit from continued PT services to attempt progressive strengthening and functional mobility progression in the home setting. [] Home with outpatient PT [] [X] SNF for continued rehabilitation [X] [facility]. Patient will benefit from group home facility placement for continued attenpt at gradually progressing mobility level, strength, and balance according to patient's pace. High probability of becoming a LTC patient due to medical status. [] SNF versus LTC based on ability to participate and progress [] TREATMENT CODE/TIME: 62481 x 34 minutes beginning at 13:40 PM. Thank you for the opportunity to participate in the care of this patient. Ara Lewis PT, DPT, CLT [facility] [place], [place]
[2021-04-14 15:30] VITALS: BP 109/77; PULSE 100; RESP 18; TEMP 36.4; O2SAT 94
--- NOTE | 2021-04-14 15:42 | W.PM.PROGNOT ---
Date of Service Date of service: 04/14/21 Time of Service: 15:42 Assessment and Plan Assessment and plan (1) Cough: Status: Acute Assessment and plan: Probably being triggers by underlying esophageal cancer vs large R pleural effusion. The patient is not short of breath and feels that he just needs something to help him bring up his secretions. guaifenesin, IS, and acapella. Consider thoracentesis if doesn't cont to improve. Currently essentially unchanged. (2) Back pain: Status: Acute Assessment and plan: Does have a solitary bony lesion in L3. Pain is better. Continue working with PT. Cont current pain meds. (3) Weakness: Status: Chronic Assessment and plan: Considered UTI as a cause (UA was not consistent) but cx neg. Abx now completed. Intermittently does better with ambulation but, overall, remains weak and not safe to go home with the amount of help he will have. Meanwhile, continue working with PT. Anticipate discharge home with home health services, but may require swing bed stay until then. 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 The patient states he is not quite interested in hospice and not interested in palliative care while in the hospital. His oncologist, Dr Penaloza, made it clear in his notes that the chemo he is receiving is palliative. Continue keppra, dexamethasone. Tube feeding. Met with palliative care, wants to continue aggressive measures and to remain full code. (5) Brain metastases: Status: Acute Assessment and plan: As above No HURTADO, encephalopathy. (6) DVT prophylaxis: Status: Acute Assessment and plan: SCDs Will avoid chemical DVT ppx due to brain mets. (7) Discharge planning issues: Status: Acute Assessment and plan: Full code at this time. Not interested in palliative care or hospice. Subjective Subjective Patient reports: bowel movement and afebrile; denies nausea, vomiting and shortness of breath Exam Const General: cooperative, comfortable and not in acute distress Nutritional Appearance: thin Orientation: alert, awake and oriented x3 HENMT Head: normal to inspection and normocephalic Ears: hearing grossly normal bilaterally Eyes Conjunctivae: conjunctivae normal Sclera: sclerae normal Resp Effort & Inspection: normal respiratory effort, able to speak in complete sentences, cough (coughed once during my evaluation time. ) and no use of accessory muscles Cardio Jugular venous pressure: no JVD GI Inspection: other (has feeding tube in place) Skin General skin exam: no rashes or lesions noted and pallor Hair: general thinning Neuro General: patient alert, patient awake and patient oriented x3 Cognition: normal cognition (no obvious cognitive deficits) Speech: speech normal Psych Appearance: grossly normal Mental Status: mental status grossly normal Mood: congruent mood Affect: normal affect Attitude: cooperative (though a little suspicious/hesitant about talking to me as Pall Care ) Insight: fair Judgment: fair Objective Last Vital Signs Temp 36.7 C 04/14/21 08:43 Pulse 109 H 04/14/21 07:45 Resp 19 04/14/21 07:45 BP 100/66 04/14/21 07:45 Pulse Ox 91 L 04/14/21 07:45 Laboratory Results - last 24 hr 04/14/21 10:15 WBC 6.88 RBC 2.95 L Hgb 9.0 L Hct 28.0 L MCV 94.9 MCH 30.5 MCHC 32.1 RDW 19.1 H Plt Count 175 MPV 10.0 Immature Gran % 0.0 Neutrophils % 74.0 Band Neutrophils % 14 Lymphocytes % 7.0 Monocytes % 2.0 Eosinophils % 0.0 Basophils % 0.0 Metamyelocytes % 2 Myelocytes % 1 Nucleated RBC % 1 Absolute Neutrophils 6.05 Absolute Lymphocytes 0.48 L Absolute Monocytes 0.14 Absolute Eosinophils 0.00 Absolute Basophils 0.00 RBC Morphology See Below Anisocytosis 1+
[2021-04-14] MEDS: levETIRAcetam Oral Solution 100 MG/ML 1000 MG PO (20:55)
[2021-04-15 00:15] VITALS: BP 103/69; PULSE 100; RESP 20; TEMP 36.6; O2SAT 92
[2021-04-15] MEDS: oxyCODONE 5 MG/5 ML CUP JT ×6 (00:31→21:24)
[2021-04-15] MEDS: guaiFENesin 200 MG/10 ML CUP JT ×5 (00:31→23:31)
[2021-04-15] MEDS: Normal Saline Flush 10 ML SYR IVP ×6 (00:32→21:23)
[2021-04-15] MEDS: LORazepam 2 MG/1 ML Oral Concentrate 1 MG UD ×2 (00:32→21:25)
[2021-04-15] MEDS: ACETAMINOPHEN 1,000 MG/100 ML BTL 400 MG IVPB ×3 (04:06→21:17)
[2021-04-15] MEDS: Normal Saline 500 ML 30 ML IVPB (04:07)
[2021-04-15 07:48] VITALS: BP 99/68; PULSE 101; RESP 16; TEMP 36.6; O2SAT 92
[2021-04-15] MEDS: levETIRAcetam Oral Solution 100 MG/ML 1000 MG PO ×2 (08:04→19:23)
[2021-04-15] MEDS: Dexamethasone 4 MG/ML VIAL IVP ×2 (08:41→19:24)
[2021-04-15] MEDS: Pantoprazole 40 MG VIAL IVP (08:41)
--- NOTE | 2021-04-15 10:08 | PDOC.CMPRO ---
- If Service Date Differs Date of service: 04/15/21 Time of Service: 10:08 Care Management Progress Note S/O: Vaughn was sitting up in his chair when CM met with him. He was pleasant and easily engaged in conversation about goals of care and discharge planning. CM discussed with him that he no longer has an acute medical need. Vaughn understands that PT/OT recommend he transfer to a SNF following discharge. However, Vaughn continues to refuse SNF, Palliative Care and Hospice despite his diagnosis and prognosis. He wants to go home with full [facility] services. Provider will reassess Vaughn's need for supplemental O2, which he is currently wearing. Moving forward, PT recommends a commode and hospital bed for home. Vaughn has elected to purchase a commode online and refuses a hospital bed, as he sleeps on a raised couch that he can get in an out of easily. His was on the phone during this discussion and agrees to plan. Vaughn shared with CM that his 's adult son Lennox lives with them and helps him cook and transfer when needed. A: 50 year old male admitted to [facility] on 04/07/21 for Weakness, Acute Back Pain P: Anticipate Vaughn will return home with new [facility] services tomorrow or . He may need supplemental O2 for home, provider aware. Vaughn is ordering a bedside commode online. He will transport via [employer] van and need a lift assist at discharge. Palliative Care will continue to follow patient, although he is not ready for services at this time. CM continues to follow.
--- NOTE | 2021-04-15 12:00 | OTTR_ITS ---
Date of service: 04/15/21 Time of Service: 10:35 Occupational Therapy Notes Occupational Therapy Inpatient Treatment Note Date: 04/15/21 PRECAUTIONS: Fall, standard, Full SUBJECTIVE: Pt was sitting in bed when OT arrived. He states that he is doing well but not getting quality sleep due to environmental noises throughout the night. He has been trying ear plugs but reports he is tired. OBJECTIVE: PAIN:c/o pain throughout body including abdomen, back and (B) UE at times. Self Care Training [id number]: OT and pt went over education on performance of his ADLs in the home setting, simulated energy conservation techniques and discussed adaptive equipment needs and performance of his ADLs in the sitting position to conserve his energy. Pt was receptive to this and OT will continue to monitor as pt progresses. ASSESSMENT/PLAN: OT recommends that pt have a bedside commode to increase his safety with toileting routines at nightime, increase his functional (I) and decrease his fall risk. TREATMENT CODES/TIME: 05497, 10 minutes (10:35) L[facility] Phipps[facility]
--- NOTE | 2021-04-15 13:32 | PGE_ITS ---
Date of Service Date of service: 04/15/21 Time of Service: 13:32 Assessment and Plan Assessment and plan (1) Cough: Status: Acute Assessment and plan: Probably being triggers by underlying esophageal cancer vs large R pleural effusion. The patient is not short of breath and feels that he just needs something to help him bring up his secretions. guaifenesin, IS, and acapella. Consider thoracentesis if doesn't cont to improve. Currently essentially unchanged. (2) Back pain: Status: Acute Assessment and plan: Does have a solitary bony lesion in L3. Pain is better. Continue working with PT. Cont current pain meds. (3) Weakness: Status: Chronic Assessment and plan: Intermittently does better with ambulation but, overall, remains weak and concerned about how safe he would be at home with the amount of help he will have. Meanwhile, continue working with PT. Anticipate discharge home with home health services, but may require swing bed stay until then. Planning family meeting with careteam to discuss his goals and further steps to take in his disposition. 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 The patient states he is not quite interested in hospice and not interested in palliative care while in the hospital. His oncologist, Dr Penaloza, made it clear in his notes that the chemo he is receiving is palliative. Continue keppra, dexamethasone. Tube feeding. Met with palliative care, wants to continue aggressive measures and to remain full code. (5) Brain metastases: Status: Acute Assessment and plan: As above No HURTADO, encephalopathy. (6) DVT prophylaxis: Status: Acute Assessment and plan: SCDs Will avoid chemical DVT ppx due to brain mets. (7) Discharge planning issues: Status: Acute Assessment and plan: Full code at this time. Not interested in palliative care or hospice. (8) Urinary retention: Status: Acute Assessment and plan: Difficulty initiating urine flow. Needs a medication that can be crushed or capsule than can be emptied so he can either take orally or via G-tube. The one medication option is doxazosin. Will start with 1 mg nightly and titrate to effectiveness. Watch for orthostasis. Subjective Subjective Patient reports: no new complaints and afebrile; denies nausea and vomiting Interval history since last seen: continues to have difficulty getting urine stream initiated. No dysuria. Fatigues easily. Exam Const General: cooperative, comfortable and not in acute distress Nutritional Appearance: thin Orientation: alert, awake and oriented x3 HENMT Head: normal to inspection and normocephalic Ears: hearing grossly normal bilaterally Eyes Conjunctivae: conjunctivae normal Sclera: sclerae normal Resp Effort & Inspection: normal respiratory effort, able to speak in complete sentences, cough (coughed once during my evaluation time. ) and no use of acc essory muscles Cardio Jugular venous pressure: no JVD GI Inspection: other (has feeding tube in place) Skin General skin exam: no rashes or lesions noted and pallor Hair: general thinning Neuro General: patient alert, patient awake and patient oriented x3 Cognition: normal cognition (no obvious cognitive deficits) Speech: speech normal Psych Appearance: grossly normal Mental Status: mental status grossly normal Mood: congruent mood Affect: normal affect Attitude: cooperative (though a little suspicious/hesitant about talking to me as Pall Care ) Insight: fair Judgment: fair Objective Last Vital Signs Temp 36.6 C 04/15/21 07:48 Pulse 101 H 04/15/21 07:48 Resp 16 04/15/21 07:48 BP 99/68 L 04/15/21 07:48 Pulse Ox 92 04/15/21 07:48
--- NOTE | 2021-04-15 15:45 | PTTR_ITS ---
Date of service: 04/15/21 Time of Service: 15:45 PT Notes Visit Reasons: Weakness Physical Therapy Inpatient Treatment Note Date: 04/15/2021 Precautions: Fall. Standard. Activity as tolerated. Gastrotomy tube in place. Left subclavian vein Port-A-Cath in place. Subjective: Remains hopeful about going home and being with family. Agreeable to HH PT and OT. Receptive to feedback given by PT yesterday and today regarding realistic expectations in relation to his body's ability to regain strength and independent mobility level. Objective: General Observation: Cachectic. Supine in bed. Left venous catheter in place. Gastrotomy tube in place. Nurse Jun temporarily stopped NGT feeding for PT session. Mental Status: Alert and oriented as to person, place, time, and purpose. Able to pay attention, focus, and respond appropriately. Pain: 3-4/10 in trunk Bed Mobility/Transfers: Sit to stand minimal assist Stand to sit with minimal assist Bed to reclining chair minimal assist Gait: Instructed patient with level surface ambulation of 75 feet + 8 feet requiring contact-guard assist. Carmel decreased. Step height decreased. Step length decreased. Mild SOB and report of chest discomfort that needed seated rest. Oxygen saturation stayed at 91% on room air. Balance: Static Sitting: Normal Dynamic Sitting: Normal Static Standing: Fair Dynamic Standing: Fair Assessment: As indicated in yesterday's notes, Vaughn has not demonstrated consistent functional mobility gains since start of care. Prognosis for achieving goals initially established are poor due to easy fatiguability, persistent back pain, nutritional intake issues, and overall cancer trajectory. Reinforced yesterday's conversation with patient regarding these functional barriers with emphasis given on rethinking goals that are more realistic and achievable. Re-stressed that needing the assistance of one person for all transfer task performance using the FWW may be his new baseline due to the unpredictability of his day to day mobility level and decreasing activity tolerance. Advised patient that the frequency of HH PT visit will be more favorable for him considering his level of fatigue; HH PT visit of 2-3x/week will allow his body to rest and recover better. Will require 24/7 care at home to reduce fall risk. DISCHARGE RECOMMENDATIONS: [] Home with no services [] [X] Home with services. 24/7 supervision. May benefit from continued HH PT services to attempt progressive strengthening and functional mobility progression in the home setting. [] Home with outpatient PT [] [] SNF for continued rehabilitation [X] [facility]. Patient will benefit from [facility] for continued attenpt at gradually progressing mobility level, strength, and balance according to patient's pace. High probability of becoming a LTC patient due to medical status. [] SNF versus LTC based on ability to participate and progress [] EQUIPMENT NEEDS IF GOING HOME: 1. FWW 2. Lift assist into and out of the home as patient has a flight of steps that he may not be able to negotiate due to easy fatiguability 3. Hospital bed 4. Bedside commode TREATMENT CODE/TIME: 11709 x 30 minutes beginning at 15:45 PM.
[2021-04-15 17:03] VITALS: BP 116/75; PULSE 109; RESP 18; TEMP 36.1; O2SAT 93
[2021-04-15 23:20] VITALS: BP 100/65; PULSE 102; RESP 18; TEMP 35.5; O2SAT 92
[2021-04-16 02:45] VITALS: BP 102/66; PULSE 92; RESP 18; TEMP 36.7; O2SAT 91
[2021-04-16] MEDS: guaiFENesin 200 MG/10 ML CUP JT ×4 (05:45→23:20)
[2021-04-16 07:46] VITALS: BP 110/73; PULSE 100; RESP 18; TEMP 36.9; O2SAT 90
[2021-04-16] MEDS: ACETAMINOPHEN 1,000 MG/100 ML BTL 400 MG IVPB (09:11)
[2021-04-16] MEDS: oxyCODONE 5 MG/5 ML CUP JT ×4 (09:12→23:20)
[2021-04-16] MEDS: Dexamethasone 4 MG/ML VIAL IVP ×2 (09:45→19:45)
[2021-04-16] MEDS: Normal Saline Flush 10 ML SYR IVP (09:45)
[2021-04-16] MEDS: Pantoprazole 40 MG VIAL IVP (09:46)
--- NOTE | 2021-04-16 10:47 | PDOC.CMPRO ---
- If Service Date Differs Date of service: 04/16/21 Time of Service: 10:47 Care Management Progress Note S/O: Vaughn was sitting up in bed low kimble's position when CM met with him. He remains pleasant, easily engaged in conversation and his outlook is optimistic despite his diagnosis and prognosis. He refuses SNF for continued rehab. Instead he wants to go home with full [facility] services, he misses his family. Vaughn has a step son that is able to help him transfer when needed. Vaughn is anticipating discharging to home tomorrow, between 11-1pm via [employer] w/c van with lift assist, which CM will set up prior to discharge. He is going to purchase a commode on line. He refuses an order for a hospital. CM will continue to support patient and his discharge planning needs. A: 50 year old male admitted to [facility] on 04/07/21 for Weakness, Acute Back Pain P: Anticipate Vaughn will return home with new [facility] services RN/PT/OT/SHEET ROLLER OPERATOR on . He will transport via [employer] W/C van and need a lift assist at discharge, CM will arrange. Vaughn will order a bedside commode online. Palliative Care will continue to follow patient, although he is not ready for services at this time. CM continues to follow.
--- NOTE | 2021-04-16 11:22 | PT.INTREAT ---
Date of service: 04/17/21 Time of Service: 11:22 PT Notes Visit Reasons: Weakness Physical Therapy Inpatient Treatment Note Date: 04/16/2021 Precautions: Fall. Standard. Activity as tolerated. Gastrotomy tube in place. Left subclavian vein Port-A-Cath in place. Subjective: Feels bloated from yesterday's feeding and requested that feeding be stopped temporarily. Nurse Kathe states that they did do a short hold on feeding per patient request. Continues to report of back discomfort but is willing to walk with therapy today. Aware that plans for him going home is underway. Remains receptive of continuing with PT/OT at home. Not willing to give up yet about gaining strength and mobility independence but is accepting of the fact that it may take time to do so. Says that there is no space for a hospital bed in his home. Objective: General Observation: Cachectic. Supine in bed. Left venous catheter in place. Gastrotomy tube in place. Mental Status: Alert and oriented as to person, place, time, and purpose. Able to pay attention, focus, and respond appropriately. Pain: 3-4/10 in trunk Bed Mobility/Transfers: Requires CGA from bed and from wheelchair when not fatigued, minimal to moderate assist when fatigued usually after a walk Gait: Instructed patient with level surface ambulation of 100 feet requiring stand by assist and wheelchair follow with minimal to moderate shortness of breath. [place] decreased. Step height decreased. Step length decreased. Complained of 5/10 pain in low back that subsided with rest. Had significant difficulty rising up from wheelchair to transfer back to his bedside chair afterwards due to exhaustion. THERA EX: Deferred due to exhaustion and low back pain report. Patient is able to perform seated exercises on his own when energy level allows later in the day. Balance: Static Sitting: Normal Dynamic Sitting: Normal Static Standing: Fair Dynamic Standing: Fair Assessment: Prognosis for achieving goals initially established are poor due to easy fatiguability, persistent back pain from weight bearing in trunk during walking and prolonged sitting on chair, nutritional intake issues, and overall cancer trajectory. Will require positioning changes and or bed/chair transfers to minimize skin breakdown and low back pain. Reinforced previous conversations with patient regarding these functional barriers with emphasis given on rethinking goals that are more realistic and achievable. Re-stressed that needing the assistance of one person for all transfer task performance using the FWW may be his new baseline due to the unpredictability of his day to day mobility level and decreasing activity tolerance. Advised patient that the frequency of HH PT visit will be more favorable for him considering his level of fatigue; HH PT visit of 2-3x/week will allow his body to rest and recover better. Will require 24/7 care at home to reduce fall risk. Will defer to HH PT regarding decision making on the need for wheelchair at home if mobility goal is not achieved. DISCHARGE RECOMMENDATIONS: [] Home with no services [] [X] Home with services. 24/7 supervision. May benefit from continued HH PT services to attempt progressive strengthening and functional mobility progression in the home setting. [] Home with outpatient PT [] [] SNF for continued rehabilitation [X] Distribution District Supervisor Care. Patient will benefit from long-term facility placement for continued attenpt at gradually progressing mobility level, strength, and balance according to patient's pace. High probability of becoming a LTC patient due to medical status. [] SNF versus LTC based on ability to participate and progress [] EQUIPMENT NEEDS IF GOING HOME: 1. FWW 2. Lift assist into and out of the home as patient has a flight of steps that he may not be able to negotiate due to easy fatiguability and back pain 3. Hospital bed 4. Bedside commode TREATMENT CODE/TIME: 40199 x 34 minutes beginning at 11:22 AM.
--- NOTE | 2021-04-16 15:45 | PGE_ITS ---
Date of Service Date of service: 04/16/21 Time of Service: 15:46 Assessment and Plan Assessment and plan (1) Cough: Status: Acute Assessment and plan: Probably being triggers by underlying esophageal cancer vs large R pleural effusion. The patient is not short of breath and feels that he just needs something to help him bring up his secretions. guaifenesin, IS, and acapella. Consider thoracentesis if doesn't cont to improve. Currently essentially unchanged. (2) Back pain: Status: Acute Assessment and plan: Does have a solitary bony lesion in L3. DJD L4-5. Pain is better but still up to 6/10 at time of my evaluation. Continue working with PT. Cont current pain meds. Add lidoderm patches (2). (3) Weakness: Status: Chronic Assessment and plan: Intermittently does better with ambulation but, overall, remains weak and concerned about how safe he would be at home with the amount of help he will have. Meanwhile, continue working with PT. Anticipate discharge home with home health services tomorrow. Commode being provided. He declines a hospital bed d/t lack of room for one. 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 The patient states he is not quite interested in hospice and not interested in palliative care while in the hospital. His oncologist, Dr Penaloza, made it clear in his notes that the chemo he is re ceiving is palliative. Continue keppra, dexamethasone. Tube feeding. Met with palliative care, wants to continue aggressive measures and to remain full code. (5) Brain metastases: Status: Acute Assessment and plan: As above No HURTADO, encephalopathy. (6) DVT prophylaxis: Status: Acute Assessment and plan: SCDs Will avoid chemical DVT ppx due to brain mets. (7) Discharge planning issues: Status: Acute Assessment and plan: Full code at this time. Not interested in palliative care or hospice. (8) Urinary retention: Status: Acute Assessment and plan: Difficulty initiating urine flow. He notes improvement last PM and today. Needs a medication that can be crushed or capsule than can be emptied so he can either take orally or via G-tube. The one medication option is doxazosin. Increase dose to 2mg QHS. Subjective Subjective Patient reports: no new complaints and afebrile; denies nausea and vomiting Interval history since last seen: Improvement in urine flow. C/O ongoing low back pain; not new. No radiculopathy. Exam Const General: cooperative, comfortable and not in acute distress Nutritional Appearance: thin Orientation: alert, awake and oriented x3 HENMT Head: normal to inspection and normocephalic Ears: hearing grossly normal bilaterally Eyes Conjunctivae: conjunctivae normal Sclera: sclerae normal Resp Effort & Inspection: normal respiratory effort, able to speak in complete sentences, cough (coughed once during my evaluation time. ) and no use of accessory muscles Cardio Jugular venous pressure: no JVD GI Inspection: other (has feeding tube in place) Skin General skin exam: no rashes or lesions noted and pallor Hair: general thinning Neuro General: patient alert, patient awake and patient oriented x3 Cognition: normal cognition (no obvious cognitive deficits) Speech: speech normal Psych Appearance: grossly normal Mental Status: mental status grossly normal Mood: congruent mood Affect: normal affect Attitude: cooperative (though a little suspicious/hesitant about talking to me as Pall Care ) Insight: fair Judgment: fair Objective Last Vital Signs Temp 36.9 C 04/16/21 07:46 Pulse 100 H 04/16/21 07:46 Resp 18 04/16/21 07:46 BP 110/73 04/16/21 07:46 Pulse Ox 90 L 04/16/21 07:46
[2021-04-16 16:18] VITALS: BP 99/68; PULSE 103; RESP 18; TEMP 36.8; O2SAT 92
[2021-04-16] MEDS: Lidocaine 5% Patch 2 PATCH TP (18:24)
[2021-04-16] MEDS: levETIRAcetam Oral Solution 100 MG/ML 1000 MG PO (19:45)
--- NOTE | 2021-04-16 21:41 | NUR.NOTE ---
This sql report writer was about to medicate this patient with Doxazosin 2mg. He refused medication and state he has been voiding without difficulties for the passed 3 days. Patient adamantly that he will be taking any straight catheter or anything to help him to voids
[2021-04-16 23:15] VITALS: BP 101/68; PULSE 106; RESP 18; TEMP 37.3; O2SAT 90
[2021-04-17] MEDS: oxyCODONE 5 MG/5 ML CUP JT ×2 (05:56→12:28)
[2021-04-17] MEDS: ACETAMINOPHEN 1,000 MG/100 ML BTL 400 MG IVPB (05:56)
[2021-04-17] MEDS: guaiFENesin 200 MG/10 ML CUP JT ×2 (05:56→12:28)
[2021-04-17] MEDS: Normal Saline Flush 10 ML SYR IVP ×2 (05:59→09:21)
[2021-04-17 08:07] VITALS: BP 102/67; PULSE 94; RESP 18; TEMP 36.6; O2SAT 89
--- NOTE | 2021-04-17 08:29 | CMPROGNOTE_ITS ---
- If Service Date Differs Date of service: 04/17/21 Time of Service: 08:29 Care Management Progress Note S/O: Vaughn remains pleasant, easily engaged in conversation and his outlook is optimistic despite his diagnosis and prognosis. He refuses SNF for continued rehab. Instead he wants to go home with full [facility] services, he misses his family. Vaughn has a step son that is able to help him transfer when needed. Vaughn is anticipating discharging to home today, at 1:30pm via [facility] w/c van with lift assist, arranged by CM. He is going to purchase a commode on line. He does not want an order for a hospital bed. CM will continue to support patient and his discharge planning needs. A: 50 year old male admitted to [facility] on 04/07/21 for Weakness, Acute Back Pain P: Anticipate Vaughn will return home with new [facility] services RN/PT/OT/OVERAGE SHORTAGE AND DAMAGE CLERK on . He will transport via [facility] W[facility] van and need a lift assist at discharge, CM will arrange. Vaughn will order a bedside commode online. Palliative Care will continue to follow patient, although he is not ready for services at this time. CM continues to follow.
[2021-04-17] MEDS: levETIRAcetam Oral Solution 100 MG/ML 1000 MG PO (08:48)
[2021-04-17] MEDS: Dexamethasone 4 MG/ML VIAL IVP (09:22)
[2021-04-17] MEDS: Pantoprazole 40 MG VIAL IVP (09:22)
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
--- NOTE | 2021-04-17 09:44 | PT.INNT ---
PT Notes Visit Reasons: Weakness Patient refused treatment today. Is discharging today and he reports having a lot he needs to do before leaving. He reports no additional questions or concerns. Will be getting home health services.
--- NOTE | 2021-04-17 10:01 | PDOC.HHF2F ---
Home Health Certification Home Health Certification: 1. Encounter Date and Reason I certify that Vaughn Simpson was seen by Norberto Cheney MD on 04/17/21 and that I had a [id number] encounter with this patient that meets the physician face to face encounter requirements. 2. Clinical Findings Supporting Skilled Need and Homebound Status I certify that home health services are medically necessary, include either intermittent long-term and/or physical/speech therapy, and that this patient is homebound in that absences from the home require considerable and taxing effort and are infrequent or of short duration, or are attributable to the need to receive medical care. [X] (a) Attached documentation from encounter provides clinical findings supporting skilled need and homebound status (including what assistance patient requires to leave the home). The encounter with the patient was in whole, or in part, for the following medical condition, which is the primary reason for home health care: Weakness Group Home:Monitor medications, skin care. Physical Therapy:Occupational Therapy: Evaluate and treat his generalized weakness. He has a goal of self-transfers and eventually ambulating w/o assistance. Speech Therapy: CHICKEN CLEANER: monitor his mental health and assistance in community services. Homebound: Profoundly weak and unable to leave home without significant assistance. Currently can only intermittently ambulate for short distances with assistance. 3. Certification and Authentication I certify that I composed the above information based on my clinical judgement relating to this patient's medical condition and, if applicable, clinical findings communicated to me by the NPP or inpatient physician who performed the Home Health Referral. All further orders will be obtained through Kena Gustafson (Community Based Physician - PCP)
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
--- NOTE | 2021-04-17 15:57 | PDOC.CMDIS ---
- If Service Date Differs Date of service: 04/17/21 Time of Service: 15:57 LACE Index Scoring Tool - Questions: Length of Stay (in days): 7 - 13 Acuity (Admit via E.D.?): Yes Comorbidities: Chronic Pulmonary Disease, Metastatic Solid Tumor E.D. Visits: 2 - Answers: Total Score: 15 Risk of Readmission: High Risk Care Management Discharge Reason for Hospitalization: Weakness Discharge Plan: Discharge home with New [facility] RN/PT/OT/TURKEY EGG GATHERER via [facility] W/C van with Lift assist. Patient will order a commode online. Follow up with PCP in 1-2 weeks and discharge plan of care as prescribed. Patient/Family Education Needs: Review discharge instructions, limitations and plan to follow up with PCP. ask me three. Services Needed at Discharge: Home Health Care Services ([facility] RN/PT/OT/TURKEY EGG GATHERER (CM notified)), Transportation (via [facility] W/[facility] van with lift assist, arranged by CM)
--- NOTE | 2021-04-21 15:06 | PT.INDS ---
Date of service: 04/16/21 PT Notes Visit Reasons: Weakness Physical Therapy Inpatient Discharge Summary Date: 04/17/2021 Dates of Service: 04/08/2021 through 04/16/2021 This is a clinical summary of care provided for the duration of dates listed above. No charge was made in the completion of this documentation. Precautions: Fall. Standard. Activity as tolerated. Gastrotomy tube in place. Left subclavian vein Port-A-Cath in place. Subjective: NT. See most recent CUSTOMER SALES REPRESENTATIVE notes. Objective: General Observation: NT. See most recent CUSTOMER SALES REPRESENTATIVE notes. Mental Status: NT. See most recent CUSTOMER SALES REPRESENTATIVE notes. Pain: NT. See most recent CUSTOMER SALES REPRESENTATIVE notes. ROM: Right Upper Extremity: Shoulder Flexion WFL. Shoulder abduction WFL. Elbow flexion WFL. Wrist flexion WFL. Functional opening and closing of hand WFL. Left Upper Extremity: Shoulder Flexion lacks the last 10 degrees. Shoulder abduction lacks the last 10 degrees. Elbow flexion WFL. Wrist flexion WFL. Functional opening and closing of hand WFL. Right Lower Extremity: Hip flexion lacks of the last 50% of available motion. Hip abduction WFL. Knee flexion WFL. Knee extension -20 degrees ankle dorsiflexion WFL. Ankle plantarflexion WFL. Left Lower Extremity: Hip flexion Hip flexion lacks of the last 50% of available motionL. Hip abduction WFL. Knee flexion WFL. Knee extension -10 degrees. Ankle dorsiflexion WFL. Ankle plantarflexion WFL. Strength: Right Upper Extremity: Shoulder flexors 3-/5. Shoulder abductors 3-/5. Elbow flexors 3+/5. Elbow extensors 3+/5. Post Closer weak but functional. Left Upper Extremity: Shoulder flexors 4-/5. Shoulder abductors 4-/5. Elbow flexors 4-/5. Elbow extensors 4-/5. Post Closer weak but functional. Right Lower Extremity: Hip flexors 3-/5. Hip abductors 3-/5. Knee flexors 4-/5. Knee extensors 3-/5. Ankle dorsiflexors 3+/5. Ankle plantarflexors 4-/5. Left Lower Extremity: Hip flexors 3-/5. Hip abductors 3-/5. Knee flexors 4-/5. Knee extensors 3-/5. Ankle dorsiflexors 3+/5. Ankle plantarflexors 4-/5. Bed Mobility/Transfers: Sit to stand contact-guard assist when not fatigued, requires up to moderate assist when fatigued Stand to sit contact-guard assist when not fatigued, requires up to moderate assist when fatigued Bed to reclining chair contact-guard assist when not fatigued, requires up to moderate assist when fatigued Gait: Instructed patient with level surface ambulation of 100 feet requiring standby assist. [place] decreased. Step height decreased. Step length decreased. Mild SOB and report of chest discomfort that needed seated rest. Oxygen saturation stayed at 91% on room air. Balance: Static Sitting: Normal Dynamic Sitting: Normal Static Standing: Fair Dynamic Standing: Fair Assessment: Vaughn has not demonstrated consistent functional mobility gains since start of care. Prognosis for achieving goals set below are poor due to easy fatiguability, persistent back pain, nutritional intake issues, and overall cancer trajectory. An honest conversation with patient regarding these functional barriers have been made today with emphasis given on rethinking goals that are more realistic and achievable. Stressed that needing the assistance of one person for all transfer task performance using the FWW may be his new baseline due to the unpredictability of his day to day mobility level and decreasing activity tolerance. Advised patient that the frequency of HH PT visit will be more favorable for him considering his level of fatigue; HH PT visit of 2-3x/week will allow his body to rest and recover better. Will require 24/7 care at home to reduce fall risk. Patient continues to present with clinical signs and symptoms consistent with current/admitting diagnoses that have resulted to mobility limitations, gait instability, generalized weakness, and overall ADL decline as demonstrated by the following impairment level findings: 1. Decreased strength to BUE/LE major muscle groups 2. Impaired sitting/standing balance 3. Impaired activity tolerance 4. Limitation of joint range of motion in left shoulder, B knees, and B hips 5. Cachexia 6. Chronic low back pain Impairments are contributing to the following functional limitations: 1. Decline in bed mobility skills 2. Decline in transfer skills 3. Difficulty with ambulation without assistive device and physical assistance 4. Increased completion time for mobility ADL performance 5. Increased risk for falls 6. Difficulty with managing steps alone safely Goals: Goals X1 week 1. Supine-Sit independent NOT MET 2. Sit-Supine independent NOT MET 3. Sit-Stand independent NOT MET 4. Stand-Sit independent with FWW NOT MET 5. Bed-Chair independent with FWW NOT MET 6. Chair-Bed independent with FWW NOT MET 7. Standby assist gait on level surface with use of FWW for at least 50 feet without report of pain nor dyspnea NOT MET 8. Standby assist stair negotiation while holding onto 1 rail for at least 10 steps without report of pain nor dyspnea NOT MET 9. Fair static and dynamic standing balance/tolerance NOT MET DISCHARGE RECOMMENDATIONS: [] Home with no services [] [X] Home with services. 23/11 supervision. May benefit from continued PT services to attempt progressive strengthening and functional mobility progression in the home setting. [] Home with outpatient PT [] [X] SNF for continued rehabilitation [X] Design Engineering Manager Care. Patient will benefit from shelter facility placement for continued attenpt at gradually progressing mobility level, strength, and balance according to patient's pace. High probability of becoming a LTC patient due to medical status. [] SNF versus LTC based on ability to participate and progress [] TREATMENT CODE/TIME: SC Thank you for the opportunity to participate in the care of this patient. Ara Lewis PT, DPT, CLT [facility] [place], [place]
== END 2021-04-17 13:23 | disposition home health service (06) | DRG 552 ==
LOC: ER 17:46 → MS 20:45
PROVIDERS: Family Medicine; Internal Medicine; Physician Assistant; Admitting Provider General Practice; Emergency Provider Emergency Medicine; PCP Nurse Practitioner; Visit Provider General Practice
DX: M54.9 Dorsalgia, unspecified (principal); C15.9 Malignant neoplasm of esophagus, unspecified; C78.7 Secondary malignant neoplasm of liver and intrahepatic bile duct; C79.31 Secondary malignant neoplasm of brain; K94.23 Gastrostomy malfunction; C78.00 Secondary malignant neoplasm of unspecified lung; D84.821 Immunodeficiency due to drugs; E44.0 Moderate protein-calorie malnutrition; J90 Pleural effusion, not elsewhere classified; M47.816 Spondylosis without myelopathy or radiculopathy, lumbar region; R53.1 Weakness; D64.9 Anemia, unspecified; J44.9 Chronic obstructive pulmonary disease, unspecified; M54.32 Sciatica, left side; Z87.891 Personal history of nicotine dependence; Z20.822 Contact with and (suspected) exposure to COVID-19; Z79.899 Other long term (current) drug therapy; K59.00 Constipation, unspecified; R33.9 Retention of urine, unspecified; Z68.20 Body mass index [BMI] 20.0-20.9, adult; G62.0 Drug-induced polyneuropathy; R05.9 Cough, unspecified; Z99.3 Dependence on wheelchair
CPT/HCPCS: 43762; 71275; 72158; 74177; 80048; 80053; 80076; 85027; 87493; 87635; 93005; 96361; 96374; 97110; 97162; 97166; 97530; 97535; 99221; 99231; 99285; 71045; 81003; 81015; 83735; 84484; 85025; 87086; 93010; 99222; 99232; 99233; 99239; J0131; J0744; J1100; J1953; J2060; J2270; J3490

== ENCOUNTER 2021-04-21 15:10 | Inpatient (IN) | payer MEDICARE, MEDICAID, SELFPAY ==
[2021-04-21 15:17] VITALS: BP 105/78; PULSE 115; RESP 16; TEMP 36.5; O2SAT 94
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
[2021-04-21] MEDS: Normal Saline 1,000 ML 125 ML IV (15:50)
[2021-04-21] MEDS: Normal Saline-STERILE FIELD 0.9% 10 ML SYR (15:58)
[2021-04-21 16:03] LABS: Abs Immature Grans 0.45 10^3/uL (0.0-0.06); Absolute Basophil Count 0.06 10^3/uL (0.0-0.2); Absolute Lymphocyte Count 0.35 10^3/uL (1.2-3.4); Absolute Monocyte Count 0.42 10^3/uL (0.1-0.8); Absolute Neutrophil Count 9.45 10^3/uL (1.2-6.7); Basophils % 0.6; HCT 32.7 % (40.0-50.0); HGB 10.6 g/dL (13.5-17.5); Immature Grans % 4.2; Lymphocytes % 3.3; MCH 30.5 pg (27.0-33.0); MCHC 32.4 % (32.0-36.0); MPV 9.6 fL (8.0-11.0); Monocytes % 3.9; Nucleated RBC 0 %; RBC 3.48 10^6/uL (4.36-5.78); RDW 20.1 % (11.8-14.1); RDW-SD 66.8 fL; WBC 10.73 10^3/uL (4.4-10.8)
[2021-04-21 16:15] LABS: ALT 69 U/L (16-63); AST 34 U/L (15-37); Albumin 1.9 g/dL (3.4-5.0); Alkaline Phosphatase 492 U/L (46-116); Anion Gap 13.1 mmol/L (3-11); BUN 65 mg/dL (7-18); Bilirubin, Total 0.6 mg/dL (0.2-1.0); CO2 24.9 mmol/L (21.0-32.0); CREATININE 1.9 mg/dL (0.70-1.30); Calcium 8.6 mg/dL (8.5-10.1); Chloride 99 mmol/L (98-107); Estimated GFR 37.41 (mL/min/1.73m2); Glucose 176 mg/dL (74-106); Potassium 4.1 mmol/L (3.5-5.1); Sodium 137 mmol/L (136-145); Total Protein 7.3 g/dL (6.4-8.2)
[2021-04-21 16:16] LABS: Anisocytosis 1+; Diff Comment Agrees w/ Instrument; Platelet Count 284 10^3/uL (130-400)
--- NOTE | 2021-04-21 16:52 | DI.CT_ITS ---
Exam(s) CT ABDOMEN PELVIS W EXAM: CT ABDOMEN PELVIS W CLINICAL HISTORY: G tube refluxing. TECHNIQUE: Imaging Protocol: Axial computed tomography images with coronal and sagittal reformatted images were created and reviewed CONTRAST MATERIAL: Intravenous: Omnipaque 350 Contrast volume:100 mL Oral: Yes, via the G-tube. COMPARISON: CT CT CHEST PE ABD PELVIS W from 04/07/[address] CHEST PE ABD PELVIS W from 04/07/2021 FINDINGS: ABDOMEN: Lung Bases: There has been interval increase in size of the right pleural effusion. Centrilobular em physematous changes are present. New ground-glass opacities are present in the lungs. Stable nodula r densities in the lungs. Liver: Normal density. There again seen multiple hepatic metastases. There is a new area of decrease d attenuation in the posterior segment of the right lobe of the liver which was not apparent on the p rior examination. (Series 5, image [id number]). Its appearance is suggestive of fatty infiltration. Portal, Superior Mesenteric, and Splenic Veins: Unremarkable. Gallbladder and Biliary Tract: No radiodense calculus or dilation. Pancreas: Normal density, no abnormal calcifications or inflammatory process. Spleen: Normal. Adrenals: No masses seen. Kidneys: Normal size, contour and axis. No radiodense stones or obstructive uropathy. Stable left shannon al cysts. Abdominal Aorta: Abdominal portion non-dilated. Atherosclerosis. Bowel: The gastrostomy tube is in good position. No obstruction or bowel wall thickening. Normal shon endix is visualized. Colonic diverticulosis. No evidence of acute diverticulitis. Peritoneal Cavity: No ascites, collection or mesenteric inflammatory response. No free air. Lymph Nodes: There are stable enlarged lymph nodes in the upper abdomen and the retrocrural space. Bones: The bones are stable. Soft Tissues: Fat containing left inguinal hernia. PELVIS: Bladder: There is a 1 cm nodule density projected from the posterior wall of the urinary bladder. Reproductive Organs: Unremarkable as visualized. Lymph Nodes: Abdominal adenopathy as described above. Bones: The bones are stable. IMPRESSION: 1. Gastrostomy tube is in good position. 2. Stable hepatic metastases. 3. Upper abdominal adenopathy. 4. Interval increase in size of the loculated right pleural effusion. There is associated atelectasi s. RADIATION DOSE DELIVERED: 843.76mGy.cm Total DLP DATA REPOSITORY: All CT scans at this facility are submitted to the National Radiology Data Registry (NRDR) Dose Index Registry (DIR) with the [employer] (ACR). RADIATION OPTIMIZATION: All CT scans at this facility use at least one of these dose optimization te chniques: automated exposure control; mA and/or kV adjustment per patient size (includes targeted exa ms where dose is matched to clinical indication); or iterative reconstruction.
[2021-04-21] MEDS: Omnipaque 350 MG/ML 100 ML BTL IJ (17:26)
[2021-04-21 17:57] LABS: Bilirubin Negative (Negative); Blood Large (Negative); Clarity Cloudy (Clear); Glucose Negative (Negative); Ketones Negative (Negative); Leukocyte Esterase Negative (Negative); Nitrite Negative (Negative); Specific Gravity 1.015 (1.005-1.025); Urobilinogen 0.2 EU/dL (Up TO 0.2); pH 5.5 (5-8)
[2021-04-21 18:04] LABS: Bacteria Negative HPF (Negative); C & S Indicated? No; Casts Negative LPF (Negative); Crystals Negative HPF (Negative); Epithelial Cells Few HPF (Negative); Mucus Negative (Negative); RBC >50 HPF (0-2); WBC 0-2 HPF (0-5)
--- NOTE | 2021-04-21 19:04 | DI.VRAD_ITS ---
PROCEDURE INFORMATION: Exam: CT Abdomen And Pelvis With Contrast Exam date and time: 04/21/2021 3:28 PM Age: 50 years old Clinical indication: Other: G-tube efluxing; Patient HX: G-tube refluxing; Additional info: 250 ml sterile water and 50 ml omni-paque mixed snd sdministered thru the g-tube. TECHNIQUE: Imaging protocol: Computed tomography of the abdomen and pelvis with contrast. Radiation optimization: All CT scans at this facility use at least one of these dose optimization techniques: automated exposure control; mA and/or kV adjustment per patient size (includes targeted exams where dose is matched to clinical indication); or iterative reconstruction. Contrast material: OMNI-PAQUE 350; Contrast volume: 100 ml; Contrast route: INTRAVENOUS (IV); COMPARISON: 1. CT CHEST/ABD/PEL W 03/20/2021 10:[address] CHEST PE ABD PELVIS W 04/07/2021 3:18:05 PM FINDINGS: Tubes, catheters and devices: Gastric tube in appropriate position. Contrast injected through the tube tracks back from the stomach around the tube at the abdominal wall to the skin surface. Small amount of oral contrast at the left anterior abdominal wall possibly along previous jejunostomy tube tract similar to previous. Lungs: Scattered pulmonary nodules throughout the left lung similar. Increased patchy airspace disease throughout the left lung. Paraseptal and centrilobular emphysematous changes. Pleural spaces: Large loculated right pleural effusion with associated atelectasis, larger than previous. Several bubbles of air within the largest loculation possibly related to previous procedure or drainage, but empyema is a consideration. Correlate with clinical situation. Heart: Coronary artery calcifications. Liver: Stable liver lesions/metastasis. New area decreased attenuation at the posterior dome of the liver posterior to the largest metastatic lesion suggestive of fatty infiltration. Gallbladder and bile ducts: Normal. No calcified stones. No ductal dilation. Pancreas: Normal. No ductal dilation. Spleen: Normal. No splenomegaly. Adrenal glands: Normal. No mass. Kidneys and ureters: Simple cysts left kidney largest 9 mm. No hydronephrosis. Stomach and bowel: Colonic diverticula present. No evidence of acute diverticulitis at this time. Appendix: No evidence of appendicitis. Intraperitoneal space: Unremarkable. No free air. No significant fluid collection. Vasculature: Aorta demonstrates mild atherosclerotic calcification. Lymph nodes: Periaortic and upper abdominal adenopathy slightly worse, largest node at the gastrohepatic ligament 2.5 x 1.3 cm. Urinary bladder: Unremarkable as visualized. Reproductive: Unremarkable as visualized. Bones/joints: Unremarkable. No acute fracture. Soft tissues: Bilateral fat containing inguinal hernias without incarceration. IMPRESSION: 1. Gastric tube in appropriate position. Contrast injected through the tube tracks back from the stomach around the tube at the abdominal wall to the skin surface. Small amount of oral contrast at the left anterior abdominal wall possibly along previous jejunostomy tube tract similar to previous. 2. Stable liver lesions/metastasis. New area decreased attenuation at the posterior dome of the liver posterior to the largest metastatic lesion suggestive of fatty infiltration. 3. Large loculated right pleural effusion with associated atelectasis, larger than previous. Several bubbles of air within the largest loculation possibly related to previous procedure or drainage, but empyema is a consideration. Correlate with clinical situation. 4. Scattered pulmonary nodules throughout the left lung similar. Increased patchy airspace disease throughout the left lung. 5. Periaortic and upper abdominal adenopathy slightly worse, largest node at the gastrohepatic ligament 2.5 x 1.3 cm. Dictated and Authenticated by: Christophe Fletcher MD. Ordering:SANDRA Bowman MD
[2021-04-21] MEDS: Normal Saline 1,000 ML 150 ML IV (19:36)
[2021-04-21 20:05] LABS: Source Nasal/Nares
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
[2021-04-21 20:35] VITALS: BP 101/61; PULSE 98; RESP 18; O2SAT 95
[2021-04-21 21:11] LABS: COVID-19 PCR Negative (Negative)
[2021-04-21 22:21] VITALS: BP 101/72; PULSE 108; RESP 18; TEMP 37.2; O2SAT 91
[2021-04-21] MEDS: Lactated Ringers 1,000 ML 125 ML IV (22:21)
[2021-04-21 23:49] VITALS: BP 98/67; PULSE 111; RESP 16; TEMP 38; O2SAT 89
[2021-04-22] VITALS (19 sets, daily range): BP systolic 87–116; BP diastolic 60–78; PULSE 102–131; RESP 12–30; TEMP 36.6–37.9; O2SAT 86–97; BMI 18.1
--- NOTE | 2021-04-22 | DI.RAD_ITS ---
Exam(s) XR PORTABLE CHEST AP POST LINE EXAM: XR PORTABLE CHEST AP POST LINE CLINICAL HISTORY: s/p chest tube placement TECHNIQUE: 2D digital imaging was performed of the chest. One image was obtained. An AP view was ob tained. COMPARISON: CT CT ABDOMEN PELVIS W from 04/21/[address] ABDOMEN PELVIS W from 04/21/2021 FINDINGS: MEDIASTINUM: Normal. HEART: Normal. PULMONARY VASCULATURE: Normal. LUNGS: Mild interstitial infiltrates in the lung bases, left greater than right. PLEURAL SPACE: Interval right thoracentesis. Minimal pleural effusion persists. There has been inte rval placement of a right chest tube. There may be loculated air seen in the right lung base lateral ly. BONE:Within normal limits for the patient's age. OTHER FINDINGS:The patient has an indwelling central venous catheter. The tip is in good position at the junction of the superior vena cava and right atrium. IMPRESSION: Interval right thoracentesis with right chest tube placement. Please see above for complete discussi on DATA REPOSITORY: RADIATION DOSE DELIVERED:
[2021-04-22] MEDS: levETIRAcetam 1,000 MG in Normal Saline 100 ML 400 MG IVPB ×2 (00:27→16:35)
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
[2021-04-22] MEDS: ACETAMINOPHEN 1,000 MG/100 ML BTL 400 MG IVPB ×2 (05:53→19:49)
[2021-04-22] MEDS: Lactated Ringers 1,000 ML 125 ML IV (06:11)
[2021-04-22] MEDS: Normal Saline Flush 10 ML SYR IVP ×4 (07:43→14:28)
[2021-04-22] MEDS: Dexamethasone 4 MG/ML VIAL IVP ×2 (07:57→19:49)
[2021-04-22] MEDS: MORPHine 4 MG/ML SYR 3 MG IVP (07:57)
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
[2021-04-22 10:47] LABS: Amylase 32 U/L (25-115); BUN 42 mg/dL (7-18); CREATININE 0.7 mg/dL (0.70-1.30); Calcium 7.9 mg/dL (8.5-10.1); Chloride 107 mmol/L (98-107); Glucose 128 mg/dL (74-106); Sodium 143 mmol/L (136-145)
--- NOTE | 2021-04-22 10:59 | W.NUTCONSULT ---
Date of service: 04/22/21 Time of Service: 10:59 Nutritional Consult ASSESSMENT: Mr. Simpson is has been readmitted r/t regurgitation from his feeding tube and thus not getting adequate nourishment or hydration for a week. His BMI is 18.1 kg/m2 c/w underweight. He was 69 kg two months ago. He was 59 kg yesterday. He has lost 14% of his body weight in two months and 10% of his body weight in the past two weeks both of which are significant. Some wounds noted and he is getting a wound consult. Estimated energy needs are 1900 kcal/day (REE x 1.1 (AF) x 1.2(SF)) Estimated protein needs: 89 g protein/day (1.5 g/kg/day) Noted at morning meeting that TPN is being considered. NUTRITIONAL DIAGNOSIS: Severe malnutrition in the setting of acute illness as evidenced by 10% weight loss in two weeks and taking in less than 50% of estimated energy needs for greater than 5 days (AND/ASPEN guidelines for diagnosing malnutrition) INTERVENTION: Will provide Osmolite 1.2 cinthia if Mr. Simpson continues with his tube feeding. If TPN is initiated, I recommend the following regimen. 3.0L/day of Clinimix 4.25/10 with 250 ml of 20% lipids daily (125 cc/hr) to provide 2032 kcals and 128 g of protein MONITORING AND EVALUATION: Will continue to monitor weight and progress with regard to nutrition support. Will evaluate nutrition care plan ongoing and adjust as needed. Time Spent in Nutritional Counseling and Treatment: 0
[2021-04-22 11:27] LABS: Albumin 1.5 g/dL (3.4-5.0); Total Protein 5.5 g/dL (6.4-8.2)
--- NOTE | 2021-04-22 12:50 | PAPNONF_PTH ---
PATIENT: Vaughn Simpson LOC: U#:[id number] AGE/SX: 50/M ROOM: 225 RE04/23/[address]: Christophe Castillo : 1970 BED: A DIS: 05/08/2021 SPEC #: [id number] RECD: 04/22/21 18:26 STATUS: KRISHNA REQ #: [id number] LITTLE: 04/22/21 12:[address]: Christophe Castillo DEPT: [facility] Cytology RECD BY: Arely Posada ENTERED: 04/22/21 18:29 SP TYPE: PAPNONF OTHR DR: Johnny Redman, JEREMI Montoya, JEREMI Plummer,MD Ailin Burns MD Patrick Fitzpatrick, MD Laura Singh, [facility],Stefani Buchanan MD Leung,Lavinia Santana, MD Weiss,Kerrie Long, DO Kena Gustafson, [employer] Tissues: 1 - BODY FLUID CYTO(NOT S/U/N/EM)[facility] Procedures: BODY FLUID CYTO(NOT SPU/UR/NIP/ENDOM)[facility] Comments: [id number] (TOTAL VOLUME = 60 ml, SENT FRESH)
[2021-04-22] MEDS: Lidocaine 1% Multi-Dose 50 ML VIAL (13:21)
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
[2021-04-22 13:28] LABS: Source: Pleural
--- NOTE | 2021-04-22 14:05 | ROE_ITS ---
Date of service: 04/22/21 Time of Service: 14:05 Operative Note Operative Note DATE OF PROCEDURE: 04/22/21 PRE-OP DIAGNOSIS: right pleural effusion POST-OP DIAGNOSIS: other PROCEDURE: thorocentisis SURGEON: Kerrie Weiss STORAGE AND BACKUP ADMINISTRATOR: Vicenta Montoya ANESTHESIA TYPE: Local By Surgeon Refer to Anesthesia Record ESTIMATED BLOOD LOSS: 1 PATHOLOGY: other COMPLICATIONS: None Patient was transported to: no change Procedure Description: REPORT OF OPERATION Operative Note Operative Note Pt is here today for thoracentesis for symptoms of shortness of breath. Chest x-ray was reviewed prior to beginning the procedure. Informed consent was obtained explaining risks and benefits of the procedure, including but not limited to bleeding, infection, pneumothorax, recurrence, complications of anesthesia, and other unforetold complications. PROCEDURE: The patient is brought to the procedure room and placed in the seated position. Ultrasound is used to localize the pocket on the right chest. The area is marked and then prepped and draped in the usual sterile fashion using a ChloraPrep scrub solution. 10 cc's of 1% Lidocaine is used to anesthetize the T10 interspace. The small ewelina is made with a #11 blade. The needle and catheter is then inserted over the top of the rib, aspirating as it is inserted. The needle is then removed. The catheter is then hooked up to the Vacutainer system and 1250 cc's of straw-colored fluid is evacuated. The catheter is removed; pressure is held. Sterile compression dressing is applied. Portable chest x-ray shows no pneumothorax. Pt is given instructions in wound care, activity, medications, and warning signs: SOB, increasing in pain, chest pain, redness or temperature- if these oc cur, come to ED.
[2021-04-22] MEDS: fentaNYL 100 MCG/2 ML VIAL IVP ×2 (14:06→14:26)
--- NOTE | 2021-04-22 14:08 | ROE_ITS ---
Date of service: 04/22/21 Time of Service: 14:08 Operative Note Operative Note DATE OF PROCEDURE: 04/22/21 PRE-OP DIAGNOSIS: right plerual effusons POST-OP DIAGNOSIS: other PROCEDURE: chest tube insertion SURGEON: Kerrie Weiss SKEIN BLEACHER: Vicenta Montoya ANESTHESIA TYPE: Local By Surgeon and MAC Refer to Anesthesia Record ESTIMATED BLOOD LOSS: 1 PATHOLOGY: other COMPLICATIONS: None Patient was transported to: PACU Implants: thorocentisis Procedure Description: The area was prepped and draped in the sterile fashion. The area was anesthetized with 1% Lidocaine solution. The patient was given sedation. A #10 blade scalpel was used to make an incision approximately 1.5 cm long. Then a curved scissor was used to dissect down to the level of the rib. A blunt peon was then used to again enter into the right hemithorax. Immediately a 200cc purulent effusion was released. A 20F chest tube was placed and directed in a posterior and superior direction. The chest tube was hooked up to the Pleur-evac device. The chest tube was tied in with a #0 Prolene suture in a U-stitch fashion. It was sutured in place with sterile dressing and silk tape. The patient tolerated this procedure well. We will obtain a chest x-ray in postop to ensure proper placement and continue to follow the patient very closely.
[2021-04-22 14:33] LABS: Clarity Purulent; Nucleated Cells 17196 uL (0); Source Pleural
[2021-04-22 14:46] LABS: Mononuclear Cells 7 %; Polynuclear Cells 93 %
[2021-04-22] MEDS: Sodium Bicarbonate 50 MEQ/50 ML VIAL (14:48)
--- NOTE | 2021-04-22 14:51 | W.PM.PROGNOT ---
Date of Service Date of service: 04/22/21 Time of Service: 14:52 Assessment and Plan Assessment and plan (1) Empyema lung: Status: Acute Assessment and plan: large left loculated purulent effusion which Dr. Weiss placed a chest tube this afternoon. Cultures and cytology have been sent off. Per Dr. Kim, depending on how well this drains overnight, he may need lytic therapy to break up the loculation and allow this to more completely drain. He has been started on Unasyn for his empyema. The question is whether or not this empyema is d/t some fistula or not. Given his metastatic esophageal cancer and his malnutrition, his prognosis is very poor indeed. I spoke w/ him this morning along w/ Dr. Weiss prior to his chest tube procedure this afternoon. Vaughn understands that his prognosis is dim but he still remains optimistic but he is agreeable to having hospice consulted to discuss what they can offer him. Patient was seen with Dr. Weiss and discussed with her prior to his chest tube placement. Patient's case was also discussed with Dr. Denson, educational assistant teacher, whom I consulted on this morning. Dr. Weiss and I talked over his case again after his chest tube was placed and she showed me pictures of the purulent drainage that she obtained. Dr. Denson and I have been in contact throughout the day via text messaging to discuss further treatment of this gentleman. (2) Acute dehydration: Status: Acute Assessment and plan: continue iv fluid hydration. surgery is considering beginning TPN d/t his malnutrition. will monitor daily labs while on TPN. (3) Emphysema lung: Status: Acute Qualifiers: Emphysema type: unilateral Qualified Code(s): J43.0 - Unilateral pulmonary emphysema [MacLeod's syndrome] (4) Malfunction of gastrostomy tube: Status: Acute Assessment and plan: per review of his CT of his abdomen (I reviewed this w/ Dr. Weiss) the tube appears to be in good position. It is felt that his reflux and possible gastroparesis is bad enough to cause reflux even through his j tube. will give trial of reglan (5) Esophageal cancer: Status: Acute Assessment and plan: he has wide spread metastatic disease (brain, liver and now lung). I consulted hospice to discuss their care options with him. His chemotherapy/immunotherapy is through Dr. Penaloza at [facility]. His treatments have only be palliative not curative, and at this point I do not see his treatments giving him any benefit. Qualifiers: Malignant neoplasm of esophagus location: lower third Qualified Code(s): C15.5 - Malignant neoplasm of lower third of esophagus (6) Protein-calorie malnutrition, moderate: Status: Acute Assessment and plan: surgery considering TPN until his j tube is functional. Subjective Subjective Interval history since last seen: Patient has a nonproductive cough. He is not dyspneic at rest and not using accessory muscles. Dr. Weiss and I spoke with the patient about his condition and in particular discussed the fact that he has metastatic disease that does not seem to be responding to his palliative chemotherapy. We discussed the fact that he has a loculated large effusion on the left side suspicious for an empyema but may just be a malignant effusion. Patient is agreeable to have this effusion tapped and possibly have an indwelling Pleur-evacs catheter if there is no empyema and this is just cancerous effusion. He is also agreeable to having hospice consult on his case to discuss what options he has in terms of maintaining his comfort and to reduce his recurrent hospitalization. Exam Narrative Exam Narrative: Thin cachectic appearing white male lying in bed in semisolid position not using his accessory respiratory muscles. He has muscle wasting about his neck and chest wall as well as his arms and legs. Lungs with diminished breath sounds over both bases with some scattered end expiratory wheezes no rhonchi Heart is regular but slightly tachycardic Abdomen is scaphoid with the jejunostomy tube in the left upper quadrant that appears to be intact there is no purulent discharge around the ostomy Objective Last Vital Signs Temp 37.1 C 04/22/21 14:41 Pulse 103 H 04/22/21 14:41 Resp 23 04/22/21 14:41 BP 97/65 L 04/22/21 14:41 Pulse Ox 97 04/22/21 14:41 Laboratory Results - last 24 hr 04/21/21 04/21/21 04/21/21 15:52 15:52 17:20 WBC 10.73 RBC 3.48 L Hgb 10.6 L Hct 32.7 L MCV 94.0 MCH 30.5 MCHC 32.4 RDW 20.1 H Plt Count 284 D MPV 9.6 Immature Gran % 4.2 Neutrophils % 88.0 Lymphocytes % 3.3 Monocytes % 3.9 Eosinophils % 0.0 Basophils % 0.6 Nucleated RBC % 0 Absolute Neutrophils 9.45 H Absolute Lymphocytes 0.35 L Absolute Monocytes 0.42 Absolute Eosinophils 0.00 Absolute Basophils 0.06 RBC Morphology See Below Anisocytosis 1+ Sodium 137 Potassium 4.1 Chloride 99 Carbon Dioxide 24.9 Anion Gap 13.1 H BUN 65 H Creatinine 1.9 H Estimated GFR/1.73 m2 37.41 Glucose 176 H Calcium 8.6 Total Bilirubin 0.6 AST 34 ALT 69 H Alkaline Phosphatase 492 H Total Protein 7.3 Albumin 1.9 L LDL Cholesterol Direct Amylase Urine Color Red Urine Clarity Cloudy Urine pH 5.5 Ur Specific [place] 1.015 Urine Protein 100 H Urine Ketones Negative Urine Blood Large H Urine Nitrite Negative Urine Bilirubin Negative Urine Urobilinogen 0.2 Ur Leukocyte Esterase Negative Urine RBC >50 H Urine WBC 0-2 Ur Epithelial Cells Few Urine Crystals Negative Urine Bacteria Negative Urine Casts Negative Urine Mucus Negative Ur Culture Indicated? No Urine Glucose Negative Fluid Source Fluid Color Fluid Clarity Fluid pH Fluid WBC Fld Polynuclear WBCs % Fluid Mononuclear Cell COVID-19 Source SARS-CoV-2 (PCR) 04/21/21 04/22/21 04/22/21 19:40 07:50 10:15 WBC RBC Hgb Hct MCV MCH MCHC RDW Plt Count MPV Immature Gran % Neutrophils % Lymphocytes % Monocytes % Eosinophils % Basophils % Nucleated RBC % Absolute Neutrophils Absolute Lymphocytes Absolute Monocytes Absolute Eosinophils Absolute Basophils RBC Morphology Anisocytosis Sodium Cancelled 143 Potassium Cancelled 3.0 L D Chloride Cancelled 107 Carbon Dioxide Cancelled 27.0 Anion Gap Cancelled 9.0 BUN Cancelled 42 H D Creatinine Cancelled 0.7 D Estimated GFR/1.73 m2 Cancelled >= 60.00 Glucose Cancelled 128 H Calcium Cancelled 7.9 L Total Bilirubin AST ALT Alkaline Phosphatase Total Protein Albumin LDL Cholesterol Direct Amylase 32 Urine Color Urine Clarity Urine pH Ur Specific [place] Urine Protein Urine Ketones Urine Blood Urine Nitrite Urine Bilirubin Urine Urobilinogen Ur Leukocyte Esterase Urine RBC Urine WBC Ur Epithelial Cells Urine Crystals Urine Bacteria Urine Casts Urine Mucus Ur Culture Indicated? Urine Glucose Fluid Source Fluid Color Fluid Clarity Fluid pH Fluid WBC Fld Polynuclear WBCs % Fluid Mononuclear Cell COVID-19 Source Nasal/Nares SARS-CoV-2 (PCR) Negative 04/22/21 04/22/21 04/22/21 11:00 12:50 12:50 WBC RBC Hgb Hct MCV MCH MCHC RDW Plt Count MPV Immature Gran % Neutrophils % Lymphocytes % Monocytes % Eosinophils % Basophils % Nucleated RBC % Absolute Neutrophils Absolute Lymphocytes Absolute Monocytes Absolute Eosinophils Absolute Basophils RBC Morphology Anisocytosis Sodium Potassium Chloride Carbon Dioxide Anion Gap BUN Creatinine Estimated GFR/1.73 m2 Glucose Calcium Total Bilirubin AST ALT Alkaline Phosphatase Total Protein 5.5 L Albumin 1.5 L LDL Cholesterol Direct 70 Amylase Urine Color Urine Clarity Urine pH Ur Specific [place] Urine Protein Urine Ketones Urine Blood Urine Nitrite Urine Bilirubin Urine Urobilinogen Ur Leukocyte Esterase Urine RBC Urine WBC Ur Epithelial Cells Urine Crystals Urine Bacteria Urine Casts Urine Mucus Ur Culture Indicated? Urine Glucose Fluid Source Pleural Pleural Fluid Color Colorless Fluid Clarity Purulent Fluid pH 6.0 Fluid WBC 40925 Fld Polynuclear WBCs % 93 Fluid Mononuclear Cell 7 COVID-19 Source SARS-CoV-2 (PCR)
[2021-04-22] MEDS: HYDROmorphone 2 MG/ML VIAL IVP (15:10)
[2021-04-22] MEDS: MORPHine 4 MG/ML SYR IVP ×4 (16:01→23:18)
[2021-04-22] MEDS: POTASSIUM CHLORIDE/D5-0.9%NACL 1,000 ML 100 MEQ IV (16:01)
--- NOTE | 2021-04-22 16:54 | W.ANESPOSTOP ---
Postoperative Evaluation Date, Time and Location Date Performed: 04/22/21 Time Performed: 14:00 Patient Location: Day Surgery Unit Vital Signs Most Recent Imported Vital Signs: Most Recent Vital Signs Temp Pulse Resp BP Pulse Ox 37.5 C 107 H 16 99/67 L 94 04/22/21 16:38 04/22/21 16:38 04/22/21 16:38 04/22/21 16:38 04/22/21 16:38 Pain Score Most Recent Pain Score: Most Recent Pain Score Pain Level 7 04/22/21 16:01 Assessment Mental Status: Awake (Alert & Oriented to Patient Baseline) Airway and Respiratory Function: Patent airway with normal (patient baseline) respiratory exam Cardiovascular Function: Hemodynamically Stable Hydration Status: Adequately Hydrated Nausea & Vomiting: No Nausea or Vomiting Pain: Pain is tolerable per patient Peripheral Nerve Block: Patient did not receive a nerve block
[2021-04-22] MEDS: AMPICILLIN/SULBACTAM 3 GM in Normal Saline 100 ML IVPB ×2 (17:22→23:18)
--- NOTE | 2021-04-22 17:30 | RT.EKG_ITS ---
APPROVED REPORT Exam: Resting ECG Reason for Exam: tachycardia Patient Location: I HR:116 bpm ECG Measurements Heart Rate 116 AXIS NM 158 P 48 QRSd 81 QRS 71 QT 327 T 77 QTc 455 Conclusion Sinus tachycardia...rate> 99 ST elevation, consider inferior injury...ST >0.08mV, II III aVF
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
[2021-04-22 22:31] LABS: Glucose, Fluid <20 mg/dL (See Note)
[2021-04-23] VITALS (11 sets, daily range): BP systolic 88–100; BP diastolic 50–67; PULSE 101–110; RESP 18–243; TEMP 36.9–37.7; O2SAT 93–96
[2021-04-23] MEDS: POTASSIUM CHLORIDE/D5-0.9%NACL 1,000 ML 100 MEQ IV ×3 (01:38→21:37)
[2021-04-23] MEDS: levETIRAcetam 1,000 MG in Normal Saline 100 ML 400 MG IVPB ×2 (03:52→14:28)
[2021-04-23] MEDS: MORPHine 4 MG/ML SYR IVP ×9 (04:13→22:14)
[2021-04-23] MEDS: AMPICILLIN/SULBACTAM 3 GM in Normal Saline 100 ML IVPB ×3 (06:07→18:26)
[2021-04-23 07:17] LABS: MCH 30.3 pg (27.0-33.0); MCV 97.6 fL (80-95); MPV 10.1 fL (8.0-11.0); Nucleated RBC 0 %; Platelet Count 185 10^3/uL (130-400); RBC 2.54 10^6/uL (4.36-5.78); RDW 20.5 % (11.8-14.1); RDW-SD 70.5 fL; WBC 9.41 10^3/uL (4.4-10.8)
[2021-04-23 07:20] LABS: HCT 24.8 % (40.0-50.0); HGB 7.7 g/dL (13.5-17.5)
--- NOTE | 2021-04-23 07:30 | W.PM.PROGNOT ---
Date of Service Date of service: 04/23/21 Time of Service: 07:31 Assessment and Plan Assessment and plan (1) Emphysema lung: Status: Acute Assessment and plan: Chest tube in place. Total 1600 out thus far. Pain currently well controlled Will restart tube feeds at 10cc/hr Will continue to monitor chest tube output, if drainage changes from serosanguinous to thick/milky will need to hold tube feeds. Qualifiers: Emphysema type: unilateral Qualified Code(s): J43.0 - Unilateral pulmonary emphysema [MacLeod's syndrome] Subjective Subjective Interval history since last seen: patient reports he is feeling okay this morning. He states that he was able to get some sleep through the night. He describes some discomfort around the chest tube. he expresses that his breathing feels 'better however he continues with a dry cough. Exam Const General: cooperative, healthy appearing and comfortable Orientation: alert and oriented x3 Resp Effort & Inspection: normal respiratory effort, no audible wheezes and no cough Other: Chest tube in place Objective Last Vital Signs Temp 37.4 C 04/23/21 00:03 Pulse 105 H 04/23/21 00:03 Resp 18 04/23/21 00:03 BP 90/60 L 04/23/21 00:03 Pulse Ox 93 04/23/21 00:03 Laboratory Results - last 24 hr 04/22/21 04/22/21 04/22/21 07:50 10:15 11:00 Sodium Cancelled 143 Potassium Cancelled 3.0 L D Chloride Cancelled 107 Carbon Dioxide Cancelled 27.0 Anion Gap Cancelled 9.0 BUN Cancelled 42 H D Creatinine Cancelled 0.7 D Estimated GFR/1.73 m2 Cancelled >= 60.00 Glucose Cancelled 128 H Calcium Cancelled 7.9 L Total Protein 5.5 L Albumin 1.5 L LDL Cholesterol Direct 70 Amylase 32 Fluid Source Fluid Color Fluid Clarity Fluid pH Fluid WBC Fld Polynuclear WBCs % Fluid Mononuclear Cell 04/22/21 04/22/21 12:50 12:50 Sodium Potassium Chloride Carbon Dioxide Anion Gap BUN Creatinine Estimated GFR/1.73 m2 Glucose Calcium Total Protein Albumin LDL Cholesterol Direct Amylase Fluid Source Pleural Pleural Fluid Color Colorless Fluid Clarity Purulent Fluid pH 6.0 Fluid WBC 71593 Fld Polynuclear WBCs % 93 Fluid Mononuclear Cell 7
[2021-04-23 07:39] LABS: Absolute Lymphocyte Count 0.28 10^3/uL (1.2-3.4); Absolute Neutrophil Count 9.13 10^3/uL (1.2-6.7); Anisocytosis 1+; Bands % 16; Diff Comment Manual Differential
[2021-04-23 07:46] LABS: ALT 58 U/L (16-63); AST 74 U/L (15-37); Albumin 1.2 g/dL (3.4-5.0); Alkaline Phosphatase 300 U/L (46-116); Anion Gap 9.2 mmol/L (3-11); BUN 22 mg/dL (7-18); Bilirubin, Total 0.7 mg/dL (0.2-1.0); CO2 26.8 mmol/L (21.0-32.0); CREATININE 0.7 mg/dL (0.70-1.30); Calcium 7.7 mg/dL (8.5-10.1); Chloride 112 mmol/L (98-107); Glucose 232 mg/dL (74-106); Potassium 3.6 mmol/L (3.5-5.1); Sodium 148 mmol/L (136-145)
--- NOTE | 2021-04-23 08:26 | W.PM.PROGNOT ---
Date of Service Date of service: 04/23/21 Time of Service: 08:26 Assessment and Plan Assessment and plan (1) Empyema lung: Status: Acute Assessment and plan: Large loculated left-sided empyema. Pleural studies yesterday are consistent with an empyema. Cultures pending at this time. Continue Unasyn antibiotic treatments. Pulmonology and surgery to discuss performing lytic therapy to the left pleural space to lyse the fibrin adhesions.. (2) Anemia: Status: Chronic Assessment and plan: Patient has anemia of chronic disease secondary to his cancer however he also has an acute 3 g drop in his hemoglobin. I will recheck his H&H and type and screen him and if it confirms that he is this anemic we will proceed with transfusion of 2 units of packed red cells. I have increased his Protonix to 40 mg twice a day however were not seeing any sign of acute GI bleeding. Qualifiers: Anemia type: unspecified type Qualified Code(s): D64.9 - Anemia, unspecified (3) Acute dehydration: Status: Acute Assessment and plan: continue iv fluid hydration. surgery is considering beginning TPN d/t his malnutrition. will monitor daily labs while on TPN. (4) Emphysema lung: Status: Acute Qualifiers: Emphysema type: unilateral Qualified Code(s): J43.0 - Unilateral pulmonary emphysema [MacLeod's syndrome] (5) Malfunction of gastrostomy tube: Status: Acute Assessment and plan: per review of his CT of his abdomen (I reviewed this w/ Dr. Weiss) the tube appears to be in good position. It is felt that his reflux and possible gastroparesis is bad enough to cause reflux even through his j tube. will give trial of reglan. Given the new finding of an empyema in the left chest it raises a question whether there is some fistula process causing tube feed leaking. (6) Esophageal cancer: Status: Acute Assessment and plan: he has wide spread metastatic disease (brain, liver and now lung). I consulted hospice to discuss their care options with him. His chemotherapy/immunotherapy is through Dr. Penaloza at [facility]. His treatments have only be palliative not curative, and at this point I do not see his treatments giving him any benefit. Qualifiers: Malignant neoplasm of esophagus location: lower third Qualified Code(s): C15.5 - Malignant neoplasm of lower third of esophagus (7) Protein-calorie malnutrition, moderate: Status: Acute Assessment and plan: surgery considering TPN until his j tube is functional. Subjective Subjective Interval history since last seen: Patient denies any shortness of breath. He has some mild left-sided chest discomfort with movement or with coughing. Chest tube is still draining purulent material but drainage is diminished. He only put out [address] Denson's going to discuss with the surgeons regarding performing lytic therapy to break up the fibrin loculation in his left-sided empyema. Overnight the patient's blood count dropped from 10.6 g down to 7.7 g. Patient denies any bloody bowel movements although he states he has hemorrhoids. The drainage from the chest tube does not appear to be sanguinous it just looks creamy colored. Patient is agreeable to transfusion if upon repeat blood count testing confirms that he is truly this anemic. While the patient has been receiving IV fluids he has not received enough volume because a 3 g dilution in his blood count. Exam Narrative Exam Narrative: Cachectic white male lying in bed in no acute distress. Lungs with diminished breath sounds at both bases with upper cha sounding clear. Heart is regular rate and rhythm Abdomen soft nondistended normal bowel sounds Rectal exam reveals normal sphincter tone with small amount light brown stool in the rectal vault that tests heme-negative. Objective Last Vital Signs Temp 37.4 C 04/23/21 00:03 Pulse 105 H 04/23/21 00:03 Resp 18 04/23/21 00:03 BP 90/60 L 04/23/21 00:03 Pulse Ox 93 04/23/21 00:03 Laboratory Results - last 24 hr 04/22/21 04/22/21 04/22/21 07:50 10:15 11:00 WBC RBC Hgb Hct MCV MCH MCHC RDW Plt Count MPV Immature Gran % Neutrophils % Band Neutrophils % Lymphocytes % Monocytes % Eosinophils % Basophils % Nucleated RBC % Absolute Neutrophils Absolute Lymphocytes Absolute Monocytes Absolute Eosinophils Absolute Basophils RBC Morphology Anisocytosis Sodium Cancelled 143 Potassium Cancelled 3.0 L D Chloride Cancelled 107 Carbon Dioxide Cancelled 27.0 Anion Gap Cancelled 9.0 BUN Cancelled 42 H D Creatinine Cancelled 0.7 D Estimated GFR/1.73 m2 Cancelled >= 60.00 Glucose Cancelled 128 H Calcium Cancelled 7.9 L Total Bilirubin AST ALT Alkaline Phosphatase Total Protein 5.5 L Albumin 1.5 L LDL Cholesterol Direct 70 Amylase 32 Fluid Source Fluid Color Fluid Clarity Fluid pH Fluid WBC Fld Polynuclear WBCs % Fluid Mononuclear Cell Fluid Glucose 04/22/21 04/22/21 04/22/21 12:50 12:50 12:50 WBC RBC Hgb Hct MCV MCH MCHC RDW Plt Count MPV Immature Gran % Neutrophils % Band Neutrophils % Lymphocytes % Monocytes % Eosinophils % Basophils % Nucleated RBC % Absolute Neutrophils Absolute Lymphocytes Absolute Monocytes Absolute Eosinophils Absolute Basophils RBC Morphology Anisocytosis Sodium Potassium Chloride Carbon Dioxide Anion Gap BUN Creatinine Estimated GFR/1.73 m2 Glucose Calcium Total Bilirubin AST ALT Alkaline Phosphatase Total Protein Albumin LDL Cholesterol Direct Amylase Fluid Source Pleural Pleural Fluid Color Colorless Fluid Clarity Purulent Fluid pH 6.0 Fluid WBC 84103 Fld Polynuclear WBCs % 93 Fluid Mononuclear Cell 7 Fluid Glucose <20 04/23/21 04/23/21 06:05 06:05 WBC 9.41 RBC 2.54 L Hgb 7.7 L D Hct 24.8 L D MCV 97.6 H MCH 30.3 MCHC 31.0 L RDW 20.5 H Plt Count 185 MPV 10.1 Immature Gran % 0.0 Neutrophils % 81.0 Band Neutrophils % 16 Lymphocytes % 3.0 Monocytes % 0.0 Eosinophils % 0.0 Basophils % 0.0 Nucleated RBC % 0 Absolute Neutrophils 9.13 H Absolute Lymphocytes 0.28 L Absolute Monocytes 0.00 L Absolute Eosinophils 0.00 Absolute Basophils 0.00 RBC Morphology See Below Anisocytosis 1+ Sodium 148 H Potassium 3.6 Chloride 112 H Carbon Dioxide 26.8 Anion Gap 9.2 BUN 22 H D Creatinine 0.7 Estimated GFR/1.73 m2 >= 60.00 Glucose 232 H D Calcium 7.7 L Total Bilirubin 0.7 AST 74 H ALT 58 Alkaline Phosphatase 300 H Total Protein 5.0 L Albumin 1.2 L LDL Cholesterol Direct Amylase Fluid Source Fluid Color Fluid Clarity Fluid pH Fluid WBC Fld Polynuclear WBCs % Fluid Mononuclear Cell Fluid Glucose
--- NOTE | 2021-04-23 08:31 | W.PULMPROG ---
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 The effusion was present on 04/07/21 but was not evaluated at that time. It has been redemonstrated on his recent scan 04/21/21. The effusion was initially tapped, then given inge purulent appearing fluid a 20F tube was placed. Initially the tube evacuated 1300cc, but over night it only put out 340cc. The CXR post tube yesterday demonstrates a remaining area of loculation that will not drain on its own. His studies thus far are consistent with empyema, given a pH of 6.0 [place] [address]. I changed his antibiotics to Unasyn yesterday for broad coverage and ordered a MRSA screen in case this could be staph (given recent hospitalizations). He should receive intrapleural lytics to try and allow drainage for the remaining loculated area. I will coordinate with pharmacy to have the medications available. I will also coordinate with surgery for education on the instillation procedure. Empyema - s/p 20F tube - recommend intrapleural lytic therapy - I will work on coordinating this with pharmacy and surgery - plan for repeat imaging after lytic course completed or with any clinic change - continue Unasyn - f/u remainder of fluid analyses - f/u MRSA screen - if positive will need to add MRSA coverage - chest tube to wall suction -[id number] - flushing chest tube q8 hours - adequate pain control per hospitalist service Emphysema - continue starting Spiriva - continue prn albuterol General Date Of Service Date of service: 04/23/21 Time of Service: 08:00 Requesting physician: Christophe Castillo Subjective Note Note: This is a 50-year-old man with metastatic esophageal cancer who was admitted to [facility] due to dehydration for the last several days. He was found to have regurgitation around his PEG tube with intact bowel function and no clear obstruction. Surgery was consulted to assist with management of this. I was consulted for the development of a large right sided pleural effusion. On review of his scans on a chest scan from 03/20/21 there was no effusion present. He then had a scan on 04/07/21 which showed interval devlopment of the large loculated right pleural effusion. This was then redemonstrated on his scan from 04/21/21. He had a pigtail chest tube placed by surgery with 1300 cc evacuation of pus. Overnight he only had 340cc of fluid removal. I can see on his CXR post tube that there is still an area of loculation. Today he is feeling okay but is in pain from the tube and his back. He continues to not have significant breathing troubles. Exam Narrative Exam Narrative: Chest tube in place. Tube interrogated and functioning appropriately. Wall suction -[id number] Const General: no acute distress Nutritional Appearance: cachectic HENOH Head: normocephalic Ears: external ears normal and no periauricular adenopathy General nose exam: nasal mucous membranes and turbinates normal Face and sinus: sinuses nontender Mouth: oropharynx normal and moist mucous membranes Teeth and gingiva: poor dentition Eyes General: appearance normal, both eyes and all related structures Pupils: PERRL Neck Neck: normal visual inspection and no lymphadenopathy Chest Chest: normal inspection of the chest Resp Effort & Inspection: normal respiratory effort Auscultation: clear to auscultation bilaterally, no rales, no rhonchi and no wheezes Cardio Rate: regular rate Rhythm: regular rhythm Heart Sounds: S1 normal, S2 normal and no murmurs Pulses: radial pulses present bilaterally GI Inspection: normal to inspection Palpation: soft Skin General skin exam: no rashes or lesions noted Neuro General: patient alert, patient awake and patient oriented x3 Extrem General: no clubbing, cyanosis or edema Psych Mental Status: mental status grossly normal Affect: normal affect Attitude: cooperative Objective Last Vital Signs Temp 37.4 C 04/23/21 00:03 Pulse 105 H 04/23/21 00:03 Resp 18 04/23/21 00:03 BP 90/60 L 04/23/21 00:03 Pulse Ox 93 04/23/21 00:03 Laboratory Results - last 24 hr 04/22/21 04/22/21 04/22/21 07:50 10:15 11:00 WBC RBC Hgb Hct MCV MCH MCHC RDW Plt Count MPV Immature Gran % Neutrophils % Band Neutrophils % Lymphocytes % Monocytes % Eosinophils % Basophils % Nucleated RBC % Absolute Neutrophils Absolute Lymphocytes Absolute Monocytes Absolute Eosinophils Absolute Basophils RBC Morphology Anisocytosis Sodium Cancelled 143 Potassium Cancelled 3.0 L D Chloride Cancelled 107 Carbon Dioxide Cancelled 27.0 Anion Gap Cancelled 9.0 BUN Cancelled 42 H D Creatinine Cancelled 0.7 D Estimated GFR/1.73 m2 Cancelled >= 60.00 Glucose Cancelled 128 H Calcium Cancelled 7.9 L Total Bilirubin AST ALT Alkaline Phosphatase Total Protein 5.5 L Albumin 1.5 L LDL Cholesterol Direct 70 Amylase 32 Fluid Source Fluid Color Fluid Clarity Fluid pH Fluid WBC Fld Polynuclear WBCs % Fluid Mononuclear Cell Fluid Glucose 04/22/21 04/22/21 04/22/21 12:50 12:50 12:50 WBC RBC Hgb Hct MCV MCH MCHC RDW Plt Count MPV Immature Gran % Neutrophils % Band Neutrophils % Lymphocytes % Monocytes % Eosinophils % Basophils % Nucleated RBC % Absolute Neutrophils Absolute Lymphocytes Absolute Monocytes Absolute Eosinophils Absolute Basophils RBC Morphology Anisocytosis Sodium Potassium Chloride Carbon Dioxide Anion Gap BUN Creatinine Estimated GFR/1.73 m2 Glucose Calcium Total Bilirubin AST ALT Alkaline Phosphatase Total Protein Albumin LDL Cholesterol Direct Amylase Fluid Source Pleural Pleural Fluid Color Colorless Fluid Clarity Purulent Fluid pH 6.0 Fluid WBC 97215 Fld Polynuclear WBCs % 93 Fluid Mononuclear Cell 7 Fluid Glucose <20 04/23/21 04/23/21 06:05 06:05 WBC 9.41 RBC 2.54 L Hgb 7.7 L D Hct 24.8 L D MCV 97.6 H MCH 30.3 MCHC 31.0 L RDW 20.5 H Plt Count 185 MPV 10.1 Immature Gran % 0.0 Neutrophils % 81.0 Band Neutrophils % 16 Lymphocytes % 3.0 Monocytes % 0.0 Eosinophils % 0.0 Basophils % 0.0 Nucleated RBC % 0 Absolute Neutrophils 9.13 H Absolute Lymphocytes 0.28 L Absolute Monocytes 0.00 L Absolute Eosinophils 0.00 Absolute Basophils 0.00 RBC Morphology See Below Anisocytosis 1+ Sodium 148 H Potassium 3.6 Chloride 112 H Carbon Dioxide 26.8 Anion Gap 9.2 BUN 22 H D Creatinine 0.7 Estimated GFR/1.73 m2 >= 60.00 Glucose 232 H D Calcium 7.7 L Total Bilirubin 0.7 AST 74 H ALT 58 Alkaline Phosphatase 300 H Total Protein 5.0 L Albumin 1.2 L LDL Cholesterol Direct Amylase Fluid Source Fluid Color Fluid Clarity Fluid pH Fluid WBC Fld Polynuclear WBCs % Fluid Mononuclear Cell Fluid Glucose Results Medications Medications: Active Medications Generic Name Dose Route Start Last Admin Trade Name Freq PRN Reason Stop Dose Admin Albuterol Sulfate 2 puff 04/21/21 20:40 Albuterol Hfa 8 Gm 60 Puff Inh IH Q6H PRN PRN shortness of breath or wheezing Device 1 each 04/21/21 21:00 Inhaler, Assist Device MC DIRECTED [facility] Dexamethasone 4 mg 04/22/21 08:30 04/22/21 19:49 Dexamethasone 4 Mg/Ml Vial IVP 4 mg BID GABY Administration Dimethicone/Zinc Oxide 0 gm 04/21/21 20:38 Dewey Protect Cream 142 Gm Tube TP PRN PRN Enoxaparin Sodium 40 mg 04/23/21 08:30 Enoxaparin 40 Mg/0.4 Ml Syr SC Q24H [facility] Acetaminophen 1,000 mg in 100 mls @ 400 mls/hr 04/21/21 23:31 04/22/21 20:05 Ofirmev IVPB Infused Q6H PRN PRN Infusion Potassium Chloride/Dextrose/Sod Cl 1,000 mls @ 100 mls/hr 04/22/21 14:30 04/23/21 01:38 Kcl 20meq/D5-0.9% Nacl IV 100 mls/hr INFUSION GABY Administration Levetiracetam 1,000 mg/ Sodium 110 mls @ 400 mls/hr 04/23/21 04:00 04/23/21 04:10 Chloride IVPB Infused Q12H GABY Infusion Ampicillin Sodium/Sulbactam 100 mls @ 200 mls/hr 04/23/21 00:00 04/23/21 06:07 Sodium 3 gm/ Sodium Chloride IVPB 200 mls/hr Q6H GABY Administration IV Miscellaneous Supplies 1 each 04/21/21 15:30 Iv Access IV DIRECTED GABY Metoclopramide HCl 10 mg 04/22/21 18:00 Metoclopramide 10 Mg/2 Ml Vial IVP Q6H PRN PRN Morphine Sulfate 2 - 4 mg 04/22/21 14:24 04/23/21 06:17 Morphine 4 Mg/Ml Syr IVP 4 mg Q1H PRN PRN Administration Pantoprazole Sodium 40 mg 04/23/21 08:00 Pantoprazole 40 Mg Vial IVP Q12H [facility] Sodium Chloride 0 ml 04/21/21 15:26 04/22/21 14:28 Normal Saline Flush 10 Ml Syr IVP 20 ml PRN PRN Administration Tiotropium [place] 2 puff 04/23/21 08:30 Tiotropium [place]-Respimat 10 Puff Inh IH DAILY GABY Allergies No Known Allergies Allergy (Verified 04/07/21 13:03) Labs Result Diagrams: 04/23/21 06:05 04/23/21 06:05 Labs: 04/21/21 23:45 Blood Blood Culture - Preliminary NO GROWTH 24 HOURS 04/21/21 00:05 Blood Blood Culture - Preliminary NO GROWTH 24 HOURS 04/22/21 12:30 Nose MRSA Screen - Pending 04/22/21 12:50 Pleural Body Fluid Culture - Pending 04/22/21 12:50 Pleural Gram Stain - Final 04/22/21 12:50 Pleural Anaerobic Culture - Pending Laboratory Tests Range/Units 04/21/21 04/21/21 04/21/21 15:52 15:52 17:20 WBC (4.4-10.8) 10^3/uL 10.73 RBC (4.36-5.78) 10^6/uL 3.48 L Hgb (13.5-17.5) g/dL 10.6 L Hct (40.0-50.0) % 32.7 L MCV (80-95) fL 94.0 MCH (27.0-33.0) pg 30.5 MCHC (32.0-36.0) % 32.4 RDW (11.8-14.1) % 20.1 H Plt Count (130-400) 10^3/uL 284 D MPV (8.0-11.0) fL 9.6 Immature Gran % 4.2 Neutrophils % 88.0 Band Neutrophils % Lymphocytes % 3.3 Monocytes % 3.9 Eosinophils % 0.0 Basophils % 0.6 Nucleated RBC % % 0 Absolute Neutrophils (1.2-6.7) 10^3/uL 9.45 H Absolute Lymphocytes (1.2-3.4) 10^3/uL 0.35 L Absolute Monocytes (0.1-0.8) 10^3/uL 0.42 Absolute Eosinophils (0.0-0.7) 10^3/uL 0.00 Absolute Basophils (0.0-0.2) 10^3/uL 0.06 RBC Morphology See Below Anisocytosis 1+ Sodium (136-145) mmol/L 137 Potassium (3.5-5.1) mmol/L 4.1 Chloride (98-107) mmol/L 99 Carbon Dioxide (21.0-32.0) mmol/L 24.9 Anion Gap (3-11) mmol/L 13.1 H BUN (7-18) mg/dL 65 H Creatinine (0.70-1.30) mg/dL 1.9 H Estimated GFR/1.73 m2 (mL/min/1.73m2) 37.41 Glucose (74-106) mg/dL 176 H Calcium (8.5-10.1) mg/dL 8.6 Total Bilirubin (0.2-1.0) mg/dL 0.6 AST (15-37) U/L 34 ALT (16-63) U/L 69 H Alkaline Phosphatase (46-116) U/L 492 H Total Protein (6.4-8.2) g/dL 7.3 Albumin (3.4-5.0) g/dL 1.9 L LDL Cholesterol Direct (<100) mg/dL Amylase (25-115) U/L Urine Color (Yellow) Red Urine Clarity (Clear) Cloudy Urine pH (5-8) 5.5 Ur Specific [place] (1.005-1.025) 1.015 Urine Protein (Negative) mg/dL 100 H Urine Ketones (Negative) mg/dL Negative Urine Blood (Negative) Large H Urine Nitrite (Negative) Negative Urine Bilirubin (Negative) Negative Urine Urobilinogen (Up TO 0.2) EU/dL 0.2 Ur Leukocyte Esterase (Negative) Negative Urine RBC (0-2) HPF >50 H Urine WBC (0-5) HPF 0-2 Ur Epithelial Cells (Negative) HPF Few Urine Crystals (Negative) HPF Negative Urine Bacteria (Negative) HPF Negative Urine Casts (Negative) LPF Negative Urine Mucus (Negative) Negative Ur Culture Indicated? No Urine Glucose (Negative) mg/dL Negative Fluid Source Fluid Color Fluid Clarity Fluid pH Fluid WBC (0) uL Fld Polynuclear WBCs % % Fluid Mononuclear Cell % Fluid Glucose (See Note) mg/dL COVID-19 Source SARS-CoV-2 (PCR) (Negative) Range/Units 04/21/21 04/22/21 04/22/21 19:40 07:50 10:15 WBC (4.4-10.8) 10^3/uL RBC (4.36-5.78) 10^6/uL Hgb (13.5-17.5) g/dL Hct (40.0-50.0) % MCV (80-95) fL MCH (27.0-33.0) pg MCHC (32.0-36.0) % RDW (11.8-14.1) % Plt Count (130-400) 10^3/uL MPV (8.0-11.0) fL Immature Gran % Neutrophils % Band Neutrophils % Lymphocytes % Monocytes % Eosinophils % Basophils % Nucleated RBC % % Absolute Neutrophils (1.2-6.7) 10^3/uL Absolute Lymphocytes (1.2-3.4) 10^3/uL Absolute Monocytes (0.1-0.8) 10^3/uL Absolute Eosinophils (0.0-0.7) 10^3/uL Absolute Basophils (0.0-0.2) 10^3/uL RBC Morphology Anisocytosis Sodium (136-145) mmol/L Cancelled 143 Potassium (3.5-5.1) mmol/L Cancelled 3.0 L D Chloride (98-107) mmol/L Cancelled 107 Carbon Dioxide (21.0-32.0) mmol/L Cancelled 27.0 Anion Gap (3-11) mmol/L Cancelled 9.0 BUN (7-18) mg/dL Cancelled 42 H D Creatinine (0.70-1.30) mg/dL Cancelled 0.7 D Estimated GFR/1.73 m2 (mL/min/1.73m2) Cancelled >= 60.00 Glucose (74-106) mg/dL Cancelled 128 H Calcium (8.5-10.1) mg/dL Cancelled 7.9 L Total Bilirubin (0.2-1.0) mg/dL AST (15-37) U/L ALT (16-63) U/L Alkaline Phosphatase (46-116) U/L Total Protein (6.4-8.2) g/dL Albumin (3.4-5.0) g/dL LDL Cholesterol Direct (<100) mg/dL Amylase (25-115) U/L 32 Urine Color (Yellow) Urine Clarity (Clear) Urine pH (5-8) Ur Specific [place] (1.005-1.025) Urine Protein (Negative) mg/dL Urine Ketones (Negative) mg/dL Urine Blood (Negative) Urine Nitrite (Negative) Urine Bilirubin (Negative) Urine Urobilinogen (Up TO 0.2) EU/dL Ur Leukocyte Esterase (Negative) Urine RBC (0-2) HPF Urine WBC (0-5) HPF Ur Epithelial Cells (Negative) HPF Urine Crystals (Negative) HPF Urine Bacteria (Negative) HPF Urine Casts (Negative) LPF Urine Mucus (Negative) Ur Culture Indicated? Urine Glucose (Negative) mg/dL Fluid Source Fluid Color Fluid Clarity Fluid pH Fluid WBC (0) uL Fld Polynuclear WBCs % % Fluid Mononuclear Cell % Fluid Glucose (See Note) mg/dL COVID-19 Source Nasal/Nares SARS-CoV-2 (PCR) (Negative) Negative Range/Units 04/22/21 04/22/21 04/22/21 11:00 12:50 12:50 WBC (4.4-10.8) 10^3/uL RBC (4.36-5.78) 10^6/uL Hgb (13.5-17.5) g/dL Hct (40.0-50.0) % MCV (80-95) fL MCH (27.0-33.0) pg MCHC (32.0-36.0) % RDW (11.8-14.1) % Plt Count (130-400) 10^3/uL MPV (8.0-11.0) fL Immature Gran % Neutrophils % Band Neutrophils % Lymphocytes % Monocytes % Eosinophils % Basophils % Nucleated RBC % % Absolute Neutrophils (1.2-6.7) 10^3/uL Absolute Lymphocytes (1.2-3.4) 10^3/uL Absolute Monocytes (0.1-0.8) 10^3/uL Absolute Eosinophils (0.0-0.7) 10^3/uL Absolute Basophils (0.0-0.2) 10^3/uL RBC Morphology Anisocytosis Sodium (136-145) mmol/L Potassium (3.5-5.1) mmol/L Chloride (98-107) mmol/L Carbon Dioxide (21.0-32.0) mmol/L Anion Gap (3-11) mmol/L BUN (7-18) mg/dL Creatinine (0.70-1.30) mg/dL Estimated GFR/1.73 m2 (mL/min/1.73m2) Glucose (74-106) mg/dL Calcium (8.5-10.1) mg/dL Total Bilirubin (0.2-1.0) mg/dL AST (15-37) U/L ALT (16-63) U/L Alkaline Phosphatase (46-116) U/L Total Protein (6.4-8.2) g/dL 5.5 L Albumin (3.4-5.0) g/dL 1.5 L LDL Cholesterol Direct (<100) mg/dL 70 Amylase (25-115) U/L Urine Color (Yellow) Urine Clarity (Clear) Urine pH (5-8) Ur Specific [place] (1.005-1.025) Urine Protein (Negative) mg/dL Urine Ketones (Negative) mg/dL Urine Blood (Negative) Urine Nitrite (Negative) Urine Bilirubin (Negative) Urine Urobilinogen (Up TO 0.2) EU/dL Ur Leukocyte Esterase (Negative) Urine RBC (0-2) HPF Urine WBC (0-5) HPF Ur Epithelial Cells (Negative) HPF Urine Crystals (Negative) HPF Urine Bacteria (Negative) HPF Urine Casts (Negative) LPF Urine Mucus (Negative) Ur Culture Indicated? Urine Glucose (Negative) mg/dL Fluid Source Pleural Fluid Color Fluid Clarity Fluid pH 6.0 Fluid WBC (0) uL Fld Polynuclear WBCs % % Fluid Mononuclear Cell % Fluid Glucose (See Note) mg/dL <20 COVID-19 Source SARS-CoV-2 (PCR) (Negative) Range/Units 04/22/21 04/23/21 04/23/21 12:50 06:05 06:05 WBC (4.4-10.8) 10^3/uL 9.41 RBC (4.36-5.78) 10^6/uL 2.54 L Hgb (13.5-17.5) g/dL 7.7 L D Hct (40.0-50.0) % 24.8 L D MCV (80-95) fL 97.6 H MCH (27.0-33.0) pg 30.3 MCHC (32.0-36.0) % 31.0 L RDW (11.8-14.1) % 20.5 H Plt Count (130-400) 10^3/uL 185 MPV (8.0-11.0) fL 10.1 Immature Gran % 0.0 Neutrophils % 81.0 Band Neutrophils % 16 Lymphocytes % 3.0 Monocytes % 0.0 Eosinophils % 0.0 Basophils % 0.0 Nucleated RBC % % 0 Absolute Neutrophils (1.2-6.7) 10^3/uL 9.13 H Absolute Lymphocytes (1.2-3.4) 10^3/uL 0.28 L Absolute Monocytes (0.1-0.8) 10^3/uL 0.00 L Absolute Eosinophils (0.0-0.7) 10^3/uL 0.00 Absolute Basophils (0.0-0.2) 10^3/uL 0.00 RBC Morphology See Below Anisocytosis 1+ Sodium (136-145) mmol/L 148 H Potassium (3.5-5.1) mmol/L 3.6 Chloride (98-107) mmol/L 112 H Carbon Dioxide (21.0-32.0) mmol/L 26.8 Anion Gap (3-11) mmol/L 9.2 BUN (7-18) mg/dL 22 H D Creatinine (0.70-1.30) mg/dL 0.7 Estimated GFR/1.73 m2 (mL/min/1.73m2) >= 60.00 Glucose (74-106) mg/dL 232 H D Calcium (8.5-10.1) mg/dL 7.7 L Total Bilirubin (0.2-1.0) mg/dL 0.7 AST (15-37) U/L 74 H ALT (16-63) U/L 58 Alkaline Phosphatase (46-116) U/L 300 H Total Protein (6.4-8.2) g/dL 5.0 L Albumin (3.4-5.0) g/dL 1.2 L LDL Cholesterol Direct (<100) mg/dL Amylase (25-115) U/L Urine Color (Yellow) Urine Clarity (Clear) Urine pH (5-8) Ur Specific [place] (1.005-1.025) Urine Protein (Negative) mg/dL Urine Ketones (Negative) mg/dL Urine Blood (Negative) Urine Nitrite (Negative) Urine Bilirubin (Negative) Urine Urobilinogen (Up TO 0.2) EU/dL Ur Leukocyte Esterase (Negative) Urine RBC (0-2) HPF Urine WBC (0-5) HPF Ur Epithelial Cells (Negative) HPF Urine Crystals (Negative) HPF Urine Bacteria (Negative) HPF Urine Casts (Negative) LPF Urine Mucus (Negative) Ur Culture Indicated? Urine Glucose (Negative) mg/dL Fluid Source Pleural Fluid Color Colorless Fluid Clarity Purulent Fluid pH Fluid WBC (0) uL 40226 Fld Polynuclear WBCs % % 93 Fluid Mononuclear Cell % 7 Fluid Glucose (See Note) mg/dL COVID-19 Source SARS-CoV-2 (PCR) (Negative)
--- NOTE | 2021-04-23 08:45 | RT.EKG_ITS ---
APPROVED REPORT Exam: Resting ECG Reason for Exam: STAT EKG Patient Location: I HR:108 bpm ECG Measurements Heart Rate 108 AXIS AL 162 P 55 QRSd 74 QRS 53 QT 333 T 75 QTc 447 Conclusion Sinus tachycardia...rate> 99 Low voltage, extremity leads...all extremity leads <0.5mV ST elev, probable normal early repol pattern...ST elevation, age<55
[2021-04-23] MEDS: Tiotropium Bromide-Respimat 10 PUFF INH 2 PUFF IH (09:12)
[2021-04-23] MEDS: Normal Saline Flush 10 ML SYR IVP ×3 (09:13→19:51)
[2021-04-23] MEDS: Pantoprazole 40 MG VIAL IVP ×2 (09:14→19:51)
[2021-04-23] MEDS: Dexamethasone 4 MG/ML VIAL IVP ×2 (09:14→19:51)
[2021-04-23] MEDS: Enoxaparin 40 MG/0.4 ML SYR SC (09:15)
[2021-04-23 09:19] LABS: HCT 24.7 % (40.0-50.0); HGB 7.5 g/dL (13.5-17.5)
[2021-04-23 09:35] LABS: Magnesium 2.1 mg/dL (1.8-2.4); PHOSPHORUS 2.6 mg/dL (2.6-4.7)
[2021-04-23 09:37] LABS: Iron 6 ug/dL (65-175); Total Iron Binding Capacity 81 ug/dL (250-450); Transferrin Sat 7 % (20-55)
[2021-04-23 09:38] LABS: LDH 339 U/L (85-227)
[2021-04-23 10:04] LABS: Ferritin 644 ng/mL (26-388)
[2021-04-23 10:05] LABS: Folate 18.8 ng/mL (8.6-20.0); Vitamin B12 > 2000 pg/mL (193-986)
[2021-04-23 13:15] LABS: Fluid Type PLEURAL; Protein,Total, BF 0.4 g/dL
[2021-04-23 13:16] LABS: Amylase, BF 9 U/L; Creatinine, BF 0.1 mg/dL; Fluid Type PLEURAL
[2021-04-23 13:17] LABS: Fluid Type: PLEURAL; Triglycerides, BF 93 mg/dL
[2021-04-23 15:19] LABS: Fluid Type PLEURAL; Lactate Dehydrogenase (LD), BF 2544 U/L
[2021-04-23] MEDS: Alteplase 2 MG VIAL 8 MG UD (16:00)
[2021-04-23 16:14] LABS: LDH 475 U/L (85-227)
--- NOTE | 2021-04-23 16:24 | W.PM.OP ---
Date of service: 04/23/21 Time of Service: 16:00 Operative Note Operative Note Intrpleural Lytic Instillation Dose 1/6 Chest tube interrogated and functioning properly with serosanguinous drainage. Chest tube clamped and alteplase (8mg in 50cc NS) and dornase (5mg in 30cc D5W) followed by 20cc NS flush were administered through the tube without complication. The patient tolerated the procedure well. Instillation completed at 16:17. Plan to unclamp chest tube at 17:17, which Dr. Peres will do.
--- NOTE | 2021-04-23 17:40 | CMPROGNOTE_ITS ---
- If Service Date Differs Date of service: 04/23/21 Time of Service: 17:40 Care Management Progress Note S/O: Vaughn remains at [facility], he will transition to inpatient status today, as he continues to require close monitoring at this time, chest tube remains in place. CM continues to follow. A: 50 year old male admitted to [facility] 04/21/21 for Dehydration P: Vaughn had a hospice consult with HANNY Dong from [facility] today. Anticipate he will meet with Iker again tomorrow to determine level of supports upon discharge. CM continues to follow.
--- NOTE | 2021-04-23 19:42 | WOUNDCONS ---
- If Service Date Differs Date of service: 04/23/21 Time of Service: 18:50 Wound Initial Evaluation Narrative: Patient is a 50 yom. He is admitted for dehydration. Patient has hx of cancer, and has a chest tube in situ. Goal of treatment was discussed. He stated that comfort was his goal, though healing would be comfortable. Patient has spent a lot of time on his back, and is encouraged to reposition frequently. 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 H&P allergies and labs were reviewed. - Wound Generalized Wound Type: Skin Tear, Partial Thickness (penal skin tear fungal erosion) Wound General Appearance: Reddened, Draining Wound Bed Greatest Portion: Pale [place] Wound Surrounding Tissue Appearance: Normal/Healthy Percent of Wound Bed Granulated/Red: 0 Percent of Wound Bed Slough/Yellow: 0 Percent of Wound Bed Eschar/Black: 0 Wound Length: 2.9 cm Wound Width: 3.2 cm Wound Depth: 0.2 cm Wound Drainage Amount: Minimal Wound Drainage Odor: None/Absent Wound Drainage Description: Serous Wound Topical Solution/Irrigant: Saline Irrigant Wound Debridement Method: Gauze Wound Debridement Amount of Tissue Removed: Minimal Left Lumbar/Sacral Wound Type: Pressure Ulcer Pressure Ulcer Stage: III Wound General Appearance: Draining, Unapproximated Wound Bed Greatest Portion: Red (Granulation) Wound Bed Lesser Portion: Yellow (Slough) Wound Surrounding Tissue Appearance: Dark Red, Edematous-pitting Percent of Wound Bed Granulated/Red: 60 Percent of Wound Bed Slough/Yellow: 40 Wound Length: 5.5 cm Wound Width: 1.5 cm Wound Depth: 0.3 cm Wound Drainage Amount: Minimal Wound Drainage Odor: None/Absent Wound Drainage Description: Bloody Wound Topical Solution/Irrigant: Saline Irrigant Wound Debridement Method: Gauze Wound Debridement Result: Necrotic Remains Wound Debridement Amount of Tissue Removed: Minimal Right Lumbar/Sacral Wound Type: Pressure Ulcer Pressure Ulcer Stage: III Wound General Appearance: Reddened, Draining, Bleeding, Unapproximated, Tendon Visible Wound Bed Greatest Portion: Red (Granulation) Wound Bed Lesser Portion: Yellow (Slough) Wound Surrounding Tissue Appearance: Dark Red Percent of Wound Bed Granulated/Red: 90 Percent of Wound Bed Slough/Yellow: 10 Wound Length: 0.6 cm Wound Width: 1.4 cm Wound Depth: 0.3 cm Wound Drainage Amount: Minimal Wound Drainage Odor: None/Absent Wound Drainage Description: Bloody Wound Topical Solution/Irrigant: Saline Irrigant Wound Debridement Method: Gauze Wound Debridement Result: Yellow Sloughing Remains Wound Debridement Amount of Tissue Removed: Minimal - Circulation, Sensation, Motion Sensation Description: Itching Skin Temperature: Warm Skin Color: Pale - Pain Pain Level: 8 Pain Scale Used: Visual Analog Scale 0-10 Pain Description: Sharp Pain Duration/Frequency: Constant Patient who has been non-compliant with repositioning. He has developed multiple pressure areas on his backside, mepliex will be applied for protection. He is strongly encouraged by wound nursing to offload pressure - Treatment/Dressing Change Topicals/Ointments: Other (heather cream) Dressing Types: Mepilex w/Border - Recomendation Recomendation:: Sacral wounds Clean with Normal Saline and gauze, pat dry. Apply Mepilex sacral for protection. Change every 3 days or PRN. Strongly encourage patient to reposition. Penal Erosion. clean with warm water and soap. Allow to dry. Apply triple ointment,(Heather Cream) to the affected area. Perform twice daily. Physcian/Nurse Practioner Notified: Yes (Dr. Peres)
[2021-04-23] MEDS: ACETAMINOPHEN 1,000 MG/100 ML BTL 400 MG IVPB (21:36)
[2021-04-23 22:28] LABS: HCT 25.5 % (40.0-50.0); HGB 7.9 g/dL (13.5-17.5)
[2021-04-24] VITALS (8 sets, daily range): BP systolic 94–132; BP diastolic 56–78; PULSE 82–98; RESP 16–20; TEMP 36.8–37.3; O2SAT 90–95
[2021-04-24] MEDS: AMPICILLIN/SULBACTAM 3 GM in Normal Saline 100 ML IVPB ×4 (00:30→17:56)
[2021-04-24] MEDS: Normal Saline Flush 10 ML SYR IVP ×4 (01:31→20:31)
[2021-04-24] MEDS: MORPHine 4 MG/ML SYR IVP ×7 (01:31→20:31)
[2021-04-24] MEDS: levETIRAcetam 1,000 MG in Normal Saline 100 ML 400 MG IVPB ×2 (01:32→16:02)
--- NOTE | 2021-04-24 07:37 | W.PM.PROGNOT ---
Date of Service Date of service: 04/24/21 Time of Service: 08:10 Assessment and Plan Assessment and plan (1) Emphysema lung: Status: Acute Assessment and plan: Chest tube in place. Serosanguinous drainage Tube feeds were restarted at 10cc/hr; Patient reports this was going well with syringe boluses. Pain is well controlled at this time. Qualifiers: Emphysema type: unilateral Qualified Code(s): J43.0 - Unilateral pulmonary emphysema [MacLeod's syndrome] Subjective Subjective Interval history since last seen: Patient reports that he is doing well today. He describes after some trouble shooting they were able to find a way to resume his tube feedings without having back flow. He expresses that his cough continues Exam Const General: cooperative, healthy appearing and comfortable Orientation: alert and oriented x3 Resp Effort & Inspection: normal respiratory effort, no audible wheezes and no cough Objective Last Vital Signs Temp 36.8 C 04/24/21 00:24 Pulse 98 H 04/24/21 00:24 Resp 18 04/24/21 00:56 BP 94/56 L 04/24/21 00:24 Pulse Ox 94 04/24/21 00:56 Laboratory Results - last 24 hr 04/22/21 04/22/21 04/22/21 11:00 12:50 12:50 WBC RBC Hgb Hct MCV MCH MCHC RDW Plt Count MPV Reticulocyte % (Auto) Immature Gran % Neutrophils % Band Neutrophils % Lymphocytes % Monocytes % Eosinophils % Basophils % Nucleated RBC % Absolute Neutrophils Absolute Lymphocytes Absolute Monocytes Absolute Eosinophils Absolute Basophils RBC Morphology Anisocytosis Sodium Potassium Chloride Carbon Dioxide Anion Gap BUN Creatinine Estimated GFR/1.73 m2 Glucose Calcium Phosphorus Magnesium Iron TIBC Transferrin % Sat Ferritin Total Bilirubin AST ALT Alkaline Phosphatase Lactate Dehydrogenase 475 H Total Protein 5.5 L Albumin 1.5 L LDL Cholesterol Direct Cancelled Vitamin B12 Folate Fluid Type PLEURAL PLEURAL Fluid Total Protein Fluid LDH Fluid Amylase 9 Fluid Creatinine Fluid Triglycerides 93 Path Cons Comment Patient ABO/Rh Antibody Screen Crossmatch 04/22/21 04/22/21 04/22/21 12:50 12:50 12:50 WBC RBC Hgb Hct MCV MCH MCHC RDW Plt Count MPV Reticulocyte % (Auto) Immature Gran % Neutrophils % Band Neutrophils % Lymphocytes % Monocytes % Eosinophils % Basophils % Nucleated RBC % Absolute Neutrophils Absolute Lymphocytes Absolute Monocytes Absolute Eosinophils Absolute Basophils RBC Morphology Anisocytosis Sodium Potassium Chloride Carbon Dioxide Anion Gap BUN Creatinine Estimated GFR/1.73 m2 Glucose Calcium Phosphorus Magnesium Iron TIBC Transferrin % Sat Ferritin Total Bilirubin AST ALT Alkaline Phosphatase Lactate Dehydrogenase Total Protein Albumin LDL Cholesterol Direct Vitamin B12 Folate Fluid Type PLEURAL PLEURAL Fluid Total Protein Fluid LDH 2544 Fluid Amylase Fluid Creatinine 0.1 Fluid Triglycerides Path Cons Comment SEE COMMENT Patient ABO/Rh Antibody Screen Crossmatch 04/22/21 04/23/21 04/23/21 12:50 06:05 06:05 WBC 9.41 RBC 2.54 L Hgb 7.7 L D Hct 24.8 L D MCV 97.6 H MCH 30.3 MCHC 31.0 L RDW 20.5 H Plt Count 185 MPV 10.1 Reticulocyte % (Auto) Immature Gran % 0.0 Neutrophils % 81.0 Band Neutrophils % 16 Lymphocytes % 3.0 Monocytes % 0.0 Eosinophils % 0.0 Basophils % 0.0 Nucleated RBC % 0 Absolute Neutrophils 9.13 H Absolute Lymphocytes 0.28 L Absolute Monocytes 0.00 L Absolute Eosinophils 0.00 Absolute Basophils 0.00 RBC Morphology See Below Anisocytosis 1+ Sodium 148 H Potassium 3.6 Chloride 112 H Carbon Dioxide 26.8 Anion Gap 9.2 BUN 22 H D Creatinine 0.7 Estimated GFR/1.73 m2 >= 60.00 Glucose 232 H D Calcium 7.7 L Phosphorus Magnesium Iron TIBC Transferrin % Sat Ferritin Total Bilirubin 0.7 AST 74 H ALT 58 Alkaline Phosphatase 300 H Lactate Dehydrogenase Total Protein 5.0 L Albumin 1.2 L LDL Cholesterol Direct Vitamin B12 Folate Fluid Type PLEURAL Fluid Total Protein 0.4 Fluid LDH Fluid Amylase Fluid Creatinine Fluid Triglycerides Path Cons Comment Patient ABO/Rh Antibody Screen Crossmatch 04/23/21 04/23/21 04/23/21 06:05 08:55 08:55 WBC RBC Hgb Hct MCV MCH MCHC RDW Plt Count MPV Reticulocyte % (Auto) Immature Gran % Neutrophils % Band Neutrophils % Lymphocytes % Monocytes % Eosinophils % Basophils % Nucleated RBC % Absolute Neutrophils Absolute Lymphocytes Absolute Monocytes Absolute Eosinophils Absolute Basophils RBC Morphology Anisocytosis Sodium Potassium Chloride Carbon Dioxide Anion Gap BUN Creatinine Estimated GFR/1.73 m2 Glucose Calcium Phosphorus 2.6 Magnesium 2.1 Iron 6 L TIBC 81 L Transferrin % Sat 7 L Ferritin 644 H Total Bilirubin AST ALT Alkaline Phosphatase Lactate Dehydrogenase 339 H Total Protein Albumin LDL Cholesterol Direct Vitamin B12 Folate Fluid Type Fluid Total Protein Fluid LDH Fluid Amylase Fluid Creatinine Fluid Triglycerides Path Cons Comment Patient ABO/Rh Antibody Screen Crossmatch 04/23/21 04/23/21 04/23/21 08:55 08:55 08:55 WBC RBC Hgb 7.5 L Hct 24.7 L MCV MCH MCHC RDW Plt Count MPV Reticulocyte % (Auto) 2.0 Immature Gran % Neutrophils % Band Neutrophils % Lymphocytes % Monocytes % Eosinophils % Basophils % Nucleated RBC % Absolute Neutrophils Absolute Lymphocytes Absolute Monocytes Absolute Eosinophils Absolute Basophils RBC Morphology Anisocytosis Sodium Potassium Chloride Carbon Dioxide Anion Gap BUN Creatinine Estimated GFR/1.73 m2 Glucose Calcium Phosphorus Magnesium Iron TIBC Transferrin % Sat Ferritin Total Bilirubin AST ALT Alkaline Phosphatase Lactate Dehydrogenase Total Protein Albumin LDL Cholesterol Direct Vitamin B12 > 2000 H Folate 18.8 Fluid Type Fluid Total Protein Fluid LDH Fluid Amylase Fluid Creatinine Fluid Triglycerides Path Cons Comment Patient ABO/Rh O Negative Antibody Screen NEGATIVE Crossmatch See Detail 04/23/21 04/23/21 20:00 22:20 WBC RBC Hgb Cancelled 7.9 L Hct Cancelled 25.5 L MCV MCH MCHC RDW Plt Count MPV Reticulocyte % (Auto) Immature Gran % Neutrophils % Band Neutrophils % Lymphocytes % Monocytes % Eosinophils % Basophils % Nucleated RBC % Absolute Neutrophils Absolute Lymphocytes Absolute Monocytes Absolute Eosinophils Absolute Basophils RBC Morphology Anisocytosis Sodium Potassium Chloride Carbon Dioxide Anion Gap BUN Creatinine Estimated GFR/1.73 m2 Glucose Calcium Phosphorus Magnesium Iron TIBC Transferrin % Sat Ferritin Total Bilirubin AST ALT Alkaline Phosphatase Lactate Dehydrogenase Total Protein Albumin LDL Cholesterol Direct Vitamin B12 Folate Fluid Type Fluid Total Protein Fluid LDH Fluid Amylase Fluid Creatinine Fluid Triglycerides Path Cons Comment Patient ABO/Rh Antibody Screen Crossmatch
[2021-04-24] MEDS: Dexamethasone 4 MG/ML VIAL IVP ×2 (09:16→20:31)
[2021-04-24] MEDS: Enoxaparin 40 MG/0.4 ML SYR SC (09:16)
[2021-04-24] MEDS: Pantoprazole 40 MG VIAL IVP ×2 (09:17→20:31)
[2021-04-24] MEDS: Alteplase 2 MG VIAL 8 MG UD ×2 (10:10→18:15)
--- NOTE | 2021-04-24 10:10 | W.PM.OP ---
Date of service: 04/24/21 Time of Service: 10:10 Operative Note Operative Note DATE OF PROCEDURE: 04/22/21 PRE-OP DIAGNOSIS: loculated empyema [employer] TENDER: Vicenta Montoya Refer to Anesthesia Record Procedure Description: Right chest tube was interrogated and functioning properly with serosanguinous drainage. Chest tube clamped and alteplase (8mg in 50cc NS) and dornase (5mg in 30cc D5W) followed by 20cc NS flush were administered through the tube via a 3 way stop cock without complication. The patient tolerated the procedure well. Instillation completed at 9:50 a.m. I will return to unclamp his chest tube at 10:50 a.m.
--- NOTE | 2021-04-24 11:30 | DI.RAD_ITS ---
Exam(s) XR PORTABLE CHEST AP EXAM: XR PORTABLE CHEST AP CLINICAL HISTORY: chest pain TECHNIQUE: 2D digital imaging was performed. COMPARISON: CR XR PORTABLE CHEST AP from 04/11/[address] ABDOMEN PELVIS W from 04/21/[address] ABDOMEN PELVIS W from 04/21/2021 CR XR PORTABLE CHEST AP POST LINE from 04/22/2021 FINDINGS: Heart size is normal. A right-sided chest tube is present, unchanged in position. There is a smal l adjacent pneumothorax seen at the right costophrenic angle, unchanged from the previous exam. The amount of subcutaneous air has decreased. There is been significant interval worsening of bilateral infiltrates, now diffuse but greater in the lower lobes. Increased densities in the lower lobes may also be in part secondary to atelectasis.. IMPRESSION: Significant interval worsening of bilateral infiltrates. DATA REPOSITORY: RADIATION DOSE DELIVERED:
--- NOTE | 2021-04-24 12:11 | CMPROGNOTE_ITS ---
- If Service Date Differs Date of service: 04/24/21 Time of Service: 15:49 Care Management Progress Note S/O: Vaughn remains at [facility], he continues to struggle with goals of care discussions and reports he intends on lining up hospice if we roll that way but continuing on the treatment path at this time. CM inquired if he was hoping for the best while preparing for the worst. Vaughn confirmed exactly. He stated he has alot going on medically and worries that his body is beginning to fail. [facility] reports Vaughn could be accepted to Hospice as a full code, but would need to commit to stopping additional treatments; Vaughn verbalized understanding of this component. CM continues to follow. A: 50 year old male admitted to [facility] 04/21/21 for Dehydration P: Vaughn remains at [facility], advocating for continued treatment. He was able to discuss the likelihood of his with his and [facility] yesterday, yet continues to seek treatment at this time. CM continues to follow.
--- NOTE | 2021-04-24 12:13 | W.PM.PROGNOT ---
Date of Service Date of service: 04/24/21 Time of Service: 09:30 Assessment and Plan Assessment and plan (1) Empyema lung: Status: Acute Assessment and plan: Continue dornase and TN K infusions via chest tube every 12 hours for total of 6 doses. This morning will be dosed #2. Either myself or Dr. Sorenson will continue to give the infusions. A three-way stopcock was placed on the chest tube this morning by Dr. Sorenson however there was some problems getting the proper syringe to fit the opening systolic cart. I have asked pharmacy and nursing to resolve this. Continue Unasyn. (2) Anemia: Status: Chronic Assessment and plan: Patient received a transfusion of 1 unit packed red cells yesterday. His repeat hemoglobin is still pending from this morning. However last night it was rechecked and came up to 7.9 g. Patient has low iron stores I will start him on some parenteral iron infusions.. Qualifiers: Anemia type: unspecified type Qualified Code(s): D64.9 - Anemia, unspecified (3) Acute dehydration: Status: Acute Assessment and plan: surgery had been considering TPN however per Dr. Sorenson, she was able to get the J tube to function yesterday. She felt that if the tube is held upright that this would prevent kinking of the tube. She put in small aliquots w/out the tube feedings coming back. I will defer to surgery as to whether or not we should start him on TPN or if he can get enough of his tube feedings in. (4) Emphysema lung: Status: Acute Qualifiers: Emphysema type: unilateral Qualified Code(s): J43.0 - Unilateral pulmonary emphysema [MacLeod's syndrome] (5) Malfunction of gastrostomy tube: Status: Acute Assessment and plan: per review of his CT of his abdomen (I reviewed this w/ Dr. Weiss) the tube appears to be in good position. It is felt that his reflux and possible gastroparesis is bad enough to cause reflux even through his j tube. will give trial of reglan. Given the new finding of an empyema in the left chest it raises a question whether there is some fistula process causing tube feed leaking. (6) Esophageal cancer: Status: Acute Assessment and plan: he has wide spread metastatic disease (brain, liver and now lung). I consulted hospice to discuss their care options with him. His chemotherapy/immunotherapy is through Dr. Penaloza at [facility]. His treatments have only be palliative not curative, and at this point I do not see his treatments giving him any benefit. 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 Sorenson yesterday indicated that she was able to push small volume through his J tube. (8) DVT prophylaxis: Status: Acute Assessment and plan: enoxaparin 40 mg SC daily Subjective Subjective Interval history since last seen: Patient complained of some increased right infrascapular pain this morning. Patient is scheduled to have repeat dornase and TN K infused into his chest tube to help lyse the fibrinous pleural effusion. Chest tube drainage had only 111 mL overnight. Still draining serous creamy colored fluid Exam Narrative Exam Narrative: Cachectic white male lying in bed in upright position. Lungs clear anteriorly however posteriorly the right lung base with diminished breath sounds left lung base is clear Heart is regular rate and rhythm Abdomen is scaphoid soft and nontender with a J-tube in place. Extremities without peripheral edema or cyanosis Objective Last Vital Signs Temp 36.9 C 04/24/21 08:31 Pulse 82 04/24/21 08:31 Resp 16 04/24/21 08:31 BP 132/78 04/24/21 08:31 Pulse Ox 90 L 04/24/21 08:31 Laboratory Results - last 24 hr 04/22/21 04/22/21 04/22/21 11:00 12:50 12:50 Hgb Hct Lactate Dehydrogenase 475 H Total Protein 5.5 L Albumin 1.5 L LDL Cholesterol Direct Cancelled Fluid Type PLEURAL PLEURAL Fluid Source Fluid Color Fluid Clarity Fluid WBC Fld Polynuclear WBCs % Fluid Mononuclear Cell Fluid Total Protein Fluid LDH Fluid Amylase 9 Fluid Creatinine Fluid Triglycerides 93 Path Cons Comment Patient ABO/Rh Antibody Screen Crossmatch 04/22/21 04/22/21 04/22/21 12:50 12:50 12:50 Hgb Hct Lactate Dehydrogenase Total Protein Albumin LDL Cholesterol Direct Fluid Type PLEURAL PLEURAL Fluid Source Pleural Fluid Color Colorless Fluid Clarity Purulent Fluid WBC 66996 Fld Polynuclear WBCs % 93 Fluid Mononuclear Cell 7 Fluid Total Protein Fluid LDH 2544 Fluid Amylase Fluid Creatinine 0.1 Fluid Triglycerides Path Cons Comment SEE COMMENT Patient ABO/Rh Antibody Screen Crossmatch 04/22/21 04/23/21 04/23/21 12:50 08:55 20:00 Hgb Cancelled Hct Cancelled Lactate Dehydrogenase Total Protein Albumin LDL Cholesterol Direct Fluid Type PLEURAL Fluid Source Fluid Color Fluid Clarity Fluid WBC Fld Polynuclear WBCs % Fluid Mononuclear Cell Fluid Total Protein 0.4 Fluid LDH Fluid Amylase Fluid Creatinine Fluid Triglycerides Path Cons Comment Patient ABO/Rh O Negative Antibody Screen NEGATIVE Crossmatch See Detail 04/23/21 22:20 Hgb 7.9 L Hct 25.5 L Lactate Dehydrogenase Total Protein Albumin LDL Cholesterol Direct Fluid Type Fluid Source Fluid Color Fluid Clarity Fluid WBC Fld Polynuclear WBCs % Fluid Mononuclear Cell Fluid Total Protein Fluid LDH Fluid Amylase Fluid Creatinine Fluid Triglycerides Path Cons Comment Patient ABO/Rh Antibody Screen Crossmatch
[2021-04-24 13:23] LABS: Abs Immature Grans 0.32 10^3/uL (0.0-0.06); Absolute Basophil Count 0.03 10^3/uL (0.0-0.2); Absolute Lymphocyte Count 0.22 10^3/uL (1.2-3.4); Absolute Monocyte Count 0.18 10^3/uL (0.1-0.8); Basophils % 0.3; HCT 25.9 % (40.0-50.0); HGB 7.9 g/dL (13.5-17.5); Immature Grans % 2.9; MCH 29.6 pg (27.0-33.0); MCHC 30.5 % (32.0-36.0); MPV 10.1 fL (8.0-11.0); Monocytes % 1.6; Neutrophils % 93.2; Nucleated RBC 0 %; Platelet Count 168 10^3/uL (130-400); RBC 2.67 10^6/uL (4.36-5.78); RDW 20.9 % (11.8-14.1); RDW-SD 70.6 fL; WBC 11.21 10^3/uL (4.4-10.8)
[2021-04-24 13:25] LABS: Absolute Neutrophil Count 10.45 10^3/uL (1.2-6.7)
[2021-04-24 13:28] LABS: Anion Gap 7.1 mmol/L (3-11); BUN 12 mg/dL (7-18); CO2 25.9 mmol/L (21.0-32.0); CREATININE 0.5 mg/dL (0.70-1.30); Calcium 7.8 mg/dL (8.5-10.1); Chloride 113 mmol/L (98-107); Glucose 119 mg/dL (74-106); Potassium 4.1 mmol/L (3.5-5.1); Sodium 146 mmol/L (136-145)
[2021-04-24 13:36] LABS: Anisocytosis 2+; Diff Comment RBC Morph Reviewed
[2021-04-24] MEDS: IRON SUCROSE COMPLEX 300 MG in Normal Saline 250 ML 167 MG IVPB (14:22)
[2021-04-24] MEDS: Tiotropium Bromide-Respimat 10 PUFF INH 2 PUFF IH (14:24)
[2021-04-24] MEDS: ALBUMIN HUMAN 25 GM/100 ML BTL IV ×2 (14:59→22:44)
[2021-04-24 15:09] LABS: Cholesterol (BF) 129 mg/dL; Fluid Type PLEURAL; Triglyceride (BF) 131 mg/dL
--- NOTE | 2021-04-24 18:24 | W.PM.OP ---
Date of service: 04/24/21 Time of Service: 18:24 Operative Note Operative Note DATE OF PROCEDURE: 04/22/21 SURGEON: Robby Peres Refer to Anesthesia Record Indications: Loculated right-sided empyema Procedure Description: Right chest tube was interrogated and functioning properly with serosanguinous drainage. Chest tube clamped and alteplase (8mg in 50cc NS) and dornase (5mg in 30cc D5W) followed by 20cc NS flush were administered through the tube via a 3 way stop cock without complication. The patient tolerated the procedure well. Instillation completed at 18:25. I will return to unclamp his chest tube at 19:25.
[2021-04-25] VITALS (8 sets, daily range): BP systolic 99–108; BP diastolic 62–67; PULSE 100–107; RESP 8–21; TEMP 36.6–37.1; O2SAT 77–96
[2021-04-25] MEDS: Normal Saline Flush 10 ML SYR IVP ×6 (00:20→23:49)
[2021-04-25] MEDS: AMPICILLIN/SULBACTAM 3 GM in Normal Saline 100 ML IVPB ×5 (00:30→23:48)
[2021-04-25] MEDS: levETIRAcetam 1,000 MG in Normal Saline 100 ML 400 MG IVPB ×2 (01:37→14:32)
[2021-04-25] MEDS: MORPHine 4 MG/ML SYR IVP ×6 (01:44→21:47)
[2021-04-25] MEDS: ALBUMIN HUMAN 25 GM/100 ML BTL IV (06:18)
[2021-04-25 07:09] LABS: Abs Immature Grans 0.31 10^3/uL (0.0-0.06); Absolute Basophil Count 0.02 10^3/uL (0.0-0.2); Absolute Lymphocyte Count 0.34 10^3/uL (1.2-3.4); Absolute Monocyte Count 0.26 10^3/uL (0.1-0.8); Absolute Neutrophil Count 8.59 10^3/uL (1.2-6.7); Basophils % 0.2; HCT 23.8 % (40.0-50.0); HGB 7.4 g/dL (13.5-17.5); Immature Grans % 3.3; Lymphocytes % 3.6; MCHC 31.1 % (32.0-36.0); MCV 96.4 fL (80-95); MPV 10.5 fL (8.0-11.0); Monocytes % 2.7; Neutrophils % 90.2; Nucleated RBC 1 %; Platelet Count 165 10^3/uL (130-400); RBC 2.47 10^6/uL (4.36-5.78); RDW 20.3 % (11.8-14.1); RDW-SD 69.6 fL; WBC 9.52 10^3/uL (4.4-10.8)
[2021-04-25 07:28] LABS: Anion Gap 8.7 mmol/L (3-11); BUN 9 mg/dL (7-18); CO2 26.3 mmol/L (21.0-32.0); CREATININE 0.5 mg/dL (0.70-1.30); Calcium 7.9 mg/dL (8.5-10.1); Chloride 110 mmol/L (98-107); Glucose 96 mg/dL (74-106); Potassium 3.7 mmol/L (3.5-5.1); Sodium 145 mmol/L (136-145)
[2021-04-25 07:58] LABS: Anisocytosis 2+; Diff Comment RBC Morph Reviewed
[2021-04-25 07:59] LABS: Poikilocytes 1+; Polychromasia Present
[2021-04-25] MEDS: Enoxaparin 40 MG/0.4 ML SYR SC (08:06)
[2021-04-25] MEDS: Dexamethasone 4 MG/ML VIAL IVP ×2 (08:06→20:37)
[2021-04-25] MEDS: Pantoprazole 40 MG VIAL IVP ×2 (08:07→20:36)
--- NOTE | 2021-04-25 09:30 | W.PM.OP ---
Date of service: 04/25/21 Time of Service: 09:30 Operative Note Operative Note DATE OF PROCEDURE: 04/22/21 PRE-OP DIAGNOSIS: right sided loculated empyema POST-OP DIAGNOSIS: same SURGEON: Robby Peres Refer to Anesthesia Record COMPLICATIONS: None Procedure Description: Right chest tube was interrogated and functioning properly with serosanguinous drainage. 650 mL drainage overnight from 7 pm to 7 am. Chest tube clamped and alteplase (8mg in 50cc NS) and dornase (5mg in 30cc D5W) followed by 20cc NS flush were administered through the tube via a 3 way stop cock without complication. The patient tolerated the procedure well. Instillation completed at 09:27 am I will return to unclamp his chest tube at 10:27 am.
[2021-04-25] MEDS: Alteplase 2 MG VIAL 8 MG UD ×2 (10:01→20:15)
[2021-04-25] MEDS: Tiotropium Bromide-Respimat 10 PUFF INH 2 PUFF IH (10:04)
--- NOTE | 2021-04-25 14:31 | CHAPLAIN ---
Vaughn was in bed when I visited. He said he's doing ok. He thinks he is in a good place, not a great place, but a good place. He speaks with his by phone. He is from [place], so his family is out there. I gave him a [place] prayer shawl and he said that made him happy.
[2021-04-25] MEDS: IRON SUCROSE COMPLEX 300 MG in Normal Saline 250 ML 167 MG IVPB (14:32)
--- NOTE | 2021-04-25 15:17 | PGE_ITS ---
Date of Service Date of service: 04/25/21 Time of Service: 15:00 Assessment and Plan Assessment and plan (1) Empyema lung: Status: Acute Assessment and plan: Present on admission. Fluid cx with E. Coli (pansensitive) and an anaerobic gram positive nakul, speciation still pending. Receiving dornase and TNK infusions via chest tube every 12 hours (6 doses total). Continue unasyn. (2) Anemia: Status: Chronic Assessment and plan: S/p transfusion of 1 unit pRBCs on 04/23/21. Receiving intravenous iron. Monitor H/H as well as close monitoring of the pleural fluid for bleeding. Qualifiers: Anemia type: unspecified type Qualified Code(s): D64.9 - Anemia, unspecified (3) Acute dehydration: Status: Acute Assessment and plan: Consider TPN. Not currently on IVF. Receiving TF, but himself stopping infusions overnight. His clinical exam and labs are showing mild dehydration. Will start gentle IVF. (4) Emphysema lung: Status: Acute Assessment and plan: continue spiriva, prn albuterol Qualifiers: Emphysema type: unilateral Qualified Code(s): J43.0 - Unilateral pulmonary emphysema [MacLeod's syndrome] (5) Malfunction of gastrostomy tube: Status: Acute Assessment and plan: Tolerating TFs at this point. (6) Esophageal cancer: Status: Acute Assessment and plan: Agree that his cancer therapy are not likely to benefit him at this point. Palliative care and ethics consults have been requested. The patient remains full code at this time. Qualifiers: Malignant neoplasm of esophagus location: lower third Qualified Code(s): C15.5 - Malignant neoplasm of lower third of esophagus (7) Protein-calorie malnutrition, moderate: Status: Acute Assessment and plan: J tube functional, per nursing. I do think that, with patient holding his TFs overnight, TPN can still be considered. (8) DVT prophylaxis: Status: Acute Assessment and plan: enoxaparin 40 mg SC daily Subjective Subjective Interval history since last seen: Mr Simpson states that he is feeling ok right now. He was short of breath earlier today, but not right now. He has been coughing and bringing up sputum. Denies dizziness, endorses chest pain when coughing or moving. Denies n/v. Had his TF held last night. I asked Vaughn today if we are doing anything to him that he does not want done. He said no, and he wants us to continue doing everything we are doing. He acknowledged that the instillations of the medication into his tube are painful and that it hurts for about 45 minutes, but that this is not to the point that he would want us to stop these infusions. He feels that his pain is well managed and does not want me to adjust his pain medications. I offered to speak with his family, and the patient asked me to please, speak with his Nichelle - [phone]. He had said that he tried to explain ever ything to her, but that she had not yet heard from a provide and would appreciate it. I spoke with her, explaining what we are doing with the instillations of the medications into the chest tube. We discussed that he is in good spirits. I also inquired if she felt that Mr Simpson understood the extent of his disease and his prognosis, and she said that she felt that he did, but just chose to focus on the positive. He is a fighter kind of denilson. I answered all questions. I also discussed the case with Dr Kim today, specifically to ensure that we are not pursuing any treatments that would be futile. Dr Kim feels that there is continued benefit from administering thrombolytics through the chest tube and that the treatments are not futile. Exam Narrative Exam Narrative: General: Pleasant cachectic middle-aged male who is weaker and more frail than the last time I saw him, A&Ox3, tired HEENT: EOMI, MMM Heart: RRR, mildly tachycardic (90s) Lungs: diminished breath sounds anteriorly, chest tube on R with serosanguenous drainage. Abdomen: soft, nontender, nondistended Extremities: no edema BLE's Objective Last Vital Signs Temp 36.8 C 04/25/21 08:06 Pulse 101 H 04/25/21 08:06 Resp 16 04/25/21 11:37 BP 107/67 04/25/21 08:06 Pulse Ox 89 L 04/25/21 08:06 Laboratory Results - last 24 hr 04/22/21 04/23/21 04/25/21 12:50 08:55 06:15 WBC RBC Hgb Hct MCV MCH MCHC RDW Plt Count MPV Immature Gran % Neutrophils % Lymphocytes % Monocytes % Eosinophils % Basophils % Nucleated RBC % Absolute Neutrophils Absolute Lymphocytes Absolute Monocytes Absolute Eosinophils Absolute Basophils RBC Morphology Polychromasia Poikilocytosis Anisocytosis Sodium 145 Potassium 3.7 Chloride 110 H Carbon Dioxide 26.3 Anion Gap 8.7 BUN 9 Creatinine 0.5 L Estimated GFR/1.73 m2 >= 60.00 Glucose 96 Calcium 7.9 L Fluid Type PLEURAL Fluid Cholesterol 129 Fluid Triglycerides 131 Fluid Comment See Comment Crossmatch See Detail 04/25/21 06:15 WBC 9.52 RBC 2.47 L Hgb 7.4 L Hct 23.8 L MCV 96.4 H MCH 30.0 MCHC 31.1 L RDW 20.3 H Plt Count 165 MPV 10.5 Immature Gran % 3.3 Neutrophils % 90.2 Lymphocytes % 3.6 Monocytes % 2.7 Eosinophils % 0.0 Basophils % 0.2 Nucleated RBC % 1 Absolute Neutrophils 8.59 H Absolute Lymphocytes 0.34 L Absolute Monocytes 0.26 Absolute Eosinophils 0.00 Absolute Basophils 0.02 RBC Morphology See Below Polychromasia Present Poikilocytosis 1+ Anisocytosis 2+ Sodium Potassium Chloride Carbon Dioxide Anion Gap BUN Creatinine Estimated GFR/1.73 m2 Glucose Calcium Fluid Type Fluid Cholesterol Fluid Triglycerides Fluid Comment Crossmatch
--- NOTE | 2021-04-25 15:35 | W.PM.PROGNOT ---
Date of Service Date of service: 04/25/21 Time of Service: 12:36 Assessment and Plan Assessment and plan (1) Empyema lung: Status: Acute Assessment and plan: -Right sided chest tube in place, continue lytic therapy -Hb 7.4 recommend transfusing to maintain >7 -AM chest x-ray ordered -Continue to encourage incentive spirometer use -Supplemental oxygen via nasal cannula (2) Malfunction of gastrostomy tube: Status: Acute Assessment and plan: -Does not appear to be leaking -Local wound care to site to keep skin protected -Tolerating manual bolus pushes of tube feeds Subjective Subjective Patient reports: no new complaints and feels better; denies nausea, vomiting and shortness of breath Exam Const General: cooperative, comfortable and no acute distress Nutritional Appearance: cachectic Chest Chest: other (right sided chest tube in place) Resp Effort & Inspection: normal respiratory effort, no audible wheezes, no respiratory distress and other (nasal cannula, chest tube with +air leak) Cardio Rate: regular rate Rhythm: regular rhythm GI Inspection: non-distended and scaphoid Palpation: soft, no guarding, nontender and other (G tube in place does not appear to be leaking) Percussion: normal to percussion Neuro General: patient alert, patient awake and patient oriented x3 Objective Last Vital Signs Temp 98.2 F 04/25/21 08:06 Pulse 101 H 04/25/21 08:06 Resp 16 04/25/21 11:37 BP 107/67 04/25/21 08:06 Pulse Ox 89 L 04/25/21 08:06 Laboratory Results - last 24 hr 04/23/21 04/25/21 04/25/21 08:55 06:15 06:15 WBC 9.52 RBC 2.47 L Hgb 7.4 L Hct 23.8 L MCV 96.4 H MCH 30.0 MCHC 31.1 L RDW 20.3 H Plt Count 165 MPV 10.5 Immature Gran % 3.3 Neutrophils % 90.2 Lymphocytes % 3.6 Monocytes % 2.7 Eosinophils % 0.0 Basophils % 0.2 Nucleated RBC % 1 Absolute Neutrophils 8.59 H Absolute Lymphocytes 0.34 L Absolute Monocytes 0.26 Absolute Eosinophils 0.00 Absolute Basophils 0.02 RBC Morphology See Below Polychromasia Present Poikilocytosis 1+ Anisocytosis 2+ Sodium 145 Potassium 3.7 Chloride 110 H Carbon Dioxide 26.3 Anion Gap 8.7 BUN 9 Creatinine 0.5 L Estimated GFR/1.73 m2 >= 60.00 Glucose 96 Calcium 7.9 L Crossmatch See Detail
--- NOTE | 2021-04-25 21:00 | DI.RAD_ITS ---
Exam(s) XR PORTABLE CHEST AP EXAM: XR PORTABLE CHEST AP CLINICAL HISTORY: decrease sat. TECHNIQUE: 2D digital imaging was performed. COMPARISON: CR XR PORTABLE CHEST AP from 04/24/2021 FINDINGS: There is a right chest tube in place in the inferior lateral aspect of the right chest. No pneumotho rax evident nor prominent pleural fluid. In addition, there is a left subclavian Port-A-Cath in plac e with its distal tip at the SVC-RA junction, unchanged. No pneumothorax.. The mediastinum is not widened. Extensive bilateral infiltrates are again noted without improvement from yesterday. Mildly increased from yesterday. There is a small amount of right pleural fluid evident. IMPRESSION: No radiographic improvement in the extensive bilateral infiltrates. Small amount of right pleural fl uid. Right chest tube. No pneumothorax evident. DATA REPOSITORY: RADIATION DOSE DELIVERED: All CT scans at this facility use at least one of these dose optimization techniques: automated exposure control; mA and/or kV adjustment per patient size (includes targeted e xams where dose is matched to clinical indication); or iterative reconstruction.
[2021-04-25] MEDS: Furosemide 20 MG/2 ML VIAL IVP (21:50)
--- NOTE | 2021-04-25 21:54 | DI.VRAD_ITS ---
PROCEDURE INFORMATION: Exam: XR Chest Exam date and time: 04/25/2021 9:12 PM Age: 50 years old Clinical indication: Shortness of breath; Patient HX: Drop in o2 saturation level TECHNIQUE: Imaging protocol: XR of the chest. Views: 1 view. COMPARISON: CR XR PORTABLE CHEST AP 04/24/2021 11:57 AM FINDINGS: Tubes, catheters and devices: Right chest tube is in place, inferolateral right hemithorax. Left subclavian Port-A-Cath in place, tip proximal superior vena cava. Lungs: Moderate-severe diffuse airspace opacity continues, increased from previous. Pleural spaces: Mild right pleural effusion. No significant left pleural effusion. No significant pneumothorax. Heart/Mediastinum: Unremarkable. No cardiomegaly. Bones/joints: Chronic rotator cuff pathology right shoulder. Degenerative changes noted at the thoracolumbar junction. IMPRESSION: Progressive pneumonia. Edema may contribute. Dictated and Authenticated by: Yoshi Fallon MD. Ordering:[facility] Larisa Bustamante MD
[2021-04-25] MEDS: Albuterol/Ipratropium 3 ML UPD VIAL UPD (22:19)
[2021-04-25] MEDS: LORazepam 0.5 MG TAB PO (22:19)
[2021-04-26] VITALS (10 sets, daily range): BP systolic 92–109; BP diastolic 56–73; PULSE 95–115; RESP 8–32; TEMP 31–37.1; O2SAT 90–118
--- NOTE | 2021-04-26 00:30 | DI.CT_ITS ---
Exam(s) CT CHEST PE CTA EXAM: CT CHEST PE CTA CLINICAL HISTORY: hypoxemia; empyema. TECHNIQUE: Imaging Protocol: CT angiography of the chest was performed using pulmonary embolus rika col. Multi planar reconstructions were performed. CONTRAST MATERIAL: Intravenous: Omnipaque 350 Contrast volume: 100 cc COMPARISON: CT CT ABDOMEN PELVIS W from 04/21/2021 CR,XR XR PORTABLE CHEST AP from 04/25/2021 CR,XR XR PORTABLE CHEST AP from 04/25/2021 FINDINGS: CHEST: PULMONARY ARTERIES: There are no intraluminal filling defects to suggest acute pulmonary emboli. LUNGS: There is a right chest tube in place.. Small pneumothorax on the right side approximately 5-1 0 percent. This is below the level of the chest tube. There are extensive pulmonary infiltrates jorge aterally, both ground-glass and confluent and more prominent on the left side where there is also a m oderate sized left pleural effusion and volume loss in the basal segments of the left lower lobe. No obstructing findings in the trachea and mainstem bronchi. In the right pleural space there is some mild partially loculated pleural fluid posteriorly over the right lower lobe. MEDIASTINUM: There is no hilar nor mediastinal adenopathy. Visualized thyroid unremarkable. CARDIAC: Heart size is upper normal. There is no pericardial effusion.Caliber thoracic aorta is uppe r normal. No dissection evident. Moderate coronary artery calcification noted. Distal tip of left subclavian Port-A-Cath is at the SVC RA junction. There is no significant shift of the interventricu lar septum. PARTIALLY VISUALIZED UPPERMOST ABDOMEN: Multiple metastatic lesions in the liver again noted. OSSEOUS: No significant osseous lesions.. IMPRESSION: 1. No evidence of acute pulmonary emboli. No evidence of pulmonary infarction. 2. Extensive bilateral pulmonary infiltrates, both ground-glass and confluent. Recommend testing for Covid-19. 3. Moderate-sized left pleural effusion. Smaller partially loculated right pleural fluid and there i s also a small approximately 10 percent right pneumothorax which is below the level of the right ches t tube. 4. Metastatic lesions in the liver again noted. RADIATION DOSE DELIVERED: 387.3mGy.cm Total DLP DATA REPOSITORY: All CT scans at this facility are submitted to the National Radiology Data Registry (NRDR) Dose Index Registry (DIR) with the [employer] ([employer]). RADIATION OPTIMIZATION: All CT scans at this facility use at least one of these dose optimization te chnijossue: automated exposure control; mA and/or kV adjustment per patient size (includes targeted exa ms where dose is matched to clinical indication); or iterative reconstruction.
[2021-04-26] MEDS: Normal Saline Flush 10 ML SYR IVP ×7 (01:37→21:12)
[2021-04-26] MEDS: levETIRAcetam 1,000 MG in Normal Saline 100 ML 400 MG IVPB ×2 (01:37→14:40)
--- NOTE | 2021-04-26 02:09 | ROE_ITS ---
Date of service: 04/25/21 Time of Service: 20:10 Operative Note Operative Note DATE OF PROCEDURE: 04/25/21 PRE-OP DIAGNOSIS: right sided empyema POST-OP DIAGNOSIS: same PROCEDURE: infusion of Dornase and TPA into right thoracostomy tube for lysis of empyema Refer to Anesthesia Record Procedure Description: Right chest tube was interrogated and functioning properly with serosanguinous drainage. Chest tube clamped and alteplase (8mg in 50cc NS) and dornase (5mg in 30cc D5W) followed by 20cc NS flush were admini stered through the tube via a [address] way stop cock. Instillation completed at 20:10. Chest tube was unclamped at 21:00 due to acute hypoxemia. Chest tube was confirmed to be functioning and draining serosanguinous fluid. Stat CXR was taken and small residual pneumonthorax present along w/ pleural effusion. However, patient w/ diffuse alveolar infiltrates bilaterally similar to prior study from 04/24. CHF suspected versus ARDS. Patient given lasix and put on non- rebreather mask.
--- NOTE | 2021-04-26 02:38 | W.PM.PROGNOT ---
Date of Service Date of service: 04/26/21 Time of Service: 02:38 Assessment and Plan Assessment and plan (1) Acute hypoxemic respiratory failure: Status: Acute Assessment and plan: patient's iv fluids were stopped at the time of my evaluation of his condition at 2100 and patient has been given iv lasix w/ good urine output of over 1 liter. Despite this he still requires non-rebreather mask of 100% FIO2. CT of the chest was ordered but patient refused for tonight stating I just want to sleep, then I will go in the morning. Patient also refused ann catheter which was ordered when the lasix was given, but he refused this also. At this point I am favoring ARDS. Patient will be moved to ICU for HFNC, I am trying to avoid NIPPV in setting of empyema/PTX however, if he remains full code then he may end up being intubated. I have changed his Unasyn to Zosyn and Vancomycin although his pleural fluid cultures suggest that Unasyn should cover both the E. coli and the anaerobic gram positive rods. (2) Empyema lung: Status: Acute Assessment and plan: continue chest tube drainage. Hold further lytic therapy in setting of ARDS. Subjective Subjective Interval history since last seen: Patient seen earlier in the evening for right thoracostomy tube lysis of empyema. Patient has been tolerating this well and infusion was uneventfuly but just before I came back to unclamp his chest tube to allow the tube to drain, he had developed acute hypoxemia w/ SPO2 in the mid 60's%. He had no chest pain but was mildly dyspneic although he even minimized this. Chest tube was checked for functioning and he had good drainage of serosanguinous light colored fluid and air bubbling in the thoraklex system. Stat CXR was ordered and reviewd. Exam Narrative Exam Narrative: Patient was not in extremis. Not using accessory muscles and no tracheal deviation. Chest wall w/out crepitus Lungs: diffuse bilateral rales and diminished breath sounds at right lung base Abdomen: soft, nontender POCUS exam of his lungs reveals a localized pneumothorax over the right lateral mid to upper chest. This was confirmed on m-mode Objective Last Vital Signs Temp 36.6 C 04/25/21 21:26 Pulse 107 H 04/25/21 22:19 Resp 18 04/25/21 21:26 BP 99/62 L 04/25/21 21:26 Pulse Ox 95 04/25/21 22:19 Laboratory Results - last 24 hr 04/23/21 04/25/21 04/25/21 08:55 06:15 06:15 WBC 9.52 RBC 2.47 L Hgb 7.4 L Hct 23.8 L MCV 96.4 H MCH 30.0 MCHC 31.1 L RDW 20.3 H Plt Count 165 MPV 10.5 Immature Gran % 3.3 Neutrophils % 90.2 Lymphocytes % 3.6 Monocytes % 2.7 Eosinophils % 0.0 Basophils % 0.2 Nucleated RBC % 1 Absolute Neutrophils 8.59 H Absolute Lymphocytes 0.34 L Absolute Monocytes 0.26 Absolute Eosinophils 0.00 Absolute Basophils 0.02 RBC Morphology See Below Polychromasia Present Poikilocytosis 1+ Anisocytosis 2+ Sodium 145 Potassium 3.7 Chloride 110 H Carbon Dioxide 26.3 Anion Gap 8.7 BUN 9 Creatinine 0.5 L Estimated GFR/1.73 m2 >= 60.00 Glucose 96 Calcium 7.9 L Crossmatch See Detail Reviewed Pertinent PMH: Yes Objective Narrative Objective Narrative: Stat PCXR reviewed and patient has increasing bilateral diffuse infiltrates and interstitial edema, residual pleural effusion on the right and small pneumothorax. The diffuse infiltrates are c/w ARDS vs pulmonary edema
[2021-04-26] MEDS: MORPHine 4 MG/ML SYR IVP ×6 (03:11→21:32)
--- NOTE | 2021-04-26 03:58 | NUR.NOTE ---
Nursing Note: At 03:15 hrs. Patient was transferred to ICU via stretcher with Chest tube unhooked from low wall suction , No signs of leakage. Put back on non rebreather oxygen.Patient is fully awake and conversant. He is on ICU room 220. Endorsed to ICU nurse.
[2021-04-26] MEDS: Normal Saline Flush 10 ML SYR ×2 (07:22→11:39)
[2021-04-26] MEDS: Pantoprazole 40 MG VIAL IVP ×2 (08:22→21:13)
[2021-04-26] MEDS: Dexamethasone 4 MG/ML VIAL IVP ×3 (08:22→21:13)
[2021-04-26] MEDS: guaiFENesin 200 MG/10 ML CUP JT ×3 (08:27→16:28)
[2021-04-26] MEDS: Enoxaparin 40 MG/0.4 ML SYR SC (08:27)
[2021-04-26] MEDS: Albuterol/Ipratropium 3 ML UPD VIAL UPD ×4 (08:27→21:13)
--- NOTE | 2021-04-26 08:29 | PGE_ITS ---
Date of Service Date of service: 04/26/21 Time of Service: 10:50 Assessment and Plan Assessment and plan (1) Acute hypoxemic respiratory failure: Status: Acute Assessment and plan: DDx: aspiration pneumonitis/pneumonia, ARDS, PE, TRALI. CHF less likely given poor response to lasix. Await CTA. Increase steroids. Abx adjusted overnight to vanco/zosyn. Keep in ICU as the patient is still insisting on aggressive measures. Will need a follow up discussion about code status. Await palliative care consult. Await ethics consult. (2) Empyema lung: Status: Acute Assessment and plan: Present on admission. Fluid cx with E. Coli (pansensitive) and an anaerobic gram positive nakul, speciation still pending. Given worsening of his respiratory status yesterday and still no clear etiology for this, I have discussed the situation with Dr Peres, and we both feel he would no longer benefit from TPA/fibrinolytic infusions. Continue chest tube to suction. General surgery is following for chest tube. (3) Anemia: Status: Chronic Assessment and plan: S/p transfusion of 1 unit pRBCs on 04/23/21. Receiving intravenous iron. H/H better today - will not give any more blood at this time. Qualifiers: Anemia type: unspecified type Qualified Code(s): D64.9 - Anemia, unspecified (4) Acute dehydration: Status: Acute Assessment and plan: Consider TPN. Nutrition consulted for bolus feeds, but consult is unavailable until Wednesday. Unable to tolerate IVF overnight - no longer receiving. Receiving TF, but himself stopping infusions overnight. 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 (7) Esophageal cancer: Status: Acute Assessment and plan: Agree that his cancer therapy are not likely to benefit him at this point. Palliative care and ethics consults have been requested. The patient remains full code at this time, but is considering DNI. It is my opinion that at this point the patient is dying and further aggressive care could be considered futile. The patient has not come to this determination yet, but I am asking other team members to consider this. 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 I do think that, with patient holding his TFs overnight, TPN can still be considered. Also, nutrition is consulted for recommendations on bolus TF. (9) DVT prophylaxis: Status: Acute Assessment and plan: enoxaparin 40 mg SC daily - low threshold to d/c given brain mets. (10) Discharge planning issues: Status: Acute Assessment and plan: Full code. Wants to stay in the ICU and, while full code, he meets ICU criteria and continues to require ICU. It is my opinion that at this point the patient is dying and further aggressive care could be considered futile. I am requesting a palliative care and ethics consults as well as other team members to consider this. I spoke with the patient's Nichelle, communicating to her that the patient wants to be visited. Total Critical Care Time 60 minutes. Subjective Subjective Interval history since last seen: Became hypoxemic overnight requiring NRB and transfer to the ICU. CXR was suspicious for ARDS, L>R. He had initially refused the CTA overnight but agrees to it now. Oxygenation is not better after lasix overnight. Transitioned to humidified heated high flow NC from 10 L NRB. 50L 90%, O2 sat 91%. Feels better now, but does feel SOB and having pain around chest tube, requesting pain meds. Desaturated to the 70s prior to being placed on NRB.Refused lasix this am. Chest tube to suction. Serosanguenous in the tube. Overnight 650 cc looked purulent. Refused TF last night. Denies dizziness/n/v. Does not recall having an aspiration event. We talked for a while about goals of care. I verbalized to him that, if his br eathing were to get worse, I did not feel that intubation/being put on the ventilator would change the overall picture and that he would likely on the ventilator. He said that my reasoning made sense and he would think about DNI, but was not sure yet. He will think about it today and I will check in with him later this afternoon. He is interested in having his visit and requested that I call her telling her that, which I did. There is a snow storm, it is [place], and she does not drive, so he understands she may not be able to make it, but Nichelle said she will try. I said to Vaughn that the CTA may reveal something correctable, but if it showed something that was not, we would have to have a serious conversation about further course. He wants to stay in the ICU for now. Exam Narrative Exam Narrative: General: Pleasant cachectic middle-aged male who looks weak, moderately tachypneic on humidified heated high flow and in pain, A&Ox3, looks worse than yesterday. Unable to sit up in bed without assistance. HEENT: EOMI, MMM Heart: RRR, tachycardic (120s) Lungs: diminished breath sounds at B bases, otherwise CTAB, chest tube on R with serosanguenous drainage. Abdomen: soft, nontender, nondistended Extremities: no edema BLE's Objective Last Vital Signs Temp 36.6 C 04/25/21 21:26 Pulse 107 H 04/25/21 22:19 Resp 18 04/25/21 21:26 BP 99/62 L 04/25/21 21:26 Pulse Ox 94 04/26/21 06:02 Laboratory Results - last 24 hr 04/23/21 04/26/21 08:55 06:45 WBC 11.28 H RBC 2.81 L Hgb 8.2 L Hct 27.1 L MCV 96.4 H MCH 29.2 MCHC 30.3 L RDW 19.3 H Plt Count 175 MPV 10.1 Immature Gran % 0.0 Neutrophils % 93.0 Lymphocytes % 5.0 Monocytes % 2.0 Eosinophils % 0.0 Basophils % 0.0 Nucleated RBC % 1 Absolute Neutrophils 10.49 H Absolute Lymphocytes 0.56 L Absolute Monocytes 0.23 Absolute Eosinophils 0.00 Absolute Basophils 0.00 RBC Morphology Normal Crossmatch See Detail
--- NOTE | 2021-04-26 08:30 | PGE_ITS ---
Date of Service Date of service: 04/26/21 Time of Service: 08:30 Assessment and Plan Assessment and plan (1) Empyema lung: Status: Acute Assessment and plan: -Right sided chest tube in place, keep to suction, discontinue clamping for lytic therapy due to risk of tension pneumothorax with +air leak, patient developed hypoxia last night and shortness of breath during lytic therapy requiring transfer to ICU for HFNC. -Repeat x-ray and chest CT reviewed, significant improvement in right empyema, small residual basilar PTX likely trapped lung with + air leak, multifocal airspace disease appears to be consistent with ARDS, small left sided pleural effusion. -Hb improved, s/p Lasix overnight -AM chest x-ray ordered for tomorrow -Continue to encourage incentive spirometer use -Supplemental oxygen via HFNC, provides small amount of PEEP which should not adversely affect him. -Hospice/palliative care discussed with patient who understands his options. Discussed with patient if clinical decompensation continues to occur further aggressive therapies may become futile. Support was provided and I would be happy to partake in a family meeting if at some point in the near future this becomes necessary. (2) Malfunction of gastrostomy tube: Status: Resolved Assessment and plan: -Does not appear to be leaking -Local wound care to site to keep skin protected -Tolerating manual bolus pushes of tube feeds, resume when more clinically stable Subjective Subjective Patient reports: shortness of breath; denies nausea and vomiting Exam Const General: cooperative, comfortable and acute distress moderate and respiratory Nutritional Appearance: cachectic [facility] Head: other (non-rebreather) Chest Chest: other (right sided chest tube in place) Resp Effort & Inspection: no audible wheezes, labored, respiratory distress, retractions, uses accessory muscles and other (chest tube with +air leak) Cardio Rate: tachycardic Rhythm: regular rhythm GI Inspection: non-distended and scaphoid Palpation: soft, no guarding, nontender and other (G tube in place does not appear to be leaking) Percussion: normal to percussion Neuro General: patient alert, patient awake and patient oriented x3 Objective Last Vital Signs Temp 97.9 F 04/25/21 21:26 Pulse 107 H 04/25/21 22:19 Resp 18 04/25/21 21:26 BP 99/62 L 04/25/21 21:26 Pulse Ox 94 04/26/21 06:02 Laboratory Results - last 24 hr 04/23/21 04/26/21 08:55 06:45 WBC 11.28 H RBC 2.81 L Hgb 8.2 L Hct 27.1 L MCV 96.4 H MCH 29.2 MCHC 30.3 L RDW 19.3 H Plt Count 175 MPV 10.1 Immature Gran % 0.0 Neutrophils % 93.0 Lymphocytes % 5.0 Monocytes % 2.0 Eosinophils % 0.0 Basophils % 0.0 Nucleated RBC % 1 Absolute Neutrophils 10.49 H Absolute Lymphocytes 0.56 L Absolute Monocytes 0.23 Absolute Eosinophils 0.00 Absolute Basophils 0.00 RBC Morphology Normal Crossmatch See Detail
[2021-04-26 08:39] LABS: Source Nasal/Nares
[2021-04-26] MEDS: Tiotropium Bromide-Respimat 10 PUFF INH 2 PUFF IH (08:40)
[2021-04-26 08:46] LABS: HGB 8.6 g/dL (13.5-17.5); MCH 29.6 pg (27.0-33.0); MCHC 30.7 % (32.0-36.0); MCV 96.2 fL (80-95); MPV 9.9 fL (8.0-11.0); Platelet Count 168 10^3/uL (130-400); RBC 2.91 10^6/uL (4.36-5.78); RDW 19.4 % (11.8-14.1); RDW-SD 66.6 fL; WBC 11.99 10^3/uL (4.4-10.8)
[2021-04-26 09:10] LABS: ALT 37 U/L (16-63); AST 55 U/L (15-37); Alkaline Phosphatase 407 U/L (46-116); Anion Gap 9.9 mmol/L (3-11); BUN 8 mg/dL (7-18); Bilirubin, Total 0.8 mg/dL (0.2-1.0); CO2 29.1 mmol/L (21.0-32.0); CREATININE 0.5 mg/dL (0.70-1.30); Calcium 7.9 mg/dL (8.5-10.1); Chloride 106 mmol/L (98-107); Glucose 103 mg/dL (74-106); NT-proBNP 5946 pg/mL (<300); Potassium 3.4 mmol/L (3.5-5.1); Sodium 145 mmol/L (136-145); Total Protein 5.8 g/dL (6.4-8.2)
[2021-04-26 09:12] LABS: Absolute Lymphocyte Count 0.24 10^3/uL (1.2-3.4); Absolute Monocyte Count 0.12 10^3/uL (0.1-0.8); Absolute Neutrophil Count 11.39 10^3/uL (1.2-6.7); Bands % 4
[2021-04-26 09:13] LABS: Diff Comment Manual Differential; Metamyelocytes % 2; Nucleated RBC 0 %; RBC Morphology Normal
[2021-04-26 09:19] LABS: COVID-19 PCR Negative (Negative)
[2021-04-26] MEDS: PIPERACILLIN/TAZO 3.375 GM in Normal Saline 50 ML IVPB ×3 (09:20→20:00)
[2021-04-26] MEDS: VANCOMYCIN/WATER (PEG) 1.5 GM/300 ML BAG IV (09:20)
[2021-04-26 09:34] LABS: Procalcitonin 0.3 ng/mL
[2021-04-26] MEDS: Omnipaque 350 MG/ML 50 ML BTL IJ ×2 (11:38→11:39)
--- NOTE | 2021-04-26 12:05 | DI.VRAD_ITS ---
PROCEDURE INFORMATION: Exam: CTA Chest With Contrast Exam date and time: 04/26/2021 12:39 AM Age: 50 years old Clinical indication: Other: Hypoxemia, empyema TECHNIQUE: Imaging protocol: Computed tomographic angiography of the chest with contrast. 3D rendering (Not supervised by radiologist): MIP and/or 3D reconstructed images were created by the technologist. Contrast material: OMNIPAQUE 350; Contrast volume: 100 ml; Contrast route: INTRAVENOUS (IV); COMPARISON: CT CHEST PE ABD PELVIS W 04/07/2021 3:18 PM FINDINGS: Tubes, catheters and devices: There is a new single right chest tube in place entering the lateral right hemithorax between the 5th and 6th ribs. The tip of the chest tube is adjacent to the posterior 9th rib. Indwelling central venous catheter tip in the SVC. Pulmonary arteries: Normal. No pulmonary emboli. Aorta: Unremarkable. No aortic aneurysm. No aortic dissection. Lungs: Progression of diffuse bilateral pulmonary infiltrates with areas of very dense consolidation in the bilateral lungs, right worse than left. This is in a background of emphysema. Pleural spaces: Small right pneumothorax about the lateral and anterior lower lung. Moderate left pleural effusion. Small right pleural effusion. The right pleural effusion has significantly decreased in size since 04/07 2021. There are areas of loculated subpleural fluid or subpleural masses in the right hemithorax which appears similar to the prior exam best seen on axial series 4, image 26 and measuring approximately 2.6 and 2.7 cm in transverse dimension. Heart: Unremarkable. No cardiomegaly. No pericardial effusion. Lymph nodes: Bulky left supraclavicular lymphadenopathy is increased slightly since 03/20/2021. Largest left supraclavicular lymph node measures 2.6 cm in transverse dimension today compared with 2.1 cm on the prior CT. Slight interval increase in the size of enlarged retrocrural lymph nodes Liver: Metastatic liver lesions are again identified and the portions of the lesion seen on today's exam appears similar to the prior CT chest abdomen pelvis of 03/20/2021. There is a large lesion in right hepatic lobe measuring at least 12 cm in AP diameter but contains a large central area of necrosis. Intraperitoneal space: Small amount of free fluid in the visualized abdomen. Bones/joints: Unremarkable. No acute fracture. Soft tissues: Unremarkable. IMPRESSION: 1. Single right chest tube in place with significant decrease in the previous large right pleural effusion with a tiny right pneumothorax. 2. Progression of dense bilateral pulmonary infiltrates worse on the right 3. Interval increase in left supraclavicular lymphadenopathy and retrocrural lymphadenopathy 4. New moderate left pleural effusion 5. Grossly stable hepatic metastases. 6. No pulmonary embolism identified. Dictated and Authenticated by: Jaci Smalls MD. Ordering:[facility] Larisa Butsamante MD
[2021-04-26] MEDS: Acetylcysteine 20% *ORAL/INHALED* 6000 MG/30 ML VIAL UPD ×3 (12:08→21:58)
[2021-04-26] MEDS: POTASSIUM CHLORIDE 20 MEQ/100 ML BAG 50 MEQ IVPB ×2 (12:57→15:18)
[2021-04-26] MEDS: IRON SUCROSE COMPLEX 300 MG in Normal Saline 250 ML 167 MG IVPB (14:40)
[2021-04-26] MEDS: VANCOMYCIN/WATER (PEG) 1 GM/200 ML BAG IVPB (16:28)
[2021-04-26] MEDS: LORazepam 0.5 MG TAB PO (21:35)
[2021-04-27] VITALS (21 sets, daily range): BP systolic 82–106; BP diastolic 52–70; PULSE 93–111; RESP 1–35; TEMP 36–37.2; O2SAT 90–97
[2021-04-27] MEDS: Dexamethasone 4 MG/ML VIAL IVP ×4 (02:00→19:51)
[2021-04-27] MEDS: levETIRAcetam 1,000 MG in Normal Saline 100 ML 400 MG IVPB ×2 (03:27→14:27)
[2021-04-27] MEDS: PIPERACILLIN/TAZO 3.375 GM in Normal Saline 50 ML IVPB ×3 (04:02→20:09)
[2021-04-27 07:04] LABS: HCT 25.8 % (40.0-50.0); HGB 8.2 g/dL (13.5-17.5); MCH 30.3 pg (27.0-33.0); MCHC 31.8 % (32.0-36.0); MCV 95.2 fL (80-95); MPV 10.6 fL (8.0-11.0); Platelet Count 159 10^3/uL (130-400); RBC 2.71 10^6/uL (4.36-5.78); RDW 19.4 % (11.8-14.1); RDW-SD 65.2 fL; WBC 13.77 10^3/uL (4.4-10.8)
[2021-04-27 07:19] LABS: ALT 30 U/L (16-63); AST 42 U/L (15-37); Albumin 1.8 g/dL (3.4-5.0); Alkaline Phosphatase 440 U/L (46-116); Anion Gap 9.1 mmol/L (3-11); BUN 10 mg/dL (7-18); Bilirubin, Direct 0.4 mg/dL (0.0-0.2); Bilirubin, Total 0.9 mg/dL (0.2-1.0); CO2 25.9 mmol/L (21.0-32.0); CREATININE 0.4 mg/dL (0.70-1.30); Calcium 7.9 mg/dL (8.5-10.1); Chloride 104 mmol/L (98-107); Glucose 95 mg/dL (74-106); Magnesium 1.8 mg/dL (1.8-2.4); Potassium 3.7 mmol/L (3.5-5.1); Sodium 139 mmol/L (136-145); Total Protein 5.3 g/dL (6.4-8.2)
[2021-04-27 07:20] LABS: Absolute Monocyte Count 0.28 10^3/uL (0.1-0.8); Absolute Neutrophil Count 13.49 10^3/uL (1.2-6.7); Bands % 1
[2021-04-27 07:21] LABS: Diff Comment Manual Differential; Nucleated RBC 2 %; RBC Morphology Normal
[2021-04-27] MEDS: Pantoprazole 40 MG VIAL IVP ×2 (08:14→19:51)
--- NOTE | 2021-04-27 08:27 | PGE_ITS ---
Date of Service Date of service: 04/27/21 Time of Service: 12:30 Assessment and Plan Assessment and plan (1) Acute hypoxemic respiratory failure: Status: Acute Assessment and plan: Discussed with general surgery yesterday: in addition to infectious etiology, need to consider lung injury due to tension ptx during clamping off of the chest tube during infusion of lytic therapy. Lytic therapy infusions have been discontinued. CTA negative for PE, shows dense infiltrates in B lungs. CXR today with slight decrease in coarse diffuse bilateral pulmonary infiltrates per radiology. Continue Increased dose of steroids. Continue vancomycin/zosyn. Keep in ICU as the patient is still insisting on aggressive measures. Await palliative care consult. Depending on outcome of this, ethics consult. Patient has made no improvement in the last 24 hrs. (2) Empyema lung: Status: Acute Assessment and plan: Present on admission. Fluid cx with E. Coli (pansensitive) and an anaerobic gram positive nakul, speciation still pending (sent to [facility]). No longer receiving TPA/fibrinolytic infusions. Continue chest tube to suction. General surgery is following for chest tube. Still has a small residual PTX. (3) Anemia: Status: Chronic Assessment and plan: S/p transfusion of 1 unit pRBCs on 04/23/21. Receiving intravenous iron. H/H stable- no xfusion at this time. Qualifiers: Anemia type: unspecified type Qualified Code(s): D64.9 - Anemia, unspecified (4) Acute dehydration: Status: Acute Assessment and plan: Consider TPN. TF formula changed to fibrasure - will monitor how the patient tolerates it. Unable to tolerate IVF. 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 (7) Esophageal cancer: Status: Acute Assessment and plan: Agree that his cancer therapy are not likely to benefit him at this point. Palliative care and ethics consults have been requested. The patient remains full code at this time. He did mention to me that if things were truly looking like he is dying, he would elect to go home on comfort measures. During this conversation, the patient made clear that for now he would still like to be full code. It is my opinion that at this point the patient is dying and further aggressive care could be considered futile. The patient has not come to this determination yet, but I am asking other team members to consider this. 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 Trialing new bolus feeds. Also, nutrition is consulted for recommendations on bolus TF. (9) DVT prophylaxis: Status: Acute Assessment and plan: enoxaparin 40 mg SC daily - low threshold to d/c given brain mets. (10) Discharge planning issues: Status: Acute Assessment and plan: Full code. Wants to stay in the ICU and, while full code, he meets ICU criteria and continues to require ICU. It is my opinion that at this point the patient is dying and further aggressive care could be considered futile. I am requesting a palliative care and ethics consults as well as other team members to consider this. Total Critical Care Time 45 minutes. Subjective Subjective Interval history since last seen: Vaughn states that as long as he is at rest, he is pretty comfortable, but it does hurt to move. He denies dizziness, shortness of breath at rest (does feel SOB when laying flat), denies n/v. He did agree to start bolus tube feeding. Saturating in low 90s - 50 L 80% FiO2 on high flow cannula. Stayed in bed the entire night. Needed 1 dose of morphine. 6/10 pain this am. Pain in his back. 100 cc out last night. purulent/serosanguenous fluid. 102/70. 37.2 Tachy - 103. RR 27. Exam Narrative Exam Narrative: General: Pleasant cachectic middle-aged male who looks weak, more tachypneic on humidified heated high flow, A&Ox3, Unable to sit up or turn in bed without assistance. HEENT: EOMI, MMM Heart: RRR, tachycardic Lungs: diminished breath sounds at B bases, otherwise CTAB, chest tube on R with straw-colored drainage. Abdomen: soft, nontender, nondistended Extremities: no edema BLE's Objective Last Vital Signs Temp 37.2 C 04/27/21 08:14 Pulse 103 H 04/27/21 08:08 Resp 27 H 04/27/21 08:08 BP 102/70 04/27/21 08:08 Pulse Ox 91 L 04/27/21 08:08 Laboratory Results - last 24 hr 04/26/21 04/26/21 04/26/21 06:45 06:45 06:45 WBC Cancelled RBC Cancelled Hgb Cancelled Hct Cancelled MCV Cancelled MCH Cancelled MCHC Cancelled RDW Cancelled Plt Count Cancelled MPV Cancelled Immature Gran % Cancelled Neutrophils % Cancelled Band Neutrophils % Cancelled Lymphocytes % Cancelled Atypical Lymphs % Cancelled Monocytes % Cancelled Eosinophils % Cancelled Basophils % Cancelled Metamyelocytes % Cancelled Myelocytes % Cancelled Promyelocytes % Cancelled Other Cells % Cancelled Nucleated RBC % Cancelled Absolute Neutrophils Cancelled Absolute Lymphocytes Cancelled Absolute Monocytes Cancelled Absolute Eosinophils Cancelled Absolute Basophils Cancelled RBC Morphology Cancelled Polychromasia Cancelled Hypochromasia Cancelled Poikilocytosis Cancelled Basophilic Stippling Cancelled Anisocytosis Cancelled Microcytosis Cancelled Macrocytosis Cancelled Spherocytes Cancelled Tear Drop Cells Cancelled Ovalocytes Cancelled Stomatocytes Cancelled [place] Bodies Cancelled [place] Cells/Echinocytes Cancelled Acanthocytes (Spur) Cancelled Schistocytes Cancelled Sodium Cancelled Potassium Cancelled Chloride Cancelled Carbon Dioxide Cancelled Anion Gap Cancelled BUN Cancelled Creatinine Cancelled Estimated GFR/1.73 m2 Cancelled Glucose Cancelled Calcium Cancelled Magnesium Total Bilirubin Cancelled Conjugated Bilirubin AST Cancelled ALT Cancelled Alkaline Phosphatase Cancelled NT-Pro-B Natriuret Pep Total Protein Cancelled Albumin Cancelled Procalcitonin Cancelled COVID-19 Source SARS-CoV-2 (PCR) 04/26/21 04/26/21 04/26/21 06:45 08:30 08:30 WBC RBC Hgb Hct MCV MCH MCHC RDW Plt Count MPV Immature Gran % Neutrophils % Band Neutrophils % Lymphocytes % Atypical Lymphs % Monocytes % Eosinophils % Basophils % Metamyelocytes % Myelocytes % Promyelocytes % Other Cells % Nucleated RBC % Absolute Neutrophils Absolute Lymphocytes Absolute Monocytes Absolute Eosinophils Absolute Basophils RBC Morphology Polychromasia Hypochromasia Poikilocytosis Basophilic Stippling Anisocytosis Microcytosis Macrocytosis Spherocytes Tear Drop Cells Ovalocytes Stomatocytes [place] Bodies [place] Cells/Echinocytes Acanthocytes (Spur) Schistocytes Sodium 145 Potassium 3.4 L Chloride 106 Carbon Dioxide 29.1 Anion Gap 9.9 BUN 8 Creatinine 0.5 L Estimated GFR/1.73 m2 >= 60.00 Glucose 103 Calcium 7.9 L Magnesium Total Bilirubin 0.8 Conjugated Bilirubin AST 55 H ALT 37 Alkaline Phosphatase 407 H NT-Pro-B Natriuret Pep Cancelled 5946 H Total Protein 5.8 L Albumin 2.0 L Procalcitonin COVID-19 Source Nasal/Nares SARS-CoV-2 (PCR) Negative 04/26/21 04/26/21 04/27/21 08:30 08:30 06:45 WBC 11.99 H RBC 2.91 L Hgb 8.6 L Hct 28.0 L MCV 96.2 H MCH 29.6 MCHC 30.7 L RDW 19.4 H Plt Count 168 MPV 9.9 Immature Gran % 0.0 Neutrophils % 91.0 Band Neutrophils % 4 Lymphocytes % 2.0 Atypical Lymphs % Monocytes % 1.0 Eosinophils % 0.0 Basophils % 0.0 Metamyelocytes % 2 Myelocytes % Promyelocytes % Other Cells % Nucleated RBC % 0 Absolute Neutrophils 11.39 H Absolute Lymphocytes 0.24 L Absolute Monocytes 0.12 Absolute Eosinophils 0.00 Absolute Basophils 0.00 RBC Morphology Normal Polychromasia Hypochromasia Poikilocytosis Basophilic Stippling Anisocytosis Microcytosis Macrocytosis Spherocytes Tear Drop Cells Ovalocytes Stomatocytes [place] Bodies [place] Cells/Echinocytes Acanthocytes (Spur) Schistocytes Sodium 139 Potassium 3.7 Chloride 104 Carbon Dioxide 25.9 Anion Gap 9.1 BUN 10 Creatinine 0.4 L Estimated GFR/1.73 m2 >= 60.00 Glucose 95 Calcium 7.9 L Magnesium 1.8 Total Bilirubin 0.9 Conjugated Bilirubin 0.4 H AST 42 H ALT 30 Alkaline Phosphatase 440 H NT-Pro-B Natriuret Pep Total Protein 5.3 L Albumin 1.8 L Procalcitonin 0.3 COVID-19 Source SARS-CoV-2 (PCR) 04/27/21 06:45 WBC 13.77 H RBC 2.71 L Hgb 8.2 L Hct 25.8 L MCV 95.2 H MCH 30.3 MCHC 31.8 L RDW 19.4 H Plt Count 159 MPV 10.6 Immature Gran % 0.0 Neutrophils % 97.0 Band Neutrophils % 1 Lymphocytes % 0.0 Atypical Lymphs % Monocytes % 2.0 Eosinophils % 0.0 Basophils % 0.0 Metamyelocytes % Myelocytes % Promyelocytes % Other Cells % Nucleated RBC % 2 Absolute Neutrophils 13.49 H Absolute Lymphocytes 0.00 L Absolute Monocytes 0.28 Absolute Eosinophils 0.00 Absolute Basophils 0.00 RBC Morphology Normal Polychromasia Hypochromasia Poikilocytosis Basophilic Stippling Anisocytosis Microcytosis Macrocytosis Spherocytes Tear Drop Cells Ovalocytes Stomatocytes [place] Bodies [place] Cells/Echinocytes Acanthocytes (Spur) Schistocytes Sodium Potassium Chloride Carbon Dioxide Anion Gap BUN Creatinine Estimated GFR/1.73 m2 Glucose Calcium Magnesium Total Bilirubin Conjugated Bilirubin AST ALT Alkaline Phosphatase NT-Pro-B Natriuret Pep Total Protein Albumin Procalcitonin COVID-19 Source SARS-CoV-2 (PCR)
--- NOTE | 2021-04-27 08:30 | DI.RAD_ITS ---
Exam(s) XR PORTABLE CHEST AP EXAM: XR PORTABLE CHEST AP CLINICAL HISTORY: chest tube. TECHNIQUE: 2D digital imaging was performed. COMPARISON: CR,XR XR PORTABLE CHEST AP from 04/25/[address] CHEST PE CTA from 04/26/2021 FINDINGS: Port-A-Cath distal tip is at the SVC RA junction, unchanged. Chest leads in place.. The mediastinum is not widened. Right chest tube again noted. Small right pneumothorax noted below the level of the chest tube.. There is minimal if any significant radiographic improvement in the extensive bilateral infiltrates. Small pleural effusions noted. IMPRESSION: No significant radiographic improvement. DATA REPOSITORY: RADIATION DOSE DELIVERED: All CT scans at this facility use at least one of these dose optimization techniques: automated exposure control; mA and/or kV adjustment per patient size (includes targeted e xams where dose is matched to clinical indication); or iterative reconstruction.
[2021-04-27] MEDS: Enoxaparin 40 MG/0.4 ML SYR SC (08:42)
[2021-04-27] MEDS: guaiFENesin 200 MG/10 ML CUP JT ×4 (08:46→19:52)
[2021-04-27] MEDS: MORPHine 4 MG/ML SYR IVP ×3 (09:01→20:46)
[2021-04-27] MEDS: VANCOMYCIN/WATER (PEG) 1 GM/200 ML BAG IVPB ×3 (09:13→16:52)
[2021-04-27] MEDS: Albuterol/Ipratropium 3 ML UPD VIAL UPD ×4 (09:46→19:51)
[2021-04-27] MEDS: Acetylcysteine 20% *ORAL/INHALED* 6000 MG/30 ML VIAL UPD ×4 (10:14→19:52)
[2021-04-27] MEDS: Tiotropium Bromide-Respimat 10 PUFF INH 2 PUFF IH (10:29)
--- NOTE | 2021-04-27 11:03 | NUR.NOTE ---
RN investigates feed situation and confirms with Dr. Romero should be getting 60ml of Jevity 1.2 q. 4 hours. RN orders same from kitchen to commence at once.Nursing Note:
--- NOTE | 2021-04-27 12:03 | NUR.NOTE ---
RN speaks to MD about egg shell mattress. MD tells RN if he can find one, she will order same. RN instructs [employer] Supervisor to see if she can track down and eggshell mattress.Nursing Note:
--- NOTE | 2021-04-27 12:05 | DI.VRAD_ITS ---
PROCEDURE INFORMATION: Exam: XR Chest Exam date and time: 04/27/2021 12:00 AM Age: 50 years old Clinical indication: Other: Chest tube TECHNIQUE: Imaging protocol: XR of the chest. Views: 1 view. COMPARISON: XR PORTABLE CHEST AP 04/25/2021 9:14 PM FINDINGS: Tubes, catheters and devices: Left central venous catheter tip in SVC. Single right chest tube. Lungs: Coarse diffuse bilateral pulmonary infiltrates with areas of consolidation in the lower lungs. Infiltrates have slightly decreased since 04/25/2021. Emphysematous changes. Pleural spaces: There is lucency about the right lower lateral hemithorax consistent with small basilar pneumothorax, as seen on the chest CT. Left pleural effusion was better demonstrated on the chest CT. Heart/Mediastinum: Unremarkable. No cardiomegaly. Bones/joints: Unremarkable. IMPRESSION: 1. Slight decrease in the coarse diffuse bilateral pulmonary infiltrates since 04/25/2021 2. Single right chest tube with the tiny basilar pneumothorax Dictated and Authenticated by: Jaci Smalls MD. Ordering:ARMAND Walker MD
[2021-04-27 14:33] LABS: Vancomycin, Trough 21.4 ug/mL (10.0-20.0)
[2021-04-27] MEDS: Normal Saline Flush 10 ML SYR IVP (15:21)
--- NOTE | 2021-04-27 16:01 | NUR.NOTE ---
Dr. Romero approves use of air mattress. This RN as he is getting ready to leave shift shared his opinion that the air mattress should be switched for the mattress in the ICU bed, but oncoming nurse said she would use bed that the air mattress came in. Oncoming nurse will store ICU bed in an appropriate location.
--- NOTE | 2021-04-27 17:30 | W.PM.PROGNOT ---
Date of Service Date of service: 04/27/21 Time of Service: 15:31 Assessment and Plan Assessment and plan (1) Empyema lung: Status: Acute Assessment and plan: -Right sided chest tube in place, keep to suction -AM x-ray reviewed, no acute changes -Continue to encourage incentive spirometer use as tolerated -Supplemental oxygen via HFNC, provides small amount of PEEP which should not adversely affect him.while chest tube in place with small residual basilar pneumothorax -Support hospice/palliative consult pending, patient maintains a positive attitude despite tenuous clinical status (2) Malfunction of gastrostomy tube: Status: Resolved Assessment and plan: -Does not appear to be leaking -Local wound care to site to keep skin protected -Tolerating tube feeds Subjective Subjective Patient reports: no new complaints and feels better; denies nausea and vomiting Exam Const General: cooperative, comfortable and acute distress moderate and respiratory Nutritional Appearance: cachectic HENCT Head: other (non-rebreather) Chest Chest: other (right sided chest tube in place) Resp Effort & Inspection: no audible wheezes, labored, respiratory distress, retractions, uses accessory muscles and other (chest tube with +air leak) Cardio Rate: tachycardic Rhythm: regular rhythm GI Inspection: non-distended and scaphoid Palpation: soft, no guarding, nontender and other (G tube in place does not appear to be leaking) Percussion: normal to percussion Neuro General: patient alert, patient awake and patient oriented x3 Objective Last Vital Signs Temp 96.8 F L 04/27/21 15:18 Pulse 103 H 04/27/21 15:18 Resp 33 H 04/27/21 15:18 BP 94/62 L 04/27/21 15:18 Pulse Ox 90 L 04/27/21 15:18 Laboratory Results - last 24 hr 04/27/21 04/27/21 04/27/21 06:45 06:45 14:10 WBC 13.77 H RBC 2.71 L Hgb 8.2 L Hct 25.8 L MCV 95.2 H MCH 30.3 MCHC 31.8 L RDW 19.4 H Plt Count 159 MPV 10.6 Immature Gran % 0.0 Neutrophils % 97.0 Band Neutrophils % 1 Lymphocytes % 0.0 Monocytes % 2.0 Eosinophils % 0.0 Basophils % 0.0 Nucleated RBC % 2 Absolute Neutrophils 13.49 H Absolute Lymphocytes 0.00 L Absolute Monocytes 0.28 Absolute Eosinophils 0.00 Absolute Basophils 0.00 RBC Morphology Normal Sodium 139 Potassium 3.7 Chloride 104 Carbon Dioxide 25.9 Anion Gap 9.1 BUN 10 Creatinine 0.4 L Estimated GFR/1.73 m2 >= 60.00 Glucose 95 Calcium 7.9 L Magnesium 1.8 Total Bilirubin 0.9 Conjugated Bilirubin 0.4 H AST 42 H ALT 30 Alkaline Phosphatase 440 H Total Protein 5.3 L Albumin 1.8 L Vancomycin Trough 21.4 H*
[2021-04-27] MEDS: LORazepam 0.5 MG TAB PO (22:04)
[2021-04-27] MEDS: MORPHine 2 MG/ML SYR IVP (22:05)
[2021-04-28] VITALS (101 sets, daily range): BP systolic 73–98; BP diastolic 51–73; PULSE 88–190; RESP 1–37; TEMP 35–37.1; O2SAT 86–97
[2021-04-28] MEDS: VANCOMYCIN/WATER (PEG) 1 GM/200 ML BAG IVPB (00:45)
[2021-04-28] MEDS: Normal Saline Flush 10 ML SYR IVP ×5 (00:48→19:44)
[2021-04-28] MEDS: Dexamethasone 4 MG/ML VIAL IVP ×4 (01:17→19:43)
[2021-04-28] MEDS: MORPHine 4 MG/ML SYR IVP ×3 (01:18→16:11)
[2021-04-28] MEDS: levETIRAcetam 1,000 MG in Normal Saline 100 ML 400 MG IVPB ×2 (01:25→14:02)
[2021-04-28] MEDS: PIPERACILLIN/TAZO 3.375 GM in Normal Saline 50 ML IVPB ×3 (04:36→19:43)
[2021-04-28 06:43] LABS: HCT 28.2 % (40.0-50.0); HGB 8.6 g/dL (13.5-17.5); MCH 29.7 pg (27.0-33.0); MCHC 30.5 % (32.0-36.0); MCV 97.2 fL (80-95); MPV 10.5 fL (8.0-11.0); Platelet Count 181 10^3/uL (130-400); RDW 19.5 % (11.8-14.1); RDW-SD 65.1 fL
[2021-04-28 06:53] LABS: Anion Gap 10.4 mmol/L (3-11); BUN 12 mg/dL (7-18); CO2 24.6 mmol/L (21.0-32.0); CREATININE 0.4 mg/dL (0.70-1.30); Calcium 7.8 mg/dL (8.5-10.1); Chloride 103 mmol/L (98-107); Glucose 164 mg/dL (74-106); Magnesium 1.7 mg/dL (1.8-2.4); Potassium 3.7 mmol/L (3.5-5.1); Sodium 138 mmol/L (136-145)
--- NOTE | 2021-04-28 07:03 | DI.VRAD_ITS ---
PROCEDURE INFORMATION: Exam: XR Chest Exam date and time: 04/28/2021 12:01 AM Age: 50 years old Clinical indication: Device placement; Prior surgery; Surgery date: 3-7 days post-operative; Surgery type: Right chest tube 04/22. Port; Patient HX: HX of esophageal CA TECHNIQUE: Imaging protocol: XR of the chest. Views: 1 view. COMPARISON: XR PORTABLE CHEST AP 04/27/2021 11:34 AM FINDINGS: Tubes, catheters and devices: Monitoring leads project over the chest. Thoracostomy tube right base laterally. Similar position to previous. Left-sided Ralznk-[id number]-Bopr style catheter with its tip in the superior vena cava. Lungs: Small pneumothorax right base laterally, similar to previous. Hyperinflation compatible with obstructive physiology. Extensive bilateral infiltrates, minimally improved. Increased left basilar atelectasis and/or effusion. Pleural spaces: Probable increased right pleural effusion. No left-sided pneumothorax. Heart/Mediastinum: Cardiac size upper limits normal. Mild central vascular congestion. Vasculature: Atherosclerotic calcification within a tortuous aorta. Bones/joints: Mild degenerative changes noted throughout the spine. IMPRESSION: 1. Small pneumothorax right base laterally, similar to previous. Right basilar thoracostomy tube remains in place. 2. Extensive bilateral infiltrates minimally improved from previous. 3. Increased atelectasis/effusion left base with probable increased right pleural effusion as well. Dictated and Authenticated by: Alberto Sherman MD. Ordering:ARMAND Walker MD
[2021-04-28 07:36] LABS: Absolute Lymphocyte Count 0.31 10^3/uL (1.2-3.4); Absolute Monocyte Count 0.31 10^3/uL (0.1-0.8); Absolute Neutrophil Count 13.92 10^3/uL (1.2-6.7); Bands % 2
[2021-04-28 07:37] LABS: Anisocytosis 1+; Diff Comment Manual Differential; Metamyelocytes % 1; Myelocytes % 4; Nucleated RBC 2 %
--- NOTE | 2021-04-28 08:16 | W.PM.PROGNOT ---
Date of Service Date of service: 04/28/21 Time of Service: 11:06 Assessment and Plan Assessment and plan (1) Acute hypoxemic respiratory failure: Status: Acute Assessment and plan: Etiology is not 100% clear - infectious, lung injury, pneumonitis. Lytic therapy infusions have been discontinued. CTA negative for PE, shows dense infiltrates in B lungs. CXR today pending Continue Increased dose of steroids. Continue zosyn. D/c vanco. Keep in ICU as the patient is still insisting on aggressive measures. Await palliative care consult today. Depending on outcome of this, ethics consult. (2) Empyema lung: Status: Acute Assessment and plan: Present on admission. Fluid cx with E. Coli (pansensitive) and an anaerobic gram positive nakul, speciation still pending (sent to [facility] No longer receiving TPA/fibrinolytic infusions. Continue chest tube to suction. General surgery and pulmonlogy are following for chest tube. Still has a small residual PTX. CXR pending (3) Anemia: Status: Chronic Assessment and plan: S/p transfusion of 1 unit pRBCs on 04/23/21. H/H stable- no xfusion at this time. Qualifiers: Anemia type: unspecified type Qualified Code(s): D64.9 - Anemia, unspecified (4) Acute dehydration: Status: Acute Assessment and plan: Consider TPN. TF formula changed to fibrasure - tolerating. Unable to tolerate IVF. 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 (7) Esophageal cancer: Status: Acute Assessment and plan: Agree that his cancer therapy are not likely to benefit him at this point. Palliative care and ethics consults have been requested. The patient remains full code at this time. He did mention to me that if things were truly looking like he is dying, he would elect to go home on comfort measures. During this conversation, the patient made clear that for now he would still like to be full code. It is my opinion that at this point the patient is dying and further aggressive care could be considered futile. The patient has not come to this determination yet, but I am asking other team members to consider this. 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 Trialing new bolus feeds. Also, nutrition is consulted for recommendations on bolus TF. (9) DVT prophylaxis: Status: Acute Assessment and plan: enoxaparin 40 mg SC daily - low threshold to d/c given brain mets. (10) Discharge planning issues: Status: Acute Assessment and plan: Full code. Keep in ICU. It is my opinion that at this point the patient is dying and further aggressive care could be considered futile. I am requesting a palliative care and ethics consults as well as other team members to consider this. Total Critical Care Time 30 minutes. Subjective Subjective Interval history since last seen: Vaughn's chest tube is to waterseal now. His O2 sats did start dropping after we did this, so he is now on 74% FiO2 (up from 60% prior to this). O2 sat is 90% right now. He does not feel short of breath, denies pain, dizziness, nausea. Palliative care meeting at 5 pm tonight. BP overnight 73/51 - 94/73. MAP mostly >60. BP now 94/63, MAP 70. Vancostopped this am. CXR is at noon. On high flow 60% 50L 90-97% overnight, RR teens-20s. Accepted TFs overnight. No pain or leaking with that. He says it's going well. UOP 450 cc in 8 hrs. On the air mattress. Sacral wound - can see a tendon. Penile tear with fungal erosion. Exam Narrative Exam Narrative: General: Pleasant cachectic middle-aged male who looks weaker today, not tachypneic on humidified heated high flow, A&Ox3, Unable to sit up or turn in bed without assistance. HEENT: EOMI, MMM Heart: RRR, tachycardic Lungs:CTAB; R-sided chest tube to water seal Abdomen: soft, nontender, nondistended Extremities: no edema BLE's Objective Last Vital Signs Temp 36.8 C 04/28/21 04:30 Pulse 112 H 04/28/21 06:01 Resp 25 H 04/28/21 06:02 BP 94/73 L 04/28/21 06:01 Pulse Ox 90 L 04/28/21 06:02 Laboratory Results - last 24 hr 04/27/21 04/28/21 04/28/21 14:10 06:20 06:20 WBC 15.30 H RBC 2.90 L Hgb 8.6 L Hct 28.2 L MCV 97.2 H MCH 29.7 MCHC 30.5 L RDW 19.5 H Plt Count 181 MPV 10.5 Immature Gran % See Differential Neutrophils % 89.0 Band Neutrophils % 2 Lymphocytes % 2.0 Monocytes % 2.0 Eosinophils % 0.0 Basophils % 0.0 Metamyelocytes % 1 Myelocytes % 4 Nucleated RBC % 2 Absolute Neutrophils 13.92 H Absolute Lymphocytes 0.31 L Absolute Monocytes 0.31 Absolute Eosinophils 0.00 Absolute Basophils 0.00 RBC Morphology See Below Anisocytosis 1+ Sodium 138 Potassium 3.7 Chloride 103 Carbon Dioxide 24.6 Anion Gap 10.4 BUN 12 Creatinine 0.4 L Estimated GFR/1.73 m2 >= 60.00 Glucose 164 H Calcium 7.8 L Magnesium 1.7 L Vancomycin Trough 21.4 H*
--- NOTE | 2021-04-28 08:30 | DI.RAD_ITS ---
Exam(s) XR PORTABLE CHEST AP EXAM: XR PORTABLE CHEST AP CLINICAL HISTORY: right chest tube. TECHNIQUE: 2D digital imaging was performed. COMPARISON: CT CT CHEST PE CTA from 04/26/[address] CHEST PE CTA from 04/26/2021 CR,XR XR PORTABLE CHEST AP from 04/27/2021 CR,XR XR PORTABLE CHEST AP from 04/27/2021 FINDINGS: Heart size unchanged. The mediastinum is not widened. Left subclavian Port-A-Cath again noted with distal tip at the SVC-RA junction. Chest leads in place . Extensive bilateral infiltrates again noted without significant improvement. Right chest tube is unchanged in position. Small right-sided pneumothorax again noted, approximately 10 percent. Bilateral small-moderate size pleural effusions are again noted. IMPRESSION: No radiographic improvement. DATA REPOSITORY: RADIATION DOSE DELIVERED: All CT scans at this facility use at least one of these dose optimization techniques: automated exposure control; mA and/or kV adjustment per patient size (includes targeted e xams where dose is matched to clinical indication); or iterative reconstruction.
[2021-04-28] MEDS: Enoxaparin 40 MG/0.4 ML SYR SC (08:53)
[2021-04-28] MEDS: MAGNESIUM SULFATE 2 GM/50 ML BAG IVPB (08:53)
[2021-04-28] MEDS: Pantoprazole 40 MG VIAL IVP ×2 (08:53→19:44)
[2021-04-28] MEDS: guaiFENesin 200 MG/10 ML CUP JT ×4 (08:53→19:43)
--- NOTE | 2021-04-28 08:55 | PUCC_ITS ---
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 He underwent 5/6 doses of intrapleural lytics with good response but developed acute hypoxic respiratory failure during chest tube clamping for the lytics. He is on HFNC in the ICU for this reason. The right pleural space is cleared but with air remaining. This could have been a hydropneumothorax from the beginning as some air was seen in the fluid on his CT initially from this admission. As this infection has been present since the beginning of April he could have developed a lung entrapment. If this is the care the air will also be there, but it should not expand. I placed him on waterseal this morning (no air leak seen) and will get another CXR at noon to assess for air expansion in the pleural space. I would plan on leaving him on waterseal if he can tolerate it (no symptoms and chest imaging stable). 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 The left sided pleural effusion seems to be most consistent with a transudative process given its acutely and associated alveolar infiltrates that have also developed on the same side, however it is possible for this to be the same infection as on the right. Overall he has a dismal prognosis due to his cancer, and although we can treat his infection, he is dying from his cancer. Recommendations Pulmonary: Hypoxic respiratory failure - supplemental O2 for saturations 88-92% - avoid aggressive airway clearance with Acapella given air in pleural space - discontinue Mucomist nebs - no proven benefit when compared to typical nebulizers and the risk of vomiting/nausea given caustic smell - recommend continues diuresis to negative 1 L in 24 hours Pneumothorax - I have concern for entrapped lung - placed on water seal this morning - repeat CXR at noon to assess for any air expansion - if air expansion then this is unlikely an entrapped or trapped lung process - if the size of air collection remains stable over days then this is likely lung entrapment and the chest tube will not be successful in removing air (as there will chronically be air remaining) Emphysema - continue Spiriva - continue QID Duonebs - continue prn albuterol Left pleural effusion - volume overload vs infectious - recommend diuresis daily as tolerated as above - can consider thoracentesis for drainage and diagnostic, however patient with ongoing care discussions so can hold off Cardiac: No acute concerns Renal: No acute concerns - diuresis as above I&O: Intake & Output 04/25/21 04/26/21 04/27/21 04/28/21 23:59 23:59 23:59 23:59 Intake Total 890 / 890 1385 / 1385 1090 / 1090 540 / 540 Output Total 760 / 760 2940 / 3140 760 / 760 465 / 465 Balance 130 / 130 -1555 / -1755 330 / 330 75 / 75 Weight 63.3 kg 64.8 kg Daily Fluid Goal:: Negative 1 L in 24 hours GI Nutrition: Malfunction of G tube - management per surgery - tolerate 2 bolus feeds yesterday evening - on Protonix Date of Last Bowel Movement: 04/25/21 Infectious Disease: E.coli Empyema - MRSA nares negative, no role for vancomycin - can discontinue - can continue Zosyn for now - awaiting gram positive nakul differentiation - pleural space adequately evacuated, tube no longer needed for this purpose - if improving can switch his to Augmentin (now that G tube being used) Pressure wound and penile tear - on Zosyn for lungs - wound consultation if not already done Hematologic: Metastatic esophageal cancer - poor prognosis - agree with palliative care consultation - patient unrealistic about his overall prognosis despite conversations with multiple providers - CPR and intubation is futile in my medical opinion - it is likely that he will not survive this hospitalization Neurologic: No acute concerns - delirium prevention interventions - pain control per primary team Endocrine: No acute concerns Lines: Port Prophylaxis: Lovenox and Protonix Code Status: Resuscitation Status Full Code Subjective Critical and life-threatening events over the past 24 hours: Vaughn decompensated during administration of a lytic dose that required high flow nasal cannula and ICU transfer. His antibiotics were changed to vanc and zosyn. He received 5/6 doses and repeat imaging showed pneumothorax on the right with greatly improved loculated effusions. There are only 2 small loculations remaining that are small enough to be treated with antibiotics alone. His microbiology shows E. coli and a gram positive nakul in the empyema fluid. His cytology was negative for atypical cells (although typically a low yield test). Amylase was low but triglyceride level was high, however this could be due to his severe empyema. His updated imaging also displays left sided infiltrates and a left effusion that is new from his prior scan. Today he states that he is not in pain and his breathing does not feel labored. We discussed code status in detail and what this is compared to withdrawal of care or hospice. I very clearly told him that if his heart were to stop and we performed CPR and intubated him, the odds of his survival are a fraction of a percentage and the odds of him recovering from such an event to the point of function where is was prior to admission is essentially nil. I told him that doing CPR on him will certainly provide more harm than good and that I do not think it would be beneficial for him in any way. He seemed to be overwhelmed by this conversation and states he cannot make such a big and important decision like that right now. It is my opinion that CPR and intubation would be futile care given his medical conditions. Exam Narrative Exam Narrative: Chest tube in place. Tube interrogated and functioning appropriately. No air leak present with coughing, talking or deep breathing. Wall suction -[id number]. Only 15cc in output since last night. Const General: no acute distress Nutritional Appearance: cachectic [facility] Head: normocephalic Ears: external ears normal and no periauricular adenopathy General nose exam: nasal mucous membranes and turbinates normal Face and sinus: sinuses nontender Mouth: oropharynx normal and moist mucous membranes Teeth and gingiva: poor dentition Eyes General: appearance normal, both eyes and all related structures Pupils: PERRL Neck Neck: normal visual inspection and no lymphadenopathy Chest Chest: normal inspection of the chest Resp Effort & Inspection: normal respiratory effort Auscultation: clear to auscultation bilaterally, no rales, no rhonchi and no wheezes Cardio Rate: regular rate Rhythm: regular rhythm Heart Sounds: S1 normal, S2 normal and no murmurs Pulses: radial pulses present bilaterally GI Inspection: normal to inspection Palpation: soft Skin General skin exam: no rashes or lesions noted Neuro General: patient alert, patient awake and patient oriented x3 Extrem General: no clubbing, cyanosis or edema Psych Mental Status: mental status grossly normal Affect: normal affect Attitude: cooperative Most Recent VS/Results Last Vital Signs Temp 36.8 C 04/28/21 04:30 Pulse 112 H 04/28/21 06:01 Resp 25 H 04/28/21 06:02 BP 94/73 L 04/28/21 06:01 Pulse Ox 90 L 04/28/21 06:02 Laboratory Results - last 24 hr 04/27/21 04/28/21 04/28/21 14:10 06:20 06:20 WBC 15.30 H RBC 2.90 L Hgb 8.6 L Hct 28.2 L MCV 97.2 H MCH 29.7 MCHC 30.5 L RDW 19.5 H Plt Count 181 MPV 10.5 Immature Gran % See Differential Neutrophils % 89.0 Band Neutrophils % 2 Lymphocytes % 2.0 Monocytes % 2.0 Eosinophils % 0.0 Basophils % 0.0 Metamyelocytes % 1 Myelocytes % 4 Nucleated RBC % 2 Absolute Neutrophils 13.92 H Absolute Lymphocytes 0.31 L Absolute Monocytes 0.31 Absolute Eosinophils 0.00 Absolute Basophils 0.00 RBC Morphology See Below Anisocytosis 1+ Sodium 138 Potassium 3.7 Chloride 103 Carbon Dioxide 24.6 Anion Gap 10.4 BUN 12 Creatinine 0.4 L Estimated GFR/1.73 m2 >= 60.00 Glucose 164 H Calcium 7.8 L Magnesium 1.7 L Vancomycin Trough 21.4 H* Review of Systems All systems reviewed & are unremarkable except as noted in HPI and below Time spent with patient Time spent in Critical Care: 45 Time spent in Critical care included: Coordination of care, Chart review, Documenting critically ill care, Time at immediate bedside and Discussing critically ill care with other medical staff
[2021-04-28] MEDS: Albuterol/Ipratropium 3 ML UPD VIAL UPD ×4 (09:28→19:43)
[2021-04-28] MEDS: Tiotropium Bromide-Respimat 10 PUFF INH 2 PUFF IH (09:32)
--- NOTE | 2021-04-28 09:39 | PDOC.CMPRO ---
- If Service Date Differs Date of service: 04/28/21 Time of Service: 17:01 Care Management Progress Note S/O: Vaughn remains in the ICU, on oxygen, closely followed by Pulmonology at this time. Per MD, futility and ethics consult will be considered, due to Vaughn's wishes to remain a full code. Anticipate evening meeting today with Palliative and Dr. Romero to discuss code status and futility directly with Vaughn. CM continues to follow. A: 50 year old male admitted to [facility] 04/21/21 for Dehydration P: Vaughn remains at [facility], advocating for continued treatment. Discussions regarding goals of care and treatment planning continue. CM will outreach to [facility] for discharge planning considerations when appropriate; consult completed-Vaughn verbalized understanding of Hospice requirements and support services should he choose to return home with this service. CM continues to follow.
--- NOTE | 2021-04-28 09:55 | W.PM.PROGNOT ---
Date of Service Date of service: 04/28/21 Time of Service: 09:56 Assessment and Plan Assessment and plan (1) Empyema lung: Status: Acute Assessment and plan: -Right sided chest tube in place, on waterseal since this AM -AM and 12pm x-rays reviewed, no acute changes. Leaving chest tube in place for now as it is still draining a fair amount of fluid.Today is the first day he has not had an air leak. -Continue to encourage incentive spirometer use as tolerated -Supplemental oxygen via HFNC, provides small amount of PEEP which should not adversely affect him.while chest tube in place with small residual basilar pneumothorax -Support hospice/palliative consult pending, patient maintains a positive attitude despite tenuous clinical status (2) Malfunction of gastrostomy tube: Status: Resolved Assessment and plan: -Does not appear to be leaking -Local wound care to site to keep skin protected -Tolerating tube feeds Subjective Subjective Patient reports: no new complaints and shortness of breath; denies nausea and vomiting Exam Const General: cooperative, comfortable and acute distress moderate and respiratory Nutritional Appearance: cachectic HENCT Head: other (HFNC) Chest Chest: other (right sided chest tube in place) Resp Effort & Inspection: no audible wheezes, labored, respiratory distress, retractions, uses accessory muscles and other (chest tube without air leak on waterseal) Cardio Rate: tachycardic Rhythm: regular rhythm GI Inspection: non-distended and scaphoid Palpation: soft, no guarding, nontender and other (G tube in place does not appear to be leaking) Percussion: normal to percussion Neuro General: patient alert, patient awake and patient oriented x3 Objective Last Vital Signs Temp 98.2 F 04/28/21 04:30 Pulse 108 H 04/28/21 09:00 Resp 24 04/28/21 09:28 BP 95/61 L 04/28/21 09:00 Pulse Ox 90 L 04/28/21 09:00 Laboratory Results - last 24 hr 04/27/21 04/28/21 04/28/21 14:10 06:20 06:20 WBC 15.30 H RBC 2.90 L Hgb 8.6 L Hct 28.2 L MCV 97.2 H MCH 29.7 MCHC 30.5 L RDW 19.5 H Plt Count 181 MPV 10.5 Immature Gran % See Differential Neutrophils % 89.0 Band Neutrophils % 2 Lymphocytes % 2.0 Monocytes % 2.0 Eosinophils % 0.0 Basophils % 0.0 Metamyelocytes % 1 Myelocytes % 4 Nucleated RBC % 2 Absolute Neutrophils 13.92 H Absolute Lymphocytes 0.31 L Absolute Monocytes 0.31 Absolute Eosinophils 0.00 Absolute Basophils 0.00 RBC Morphology See Below Anisocytosis 1+ Sodium 138 Potassium 3.7 Chloride 103 Carbon Dioxide 24.6 Anion Gap 10.4 BUN 12 Creatinine 0.4 L Estimated GFR/1.73 m2 >= 60.00 Glucose 164 H Calcium 7.8 L Magnesium 1.7 L Vancomycin Trough 21.4 H*
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
--- NOTE | 2021-04-28 10:28 | W.NUTCONSULT ---
Date of service: 04/28/21 Time of Service: 10:28 Nutritional Consult ASSESSMENT: Nutrition consult for bolus tube feeding recommendations. From the flow sheet, it looks like Mr. Simpson got 240 ml of tube feeding in the past 24 hours which is 300 kcals and 13.5 g of protein. His weight today is up to 64.8 kg and BMI is 19.9 kg/m2 which is WNL. Although he has been hypocaloric, his weight loss over the past month is no longer significant. Estimated energy needs are 1900 kcal/day (REE x 1.1 (AF) x 1.2(SF)) Estimated protein needs: 89 g protein/day (1.5 g/kg/day) Estimated fluid needs are 2.0 L/day (30 kcal/kg/day) Noted at morning meeting that TPN is being considered. NUTRITIONAL DIAGNOSIS: Severe malnutrition in the setting of acute illness as evidenced by 10% weight loss in two weeks and taking in less than 50% of estimated energy needs for greater than 5 days (AND/ASPEN guidelines for diagnosing malnutrition) INTERVENTION: Will provide Osmolite 1.2 cinthia if Mr. Simpson continues with his tube feeding. If TPN is initiated, I recommend the following regimen. NUTRITIONAL DIAGNOSIS: Inability to take oral foods and fluids. INTERVENTION: Bolus tube feed recommendations: 1.5 cartons of Fibersource HN, four times daily. Would recommend close to typical meal times for the bolus (0700,1100,1500,1900) to follow the body's usual hormonal schedule which aids in digestion. He will also likely need an additional 700 ml of free water to maintain his hydration. Thus 175 ml of free water, four times daily should be adequate. This regimen above provides 1800 kcals, 81 g protein and 1212 ml of free water daily. This regimen meets his estimation of nutritional needs as well as micronutrient needs and hydration needs. Please see my nutrition consult from 04/22 with my TPN recommendations and full assessment should it be decided to go that route for nutrition. 3.0L/day of Clinimix 4.25/10 with 250 ml of 20% lipids daily (125 cc/hr) to provide 2032 kcals and 128 g of protein MONITORING AND EVALUATION: Will continue to monitor weight and progress with regard to nutrition support. Will evaluate nutrition care plan ongoing and adjust as needed. Time Spent in Nutritional Counseling and Treatment: 0
--- NOTE | 2021-04-28 12:00 | DI.RAD_ITS ---
Exam(s) XR PORTABLE CHEST AP EXAM: XR PORTABLE CHEST AP CLINICAL HISTORY: pneumothorax, CT placed on waterseal. TECHNIQUE: 2D digital imaging was performed. COMPARISON: CR,XR XR PORTABLE CHEST AP from 04/28/2021 FINDINGS: Heart size is upper normal. The mediastinum is not widened. There is no radiographic improvement in the extensive bilateral infiltrates and the size of bilateral pleural effusions remain stable. Right chest tube position exhibits minimal change. The small pneu mothorax on the right is less evident present study. Chest leads in place and distal tip of the Port -A-Cath is at the SVC-RA junction, unchanged. IMPRESSION: No radiographic improvement in the extensive bilateral pulmonary infiltrates and bilateral small-mode rate size pleural effusions. DATA REPOSITORY: RADIATION DOSE DELIVERED: All CT scans at this facility use at least one of these dose optimization techniques: automated exposure control; mA and/or kV adjustment per patient size (includes targeted e xams where dose is matched to clinical indication); or iterative reconstruction.
[2021-04-28] MEDS: MORPHine 2 MG/ML SYR IVP ×2 (12:35→22:01)
--- NOTE | 2021-04-28 13:10 | PHA.REVIEW ---
Pharmacy Admission Review - Admission Clinical Review (Last Updated 04/28/21 @ 09:13 by Ailin Kim MD) Cachexia (Acute) Hypocalcemia (Acute) Hypomagnesemia (Acute) Leukocytosis (Acute) Pleural effusion on left (Acute) Discharge planning issues (Acute) Acute hypoxemic respiratory failure (Acute) DVT prophylaxis (Acute) Empyema lung (Acute) Emphysema lung (Acute) Acute dehydration (Acute) Goals of care, counseling/discussion (Acute) Liver metastases (Acute) Brain metastases (Acute) History of esophageal cancer (Acute) Jejunostomy tube leak (Acute) Tobacco dependence (Acute) Protein-calorie malnutrition, moderate (Acute) Esophageal cancer (Acute 08/14/18) No Known Allergies Allergy (Verified 04/07/21 13:03) Resuscitation Status Full Code Height 5 ft 11 in Weight 64.8 kg - Renal Dosing Renal Dosing: BUN 12 mg/dL (7-18) 04/28/21 06:20 Creatinine 0.4 mg/dL (0.70-1.30) L 04/28/21 06:20 Medications needing adjustments: Reviewed (Crcl ~99 mL/min, current meds okay) - Anticoagulation Anticoagulation: Hgb 8.6 g/dL (13.5-17.5) L 04/28/21 06:20 Hct 28.2 % (40.0-50.0) L 04/28/21 06:20 Plt Count 181 10^3/uL (130-400) 04/28/21 06:20 Creatinine 0.4 mg/dL (0.70-1.30) L 04/28/21 06:20 DVT Prophylaxis: Reviewed Medications: Enoxaparin Therapeutic Anticoagulation: N/A - Opiate Usage Evaluate Pain Scale/Pains Meds: Intervened Scheduled Bowel Reg ordered if on Opiates?: No (will mention to provider) - Relevant Labs Sodium 138 mmol/L (136-145) 04/28/21 06:20 Potassium 3.7 mmol/L (3.5-5.1) 04/28/21 06:20 Chloride 103 mmol/L (98-107) 04/28/21 06:20 Phosphorus 2.6 mg/dL (2.6-4.7) 04/23/21 06:05 Magnesium 1.7 mg/dL (1.8-2.4) L 04/28/21 06:20 Electrolytes, C-Reactive P, ESR: Reviewed (mag replacement ordered) - DM Control DM Control: Glucose 164 mg/dL (74-106) H 04/28/21 06:20 Insulin Dosing: N/A (BG a little elevated this morning, was within normal limits previous 3 days, but did have a few elevated levels earlier on in his stay. No DM noted in medical history, no A1c on file.) - Heart Failure/ND Heart Failure/ND: NT-Pro-B Natriuret Pep 5946 pg/mL (<300) H 04/26/21 08:30 EF%, WINNIE's, B-Blockers, Diuretics: Reviewed - BP Control BP Control: Blood Pressure 95/61 Blood Pressure 94/63 Blood Pressure 94/73 Blood Pressure 73/51 Blood Pressure 89/58 Blood Pressure 90/59 Blood Pressure 84/55 If elevated: Reviewed (BP has been a little low most of admission) - Qtc Review If Elevated: N/A (QTc 455 from EKG fone 04/23/21) - IV to PO Switch IV Medications: Reviewed - Home Meds Home Med List reviewed: Reviewed (ibuprofen (PRN), lidocaine, oxycodone (has morphine ordered)) - Current meds Current Medication Order Review: Intervened (Discontinued DI meds (had already been given).) - Comments Comments/Follow Ups: Watch BP, BG, mag, labs and for med changes (possible need of BM meds) Antibiotic Activity - Pharmacy Antibiotic Review Pharmacy Antibiotic Activity: Reviewed, no change (Zosyn (day 3) continues for acute hypoxemic respiratory failure per progress note (day 7 total abx starts this evening))
--- NOTE | 2021-04-28 17:30 | RT.EKG_ITS ---
APPROVED REPORT Exam: Resting ECG Reason for Exam: SVT Patient Location: I HR:86 bpm ECG Measurements Heart Rate 86 AXIS AL 169 P 56 QRSd 86 QRS 38 QT 347 T 53 QTc 416 Conclusion Sinus rhythm...normal P axis, V-rate 60- 99 Normal Electrocardiogram
[2021-04-28] MEDS: Metoprolol 5 MG/5 ML VIAL ×2 (17:45→17:50)
[2021-04-28] MEDS: LORazepam 0.5 MG TAB PO (22:01)
[2021-04-29] VITALS (56 sets, daily range): BP systolic 82–117; BP diastolic 53–75; PULSE 80–107; RESP 1–36; TEMP 36.3–37.4; O2SAT 87–97
[2021-04-29] MEDS: levETIRAcetam 1,000 MG in Normal Saline 100 ML 400 MG IVPB ×2 (02:27→14:13)
[2021-04-29] MEDS: Dexamethasone 4 MG/ML VIAL IVP ×4 (02:27→21:19)
[2021-04-29] MEDS: Normal Saline Flush 10 ML SYR IVP ×4 (02:27→18:35)
[2021-04-29 05:55] LABS: Abs Immature Grans 1.16 10^3/uL (0.0-0.06); Absolute Lymphocyte Count 0.28 10^3/uL (1.2-3.4); MCH 29.8 pg (27.0-33.0); Nucleated RBC 1 %; Platelet Count 170 10^3/uL (130-400); RBC 3.02 10^6/uL (4.36-5.78); RDW-SD 66.1 fL; WBC 14.14 10^3/uL (4.4-10.8)
[2021-04-29 06:09] LABS: Anion Gap 9.2 mmol/L (3-11); BUN 11 mg/dL (7-18); CO2 26.8 mmol/L (21.0-32.0); CREATININE 0.4 mg/dL (0.70-1.30); Calcium 7.6 mg/dL (8.5-10.1); Chloride 102 mmol/L (98-107); Glucose 176 mg/dL (74-106); Magnesium 1.9 mg/dL (1.8-2.4); Potassium 3.4 mmol/L (3.5-5.1); Sodium 138 mmol/L (136-145)
[2021-04-29 06:32] LABS: Absolute Monocyte Count 0.42 10^3/uL (0.1-0.8); Absolute Neutrophil Count 13.01 10^3/uL (1.2-6.7); Atypical Lymphocytes % 0; Bands % 2
[2021-04-29 06:33] LABS: Metamyelocytes % 2; Myelocytes % 1
[2021-04-29 06:34] LABS: Diff Comment Manual Differential
[2021-04-29 06:35] LABS: Anisocytosis 1+; Polychromasia Present
--- NOTE | 2021-04-29 07:58 | W.PM.PROGNOT ---
Date of Service Date of service: 04/29/21 Time of Service: 07:58 Assessment and Plan Assessment and plan (1) Empyema lung: Status: Acute Assessment and plan: -Right sided chest tube in place, continues to be on waterseal today -Continue to encourage incentive spirometer use as tolerated -Supplemental oxygen via HFNC, provides small amount of PEEP which should not adversely affect him.while chest tube in place with small residual basilar pneumothorax -Met with palliative care yesterday. (2) Malfunction of gastrostomy tube: Status: Resolved Assessment and plan: -Does not appear to be leaking -Local wound care to site to keep skin protected -Tolerating tube feeds Subjective Subjective Interval history since last seen: Patient denies having any pain at this time. He is reports that his tube feeding is going very well. Exam Const General: cooperative, healthy appearing and comfortable Orientation: alert and oriented x3 Resp Effort & Inspection: normal respiratory effort, no audible wheezes and no cough Other: Chest tube in place Currently receiving a neb. tx Objective Last Vital Signs Temp 37.4 C 04/29/21 04:30 Pulse 90 04/29/21 06:00 Resp 16 04/29/21 06:00 BP 88/59 L 04/29/21 06:00 Pulse Ox 94 04/29/21 06:00 Laboratory Results - last 24 hr 04/29/21 04/29/21 05:20 05:20 WBC 14.14 H RBC 3.02 L Hgb 9.0 L Hct 29.0 L MCV 96.0 H MCH 29.8 MCHC 31.0 L RDW 20.0 H Plt Count 170 MPV 11.0 Immature Gran % 0.0 Neutrophils % 90.0 Band Neutrophils % 2 Lymphocytes % 2.0 Atypical Lymphs % 0 Monocytes % 3.0 Eosinophils % 0.0 Basophils % 0.0 Metamyelocytes % 2 Myelocytes % 1 Nucleated RBC % 1 Absolute Neutrophils 13.01 H Absolute Lymphocytes 0.28 L Absolute Monocytes 0.42 Absolute Eosinophils 0.00 Absolute Basophils 0.00 RBC Morphology See Below Polychromasia Present Anisocytosis 1+ Sodium 138 Potassium 3.4 L Chloride 102 Carbon Dioxide 26.8 Anion Gap 9.2 BUN 11 Creatinine 0.4 L Estimated GFR/1.73 m2 >= 60.00 Glucose 176 H Calcium 7.6 L Magnesium 1.9
[2021-04-29] MEDS: Albuterol/Ipratropium 3 ML UPD VIAL UPD ×3 (08:13→16:47)
--- NOTE | 2021-04-29 08:14 | PGE_ITS ---
Date of Service Date of service: 04/29/21 Time of Service: 11:50 Assessment and Plan Assessment and plan (1) Acute hypoxemic respiratory failure: Status: Acute Assessment and plan: Etiology is not 100% clear - infectious, lung injury, pneumonitis. Lytic therapy infusions have been discontinued. CTA negative for PE, shows dense infiltrates in B lungs. CXR is being repeated shortly. Continue Increased dose of steroids. Continue zosyn. Keep in ICU as the patient is still insisting on aggressive measures until we have further directives after the 3 pm palliative care meeting. Await palliative care consult today. Depending on outcome of this, ethics consult. (2) Empyema lung: Status: Acute Assessment and plan: Present on admission. Fluid cx with E. Coli (pansensitive) and an anaerobic gram positive nakul, speciation still pending (sent to [facility]). No longer receiving TPA/fibrinolytic infusions. Chest tube is currently on water seal. General surgery and pulmonlogy are following for chest tube. Still has a small residual PTX. CXR pending (3) Anemia: Status: Chronic Assessment and plan: S/p transfusion of 1 unit pRBCs on 04/23/21. H/H stable- no xfusion at this time. Qualifiers: Anemia type: unspecified type Qualified Code(s): D64.9 - Anemia, unspecified (4) Acute dehydration: Status: Acute Assessment and plan: Consider TPN. TF formula changed to fibrasure - tolerating. Unable to tolerate IVF. 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 (7) Esophageal cancer: Status: Acute Assessment and plan: Agree that his cancer therapy are not likely to benefit him at this point. Palliative care and ethics consults have been requested. The patient remains full code at this time. He did mention to me that if things were truly looking like he is dying, he would elect to go home on comfort measures. During this conversation, the patient made clear that for now he would still like to be full code. It is my opinion that at this point the patient is dying and further aggressive care could be considered futile. The patient has not come to this determination yet. We are hoping to make some progress during his palliative care meeting today. 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 Intolerant of larger volume feeds today. I halved the volumes for the future, but I think the patient will tell us if/when/how much he wants to try the next time, and we should permit him to dictate this. (9) DVT prophylaxis: Status: Acute Assessment and plan: enoxaparin 40 mg SC daily - low threshold to d/c given brain mets. (10) Discharge planning issues: Status: Acute Assessment and plan: Full code. Keep in ICU. It is my opinion that at this point the patient is dying and further aggressive care could be considered futile. I am awaiting palliative care and ethics consu lts as well as other team members to consider this. Total Critical Care Time 30 minutes. Subjective Subjective Interval history since last seen: Mr Simpson states he feels bloated after having received the TF amount recommended by nutrition. He does not want to get the same amount again. He does not want us to aspirate residual right now. He just wants us to leave things as they are. He is not nauseated currently, just feels full, but did feel nauseated earlier and like he had gastric reflux. The pain is ok right now, and he denies shortness of breath. He elected not to sit up to let me examine his lungs and asked me not to examine his abdomen right now. Chest tube placed to waterseal this am. 75 cc out in the last 12 hrs out of chest tube. Saturating low 90s on 60% 50 L HHHFNC. BP on the low side - UOP 250 cc out in 12 hrs. Thick palm sputum. On zosyn. Tmax 37.4. Episode of rapid Afib yesterday which responded to 5 mg IV lopressor. 3 pm meeting is being planned with palliative care to discuss goals of care. Exam Narrative Exam Narrative: General: Pleasant cachectic middle-aged male who looks uncomfortable, taking frequent shallow breaths, able to complete sentences HEENT: EOMI, MMM Heart: RRR, no m/r/g Lungs: Diminished breath sounds anteriorly; R-sided chest tube to water seal. Not auscultated posteriorly per patient's request. Abdomen: not examined per patient's request. Extremities: no edema BLE's Objective Last Vital Signs Temp 37.4 C 04/29/21 04:30 Pulse 90 04/29/21 06:00 Resp 16 04/29/21 06:00 BP 88/59 L 04/29/21 06:00 Pulse Ox 94 04/29/21 06:00 Laboratory Results - last 24 hr 04/29/21 04/29/21 05:20 05:20 WBC 14.14 H RBC 3.02 L Hgb 9.0 L Hct 29.0 L MCV 96.0 H MCH 29.8 MCHC 31.0 L RDW 20.0 H Plt Count 170 MPV 11.0 Immature Gran % 0.0 Neutrophils % 90.0 Band Neutrophils % 2 Lymphocytes % 2.0 Atypical Lymphs % 0 Monocytes % 3.0 Eosinophils % 0.0 Basophils % 0.0 Metamyelocytes % 2 Myelocytes % 1 Nucleated RBC % 1 Absolute Neutrophils 13.01 H Absolute Lymphocytes 0.28 L Absolute Monocytes 0.42 Absolute Eosinophils 0.00 Absolute Basophils 0.00 RBC Morphology See Below Polychromasia Present Anisocytosis 1+ Sodium 138 Potassium 3.4 L Chloride 102 Carbon Dioxide 26.8 Anion Gap 9.2 BUN 11 Creatinine 0.4 L Estimated GFR/1.73 m2 >= 60.00 Glucose 176 H Calcium 7.6 L Magnesium 1.9
[2021-04-29] MEDS: Tiotropium Bromide-Respimat 10 PUFF INH 2 PUFF IH (08:16)
--- NOTE | 2021-04-29 08:47 | W.PULMCC ---
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 He underwent 5/6 doses of intrapleural lytics with good response but developed acute hypoxic respiratory failure during chest tube clamping for the lytics. He is on HFNC in the ICU for this reason. The right pleural space is cleared but with some air remaining on CT. This could have been a hydropneumothorax from the beginning as some air was seen in the fluid on his CT initially from this admission. His most recent scan do not show clear evidence of the pneumothorax growing with his waterseal trial yesterday, but there was concern about desaturation with the tube being switched to waterseal to suction was reapplied. As this infection has been present since the beginning of April he could have developed a lung entrapment. If this is the care the air will also be there, but it should not expand. I will trial him again on waterseal today with plan for a repeat CXR at noon. I would plan on leaving him on waterseal if he can tolerate it (no symptoms and chest imaging stable). 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 The left sided pleural effusion seems to be most consistent with a transudative process given its acutely and associated alveolar infiltrates that have also developed on the same side, however it is possible for this to be the same infection as on the right. Overall he has a dismal prognosis due to his cancer, and although we can treat his infection, he is dying from his cancer. Recommendations Pulmonary: Hypoxic respiratory failure - supplemental O2 for saturations 88-92% - avoid aggressive airway clearance with Acapella given air in pleural space Pneumothorax - I have concern for entrapped lung - placed on water seal this morning - repeat CXR at noon to assess for any air expansion Emphysema - continue Spiriva - continue QID Duonebs - continue prn albuterol Left pleural effusion - volume overload vs infectious - can consider thoracentesis for drainage and diagnostic, however patient with ongoing care discussions so can hold off Cardiac: Atrial Fibrillation - resolved with one dose of Lopressor Renal: Decreased UOP - recommend 250cc bolus of LR I&O: Intake & Output 04/26/21 04/27/21 04/28/21 04/29/21 23:59 23:59 23:59 23:59 Intake Total 1385 / 1385 1090 / 1090 1010 / 1010 320 / 320 Output Total 2940 / 3140 760 / 760 1050 / 1150 175 / 175 Balance -1555 / -1755 330 / 330 -40 / -140 145 / 145 Weight 63.3 kg 74.6 kg 74.4 kg Daily Fluid Goal:: Even GI Nutrition: Malfunction of G tube - management per surgery - tolerate 2 bolus feeds yesterday evening - on Protonix Date of Last Bowel Movement: 04/25/21 Infectious Disease: E.coli Empyema - can continue Zosyn for now - awaiting gram positive nakul differentiation - pleural space adequately evacuated, tube no longer needed for this purpose - if improving can switch his to Augmentin (now that G tube being used) Pressure wound and penile tear - on Zosyn for lungs - wound care per primary team Hematologic: Metastatic esophageal cancer - poor prognosis - agree with palliative care consultation - patient unrealistic about his overall prognosis despite conversations with multiple providers - CPR and intubation is futile in my medical opinion - it is likely that he will not survive this hospitalization Neurologic: No acute concerns - delirium prevention interventions - pain control per primary team Endocrine: No acute concerns Lines: Port Prophylaxis: Lovenox and Protonix Code Status: Resuscitation Status Full Code Subjective Critical and life-threatening events over the past 24 hours: Vaughn is feeling well today. He denies pain at all. He is not having trouble breathing. Exam Narrative Exam Narrative: Chest tube in place. Tube interrogated and functioning appropriately. No air leak present with coughing, talking or deep breathing. Wall suction -[id number]. Only 150cc in output in last 24 hours. Const General: no acute distress Nutritional Appearance: cachectic HENNC Head: normocephalic Ears: external ears normal and no periauricular adenopathy General nose exam: nasal mucous membranes and turbinates normal Face and sinus: sinuses nontender Mouth: oropharynx normal and moist mucous membranes Teeth and gingiva: poor dentition Eyes General: appearance normal, both eyes and all related structures Pupils: PERRL Neck Neck: normal visual inspection and no lymphadenopathy Chest Chest: normal inspection of the chest Resp Effort & Inspection: normal respiratory effort Auscultation: clear to auscultation bilaterally, no rales, no rhonchi and no wheezes Cardio Rate: regular rate Rhythm: regular rhythm Heart Sounds: S1 normal, S2 normal and no murmurs Pulses: radial pulses present bilaterally GI Inspection: normal to inspection Palpation: soft Skin General skin exam: no rashes or lesions noted Neuro General: patient alert, patient awake and patient oriented x3 Extrem General: no clubbing, cyanosis or edema Psych Mental Status: mental status grossly normal Affect: normal affect Attitude: cooperative Most Recent VS/Results Last Vital Signs Temp 37.4 C 04/29/21 04:30 Pulse 90 04/29/21 06:00 Resp 24 04/29/21 08:13 BP 88/59 L 04/29/21 06:00 Pulse Ox 92 04/29/21 08:13 Laboratory Results - last 24 hr 04/29/21 04/29/21 05:20 05:20 WBC 14.14 H RBC 3.02 L Hgb 9.0 L Hct 29.0 L MCV 96.0 H MCH 29.8 MCHC 31.0 L RDW 20.0 H Plt Count 170 MPV 11.0 Immature Gran % 0.0 Neutrophils % 90.0 Band Neutrophils % 2 Lymphocytes % 2.0 Atypical Lymphs % 0 Monocytes % 3.0 Eosinophils % 0.0 Basophils % 0.0 Metamyelocytes % 2 Myelocytes % 1 Nucleated RBC % 1 Absolute Neutrophils 13.01 H Absolute Lymphocytes 0.28 L Absolute Monocytes 0.42 Absolute Eosinophils 0.00 Absolute Basophils 0.00 RBC Morphology See Below Polychromasia Present Anisocytosis 1+ Sodium 138 Potassium 3.4 L Chloride 102 Carbon Dioxide 26.8 Anion Gap 9.2 BUN 11 Creatinine 0.4 L Estimated GFR/1.73 m2 >= 60.00 Glucose 176 H Calcium 7.6 L Magnesium 1.9 Review of Systems All systems reviewed & are unremarkable except as noted in HPI and below Time spent with patient Time spent in Critical Care: 40 Time spent in Critical care included: Coordination of care, Chart review, Documenting critically ill care, Time at immediate bedside and Discussing critically ill care with other medical staff
[2021-04-29 08:50] LABS: Albumin 1.6 g/dL (3.4-5.0)
--- NOTE | 2021-04-29 08:55 | CMPROGNOTE_ITS ---
- If Service Date Differs Date of service: 04/29/21 Time of Service: 14:33 Care Management Progress Note S/O: Vaughn remains in the ICU, on oxygen, closely followed by Pulmonology at this time. Per MD, futility and ethics consult will be considered, due to Vaughn's wishes to remain a full code. Anticipate additional meeting today with Adriana and Dr. Romero to discuss code status, futility and goals of care with Vaughn and Nichelle. CM met with Vaughn prior to the meeting, Vaughn reported wanting CPR, but not to be intubated. He also stated he wanted to be treated for infection prior to discharge planning to home. He remains pleasant and appropriate in interaction. CM continues to follow. A: 50 year old male admitted to [facility] 04/21/21 for Dehydration P: Vaughn remains at [facility], advocating for continued treatment. Discussions regarding goals of care and treatment planning continue. CM will outreach to [facility] for discharge planning considerations if Vaughn chooses to engage with increased support. CM continues to follow.
[2021-04-29] MEDS: Lactated Ringers 500 ML IV (09:11)
[2021-04-29] MEDS: Enoxaparin 40 MG/0.4 ML SYR SC (09:20)
[2021-04-29] MEDS: Pantoprazole 40 MG VIAL IVP ×2 (09:44→21:19)
[2021-04-29] MEDS: POTASSIUM CHLORIDE 20 MEQ/100 ML BAG 50 MEQ IVPB ×2 (10:04→11:51)
--- NOTE | 2021-04-29 10:11 | NUR.NOTE ---
Slide was not opened up on 05:00 Piperacillin dose. As a result, dose was not given. RN will given 12:00 dose of Piperacillin now.Nursing Note:
[2021-04-29] MEDS: PIPERACILLIN/TAZO 3.375 GM in Normal Saline 50 ML IVPB ×3 (10:15→21:19)
[2021-04-29] MEDS: guaiFENesin 200 MG/10 ML CUP JT (10:30)
[2021-04-29] MEDS: MORPHine 2 MG/ML SYR IVP ×3 (11:03→21:19)
--- NOTE | 2021-04-29 13:00 | NUR.NOTE ---
Patient has refused further tube feeds on this shift which is mayran 07:00 to 15:00 shift because he says he is full having received 250 ml of fibersource earlier.Nursing Note:
--- NOTE | 2021-04-29 13:10 | DI.RAD_ITS ---
Exam(s) XR PORTABLE CHEST AP EXAM: XR PORTABLE CHEST AP CLINICAL HISTORY: CT on waterseal this morning, pneumothorax TECHNIQUE: COMPARISON: CR XR PORTABLE CHEST AP from 04/28/2021 FINDINGS: Portable AP chest at 1255 hours. Examination is compared with examination of April 28. Note is again made of right thoracotomy tube in position. There is a tiny residual or recurrent pneumothora x seen adjacent to the chest tube entry site. Otherwise no additional pneumothorax is seen. Bilater al diffuse pulmonary infiltrates again noted, unchanged from prior study. IMPRESSION: Minimal right persistent or recurrent pneumothorax at the entry site of right thoracotomy tube latera l inferior right thorax. RADIATION DOSE DELIVERED: Total DLP
--- NOTE | 2021-04-29 13:22 | NUR.NOTE ---
Patient here for visit. Nursing Note:
[2021-04-29] MEDS: Metoclopramide 10 MG/2 ML VIAL IVP (17:27)
--- NOTE | 2021-04-29 18:12 | PCPN_ITS ---
Date of service: 04/29/21 Time of Service: 15:12 Assessment and Plan Assessment and plan (1) Palliative care patient: Status: Acute Assessment and plan: Has declined significantly from 04/09. Cancer rapidly progressing. Appears to have days to weeks left to live. Wants to remain full code. Compromise reached that he will go home with hospice care when the hospitalist/pulmonology/surgical team has no further treatments to offer him. Expect this will happen in the next 24-48 hrs. He is allowed to be FULL CODE on hospice. (2) Cachexia: Status: Acute Assessment and plan: Significant weight loss by appearance, loose skin, bones jutting, since my last visit less than 3 weeks ago. Unable to tolerate tube feeds at recommended rates. Able to get very little in before feeling nauseated. (3) Goals of care, counseling/discussion: Status: Acute Assessment and plan: Wants to remain full code. Willing and wanting to go home on hospice when hospital can no longer offer him treatments. (4) Weakness: Status: Chronic Assessment and plan: Severe. No longer ambulatory. Will need hospital bed at home and ambulance to transfer. 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 In bones, brain, liver, LN, lung. (6) Liver metastases: Status: Acute (7) Brain metastases: Status: Acute (8) Dying care: Status: Acute Assessment and plan: Vaughn wants to be heard and respected above all. He wants to still have some control over his rapidly shortening life. He feels he needs/wants to remain full code. This seems to have some sort of spiritual significance for him. He doesn't want his care team to give up on him. We did discuss the unlikeliness of a code working at all or improving the quality of his life. Nonetheless, he is determined and he needs us to respect his wishes. (9) Pressure ulcer: Status: Acute Assessment and plan: Painful for Vaughn. He agreed to having Dr Romero increase his morphine to 2 mg per GT q 4 hrs scheduled. HE may benefit from starting a morphine pump prior to going home. I did not discuss this with him today. (10) Encounter for hospice care discussion: Status: Acute Assessment and plan: He has met with Eloise Christie RN from hospice. He is open to the idea when he goes home. However, he doesn't want to go home until the hospitalist team says they have no further curative treatments to offer him. (11) Uncontrolled pain: Status: Acute Assessment and plan: Dr Romero increased his pain meds as above. Subjective Subjective Patient reports: still having pain and shortness of breath; denies tolerating liquids well and tolerating a regular diet Interval history since last seen: In the ICU, I met with Vaughn, his , Nichelle, Dr Romero, hospitalist, Lou Mills, MACHINE GROUP LEADER from [facility], and his primary nurse, Madyson. I also spoke to Dr Nazario about her visit with Vaughn yesterday, 04/28, and reviewed his recent notes. Prior to today's visit, I had seen Vaughn once before, on 04/09/21, to establish care with him during an earlier hospitalization from 04/07-04/17. He was only home for 4 nights before he was readmitted on 04/21. During this admission, he was urgently transferred from the med-surg floor to the ICU for acute respiratory failure. He remains in the ICU. He clearly has declined physically since my last visit with him. He has lost weight. He looks very weak. He is now dependent on high flow oxygen. He is bed- bound. He has a feeding tube in place. He's receiving IV antibiotics. His chest tube is in place, but sealed. He is still able to speak clearly. He is able to make his own medical decisions. He is quite clear that he does not want to change his code status to dni/dnr. He would like to go home but only when he believes he is actively dying. He said, after a clarifying conversation, he would go home if the hospital had no further treatments to offer him. He prefers to hear positive comments. He heard Dr Denson, sales secretary, say that his right lung was improving with treatment. He interpreted this to mean that he was getting better. If any provider offers him treatment, he will take it. He does understand that his illness is terminal and that at some point, there will be no further treatments offered to him. This has happened at [facility] already. He did say that his pressure ulcer, which is deep enough to expose tendons, is hurting him more. His spiritual life is very important to him. Part of his spiritual pathway is living every moment he can. He does not want others to give up on him. Exam Narrative Exam Narrative: General: cachectic middle-aged male sitting up in his ICU bed, wearing hi-flow oxygen, intermittently looks uncomfortable, taking frequent shallow breaths, able to complete sentences. Able to hold a conversation. Appears to have full capacity for decision making. HEENT: EOMI, wearing his high flow, mucous membranes appear dry but not parched, no oral lesions, hearing intact Heart: RRR, no m/r/g Lungs: Diminished breath sounds anteriorly; R-sided chest tube to water seal. Not auscultated posteriorly Abdomen: cachectic. Feeding tube in place. Chest: port in left upper chest Extremities: no edema BLE's, no mottling Neuro: able to hold a conversation, appears to understand the gist of his illness though very much wanting to believe he will get better with treatment offered him psych: no obvious depression or anxiety; being optimistic is his coping mechanism skin: pale, some bruising Objective Last Vital Signs Temp 97.5 F L 04/29/21 14:48 Pulse 80 04/29/21 16:47 Resp 22 04/29/21 16:47 BP 117/75 04/29/21 14:48 Pulse Ox 91 L 04/29/21 16:47 Laboratory Results - last 24 hr 04/29/21 04/29/21 04/29/21 05:20 05:20 05:20 WBC 14.14 H RBC 3.02 L Hgb 9.0 L Hct 29.0 L MCV 96.0 H MCH 29.8 MCHC 31.0 L RDW 20.0 H Plt Count 170 MPV 11.0 Immature Gran % 0.0 Neutrophils % 90.0 Band Neutrophils % 2 Lymphocytes % 2.0 Atypical Lymphs % 0 Monocytes % 3.0 Eosinophils % 0.0 Basophils % 0.0 Metamyelocytes % 2 Myelocytes % 1 Nucleated RBC % 1 Absolute Neutrophils 13.01 H Absolute Lymphocytes 0.28 L Absolute Monocytes 0.42 Absolute Eosinophils 0.00 Absolute Basophils 0.00 RBC Morphology See Below Polychromasia Present Anisocytosis 1+ Sodium 138 Potassium 3.4 L Chloride 102 Carbon Dioxide 26.8 Anion Gap 9.2 BUN 11 Creatinine 0.4 L Estimated GFR/1.73 m2 >= 60.00 Glucose 176 H Calcium 7.6 L Magnesium 1.9 Albumin 1.6 L
[2021-04-29] MEDS: MORPHine 4 MG/ML SYR IVP ×2 (18:34→22:42)
[2021-04-30] VITALS (75 sets, daily range): BP systolic 85–112; BP diastolic 49–80; PULSE 78–186; RESP 8–34; TEMP 31–37; O2SAT 83–97
--- NOTE | 2021-04-30 | DI.RAD_ITS ---
Exam(s) XR PORTABLE CHEST AP EXAM: XR PORTABLE CHEST AP CLINICAL HISTORY: Pneumothorax. TECHNIQUE: 2D digital imaging was performed. COMPARISON: CR XR PORTABLE CHEST AP from 04/29/2021 . Prior chest x-rays also reviewed FINDINGS: Position of the right chest tube is unchanged.. Appearance of the lung cha is unchanged. Bilateral infiltrates and pleural effusions are unchange d in size. Distal tip of the left subclavian Port-A-Cath is at the SVC RA junction, unchanged. IMPRESSION: A stable appearance. No radiographic improvement in the bilateral infiltrates and pleural effusions. The right chest tube is unchanged in position. There is no pneumothorax. DATA REPOSITORY: RADIATION DOSE DELIVERED: All CT scans at this facility use at least one of these dose optimization techniques: automated exposure control; mA and/or kV adjustment per patient size (includes targeted e xams where dose is matched to clinical indication); or iterative reconstruction.
[2021-04-30] MEDS: Dexamethasone 4 MG/ML VIAL IVP ×4 (01:33→20:14)
[2021-04-30] MEDS: levETIRAcetam 1,000 MG in Normal Saline 100 ML 110 MG IVPB (01:34)
[2021-04-30] MEDS: MORPHine 2 MG/ML SYR IVP ×6 (01:35→22:44)
[2021-04-30] MEDS: MORPHine 4 MG/ML SYR IVP ×2 (03:02→19:30)
[2021-04-30] MEDS: PIPERACILLIN/TAZO 3.375 GM in Normal Saline 50 ML IVPB ×2 (04:25→11:39)
[2021-04-30 07:26] LABS: HCT 27.7 % (40.0-50.0); HGB 8.7 g/dL (13.5-17.5); MCHC 31.4 % (32.0-36.0); MCV 95.5 fL (80-95); MPV 11.1 fL (8.0-11.0); Nucleated RBC 1 %; Platelet Count 170 10^3/uL (130-400); RDW 19.9 % (11.8-14.1); RDW-SD 65.5 fL
[2021-04-30 07:38] LABS: ALT 50 U/L (16-63); AST 52 U/L (15-37); Albumin 1.6 g/dL (3.4-5.0); Alkaline Phosphatase 467 U/L (46-116); Anion Gap 4.7 mmol/L (3-11); BUN 9 mg/dL (7-18); Bilirubin, Direct 0.4 mg/dL (0.0-0.2); Bilirubin, Total 0.7 mg/dL (0.2-1.0); CO2 30.3 mmol/L (21.0-32.0); CREATININE 0.4 mg/dL (0.70-1.30); Calcium 7.6 mg/dL (8.5-10.1); Chloride 101 mmol/L (98-107); Glucose 123 mg/dL (74-106); Magnesium 1.7 mg/dL (1.8-2.4); Potassium 3.8 mmol/L (3.5-5.1); Sodium 136 mmol/L (136-145); Total Protein 4.8 g/dL (6.4-8.2)
[2021-04-30 07:48] LABS: Absolute Lymphocyte Count 0.87 10^3/uL (1.2-3.4); Absolute Monocyte Count 0.44 10^3/uL (0.1-0.8); Absolute Neutrophil Count 12.91 10^3/uL (1.2-6.7); Atypical Lymphocytes % 1; Diff Comment Manual Differential; Metamyelocytes % 2; Polychromasia Present
[2021-04-30 07:49] LABS: Poikilocytes 2+
--- NOTE | 2021-04-30 08:24 | PGE_ITS ---
Date of Service Date of service: 04/30/21 Time of Service: 10:18 Assessment and Plan Assessment and plan (1) Acute hypoxemic respiratory failure: Status: Acute Assessment and plan: Etiology is not 100% clear - infectious, lung injury, pneumonitis. PTX less likely to be contributing. Currently on HHHFNC at 55% FiO2, 55L, with chest tube now being clamped (was on waterseal overnight) with CXR done in 4 hrs. Lytic therapy infusions have been discontinued. CTA negative for PE, shows dense infiltrates in B lungs. Continue Increased dose of steroids (used as stress dose steroids more so than for pneumonitis). Continue zosyn. Keep in ICU. (2) Empyema lung: Status: Acute Assessment and plan: Present on admission. Significantly better if not resolved post thrombolytic therapy. Fluid cx with E. Coli (pansensitive) and an anaerobic gram positive nakul, speciation still pending (sent to [facility]). No longer receiving TPA/fibrinolytic infusions. Chest tube is now clamped. Repeat CXR in 4 hrs. General surgery and pulmonlogy are following for chest tube. Still has a small residual PTX. Discussed with Dr Blas today: he may require a Heimlich valve on discharge to ensure that he PTX does not re-expand. (3) Paroxysmal A-fib: Status: Acute Assessment and plan: converted to NSR post 5 mg of IV lopressor again this am. Has prn IV lopressor ordered. (4) Anemia: Status: Chronic Assessment and plan: S/p transfusion of 1 unit pRBCs on 04/23/21. H/H stable- no xfusion at this time. Qualifiers: Anemia type: unspecified type Qualified Code(s): D64.9 - Anemia, unspecified (5) Acute dehydration: Status: Acute Assessment and plan: Consider TPN. TF formula changed to fibrasure - tolerating. Unable to tolerate IVF. 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 (8) Esophageal cancer: Status: Acute Assessment and plan: Agree that his cancer therapy are not likely to benefit him at this point. Palliative care and ethics consults have been requested. The patient is now DNI. He would be willing to go home on comfort measures but would still want CPR if his medical team told him that what we are doing is not working and that there is nothing left to do. It is my opinion that at this point the patient is dying and escalating aggressive care could be considered futile, as could coding him, but it is important to the patient that we do not give up on him and chest compressions be done, even if they break his ribs. Ethics consult is scheduled for 3 pm today. Qualifiers: Malignant neoplasm of esophagus location: lower third Qualified Code(s): C15.5 - Malignant neoplasm of lower third of esophagus (9) Protein-calorie malnutrition, moderate: Status: Acute Assessment and plan: J tube functional, per nursing. Attempt lower rate of TFs. (10) DVT prophylaxis: Status: Acute Assessment and plan: enoxaparin 40 mg SC daily - low threshold to d/c given brain mets. (11) Discharge planning issues: Status: Acute Assessment and plan: DNI Keep in ICU. It is my opinion that at this point the patient is dying and further aggressive care could be considered futile. He is considering d/c home on comfort measures if we did not have anything left to offer and what were doing was not helping. He feels that what we are doing is still helping. Palliative care is following. Ethics consult today. Discussed with Dr Blas. Total Critical Care Time 45 minutes. Subjective Subjective Interval history since last seen: Palliative care meeting yesterday at 3 pm: the patient wanted us to keep him full code and made it known that it was important to him that we do not give up on him. He did state that if his medical team told him that what we are doing is not working and there is nothing else that can be offered, he would then go home on hospice while full code. We agreed to recheck on progress of this in 48 hrs. This morning, Vaughn is saying he does not want to be intubated - he said this to nursing, RT, and now myself. He also said this to care management yesterday prior to the palliative care meeting. Still wants CPR. In Rapid Afib - 2nd bout today. The first bout lasted 2 minutes and resolved on its own. The 2nd is ongoing, s/p 5 mg of IV lopressor, down to HR of 150 from 180s. Vaughn is asymptomatic of this. He thinks maybe he felt short of breath for a second, but denies feeling it now, and denies dizziness, chest pain, or nausea. On HHHFNC 55% FiO2/55 L. 88-92%, Mid 80s with any movement, takes over 20 minutes to recover. Still on waterseal; was on it overnight. There is going to be a CXR later today. He is permitting a lower rate of TFs today. Exam Narrative Exam Narrative: General: Pleasant cachectic middle-aged male who looks comfortable,less tachypneic today, able to complete sentences HEENT: EOMI, MMM Heart: tachycardic, irregularly irregular rhythm, no m/r/g Lungs: Diminished breath sounds anteriorly; R-sided chest tube to water seal. Abdomen: soft, nontender, nondistended Extremities: no edema BLE's Objective Last Vital Signs Temp 36.3 C L 04/30/21 04:00 Pulse 84 04/30/21 05:01 Resp 13 04/30/21 05:01 BP 86/49 L 04/30/21 05:01 Pulse Ox 89 L 04/30/21 05:01 Laboratory Results - last 24 hr 04/29/21 04/30/21 04/30/21 05:20 06:25 06:25 WBC 14.50 H RBC 2.90 L Hgb 8.7 L Hct 27.7 L MCV 95.5 H MCH 30.0 MCHC 31.4 L RDW 19.9 H Plt Count 170 MPV 11.1 H Immature Gran % 0.0 Neutrophils % 89.0 Lymphocytes % 5.0 Atypical Lymphs % 1 Monocytes % 3.0 Eosinophils % 0.0 Basophils % 0.0 Metamyelocytes % 2 Nucleated RBC % 1 Absolute Neutrophils 12.91 H Absolute Lymphocytes 0.87 L Absolute Monocytes 0.44 Absolute Eosinophils 0.00 Absolute Basophils 0.00 RBC Morphology See Below Polychromasia Present Poikilocytosis 2+ Sodium 136 Potassium 3.8 Chloride 101 Carbon Dioxide 30.3 Anion Gap 4.7 BUN 9 Creatinine 0.4 L Estimated GFR/1.73 m2 >= 60.00 Glucose 123 H Calcium 7.6 L Magnesium 1.7 L Total Bilirubin 0.7 Conjugated Bilirubin 0.4 H AST 52 H ALT 50 Alkaline Phosphatase 467 H Total Protein 4.8 L Albumin 1.6 L 1.6 L
[2021-04-30] MEDS: Albuterol/Ipratropium 3 ML UPD VIAL UPD ×3 (08:54→15:33)
[2021-04-30] MEDS: Tiotropium Bromide-Respimat 10 PUFF INH 2 PUFF IH (08:57)
[2021-04-30] MEDS: guaiFENesin 200 MG/10 ML CUP JT ×4 (09:14→20:13)
[2021-04-30] MEDS: Pantoprazole 40 MG VIAL IVP ×2 (09:15→20:14)
[2021-04-30] MEDS: MAGNESIUM SULFATE 2 GM/50 ML BAG IVPB (09:15)
[2021-04-30] MEDS: Enoxaparin 40 MG/0.4 ML SYR SC (09:26)
[2021-04-30] MEDS: Normal Saline Flush 10 ML SYR IVP ×2 (09:29→20:13)
[2021-04-30] MEDS: Metoprolol 5 MG/5 ML VIAL IVP (10:12)
--- NOTE | 2021-04-30 10:19 | W.PULMCC ---
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 He underwent 5/6 doses of intrapleural lytics with good response but developed acute hypoxic respiratory failure during chest tube clamping for the lytics. He is on HFNC in the ICU for this reason. The right pleural space is cleared but with some air remaining on CT. This could have been a hydropneumothorax from the beginning as some air was seen in the fluid on his CT initially from this admission. His imaging yesterday did show PNX while on waterseal but it was small and the patient was stable so he was left on waterseal overnight. This morning his CXR looks stable and the PNX is not easily visible. We will plan for a clamp trial today with a short interval CXR obtain 4 hours after clamping. If he develops any respiratory signs or symptoms of worsening, unclamp the tube and place him back on suction. As this infection has been present since the beginning of April he could have developed a lung entrapment. If this is the case the air will also be there, but it should not expand. 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 The left sided pleural effusion seems to be most consistent with a transudative process given its acutely and associated alveolar infiltrates that have also developed on the same side, however it is possible for this to be the same infection as on the right. Overall he has a dismal prognosis due to his cancer, and although we can treat his infection, he is dying from his cancer. Recommendations Pulmonary: Hypoxic respiratory failure - supplemental O2 for saturations 88-92% - avoid aggressive airway clearance with Acapella given air in pleural space Pneumothorax - I have concern for entrapped lung - placed on water seal this morning - repeat CXR at noon to assess for any air expansion Emphysema - continue Spiriva - continue QID Duonebs - continue prn albuterol Left pleural effusion - volume overload vs infectious Cardiac: Atrial Fibrillation - resolved with push doses of Lopressor Renal: Decreased UOP - promote G tube intake I&O: Intake & Output 04/27/21 04/28/21 04/29/21 04/30/21 23:59 23:59 23:59 23:59 Intake Total 1090 / 1090 1010 / 1010 1753.25 / 1753.25 160 / 160 Output Total 760 / 760 1050 / 1150 325 / 325 300 / 300 Balance 330 / 330 -40 / -140 1428.25 / 1428.25 -140 / -140 Weight 63.3 kg 74.6 kg 74.4 kg 65.7 kg Daily Fluid Goal:: Even GI Nutrition: Malfunction of G tube - management per surgery - tolerate 2 bolus feeds yesterday evening - on Protonix Date of Last Bowel Movement: 04/30/21 Infectious Disease: E.coli Empyema - can continue Zosyn for now - awaiting gram positive nakul differentiation - pleural space adequately evacuated, tube no longer needed for this purpose - if improving can switch his to Augmentin (now that G tube being used) Pressure wound and penile tear - on Zosyn for lungs - wound care per primary team - wound consult if not already done Hematologic: Metastatic esophageal cancer - poor prognosis - palliative care involvement, appreciate working with this patient - CPR and intubation is futile in my medical opinion - it is likely that he will not survive this hospitalization, unless he will go home with hospice Neurologic: No acute concerns - delirium prevention interventions - pain control per primary team Endocrine: No acute concerns Lines: Port Prophylaxis: Lovenox and Protonix Code Status: Resuscitation Status DNI Subjective Critical and life-threatening events over the past 24 hours: Vaughn is doing well today. His HFNC settings are slightly decreased to 50%. He is not in any pain. He did not tolerate much in the way of tube feedings overnight. He met will palliative care yesterday who clarified again that he would want to be full code, but would consider going home with hospice if he cannot be treated further at the hospital. His CXR this morning is stable without a clear PNX visible. Exam Narrative Exam Narrative: Chest tube in place. Tube interrogated and functioning appropriately. No obvious air leak present with talking or deep breathing. A small amount of bubbles with forceful cough, but this did not recur with subsequent coughing. Waterseal. Only 100cc in output since midnight. Const General: no acute distress Nutritional Appearance: cachectic HENNV Head: normocephalic Ears: external ears normal and no periauricular adenopathy General nose exam: nasal mucous membranes and turbinates normal Face and sinus: sinuses nontender Mouth: oropharynx normal and moist mucous membranes Teeth and gingiva: poor dentition Eyes General: appearance normal, both eyes and all related structures Pupils: PERRL Neck Neck: normal visual inspection and no lymphadenopathy Chest Chest: normal inspection of the chest Resp Effort & Inspection: normal respiratory effort Auscultation: clear to auscultation bilaterally, no rales, no rhonchi and no wheezes Cardio Rate: regular rate Rhythm: regular rhythm Heart Sounds: S1 normal, S2 normal and no murmurs Pulses: radial pulses present bilaterally GI Inspection: normal to inspection Palpation: soft Skin General skin exam: no rashes or lesions noted Neuro General: patient alert, patient awake and patient oriented x3 Extrem General: no clubbing, cyanosis or edema Psych Mental Status: mental status grossly normal Affect: normal affect Attitude: cooperative Most Recent VS/Results Last Vital Signs Temp 37.0 C 04/30/21 07:15 Pulse 98 H 04/30/21 09:05 Resp 26 H 04/30/21 09:05 BP 105/69 04/30/21 09:00 Pulse Ox 92 04/30/21 09:05 Laboratory Results - last 24 hr 04/30/21 04/30/21 06:25 06:25 WBC 14.50 H RBC 2.90 L Hgb 8.7 L Hct 27.7 L MCV 95.5 H MCH 30.0 MCHC 31.4 L RDW 19.9 H Plt Count 170 MPV 11.1 H Immature Gran % 0.0 Neutrophils % 89.0 Lymphocytes % 5.0 Atypical Lymphs % 1 Monocytes % 3.0 Eosinophils % 0.0 Basophils % 0.0 Metamyelocytes % 2 Nucleated RBC % 1 Absolute Neutrophils 12.91 H Absolute Lymphocytes 0.87 L Absolute Monocytes 0.44 Absolute Eosinophils 0.00 Absolute Basophils 0.00 RBC Morphology See Below Polychromasia Present Poikilocytosis 2+ Sodium 136 Potassium 3.8 Chloride 101 Carbon Dioxide 30.3 Anion Gap 4.7 BUN 9 Creatinine 0.4 L Estimated GFR/1.73 m2 >= 60.00 Glucose 123 H Calcium 7.6 L Magnesium 1.7 L Total Bilirubin 0.7 Conjugated Bilirubin 0.4 H AST 52 H ALT 50 Alkaline Phosphatase 467 H Total Protein 4.8 L Albumin 1.6 L Review of Systems All systems reviewed & are unremarkable except as noted in HPI and below Time spent with patient Time spent in Critical Care: 40 Time spent in Critical care included: Coordination of care, Chart review, Documenting critically ill care, Time at immediate bedside and Discussing critically ill care with other medical staff
[2021-04-30] MEDS: levETIRAcetam 1,000 MG in Normal Saline 100 ML 400 MG IVPB (14:23)
--- NOTE | 2021-04-30 15:00 | DI.RAD_ITS ---
Exam(s) XR PORTABLE CHEST AP EXAM: XR PORTABLE CHEST AP CLINICAL HISTORY: chest tube clamped trial, pneumothorax. TECHNIQUE: 2D digital imaging was performed. COMPARISON: CR XR PORTABLE CHEST AP from 04/30/2021 FINDINGS: Heart size is upper normal. The mediastinum is not widened. Extensive bilateral infiltrates noted. Right chest tube again noted. The size of the right pneumoth orax has somewhat increased when compared to earlier today. Small-moderate sized left pleural effusion again noted. Size of the right pleural effusion has decre ased and this may be responsible for the appearance of the right pleural space at this time. IMPRESSION: Right pneumothorax which is either related to interval drainage of pleural fluid when compared to ear lier today or due to increasing pneumothorax. No radiographic improvement in the extensive bilateral infiltrates. DATA REPOSITORY: RADIATION DOSE DELIVERED: All CT scans at this facility use at least one of these dose optimization techniques: automated exposure control; mA and/or kV adjustment per patient size (includes targeted e xams where dose is matched to clinical indication); or iterative reconstruction.
[2021-04-30 15:21] LABS: C Diff PCR Negative (Negative)
--- NOTE | 2021-04-30 17:02 | PDOC.CMPRO ---
Care Management Progress Note S/O: Vaughn remains in the ICU, on oxygen, closely followed by Pulmonology at this time. Vaughn continues to report wanting CPR, but not to be intubated. Specific medical interventions will continue to be reviewed, today MD attempted to clamp suction, but had to unclamp. Undetermined if pigtail will be placed; he continues to be closely monitored and these discussion continue. He remains pleasant and appropriate in interaction. CM continues to follow. A: 50 year old male admitted to [facility] 04/21/21 for Dehydration P: Vaughn remains at [facility], advocating for continued treatment. CM will outreach to [facility] for discharge planning considerations if Vaughn chooses to engage with increased home support. CM continues to follow.
--- NOTE | 2021-04-30 17:11 | CHAPLAIN ---
Vaughn was resting in bed watching tv when I visited. We talked about his spiritual karuna. He told me he was raised Rastafarian and but has since considered himself spiritual and being connected to nature is important to him. He met his on the internet in a group of people who talked about spiritual things, everything spiritual, Vaughn said. After getting to know his , Nichelle, over the internet, she visited him in [place], then he moved here to [place] to be with her. She is his soulmate, Vaughn said. His spirituality doesn't involve any rituals he said, but it is about doing good every day. Vaughn, 50, has metastatic esophageal cancer with mets to the bone, brain, liver and lungs. He has wanted to continue to with aggressive treatments, but recently stated he would not want to be intubated. He does however want CPR done on him if his heart stops, although Palliative staff have told him that CPR would likely only extend his life by an hour or two, and would be very painful, and likely break his ribs. Vaughn has said in the past that he would like to go home, but has also said he wants to remain here for treatment. Care Management will try to discuss this with him tomorrow to get a better sense of his priorities. He has bet with [facility] and has agreed to hospice if nothing else can be done. Medical staff believe we may be at that point.
[2021-04-30] MEDS: Lidocaine 1% Multi-Dose 20 ML VIAL (19:17)
[2021-04-30] MEDS: Normal Saline-STERILE FIELD 0.9% 10 ML SYR (19:17)
[2021-04-30] MEDS: PIPERACILLIN/TAZO 3.375 GM in Normal Saline 100 ML IVPB (20:14)
[2021-05-01] VITALS (46 sets, daily range): BP systolic 87–101; BP diastolic 44–67; PULSE 80–104; RESP 1–26; TEMP 31–37.2; O2SAT 86–99
[2021-05-01] MEDS: Dexamethasone 4 MG/ML VIAL IVP ×3 (02:00→19:12)
[2021-05-01] MEDS: levETIRAcetam 1,000 MG in Normal Saline 100 ML 400 MG IVPB ×2 (02:00→15:00)
[2021-05-01] MEDS: MORPHine 2 MG/ML SYR IVP ×4 (02:00→23:17)
[2021-05-01] MEDS: PIPERACILLIN/TAZO 3.375 GM in Normal Saline 100 ML IVPB ×2 (04:04→13:00)
[2021-05-01 06:54] LABS: Abs Immature Grans 0.87 10^3/uL (0.0-0.06); HCT 28.3 % (40.0-50.0); HGB 8.7 g/dL (13.5-17.5); MCH 29.5 pg (27.0-33.0); MCHC 30.7 % (32.0-36.0); MCV 95.9 fL (80-95); MPV 10.7 fL (8.0-11.0); Nucleated RBC 1 %; Platelet Count 150 10^3/uL (130-400); RBC 2.95 10^6/uL (4.36-5.78); RDW 20.5 % (11.8-14.1); RDW-SD 67.8 fL; WBC 14.04 10^3/uL (4.4-10.8)
[2021-05-01 07:09] LABS: Anion Gap 5.7 mmol/L (3-11); BUN 8 mg/dL (7-18); CO2 29.3 mmol/L (21.0-32.0); CREATININE 0.4 mg/dL (0.70-1.30); Calcium 7.6 mg/dL (8.5-10.1); Chloride 99 mmol/L (98-107); Glucose 121 mg/dL (74-106); Magnesium 1.7 mg/dL (1.8-2.4); Potassium 3.8 mmol/L (3.5-5.1); Sodium 134 mmol/L (136-145)
[2021-05-01 07:19] LABS: Absolute Lymphocyte Count 0.84 10^3/uL (1.2-3.4); Absolute Neutrophil Count 12.92 10^3/uL (1.2-6.7); Atypical Lymphocytes % 3; Bands % 1
[2021-05-01 07:20] LABS: Anisocytosis 1+; Basophilic Stippling Present; Diff Comment Manual Differential; Metamyelocytes % 1; Myelocytes % 1; Polychromasia Present
[2021-05-01] MEDS: Tiotropium Bromide-Respimat 10 PUFF INH 2 PUFF IH (08:31)
[2021-05-01] MEDS: Albuterol/Ipratropium 3 ML UPD VIAL UPD ×4 (08:31→21:17)
--- NOTE | 2021-05-01 08:35 | W.PM.PROGNOT ---
Date of Service Date of service: 05/01/21 Time of Service: 12:02 Assessment and Plan Assessment and plan (1) Acute hypoxemic respiratory failure: Status: Acute Assessment and plan: Much improved. Transitioned to 4L of O2 by [place] and is being moved to medical surgical floor. DDx: infectious, ARDS, lung injury, pneumonitis. Lytic therapy infusions have been discontinued. CTA negative for PE, shows dense infiltrates in B lungs. Continue zosyn. Taper steroids. Transfer out of ICU. (2) Empyema lung: Status: Acute Assessment and plan: Present on admission. Significantly better if not resolved post thrombolytic therapy. Fluid cx with E. Coli (pansensitive) and an anaerobic gram positive nakul, speciation still pending (sent to [facility]). No longer receiving TPA/fibrinolytic infusions. Chest tube had to be reconnected to suction yesterday. Planned for exchange to pigtail catheter with a Heimlich valve today. Still has a small residual PTX. Continue zosyn. (3) Paroxysmal A-fib: Status: Acute Assessment and plan: In NSR currently. (4) Anemia: Status: Chronic Assessment and plan: S/p transfusion of 1 unit pRBCs on 04/23/21. H/H stable- no xfusion at this time. Qualifiers: Anemia type: unspecified type Qualified Code(s): D64.9 - Anemia, unspecified (5) Acute dehydration: Status: Acute Assessment and plan: Consider TPN. TF formula changed to fibrasource - tolerating. Unable to tolerate IVF. 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 (8) Esophageal cancer: Status: Acute Assessment and plan: Agree that his cancer therapy are not likely to benefit him at this point. The patient is now DNI. He would be willing to go home on comfort measures but would still want CPR if his medical team told him that what we are doing is not working and that there is nothing left to do. At this point, preparations are in effect being made for him to go home - if he is on a regular nasal canula, has the pigtail with a heimlich valve, and a rectal tube, his care should be manageable at home hospice nursing. The patient seems on board with this plan at this time. Ethics committee did meet yesterday: recommendations were to, if he codes, start compression, await arrival of 2nd provider to pronounce futility. Qualifiers: Malignant neoplasm of esophagus location: lower third Qualified Code(s): C15.5 - Malignant neoplasm of lower third of esophagus (9) Protein-calorie malnutrition, moderate: Status: Acute Assessment and plan: J tube functional, per nursing. Attempt lower rate of TFs. (10) DVT prophylaxis: Status: Acute Assessment and plan: enoxaparin 40 mg SC daily - low threshold to d/c given brain mets. (11) Discharge planning issues: Status: Acute Assessment and plan: DNI, not DNR. Move out of the ICU to [facility] floor. Making preparations for discharge home on hospice - perhaps over the weekned. Discussed with Dr Anton. Subjective Subjective Interval history since last seen: Was transitioned to 4L by [place] saturating 89-94%. Chest tube was reconnected to wall suction yesterday to re-expansion of PTX. Feels good now. Pain is controlled. Not short of breath on NC. Denies dizziness, chest pain, nausea. Still stooling. Agrees to a flexiseal rectal tube. [address] this am (new chamber this am because prior was full). For a chest tube exchange with a Heimlich valve this afternoon. SR, no afib overnight. Refused feeding overnight. 550 cc UOP overnight. Being transferred to [facility]. Exam Narrative Exam Narrative: General: Pleasant cachectic middle-aged male who looks comfortable, no dyspnea/tachypnea/cyanosis, A&Ox3, speaking in full sentences, looks like he is in good spirits HEENT: EOMI, MMM Heart: RRR, no m/r/g Lungs: Diminished breath sounds anteriorly; R-sided chest tube to wall suction Abdomen: soft, nontender, nondistended Extremities: no edema BLE's Objective Last Vital Signs Temp 36 C L 05/01/21 04:28 Pulse 83 05/01/21 07:00 Resp 13 05/01/21 07:01 BP 87/58 L 05/01/21 07:00 Pulse Ox 94 05/01/21 08:31 Laboratory Results - last 24 hr 04/30/21 05/01/21 05/01/21 13:55 06:20 06:20 WBC 14.04 H RBC 2.95 L Hgb 8.7 L Hct 28.3 L MCV 95.9 H MCH 29.5 MCHC 30.7 L RDW 20.5 H Plt Count 150 MPV 10.7 Immature Gran % 0.0 Neutrophils % 91.0 Band Neutrophils % 1 Lymphocytes % 3.0 Atypical Lymphs % 3 Monocytes % 0.0 Eosinophils % 0.0 Basophils % 0.0 Metamyelocytes % 1 Myelocytes % 1 Nucleated RBC % 1 Absolute Neutrophils 12.92 H Absolute Lymphocytes 0.84 L Absolute Monocytes 0.00 L Absolute Eosinophils 0.00 Absolute Basophils 0.00 RBC Morphology See Below Polychromasia Present Basophilic Stippling Present Anisocytosis 1+ Sodium 134 L Potassium 3.8 Chloride 99 Carbon Dioxide 29.3 Anion Gap 5.7 BUN 8 Creatinine 0.4 L Estimated GFR/1.73 m2 >= 60.00 Glucose 121 H Calcium 7.6 L Magnesium 1.7 L Stl C.difficile Tox PCR Negative
[2021-05-01] MEDS: MORPHine 4 MG/ML SYR IVP ×4 (10:02→15:01)
[2021-05-01] MEDS: Normal Saline Flush 10 ML SYR IVP ×6 (10:02→23:33)
--- NOTE | 2021-05-01 10:18 | CMPROGNOTE_ITS ---
- If Service Date Differs Date of service: 05/01/21 Time of Service: 10:19 Care Management Progress Note S/O: Vaughn will be moved out of the ICU later today. His chest tube was exchanged for a pigtail catheter with a Heimlich valve today and he tolerated the procedure well. Dr. Anton met with Vaughn this morning and further discussed his goals of care. He continues to report wanting CPR, but not to be intubated. Specific medical interventions will continue to be reviewed. In addition to the pigtail catheter, the use of a Flexi-seal to control his diarrheas is being considered. The plan for today is for Vaughn to move out of the ICU. Tomorrow Dr. Anton will see him again. A: 50 year old male admitted to [facility] 04/21/21 for Dehydration P: Vaughn remains at [facility], advocating for continued treatment. CM will outreach to [facility] for discharge planning considerations if Vaughn chooses to engage with increased home support. CM continues to follow.
[2021-05-01] MEDS: Pantoprazole 40 MG VIAL IVP ×2 (10:59→23:16)
[2021-05-01] MEDS: MAGNESIUM SULFATE 2 GM/50 ML BAG IVPB (11:00)
--- NOTE | 2021-05-01 13:20 | DI.RAD_ITS ---
Exam(s) XR PORTABLE CHEST AP EXAM: XR PORTABLE CHEST AP CLINICAL HISTORY: ptx f/u. TECHNIQUE: 2D digital imaging was performed. COMPARISON: CR XR PORTABLE CHEST AP from 04/30/2021 FINDINGS: Heart size is unchanged. Distal aspect Port-A-Cath is at the SVC RA junction. Position of the right chest tube is slightly different from yesterday and on the present study there is no pneumothorax ev ident. . No radiographic change in extensive bilateral infiltrates. Moderate-sized left pleural effusion is u nchanged. Smaller right pleural effusion unchanged. IMPRESSION: No improvement in the bilateral infiltrates and pleural effusions. Right chest tube in place and no pneumothorax evident on today's image. DATA REPOSITORY: RADIATION DOSE DELIVERED: All CT scans at this facility use at least one of these dose optimization techniques: automated exposure control; mA and/or kV adjustment per patient size (includes targeted e xams where dose is matched to clinical indication); or iterative reconstruction.
--- NOTE | 2021-05-01 13:36 | WOUNDCONS ---
- If Service Date Differs Date of service: 05/01/21 Time of Service: 13:00 Wound Initial Evaluation Narrative: 50 yom seen here for dehydration. 7 day follow up of wound consult. Patient was moved to the ICU after he was seen by wound. In the ICU patient was still non compliant with off-loading pressure. On 04-27 patient was put on an air mattress for pressure distribution. Yesterday patient's primary nurse Jennifer and Dr. Romero both expressed concerns that the wound was getting worse. Patient gave consent verbally to perform the follow up. Recent progress notes, initial wound consult, and other pertinent information have been reviewed. Patient is going to be moved out of the ICU today to [facility], with a plan to go home this weekend on home health and hospice. - Wound Right Lumbar/Sacral Wound Type: Pressure Ulcer Pressure Ulcer Stage: III Wound General Appearance: Reddened, Bleeding, Necrotic, Unapproximated Wound Bed Greatest Portion: Yellow (Slough) Wound Bed Lesser Portion: Red (Granulation) Wound Surrounding Tissue Appearance: Dark Red Percent of Wound Bed Granulated/Red: 5 Percent of Wound Bed Slough/Yellow: 95 Wound Length: 1.9 cm Wound Width: 1.7 cm Wound Depth: 0.3 cm Wound Drainage Amount: Minimal Wound Drainage Odor: None/Absent Wound Drainage Description: Bloody Wound Topical Solution/Irrigant: Saline Irrigant Wound Debridement Method: Gauze, Mechanical Wound Debridement Result: Yellow Sloughing Remains, Necrotic Remains Wound Debridement Amount of Tissue Removed: None Left Lumbar/Sacral Wound Type: Pressure Ulcer, Full Thickness Pressure Ulcer Stage: IV Wound General Appearance: Draining, Bleeding, Necrotic, Unapproximated, Tendon Visible Wound Bed Greatest Portion: Yellow (Slough) Wound Bed Lesser Portion: Red (Granulation) Percent of Wound Bed Granulated/Red: 5 Percent of Wound Bed Slough/Yellow: 95 Wound Length: 5.5 cm Wound Width: 1.6 cm Wound Depth: 0.9 cm Wound Drainage Amount: Minimal Wound Drainage Odor: None/Absent Wound Drainage Description: Bloody Wound Topical Solution/Irrigant: Saline Irrigant Wound Debridement Method: Gauze, Mechanical Anterior Wound Type: Skin Tear, Other (fungal rash) Wound General Appearance: Reddened, Bleeding, Healing Well Wound Bed Greatest Portion: Red (Granulation) Percent of Wound Bed Granulated/Red: 100 Wound Length: 1.9 cm Wound Width: 3.2 cm Wound Depth: 0.2 cm Wound Drainage Amount: Minimal Wound Drainage Odor: None/Absent Wound Drainage Description: Bloody Wound Topical Solution/Irrigant: Saline Irrigant Wound Debridement Method: Gauze Wound Debridement Result: Healthy Tissue Revealed Wound Debridement Amount of Tissue Removed: Minimal Lumbar/Sacral Wound Type: Pressure Ulcer Pressure Ulcer Stage: IV Wound General Appearance: Draining, Necrotic, Unapproximated Wound Bed Greatest Portion: Yellow (Slough) Wound Bed Lesser Portion: Red (Granulation) Percent of Wound Bed Granulated/Red: 10 Percent of Wound Bed Slough/Yellow: 90 Wound Length: 7.4 cm Wound Width: 4.3 cm Wound Depth: 0.4 cm Wound Drainage Amount: Minimal Wound Drainage Odor: None/Absent Wound Drainage Description: Bloody Wound Topical Solution/Irrigant: Saline Irrigant Wound Debridement Method: Gauze, Mechanical Wound Debridement Result: Yellow Sloughing Remains Wound Debridement Amount of Tissue Removed: Minimal - Circulation, Sensation, Motion Peripheral Pulse Strength: Normal Capillary Refill: Less than 3 seconds Sensation Description: Pain Skin Temperature: Warm Skin Color: Ashen - Pain Pain Level: 6 (while on side) Pain Description: Sharp Pain Duration/Frequency: With Movement Additional Other Comments: Glydo applied to wound prior to debridement to numb the wound bed Patient with worsening pressure wounds to the sacral and buttocks area. will try another method of treatment. Patient was AGAIN STRONGLY ENCOURAGED TO OFFLOAD PRESSURE. - Treatment/Dressing Change Topicals/Ointments: Other (Triad) Cleanse With: Cleanser with Surfactant Dressing Types: Gauze - Recomendation Recomendation:: Fungal rash Penile area Continue current treatment All sacral wounds: Discontinue current treatment. Spay with Equos wound cleanser and allow to dwell for 2-3 minutes. Using gauze, clean old Triad paste from wound bed. Repeat to all of the old Triad paste is removed from the wound bed. Apply a dime layer of Triad paste to the base of the wound. Ensure wound bed is completely covered to prevent infiltration of stool. Change every 5 days or PRN if soiled or infiltrated. STRONGLY ENCOURAGE PATIENT TO OFF-LOAD PRESSURE. Physcian/Nurse Practioner Notified: Yes (Dr. Romero) Treatment Time - Time Total Time Spent with Patient: 1 hour - Patient Will be Seen Weekly Treatment: daily - For: For:: 1 week
[2021-05-01] MEDS: Lidocaine 2% Jelly 11 ML SYR (14:36)
--- NOTE | 2021-05-01 15:15 | NUR.NOTE ---
05/01/21: 1330: wound Care nurse Gregory Hoffmann RN in to re-evaluate and clean sacral wounds. Patient repositioned to left side and HOB positioned to almost flat. The air mattress was deflated to provide better visualization of wounds due to patient not being able to maintain being positioned high up on left hip[.Stated he was comfortable. During process of assessing wounds the pt's SPo2 decreased to 84-85 % Pt denied feeling short of breath and did not have an increased work of breathing. After treatment completed the air mattress was re-inflated and patient was re-position to his back. his Spo2 gradually returned to the mid 90 range. Patient stated he was still comfortable and watching TV at 1430. Nursing Note:
--- NOTE | 2021-05-01 16:30 | DI.RAD_ITS ---
Exam(s) XR PORTABLE CHEST AP EXAM: XR PORTABLE CHEST AP CLINICAL HISTORY: off of suction/decreased BS TECHNIQUE: COMPARISON: CR XR PORTABLE CHEST AP from 05/01/2021 FINDINGS: Portable upright chest at 1620 hours. Right thoracotomy tube again noted in position. Minimal right apical pneumothorax noted. Bilateral pulmonary infiltrates again noted, grossly unchanged from radi ograph obtained earlier today. Bilateral pleural effusions noted. IMPRESSION: No gross interval change in appearance from examination obtained earlier today, minimally visible rig ht apical pneumothorax may be present. RADIATION DOSE DELIVERED: Total DLP
--- NOTE | 2021-05-01 17:00 | DI.VRAD_ITS ---
PROCEDURE INFORMATION: Exam: XR Chest Exam date and time: 05/01/2021 4:10 PM Age: 50 years old Clinical indication: Other: Off suction/decreased bs TECHNIQUE: Imaging protocol: XR of the chest. Views: 1 view. COMPARISON: CR XR PORTABLE CHEST AP 05/01/2021 1:03 PM FINDINGS: Lungs: The lungs are well aerated with again seen essentially stable bilateral infiltrates and predominantly left upper lobe ground-glass opacity. Right chest tube appears stable. Pleural spaces: There is a stable moderate left pleural effusion and smaller right pleural effusion. There is a tiny right pneumothorax. Heart/Mediastinum: Stable with normal heart size, left descending thoracic aorta and midline trachea. There is a left chest wall Port-A-Cath with catheter tip in the cavoatrial junction. Bones/joints: Unremarkable for patient's stated age. IMPRESSION: 1. Grossly stable bilateral infiltrates and right upper lobe ground-glass opacity. 2. Tiny right apical pneumothorax. 3. Other aspects unchanged. Dictated and Authenticated by: Triston Murray MD. Ordering:ELANA Sy MD
--- NOTE | 2021-05-01 19:27 | PGE_ITS ---
Date of Service Date of service: 05/01/21 Time of Service: 19:28 Assessment and Plan Assessment and plan (1) Paroxysmal A-fib: Status: Acute (2) Uncontrolled pain: Status: Acute (3) Pressure ulcer: Status: Acute (4) Dying care: Status: Acute (5) Cachexia: Status: Acute (6) Empyema lung: Status: Acute Assessment and plan: -this has resolved. abx per hospitalists. -Removed suction and place chest tube to [facility]. We will see how chest x-ray looks in the morning. DC tube versus placing pneumothorax catheter Patient is planning on DC him home to hospice -Local wound care for pain control. These wounds are not going to heal I would stop tube feedings as patient does not tolerate these well. Water as needed through the G-tube. -Oral pain medication regimen 60 minutes was spent working on patient's chest tube today (7) Urinary retention: Status: Acute (8) Malfunction of gastrostomy tube: Status: Resolved (9) History of immunotherapy: Status: Chronic (10) 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: Status: Chronic (11) Liver metastases: Status: Acute (12) Bilateral leg weakness: Status: Acute (13) History of esophageal cancer: Status: Acute (14) Brain metastases: Status: Acute (15) Metastatic cancer to liver: Status: Acute (16) Bone metastases: Status: Acute (17) Anemia: Status: Chronic Qualifiers: Anemia type: unspecified type Qualified Code(s): D64.9 - Anemia, unspecified (18) Protein-calorie malnutrition, severe: Status: Acute Subjective Subjective Interval history since last seen: Patient is cheerful and upbeat. I did discuss the case with nursing. I did discuss the case with Dr. Sorenson and review notes with Dr. Denson. I did discuss with Dr. Romero as well. Test tube is to suction. So the x-ray that was done today with the lung fully inflated was while he was on suction. He has had about 50 cc of serous drainage out in the past 24 hours He denies any chest pain or shortness of breath. He has had no productive cough. Patient states that he is refusing his tube feeds because he feels full and bloated. He is still having multiple liquid loose bowel movements a day. -Notes from wound care reviewed. Patient's ulcers are much worse. Patient did come into the hospital with a stage IV decubitus ulcer. These are not going to heal given patient's degree of malnutrition and cancer and immobility. He was also on he chemotherapeutic agents until this hospitalization Exam Resp Effort & Inspection: normal respiratory effort and able to speak in complete sentences Other: Decreased breath sounds on right side Sats are 97% Cardio Rate: regular rate Rhythm: regular rhythm GI Other: PEG tube site is clean dry and intact. Patient is refusing tube feedings because he feels full all the time. Extrem Other: Severe cachexia and muscle wasting. patient is not able and able to reposition himself in bed Objective Last Vital Signs Temp 36.2 C L 05/01/21 19:05 Pulse 97 H 05/01/21 19:05 Resp 16 05/01/21 19:05 BP 100/60 05/01/21 19:05 Pulse Ox 95 05/01/21 19:05 Laboratory Results - last 24 hr 05/01/21 05/01/21 06:20 06:20 WBC 14.04 H RBC 2.95 L Hgb 8.7 L Hct 28.3 L MCV 95.9 H MCH 29.5 MCHC 30.7 L RDW 20.5 H Plt Count 150 MPV 10.7 Immature Gran % 0.0 Neutrophils % 91.0 Band Neutrophils % 1 Lymphocytes % 3.0 Atypical Lymphs % 3 Monocytes % 0.0 Eosinophils % 0.0 Basophils % 0.0 Metamyelocytes % 1 Myelocytes % 1 Nucleated RBC % 1 Absolute Neutrophils 12.92 H Absolute Lymphocytes 0.84 L Absolute Monocytes 0.00 L Absolute Eosinophils 0.00 Absolute Basophils 0.00 RBC Morphology See Below Polychromasia Present Basophilic Stippling Present Anisocytosis 1+ Sodium 134 L Potassium 3.8 Chloride 99 Carbon Dioxide 29.3 Anion Gap 5.7 BUN 8 Creatinine 0.4 L Estimated GFR/1.73 m2 >= 60.00 Glucose 121 H Calcium 7.6 L Magnesium 1.7 L
--- NOTE | 2021-05-01 20:50 | W.PALPGNOTE ---
Date of service: 05/01/21 Time of Service: 11:05 Assessment and Plan Assessment and plan (1) Decubitus ulcer of buttock, stage 4: Status: Acute Assessment and plan: desires rectal tube to be places ROBIN to help with healing--unlikely to occur (2) Protein-calorie malnutrition, severe: Status: Acute Assessment and plan: cancer itself is causing weight loss but also he cannot tolerate tube feeds losing weight daily (3) Encounter for hospice care discussion: Status: Acute Assessment and plan: unlikely that his will be able to care for him at home began discuss of going onto comfort measures here at hospital will continue talk tomorrow (4) Dying care: Status: Acute Assessment and plan: Vaughn resists the idea that he is dying, though it is clear to his care team, physicians, nurses, PT, etc, that he is. To support Vaughn, he has asked that we no longer discuss his CODE status with him. He wants to remain FULL CODE no matter what. I will try to respect this while acting as advocate for caregivers, too. We did have an Ethics Consult on Vaughn yesterday. (5) Cachexia: Status: Acute (6) Hypoxia: Status: Acute Assessment and plan: At first he maintained adequate oxygenation on RA, but then he dropped. Advised that we should stop measuring his oxygen levels, but instead look at his level of comfort. He was able to transition to nasal canula at 2 L/min. OK to increase up to 5L/min FOR PATIENT COMFORT only. (7) Bedbound: Status: Acute Assessment and plan: Unable to get out of bed due to profound weakness. (8) Generalized weakness: Status: Acute (9) Brain metastases: Status: Acute (10) Esophageal cancer: Status: Acute Assessment and plan: Widely metastatic. Terminal. Life expectancy days to weeks, with days more likely. Qualifiers: Malignant neoplasm of esophagus location: lower third Qualified Code(s): C15.5 - Malignant neoplasm of lower third of esophagus Subjective Subjective Patient reports: still having pain, pain is less, bowel movement, diarrhea and shortness of breath; denies tolerating a regular diet and vomiting Interval history since last seen: I met with Vaughn in the ICU. We discussed his goals for the day. He wanted to move out of the ICU to a regular room. He wanted to help his severe pressure ulcer heal by having a rectal catheter placed. He wanted to get off hi-flow oxygen to a regular nasal cannula. He would like to have his chest tube pulled as soon as it is safe to do so. He is feeling better, though he is still very weak. He's not tolerating his tube feeds. He's having less nutrition than necessary to maintain basic functions. He denies any headaches or visual changes. He has had minimal s/e of his brain mets. He is unsure about whether his will be able to care for him at home. He is worried about her health needs. Apparently, he reported, she was recently hospitalized for a abscess of her GI tract. She hasn't had surgery yet but she needs to. He still has a goal of going home in a state where he can care for himself. This is highly unlikely--really impossible--but he doesn't want to engage in this kind of assessment. He likes to have simple concrete goals that he can meet on a daily basis. This gives his life quality. Exam Const General: frail appearing and ill appearing Nutritional Appearance: cachectic and malnourished Orientation: alert, awake and oriented x3 HENMT Other: Vision and hearing appear intact. There is no thrush. He has no sores in his mouth. His extremely poor dentition. Eyes Conjunctivae: conjunctivae normal Sclera: sclerae normal (no jaundice noted) Chest Chest: normal inspection of the chest and normal palpation of entire chest wall Other: No crepitus. No redness drainage swelling at the chest tube site. No drainage around the tube. Resp Effort & Inspection: normal respiratory effort and able to speak in complete sentences Auscultation: diminished lung sounds (Right greater than left) Cardio Rate: regular rate Rhythm: regular rhythm GI Other: Abdomen soft with minimal bowel sounds. Feeding tube site shows some mild excoriation. He has multiple stage IV sacral and buttock decubitus ulcers. He also has a ulceration on the left side at the base of the penis. He has necrotic tissue on the decubitus ulcers. Neuro General: patient alert, patient awake, patient oriented x3 and unable to assess gait (bed-bound; too weak to stand) Cognition: normal cognition Speech: speech normal Extrem General: no clubbing, cyanosis or edema Other: Severe muscle wasting and atrophy Objective Last Vital Signs Temp 97.2 F L 05/01/21 19:05 Pulse 97 H 05/01/21 19:05 Resp 16 05/01/21 19:05 BP 100/60 05/01/21 19:05 Pulse Ox 95 05/01/21 19:05 Laboratory Results - last 24 hr 05/01/21 05/01/21 06:20 06:20 WBC 14.04 H RBC 2.95 L Hgb 8.7 L Hct 28.3 L MCV 95.9 H MCH 29.5 MCHC 30.7 L RDW 20.5 H Plt Count 150 MPV 10.7 Immature Gran % 0.0 Neutrophils % 91.0 Band Neutrophils % 1 Lymphocytes % 3.0 Atypical Lymphs % 3 Monocytes % 0.0 Eosinophils % 0.0 Basophils % 0.0 Metamyelocytes % 1 Myelocytes % 1 Nucleated RBC % 1 Absolute Neutrophils 12.92 H Absolute Lymphocytes 0.84 L Absolute Monocytes 0.00 L Absolute Eosinophils 0.00 Absolute Basophils 0.00 RBC Morphology See Below Polychromasia Present Basophilic Stippling Present Anisocytosis 1+ Sodium 134 L Potassium 3.8 Chloride 99 Carbon Dioxide 29.3 Anion Gap 5.7 BUN 8 Creatinine 0.4 L Estimated GFR/1.73 m2 >= 60.00 Glucose 121 H Calcium 7.6 L Magnesium 1.7 L
[2021-05-01] MEDS: LORazepam 0.5 MG TAB PO (23:18)
[2021-05-02] VITALS (10 sets, daily range): BP systolic 92–116; BP diastolic 58–75; PULSE 73–106; RESP 1–30; TEMP 36–36.7; O2SAT 91–96
[2021-05-02] MEDS: levETIRAcetam 1,000 MG in Normal Saline 100 ML 400 MG IVPB ×2 (02:26→15:46)
[2021-05-02] MEDS: PIPERACILLIN/TAZO 3.375 GM in Normal Saline 50 ML IVPB ×3 (02:28→18:50)
[2021-05-02] MEDS: MORPHine 2 MG/ML SYR IVP ×3 (02:53→10:51)
[2021-05-02] MEDS: Dexamethasone 4 MG/ML VIAL IVP ×3 (03:36→20:05)
[2021-05-02] MEDS: Normal Saline Flush 10 ML SYR IVP ×4 (06:30→20:05)
[2021-05-02 06:49] LABS: Absolute Lymphocyte Count 0.23 10^3/uL (1.2-3.4); Basophils % 0.2; HCT 29.6 % (40.0-50.0); HGB 9.1 g/dL (13.5-17.5); Immature Grans % 4.8; Lymphocytes % 1.4; MCHC 30.7 % (32.0-36.0); MCV 97.7 fL (80-95); MPV 10.8 fL (8.0-11.0); Monocytes % 2.6; Nucleated RBC 1 %; Platelet Count 168 10^3/uL (130-400); RBC 3.03 10^6/uL (4.36-5.78); RDW 20.7 % (11.8-14.1); RDW-SD 71.4 fL; WBC 16.67 10^3/uL (4.4-10.8)
[2021-05-02 06:52] LABS: Absolute Basophil Count 0.03 10^3/uL (0.0-0.2); Absolute Monocyte Count 0.43 10^3/uL (0.1-0.8); Absolute Neutrophil Count 15.17 10^3/uL (1.2-6.7)
[2021-05-02 06:57] LABS: Anion Gap 4.5 mmol/L (3-11); BUN 7 mg/dL (7-18); CO2 31.5 mmol/L (21.0-32.0); CREATININE 0.4 mg/dL (0.70-1.30); Calcium 7.6 mg/dL (8.5-10.1); Chloride 99 mmol/L (98-107); Glucose 96 mg/dL (74-106); Magnesium 1.9 mg/dL (1.8-2.4); Potassium 3.7 mmol/L (3.5-5.1); Sodium 135 mmol/L (136-145)
[2021-05-02 07:21] LABS: Anisocytosis 2+; Basophilic Stippling Present; Diff Comment Diff Reviewed; Polychromasia Present
[2021-05-02 07:22] LABS: Poikilocytes 1+
[2021-05-02] MEDS: Pantoprazole 40 MG VIAL IVP ×2 (08:52→20:05)
[2021-05-02] MEDS: guaiFENesin 200 MG/10 ML CUP JT ×2 (08:56→15:46)
[2021-05-02] MEDS: Albuterol/Ipratropium 3 ML UPD VIAL UPD ×3 (09:09→18:53)
[2021-05-02] MEDS: Tiotropium Bromide-Respimat 10 PUFF INH 2 PUFF IH (09:10)
--- NOTE | 2021-05-02 11:44 | DI.RAD_ITS ---
Exam(s) XR PORTABLE CHEST AP EXAM: XR PORTABLE CHEST AP CLINICAL HISTORY: f/u ptx/effusion TECHNIQUE: COMPARISON: CR,XR XR PORTABLE CHEST AP from 05/01/2021 FINDINGS: Portable AP chest at 1130 hours. The tiny right apical pneumothorax noted on prior examination of is no longer visible. Bilateral infiltrates persist, grossly unchanged. Small bilateral pleural effusions again noted. Right thoracotomy tube in position. IMPRESSION: No gross interval change from yesterday's examination. Tiny right apical pneumothorax is not seen on today's film. RADIATION DOSE DELIVERED: Total DLP
[2021-05-02] MEDS: MORPHine 4 MG/ML SYR IVP (12:05)
--- NOTE | 2021-05-02 12:18 | DI.VRAD_ITS ---
PROCEDURE INFORMATION: Exam: XR Chest Exam date and time: 05/02/2021 10:42 AM Age: 50 years old Clinical indication: Pain; Chest pressure; Patient HX: F/u ptx, effusion TECHNIQUE: Imaging protocol: XR of the chest. Views: 1 view. COMPARISON: XR PORTABLE CHEST AP 05/01/2021 4:15 PM FINDINGS: Tubes, catheters and devices: A left subclavian MediPort catheter projects on the SVC. There is a chest tube in the right base. Lungs: Bilateral pulmonary infiltrates and atelectasis are unchanged. Pleural spaces: Small bilateral pleural effusions. No pneumothorax is seen. Heart/Mediastinum: Unremarkable. No cardiomegaly. Bones/joints: Unremarkable. IMPRESSION: 1. The right apical pneumothorax has resolved. 2. Bilateral pulmonary infiltrates/atelectasis with effusions are unchanged. Dictated and Authenticated by: Dominic nOeil MD. Ordering:ELANA Sy MD
--- NOTE | 2021-05-02 13:03 | PCPN_ITS ---
Date of service: 05/02/21 Assessment and Plan Assessment and plan (1) Palliative care patient: Status: Acute Assessment and plan: Advised I would see Vaughn next Wednesday but explained that Dr Nazario, Raven Castorena and Lou Mills would all be available, too, if he needed someone from out team before then. (2) Dying care: Status: Acute Assessment and plan: Vaughn doesn't like us to use this term, but this is what the entire team is providing him. (3) Goals of care, counseling/discussion: Status: Acute Assessment and plan: Team of care providers had another round of discussions re: futility of CPR in Vaughn's case. I once again brought up our concerns. This time I asked him to consider the moral injury that nurses/doctors might experience, knowing they were hurting him without any chance of reviving him. He could not do this. I acknowledged that being full code means something spiritually and emotionally different to him than to other people who are equally sick. Today, he wanted his chest tube out. He wanted his rectal tube. He wanted a morphine pump. Once again, he made goals and achieved them, with help from team. This is what gives his life meaning. Making simple goals daily. (4) Uncontrolled pain: Status: Acute Assessment and plan: Started him on morphine pump today for better pain control. Note that the 4 mg he received IV before his procedures did not control his pain entirely. Suggest boluses before moving/changing him. (5) Decubitus ulcer of buttock, stage 4: Status: Acute (6) Decubitus ulcer of sacral region, stage 4: Status: Acute (7) Bedbound: Status: Acute (8) Comfort measures only status: Status: Acute Assessment and plan: No further transfers to ICU. No further treatments with IV antibiotics. (He would take po if offered.) Likely will never go home, due to his high needs and his 's precarious health. He still wants hospitalist team to attempt CPR. He does not want us to invoke futility. Subjective Subjective Patient reports: no new complaints, still having pain, bowel movement, diarrhea and shortness of breath Interval history since last seen: I met with Vaughn on the [facility] floor where he had been moved after our visit of 05/01. He did not get the rectal catheter placed. He would like it placed today. He would like to get his chest tube out today, if surgery allows. He likes the peace and quiet of the regular floor, as compared to the ICU. His pain is increased, mostly in his pelvis. He has a stage 4 pressure ulcer, likely a Benito ulcer. Both bone mets and this ulcer are causing him pain. He looked weaker today. I met with Dr Weiss (general surgeon) and Dr Peres (hospitalist) to discuss how to best care for Vaughn. Dr Weiss was able to remove his chest tube and insert his rectal catheter at her visit with him today. I was present during these procedures and he did experience some pain despite a bolus of 4 mg IV morphine. He agreed to going on a continuous dose of morphine with a bolus available q 15 minutes. Ideally, he should have a pump analagous to what he would have at home--one that he can control. He also agreed to go on comfort measures, as long as can receive chest compressions IF the hospitalist thinks it would work. Exam Const General: frail appearing and ill appearing Nutritional Appearance: cachectic and malnourished Orientation: alert, awake and oriented x3 HENAZ Other: Vision and hearing appear intact. There is no thrush. He has no sores in his mouth. His extremely poor dentition. Eyes Conjunctivae: conjunctivae normal Sclera: sclerae normal (no jaundice noted) Chest Chest: normal inspection of the chest and normal palpation of entire chest wall Other: No crepitus. No redness drainage swelling at the chest tube site. No drainage around the tube. Resp Effort & Inspection: normal respiratory effort and able to speak in complete sentences Auscultation: diminished lung sounds (Right greater than left) Cardio Rate: regular rate Rhythm: regular rhythm GI Other: Abdomen soft with minimal bowel sounds. Feeding tube site shows some mild excoriation. He has multiple stage IV sacral and buttock decubitus ulcers. He also has a ulceration on the left side at the base of the penis. He has necrotic tissue on the decubitus ulcers. Neuro General: patient alert, patient awake, patient oriented x3 and unable to assess gait (bed-bound; too weak to stand) Cognition: normal cognition Speech: speech normal Extrem General: no clubbing, cyanosis or edema Other: Severe muscle wasting and atrophy Objective Last Vital Signs Temp 96.8 F L 05/02/21 08:00 Pulse 106 H 05/02/21 09:15 Resp 30 H 05/02/21 08:00 BP 116/75 05/02/21 08:00 Pulse Ox 91 L 05/02/21 08:00 Laboratory Results - last 24 hr 05/02/21 05/02/21 06:00 06:00 WBC 16.67 H RBC 3.03 L Hgb 9.1 L Hct 29.6 L MCV 97.7 H MCH 30.0 MCHC 30.7 L RDW 20.7 H Plt Count 168 MPV 10.8 Immature Gran % 4.8 Neutrophils % 91.0 Lymphocytes % 1.4 Monocytes % 2.6 Eosinophils % 0.0 Basophils % 0.2 Nucleated RBC % 1 Absolute Neutrophils 15.17 H Absolute Lymphocytes 0.23 L Absolute Monocytes 0.43 Absolute Eosinophils 0.00 Absolute Basophils 0.03 RBC Morphology See Below Polychromasia Present Poikilocytosis 1+ Basophilic Stippling Present Anisocytosis 2+ Sodium 135 L Potassium 3.7 Chloride 99 Carbon Dioxide 31.5 Anion Gap 4.5 BUN 7 Creatinine 0.4 L Estimated GFR/1.73 m2 >= 60.00 Glucose 96 Calcium 7.6 L Magnesium 1.9
--- NOTE | 2021-05-02 15:56 | W.PM.PROGNOT ---
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] (10) Malfunction of gastrostomy tube: Status: Resolved (11) Urinary retention: Status: Acute (12) Cough: Status: Acute (13) Port-A-Cath in place: Status: Acute (14) 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: Status: Chronic (15) Weakness: Status: Chronic (16) Liver metastases: Status: Acute (17) Brain metastases: Status: Acute (18) Brain metastases: Status: Acute (19) Tobacco dependence: Status: Acute (20) Esophageal cancer: Status: Acute Qualifiers: Malignant neoplasm of esophagus location: lower third Qualified Code(s): C15.5 - Malignant neoplasm of lower third of esophagus (21) Anemia: Status: Chronic Qualifiers: Anemia type: unspecified type Qualified Code(s): D64.9 - Anemia, unspecified (22) Metastatic cancer to liver: Status: Acute (23) Dying care: Status: Acute Assessment and plan: Patient is actively dying. I had a long discussion with Dr. Mina, Dr. Giles, nursing and Lauryn Dwyer, and Dr. Howe. Multiple conversations have been held with this patient By multiple physicians, explaining that he has lost his bowel cancer and he is dying. Patient does want to continue to be a full code and wants everything done. He does not want to be intubated. He still wants to have chest compressions. I do not know if patient understands the ramifications that this is only prolonging his suffering and is futile at this point. Dr. Mina is going to have another conversation with him. However all of the physicians and the nursing involved in his care at this time do feel that CPR would be inappropriate. -He has completed all his antibiotics for the empyema and no longer requires treatment for this. -His lung is fully inflated with a Heimlich valve in place and off suction. There is not been any fluid accumulation in the last 24 hours. For ease of patient care and to reduce pain and suffering, I think it is simple is just to remove the tube altogether. And this was done and a chest dressing placed. -We will stop IV hydration. Patient is currently refusing tube feedings. We will free water through the tube. We will continue dressing changes and care of his G-tube. -Per the patient's request, a rectal tube was placed today, by myself. To limit stool infiltrating his decubitus ulcers and for comfort measures. -Continue care of his decubitus ulcers per wound care. -Continue oxygen and pulmonary toilet -Continue all his same medication regimen -We will start patient on a morphine drip. With BREAD OVEN OPERATOR demand. We will monitor her for constipation from this -I did discuss with his care team that his is not well herself. And given his physical demands for care and his immobility, I do not feel that she can take care of him at home, the decision was to put him into in -hospital hospice. -Patient does not want to have a Springer catheter at this time. -We will stop telemetry and blood draws we will continue all other medications 1 hour was spent in direct patient care. Another hour in consultation and discussing the patient with his care team and other physicians 120 mins in total including documentation Subjective Subjective Interval history since last seen: Is doing about the same today. He is not tolerating any tube feedings. Still has an IV running for hydration. He complains of abdominal pain, nausea and bloating with tube feedings. He has been refusing tube feeds. There does not appear to be any mechanical bowel obstruction. I think he has decreased gastric motility from a combination of his inactivity/immobility, and the narcotics he is receiving, as well as the cancer burden. He has chronic pain from cancer. His chronic pain from the large decubitus ulcers. These continue to grow in size. He continues to lose weight. He is requiring 4 L of oxygen. He requires continuous suction to manage his secretions. He is nonambulatory. He is incontinent of stool. He is able to control his urine. He requires two people to turn and to manage and clean him after bowel movements. He has not had any new shortness of breath or productive cough. His oxygen requirements have been stable over the past 24 hours. He did personally review his chest x-ray. There is no pneumothorax and there is no fluid collections. He is able to urinate on his own and does not like the discomfort of a Springer catheter. Exam Const General: frail appearing and ill appearing Nutritional Appearance: cachectic and malnourished Orientation: alert, awake and oriented x3 HENMT Other: Vision and hearing appear intact. There is no thrush. He has no sores in his mouth. His extremely poor dentition. Chest Chest: normal inspection of the chest and normal palpation of entire chest wall Other: No crepitus. No redness drainage swelling at the chest tube site. No drainage around the tube. Resp Effort & Inspection: normal respiratory effort and able to speak in complete sentences Auscultation: diminished lung sounds (Right greater than left) Cardio Rate: regular rate Rhythm: regular rhythm GI Other: Abdomen soft with minimal bowel sounds. Feeding tube site shows some mild excoriation. He has multiple stage IV sacral and buttock decubitus ulcers. He also has a ulceration on the left side at the base of the penis. He has necrotic tissue on the decubitus ulcers. Rectal exam was done and is normal. There is no stool in the vault. Rectal tube was placed per patient request. Extrem General: no clubbing, cyanosis or edema Other: Severe muscle wasting and atrophy Objective Last Vital Signs Temp 36.5 C 05/02/21 14:57 Pulse 98 H 05/02/21 14:57 Resp 18 05/02/21 14:57 BP 102/70 05/02/21 14:57 Pulse Ox 96 05/02/21 14:57 Laboratory Results - last 24 hr 05/02/21 05/02/21 06:00 06:00 WBC 16.67 H RBC 3.03 L Hgb 9.1 L Hct 29.6 L MCV 97.7 H MCH 30.0 MCHC 30.7 L RDW 20.7 H Plt Count 168 MPV 10.8 Immature Gran % 4.8 Neutrophils % 91.0 Lymphocytes % 1.4 Monocytes % 2.6 Eosinophils % 0.0 Basophils % 0.2 Nucleated RBC % 1 Absolute Neutrophils 15.17 H Absolute Lymphocytes 0.23 L Absolute Monocytes 0.43 Absolute Eosinophils 0.00 Absolute Basophils 0.03 RBC Morphology See Below Polychromasia Present Poikilocytosis 1+ Basophilic Stippling Present Anisocytosis 2+ Sodium 135 L Potassium 3.7 Chloride 99 Carbon Dioxide 31.5 Anion Gap 4.5 BUN 7 Creatinine 0.4 L Estimated GFR/1.73 m2 >= 60.00 Glucose 96 Calcium 7.6 L Magnesium 1.9
--- NOTE | 2021-05-02 18:19 | PGE_ITS ---
Date of Service Date of service: 05/02/21 Time of Service: 18:19 Assessment and Plan Assessment and plan (1) Acute hypoxemic respiratory failure: Status: Acute Assessment and plan: multifactorial including pneumonia, empyema (E. coli and gram positive rods), lung mets from esophageal cancer, atelectasis. Patient currently has DNI status but still wants CPR in the setting of cardiac arrest. Unfortunately the ethics committee compromised enable the situation that this patient will have CPR in the event of cardiopulmonary arrest until two physicians arrive to agree on futility of further resuscitation. It is my opinion that this is futile and not the ethical thing to do. We should continue supportive care including any measures to keep Vaughn comfortable and free of pain or anxiety but it is unrealist to perform CPR until two physicians arrive to agree to cease resuscitation based on futility. Paperwork should be signed stating the medical teams agreement on the futility of reususcitation and his status should be DNR. For now we are continuing supportive care w/ supplemental oxygen (currently at 5 lpm), DuoNeb updrafts qid and albuterol updrafts q2h prn, Zosyn 3.375 gm iv q8h, pulmonary toiletry. chest tube has been removed. At this point I would not check anymore chest xrays nor any labs as it will not change our treatment. (2) Empyema lung: Status: Acute Assessment and plan: CXR today showed resolution of his tiny apical right pneumothorax but otherwise no change in his bilateral diffuse infiltrates. (3) Uncontrolled pain: Status: Acute Assessment and plan: pain control has improved today since Dr. Anton initiated continuous morphine drip at 2 mg/hr w/ prn boluses of 1 mg/15 minutes. Orders have been placed for titration as needed for pain control. (4) Esophageal cancer: Status: Acute Assessment and plan: patient's cancer is no longer treatable even for palliative care. therefore the best course is for comfort measures. Qualifiers: Malignant neoplasm of esophagus location: lower third Qualified Code(s): C15.5 - Malignant neoplasm of lower third of esophagus (5) Liver metastases: Status: Acute (6) Brain metastases: Status: Acute (7) Bone metastases: Status: Acute (8) Protein-calorie malnutrition, severe: Status: Acute Assessment and plan: patient has been intolerant of J tube feedings and he refuses to accept any tube feedings. (9) Paroxysmal A-fib: Status: Acute Assessment and plan: rhythm has been SR to sinus tachycardia. telemetry has been discontinued today. (10) Pressure ulcer: Status: Acute Assessment and plan: rectal ann placed to alleviate the excoriation of his skin from his diarrhea. (11) Anemia: Status: Chronic Assessment and plan: stable. will not recheck labs as this would not contribute to his comfort Qualifiers: Anemia type: unspecified type Qualified Code(s): D64.9 - Anemia, un specified (12) Discharge planning issues: Status: Acute Assessment and plan: patient has given mixed messages about his desires for discharge. Per Dr. Anton, he has told her that he would not want to be a burden to his and his is not capable for caring for him. However, when I have asked him his goals, he indicates that he wants to get better and return home to his . I think that discharge home is not realistic as hospice is not going to be there 24 hr a day for provision of his care. Subjective Subjective Interval history since last seen: Patient refuses to acknowledge that resus citation would be futile. He does not want to have anymore discussion regarding this. He is overly optimistic that he is getting better. He denies any dyspnea, but has moist cough, not able to mobilize sputum. Chest tube has been taken out and he is now on morphine drip at rate of 2 mg/hr and bolus of 1 mg/15 minutes prn. He says that he is now more comfortable. Rectal ann has been placed d/t ongoing diarrhea. He has stage 4 decubitus ulcers d/t poor healing in setting of metastatic cancer and malnutrition. Tube feedings have been stopped d/t intolerance of J tube feedings. He has acute urinary retention and was catheterized this evening of 1100 mL. Exam Narrative Exam Narrative: Cachectic white male who is lying in bed being straight cathed for 1100 mL He is not in acute respiratory distress Lungs: coarse rhonchi on the right, diminished breath sounds at left lung base but upper cha on left are clear Heart: tachycardic Abdomen: was distended but now soft and nondistended since having his bladder decompressed. Objective Last Vital Signs Temp 36.5 C 05/02/21 14:57 Pulse 98 H 05/02/21 14:57 Resp 18 05/02/21 14:57 BP 102/70 05/02/21 14:57 Pulse Ox 96 05/02/21 14:57 Laboratory Results - last 24 hr 05/02/21 05/02/21 06:00 06:00 WBC 16.67 H RBC 3.03 L Hgb 9.1 L Hct 29.6 L MCV 97.7 H MCH 30.0 MCHC 30.7 L RDW 20.7 H Plt Count 168 MPV 10.8 Immature Gran % 4.8 Neutrophils % 91.0 Lymphocytes % 1.4 Monocytes % 2.6 Eosinophils % 0.0 Basophils % 0.2 Nucleated RBC % 1 Absolute Neutrophils 15.17 H Absolute Lymphocytes 0.23 L Absolute Monocytes 0.43 Absolute Eosinophils 0.00 Absolute Basophils 0.03 RBC Morphology See Below Polychromasia Present Poikilocytosis 1+ Basophilic Stippling Present Anisocytosis 2+ Sodium 135 L Potassium 3.7 Chloride 99 Carbon Dioxide 31.5 Anion Gap 4.5 BUN 7 Creatinine 0.4 L Estimated GFR/1.73 m2 >= 60.00 Glucose 96 Calcium 7.6 L Magnesium 1.9
[2021-05-02] MEDS: Lidocaine 2% Jelly 11 ML SYR UR (18:50)
[2021-05-03] VITALS (8 sets, daily range): BP systolic 92–104; BP diastolic 51–59; PULSE 68–107; RESP 1–18; TEMP 36.3–36.4; O2SAT 94–95
[2021-05-03] MEDS: Dexamethasone 4 MG/ML VIAL IVP ×3 (03:03→20:16)
[2021-05-03] MEDS: PIPERACILLIN/TAZO 3.375 GM in Normal Saline 50 ML IVPB ×3 (03:03→17:56)
[2021-05-03] MEDS: levETIRAcetam 1,000 MG in Normal Saline 100 ML 400 MG IVPB ×2 (03:03→15:05)
[2021-05-03] MEDS: Normal Saline Flush 10 ML SYR IVP ×2 (03:55→20:16)
[2021-05-03] MEDS: Lidocaine 2% Jelly 11 ML SYR UR (03:56)
[2021-05-03] MEDS: Pantoprazole 40 MG VIAL IVP ×2 (08:28→20:16)
[2021-05-03] MEDS: Tiotropium Bromide-Respimat 10 PUFF INH 2 PUFF IH (08:30)
[2021-05-03] MEDS: Albuterol/Ipratropium 3 ML UPD VIAL UPD ×4 (08:30→20:18)
[2021-05-03] MEDS: guaiFENesin 200 MG/10 ML CUP JT ×3 (09:16→17:57)
--- NOTE | 2021-05-03 15:27 | W.PM.PROGNOT ---
Date of Service Date of service: 05/03/21 Time of Service: 15:27 Assessment and Plan Assessment and plan (1) Acute hypoxemic respiratory failure: Status: Acute Assessment and plan: Continue to receive supportive care with oxygen per nasal cannula along with nebulizer treatments and IV Zosyn for an E. coli and gram-positive nakul anaerobic empyema. We will ask palliative medicine to continue to work with him towards setting reasonable expectations in terms of his goals of care. (2) Empyema lung: Status: Resolved Assessment and plan: As above (3) Uncontrolled pain: Status: Acute Assessment and plan: Pain under much better control with continuous morphine infusion at 2 mg/h with intermittent boluses of 1 mg every 15 minutes. (4) Esophageal cancer: Status: Acute Assessment and plan: patient's cancer is no longer treatable even for palliative care. therefore the best course is for comfort measures. Qualifiers: Malignant neoplasm of esophagus location: lower third Qualified Code(s): C15.5 - Malignant neoplasm of lower third of esophagus (5) Liver metastases: Status: Acute (6) Brain metastases: Status: Acute (7) Bone metastases: Status: Acute (8) Protein-calorie malnutrition, severe: Status: Acute Assessment and plan: Patient has been intermittently accepting of small amounts of tube feedings through his J-tube is also given slowly. (9) Paroxysmal A-fib: Status: Acute Assessment and plan: rhythm has been SR to sinus tachycardia. No longer being monitored (10) Pressure ulcer: Status: Deleted Assessment and plan: rectal ann placed to alleviate the excoriation of his skin from his diarrhea. (11) Anemia: Status: Chronic Assessment and plan: stable. will not recheck labs as this would not contribute to his comfort Qualifiers: Anemia type: unspecified type Qualified Code(s): D64.9 - Anemia, unspecified (12) Discharge planning issues: Status: Acute Assessment and plan: patient has given mixed messages about his desires for discharge. Per Dr. Anton, he has told her that he would not want to be a burden to his and his is not capable for caring for him. However, when I have asked him his goals, he indicates that he wants to get better and return home to his . I think that discharge home is not realistic as hospice is not going to be there 24 hr a day for provision of his care. Subjective Subjective Interval history since last seen: Vaughn has no acute complaints. He has a moist cough has been productive of mucus.He remains on nasal cannula at 5 L/min with an oxygen saturation in the mid 90s. He is more comfortable since the chest tube was removed. He is currently on a morphine drip at 2 mg/h with intermittent boluses of 1 mg every 15 minutes which seems to be controlling his pain. While he wants to be kept comfortable and does not want to be intubated nevertheless he will wants CPR to be performed in the event he has a cardiac arrest. He does not want to discuss this issue any further. Exam Narrative Exam Narrative: Thin cachectic middle-aged male sitting up in bed watching TV. In no acute respiratory distress. Chest reveals coarse rhonchi over the right lung base left side is clear in the upper lung field but some rhonchi at the left lung base as well Heart is regular rate and rhythm to slightly tachycardic. Abdomen is soft nondistended nontender Ann catheter is in place draining dark but clear yellow urine Objective Last Vital Signs Temp 36.3 C L 05/03/21 07:30 Pulse 78 05/03/21 15:08 Resp 18 05/03/21 15:08 BP 104/52 L 05/03/21 15:08 Pulse Ox 94 05/03/21 15:08
--- NOTE | 2021-05-03 19:56 | PGE_ITS ---
Date of Service Date of service: 05/03/21 Time of Service: 19:56 Assessment and Plan Assessment and plan (1) Decubitus ulcer of buttock, stage 4: Status: Acute (2) Decubitus ulcer of sacral region, stage 4: Status: Acute (3) Protein-calorie malnutrition, severe: Status: Acute (4) Bone metastases: Status: Acute (5) Paroxysmal A-fib: Status: Acute (6) Uncontrolled pain: Status: Acute (7) Dying care: Status: Acute (8) Cachexia: Status: Acute (9) Emphysema lung: Status: Acute Qualifiers: Emphysema type: unilateral Qualified Code(s): J43.0 - Unilateral pulmonary emphysema [MacLeod's syndrome] (10) Malfunction of gastrostomy tube: Status: Resolved (11) History of immunotherapy: Status: Chronic (12) Port-A-Cath in place: Status: Acute (13) Leukocytosis: Status: Acute (14) 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: Status: Chronic Assessment and plan: -Patient has extensive esophageal metastases. He has been told by oncology that he should enroll in the hospice, and there is no current available therapy for him. His cancer continues to grow despite aggressive chemotherapy. He did seek a second opinion and was told the same thing from oncology at [facility] and from an oncologist at [facility]. -He cannot tolerate tube feeding. It makes him feel nauseous and bloated. He is currently not receiving any nutrition at all. -He did have an empyema of the lung but this has resolved. The chest tube is removed and abx completed. -He has severe stage IV decubitus ulcers multiple. These are not going to heal given his degree of malnutrition and his advanced cancer. Our goals are to alleviate pain and prevent secondary infection. -At this point the patient is actively dying. He refuses to accept the diagnosis. He believes that he is going to get better and be discharged from the hospital. He has been made comfort care only. He is in such a debilitated state and in so much pain that his family would not be able to care for him at home. He is going to need inpatient hospital hospice. -Patient refuses to be made a DNR and refuses to discuss it further with any patient care providers. However at this point patient's actively dying, from advanced cancer, and to perform CPR would be futile. I would not recommending starting any CPR as this would be medically futile, and cause undue suffering. Patient should be allowed to in peace with dignity and comfort. -I Do not feel surgery has any thing further to add to this case. We would happy to reevaluate at any point, and will follow peripherally. I did discuss the case with Dr. Giles today (15) Weakness: Status: Chronic (16) Bilateral leg weakness: Status: Acute (17) Liver metastases: Status: Acute (18) Malignant neoplasm of esophagus, unspecified: Status: Acute (19) Metastatic cancer to liver: Status: Acute (20) Brain metastases: Status: Acute (21) Tobacco dependence: Status: Acute (22) Anemia: Status: Chronic Qualifiers: Anemia type: unspecified type Qualified Code(s): D64.9 - Anemia, unspecified Objective Last Vital Signs Temp 36.4 C L 05/03/21 19:39 Pulse 107 H 05/03/21 19:39 Resp 18 05/03/21 19:39 BP 94/59 L 05/03/21 19:39 Pulse Ox 95 05/03/21 19:39
[2021-05-04] VITALS (10 sets, daily range): BP systolic 92–97; BP diastolic 59–64; PULSE 85–96; RESP 1–23; TEMP 36.1–36.8; O2SAT 5–94
[2021-05-04] MEDS: levETIRAcetam 1,000 MG in Normal Saline 100 ML 400 MG IVPB ×2 (03:05→17:14)
[2021-05-04] MEDS: PIPERACILLIN/TAZO 3.375 GM in Normal Saline 50 ML IVPB ×3 (03:05→18:30)
[2021-05-04] MEDS: Dexamethasone 4 MG/ML VIAL IVP ×3 (04:11→20:07)
[2021-05-04] MEDS: Normal Saline Flush 10 ML SYR IVP ×3 (04:11→20:06)
[2021-05-04] MEDS: Pantoprazole 40 MG VIAL IVP ×2 (09:43→20:21)
[2021-05-04] MEDS: guaiFENesin 200 MG/10 ML CUP JT ×4 (10:02→21:36)
[2021-05-04] MEDS: Tiotropium Bromide-Respimat 10 PUFF INH 2 PUFF IH (10:02)
[2021-05-04] MEDS: Albuterol/Ipratropium 3 ML UPD VIAL UPD ×4 (10:03→20:06)
--- NOTE | 2021-05-04 15:17 | W.PM.PROGNOT ---
Date of Service Date of service: 05/04/21 Time of Service: 15:17 Assessment and Plan Assessment and plan (1) Acute hypoxemic respiratory failure: Status: Acute Assessment and plan: Secondary to pneumonia and empyema as well as metastatic disease. Continue supportive care with supplemental oxygen. He has a DO NOT INTUBATE resuscitation status but refuses to give up on having CPR. Is currently on Zosyn 3.375 g IV every 8 hours. He has been on Zosyn since 04/26/2021 prior to that he had been on Unasyn from 04/22/2021 through 04/26/2021. At this point I would clear complete 14-day course of antibiotics and then stop antibiotics but I would not reculture recheck labs or chest x-ray at this point as this would be futile care. Patient needs to transition over to comfort measures. I think once he is off antibiotics and afebrile we should work towards discharging him home on home oxygen with follow-up with home hospice. (2) Empyema lung: Status: Resolved Assessment and plan: As above Chest tube has been out for couple of days now with no worsening of his status. I would not repeat his chest x-ray at this point as it is not going to change our management. (3) Uncontrolled pain: Status: Acute Assessment and plan: Pain under much better control with continuous morphine infusion at 2 mg/h with intermittent boluses of 1 mg every 15 minutes. (4) Esophageal cancer: Status: Acute Assessment and plan: patient's cancer is no longer treatable even for palliative care. therefore the best course is for comfort measures. Qualifiers: Malignant neoplasm of esophagus location: lower third Qualified Code(s): C15.5 - Malignant neoplasm of lower third of esophagus (5) Liver metastases: Status: Acute (6) Brain metastases: Status: Acute (7) Bone metastases: Status: Acute (8) Protein-calorie malnutrition, severe: Status: Acute Assessment and plan: Patient has been accepting and tolerating tube feedings as long as it is running slowly. He is now up to 4 times a day on his tube feedings along with free water after each feeding. This point I would not provide any further IV fluids. (9) Pressure ulcer: Status: Deleted Assessment and plan: rectal ann placed to alleviate the excoriation of his skin from his diarrhea. (10) Discharge planning issues: Status: Acute Assessment and plan: At this point, once he has completed his Zosyn (14d course of antibiotics) he should be discharged home on hospice. Subjective Subjective Interval history since last seen: When asked Vaughn says he is feeling better has no acute complaints. States he is coughing up some thick mucus for which he uses a Yankauer suction catheter. He remains afebrile. He is still on 5 L/min per nasal cannula. Exam Narrative Exam Narrative: Thin cachectic middle-aged white male sitting up in bed in no acute respiratory distress. Lungs reveal improved aeration in the right lower lung zone. Left side is clear right side still with some scattered rhonchi. Heart is regular to slightly tachycardic but regular Abdomen scaphoid soft nondistended Objective Last Vital Signs Temp 36.5 C 05/04/21 07:40 Pulse 85 05/04/21 07:40 Resp 23 05/04/21 07:40 BP 94/60 L 05/04/21 07:40 Pulse Ox 93 05/04/21 07:40
[2021-05-05] VITALS (8 sets, daily range): BP systolic 90–100; BP diastolic 51–62; PULSE 79–90; RESP 1–18; TEMP 36.4–36.9; O2SAT 92–97
[2021-05-05] MEDS: levETIRAcetam 1,000 MG in Normal Saline 100 ML 400 MG IVPB ×2 (02:19→16:42)
[2021-05-05] MEDS: Dexamethasone 4 MG/ML VIAL IVP ×3 (03:15→19:52)
[2021-05-05] MEDS: PIPERACILLIN/TAZO 3.375 GM in Normal Saline 50 ML IVPB ×3 (03:38→17:30)
[2021-05-05] MEDS: guaiFENesin 200 MG/10 ML CUP JT ×2 (08:00→12:36)
[2021-05-05] MEDS: Albuterol/Ipratropium 3 ML UPD VIAL UPD ×4 (08:00→19:51)
[2021-05-05] MEDS: Pantoprazole 40 MG VIAL IVP ×2 (08:00→19:52)
[2021-05-05] MEDS: Normal Saline Flush 10 ML SYR IVP ×2 (08:01→19:52)
[2021-05-05] MEDS: Tiotropium Bromide-Respimat 10 PUFF INH 2 PUFF IH (08:09)
--- NOTE | 2021-05-05 09:26 | CMPROGNOTE_ITS ---
- If Service Date Differs Date of service: 05/05/21 Time of Service: 09:26 Care Management Progress Note S/O: Vaughn remains on the M/S floor, finishing out a fourteen day course of IV ABX-four more days remain. He will meet with Dr. Anton tomorrow to discuss his goals of care regarding discharging home. Per MD, last IV ABX dose will be 05/08/20. CM continues to follow. A: 50 year old male admitted to [facility] 04/21/21 for Dehydration P: Vaughn remains at [facility], per MD he will have four more days of IV ABX prior to returning home. CM will outreach to [facility] for discharge planning considerations if Vaughn chooses to engage with increased home support. CM continues to follow.
--- NOTE | 2021-05-05 13:47 | W.PM.PROGNOT ---
Date of Service Date of service: 05/05/21 Time of Service: 13:47 Assessment and Plan Assessment and plan (1) Acute hypoxemic respiratory failure: Status: Acute Assessment and plan: Secondary to pneumonia and empyema as well as metastatic disease. Continue supportive care with supplemental oxygen. He has a DO NOT INTUBATE resuscitation status but refuses to give up on having CPR. Is currently on Zosyn 3.375 g IV every 8 hours. He has been on Zosyn since 04/26/2021 prior to that he had been on Unasyn from 04/22/2021 through 04/26/2021. At this point I would complete 14-day course of antibiotics and then stop antibiotics but I would not reculture recheck labs or chest x-ray at this point as this would be futile care. Patient needs to transition over to comfort measures. I think once he is off antibiotics and afebrile we should work towards discharging him home on home oxygen with follow-up with home hospice. If he is unable to go home then he needs to enter hospice and go on respite care as inpatient on the hospice service. (2) Empyema lung: Status: Resolved Assessment and plan: As above Chest tube has been out for couple of days now with no worsening of his status. I would not repeat his chest x-ray at this point as it is not going to change our management. (3) Uncontrolled pain: Status: Acute Assessment and plan: Pain under much better control with continuous morphine infusion at 2 mg/h with intermittent boluses of 1 mg every 15 minutes. (4) Esophageal cancer: Status: Acute Assessment and plan: patient's cancer is no longer treatable even for palliative care. therefore the best course is for comfort measures. Qualifiers: Malignant neoplasm of esophagus location: lower third Qualified Code(s): C15.5 - Malignant neoplasm of lower third of esophagus (5) Liver metastases: Status: Acute (6) Brain metastases: Status: Acute (7) Bone metastases: Status: Acute (8) Protein-calorie malnutrition, severe: Status: Acute Assessment and plan: Patient has been accepting and tolerating tube feedings as long as it is running slowly. He is now up to 4 times a day on his tube feedings along with free water after each feeding. This point I would not provide any further IV fluids. (9) Pressure ulcer: Status: Deleted Assessment and plan: rectal ann placed to alleviate the excoriation of his skin from his diarrhea. given his metastatic disease, and poor nutrition, I do not expect this to heal. (10) Discharge planning issues: Status: Acute Assessment and plan: At this point, once he has completed his Zosyn (14d course of antibiotics) he should be discharged home on hospice. Subjective Subjective Interval history since last seen: Patient denies any acute complaints. I explained to him that he is pretty much at the end of his antibiotic treatment. My plans were to finish out the Zosyn with a 14-day course. He is currently on day #10. I told him that when he leaves the hospital he should go on hospice. He says he is not undergoing hospice is not going to order a [place] [facility]. I told him that he can go on a morphine pump when he goes home unless he is on hospice. He seems to have a discrepancy in his understanding of his situation and prognosis. While he understands that he has metastatic esophageal cancer he has an unfounded belief (denial of reality) that he is getting better and is capable of returning home. He does not want hospice care and expects to have home health services upon discharge. I explained to him that he can not remain in the hospital indefinitely. Once his antibiotics are completed, he will no longer meet medical criteria for continued hospitalization and either needs discharged home or he should go on hospice care and can then remain in the hospital on respite care. Exam Narrative Exam Narrative: Cachectic male sitting up in bed watching TV. No acute respiratory distress Lungs: diminshed breath sounds at the bases. no rhonchi or wheezing Heart: regular Abdomen: nondistended Objective Last Vital Signs Temp 36.9 C 05/05/21 08:05 Pulse 79 05/05/21 08:05 Resp 16 05/05/21 08:05 BP 90/51 L 05/05/21 08:05 Pulse Ox 97 05/05/21 08:05
[2021-05-06] VITALS (8 sets, daily range): BP systolic 93–113; BP diastolic 57–73; PULSE 83–96; RESP 1–23; TEMP 30–36.8; O2SAT 96–99
[2021-05-06] MEDS: levETIRAcetam 1,000 MG in Normal Saline 100 ML 400 MG IVPB ×2 (02:43→15:44)
[2021-05-06] MEDS: PIPERACILLIN/TAZO 3.375 GM in Normal Saline 50 ML IVPB ×2 (02:43→10:53)
[2021-05-06] MEDS: Dexamethasone 4 MG/ML VIAL IVP ×3 (03:07→19:59)
[2021-05-06] MEDS: Normal Saline Flush 10 ML SYR IVP ×3 (03:07→20:00)
[2021-05-06] MEDS: Albuterol/Ipratropium 3 ML UPD VIAL UPD ×4 (08:28→20:00)
[2021-05-06] MEDS: Tiotropium Bromide-Respimat 10 PUFF INH 2 PUFF IH (08:30)
[2021-05-06] MEDS: Pantoprazole 40 MG VIAL IVP ×2 (09:02→20:12)
--- NOTE | 2021-05-06 11:02 | PDOC.CMPRO ---
- If Service Date Differs Date of service: 05/06/21 Time of Service: 17:50 Care Management Progress Note S/O: Vaughn was lying in bed, Nichelle at his bedside when CM met with them. Both were in good spirits and verbalized understanding of new discharge plan, coordinated for , for Vaughn to return home on hospice. CM continues to follow. A: 50 year old male admitted to [facility] 04/21/21 for Dehydration P: Vaughn remains at [facility], per MD he will have three more days of IV ABX prior to returning home on Hospice on ; he and Nichelle are looking forward to this and verbalized understanding of the plan. Dr. Anton will complete Hospice orders, and equipment will be delivered prior to discharge including morphine pump placement at [facility], hospital bed. Vaughn will also go home with rectal catheter in place. CM continues to follow.
--- NOTE | 2021-05-06 13:17 | W.PALPGNOTE ---
Date of service: 05/06/21 Time of Service: 11:31 Assessment and Plan Assessment and plan (1) Bedbound: Status: Acute Assessment and plan: Will need to go home by ambulance and be transferred from stretcher to hospital bed. Too weak to stand. (2) Decubitus ulcer of buttock, stage 4: Status: Acute Assessment and plan: I did not examine ulcer today; per nursing, some minimal improvement with introduction of rectal tube and urinary catheter, and increase in tube feeds. Needs to stay off buttocks. Will needs specialized mattress ordered from hospice. (3) Oxygen dependent: Status: Acute Assessment and plan: Will need to go home on oxygen. (4) Protein-calorie malnutrition, severe: Status: Acute Assessment and plan: Taking in more by feeding tube. Asked that he feed himself, with supervision and help if needed from nursing staff. (5) Bone metastases: Status: Acute Assessment and plan: Cause of his pain. (6) Cancer related pain: Status: Acute Assessment and plan: On morphine pump at 2 mg/hr continuously with a 1 mg bolus available q 15 minutes. (7) Encounter for hospice care discussion: Status: Acute Assessment and plan: Vaughn and his Nichelle agreed to plan that he go home with hospice on May 08. (8) Discharge planning issues: Status: Acute Assessment and plan: Doesn't want to go to SNF. needs maximal help at home. Will ask for DAILY NURSING visit Wed-Wednesday and see how they do after that. (9) Fecal incontinence: Status: Acute Assessment and plan: Has rectal tube. Checked with nurses; if this one comes out, ok to reinsert it. (10) Urinary incontinence: Status: Acute Assessment and plan: Will keep ann in place when he goes home. (11) Difficulty clearing secretions: Status: Acute Assessment and plan: Vaughn cannot swallow or cough up his secretions. Wants home suction device. Hospice nurse informed. Subjective Subjective Patient reports: feels better, pain is less, diarrhea and shortness of breath; denies tolerating a regular diet and nausea Interval history since last seen: I met with Vaughn and Lou Mills NP after meeting with care management, primary nurse Praful and hospitalist Dr Cheney. Vaughn had a relatively good weekend. His pain is well controlled at 2 mg/ hr. He rarely uses his bolus doses. I encouraged HANNY Villarreal to give him some medication prior to dressing change or personal care. He is now able to tolerate his feeding tube again; he's up to 250 ccs qid. He is not using gravity feed or a pump; his nurses use a syringe to slowly administer the food into his tube. I strongly encouraged him to do this himself, under nursing supervision, as he very much wants to go home. We called his , Nichelle, while I was with him and Lou, and spoke about hospice care. I explained that hospice could order his DME, including a hospital bed, oxygen, and suction. He has tube feed supplies at home. He has a catheter in place now. His rectal catheter is working well, too. Nichelle and Vaughn are planning on a afternoon discharge. Vaughn hates to be pushed. He wants to ensure that he will get his oral antibiotics for the full course. They should end by Wednesday. Dr Cheney is switching him to oral meds now. I offered to order daily nursing visits through the coming weekend, and see how he does. Nichelle would also like daily doubler helper, if available. I told him I wasn't sure they would be. Exam Const General: frail appearing and ill appearing Nutritional Appearance: cachectic and malnourished Orientation: alert, awake and oriented x3 HENMT Other: Vision and hearing appear intact. There is no thrush. He has no sores in his mouth. He has extremely poor dentition. Eyes Conjunctivae: conjunctivae normal Sclera: sclerae normal (no jaundice noted) Chest Chest: normal inspection of the chest and normal palpation of entire chest wall Resp Effort & Inspection: normal respiratory effort and able to speak in complete sentences Auscultation: diminished lung sounds (Right greater than left) Cardio Rate: regular rate Rhythm: regular rhythm GI Other: Abdomen soft with minimal bowel sounds. Feeding tube site shows some mild excoriation. He has multiple stage IV sacral and buttock decubitus ulcers. He also has a ulceration on the left side at the base of the penis. He has necrotic tissue on the decubitus ulcers. Neuro General: patient alert, patient awake, patient oriented x3 and unable to assess gait (bed-bound; too weak to stand) Cognition: normal cognition Speech: speech normal Extrem Other: Severe muscle wasting and atrophy clubbing of his fingernails, c/w years of smoking Psych Appearance: disheveled Speech and Movement: speech and movement normal Mood: anxious mood (only when talking about going home, otherwise wnl) Affect: normal affect Attitude: cooperative Thought Process: illogical and impoverished Thought Content: delusions Insight: limited Judgment: limited Objective Last Vital Signs Temp 97.5 F L 05/06/21 07:18 Pulse 89 05/06/21 07:18 Resp 16 05/06/21 07:18 BP 113/73 05/06/21 07:18 Pulse Ox 99 05/06/21 07:18
--- NOTE | 2021-05-06 14:31 | CHAPLAIN ---
Vaughn was in bed (as he is all the time) when I visited. He told me plans are being made for him to go home tomorrow, although Dr. Anton's notes state (the day after tomorrow.) He is concerned about having all the needed equipment in place before he gets there and said he's been assured that Hospice will take care of that. His and her 21 year old son will be there too help him, although his has been having trouble with diverticulitis lately. Vaughn said she sleeps on a loveseat in the living room as that is most comfortable for him and his hospital bed will be in the living room too. We talked about what it's been like for him not to be able to eat, and then seeing commercials about food or being home and smelling food that his is cooking I reminded Vaughn that, and anyone in his family, have access to the [facility] clerk, Maribel Hays.
--- NOTE | 2021-05-06 14:42 | W.PM.PROGNOT ---
Date of Service Date of service: 05/06/21 Time of Service: 14:42 Assessment and Plan Assessment and plan (1) Bedbound: Status: Acute Assessment and plan: Will need to go home by ambulance and be transferred from stretcher to hospital bed. Too weak to stand. Now he has agreed to hospice; hospital bed ordered. (2) Decubitus ulcer of buttock, stage 4: Status: Acute Assessment and plan: I did not examine ulcer today; per nursing, some minimal improvement with introduction of rectal tube and urinary catheter, and increase in tube feeds. Needs to stay off buttocks. Will needs specialized mattress ordered from hospice. (3) Oxygen dependent: Status: Acute Assessment and plan: Will need to go home on oxygen. (4) Protein-calorie malnutrition, severe: Status: Acute Assessment and plan: Taking in more by feeding tube. Asked that he feed himself, with supervision and help if needed from nursing staff. (5) Bone metastases: Status: Acute Assessment and plan: Widely metastatic esophageal cancer. Cause of his pain. (6) Cancer related pain: Status: Acute Assessment and plan: On morphine pump at 2 mg/hr continuously with a 1 mg bolus available q 15 minutes. (7) Encounter for hospice care discussion: Status: Acute Assessment and plan: Vaughn and his Nichelle agreed to plan that he go home with hospice on May 08. (8) Discharge planning issues: Status: Acute Assessment and plan: Doesn't want to go to SNF. needs maximal help at home. Will ask for DAILY NURSING visit Wed-Wednesday and see how they do after that. (9) Fecal incontinence: Status: Acute Assessment and plan: Has rectal tube. Checked with nurses; if this one comes out, ok to reinsert it. (10) Urinary incontinence: Status: Acute Assessment and plan: Will keep ann in place when he goes home. (11) Emphysema lung: Status: Acute Assessment and plan: s/p chest tube. Convert from Zosyn to oral Augmentin. Plan a total of a 14 day course beginning from the time Zosyn initiated. Qualifiers: Emphysema type: unilateral Qualified Code(s): J43.0 - Unilateral pulmonary emphysema [MacLeod's syndrome] Subjective Subjective Patient reports: no new complaints, feels better, bowel movement (Has rectal tube.) and afebrile; denies nausea, vomiting and shortness of breath Exam Narrative Exam Narrative: Cachectic male sitting up in bed. No acute respiratory distress Lungs: diminished breath sounds at the bases. no rhonchi or wheezing Heart: regular rate, rhythm. S1 S2. Abdomen: nondistended Ext: No edema. No calf tenderness. Psych Speech and Movement: speech and movement normal Affect: normal affect Attitude: cooperative Thought Process: illogical and impoverished Insight: limited Judgment: limited Objective Last Vital Signs Temp 36.4 C L 05/06/21 07:18 Pulse 89 05/06/21 07:18 Resp 16 05/06/21 07:18 BP 113/73 05/06/21 07:18 Pulse Ox 99 05/06/21 07:18
[2021-05-06] MEDS: Amoxicillin 600 MG/Clav. 42.9 MG 75 ML BTL 7.2 ML JT (20:12)
[2021-05-06] MEDS: guaiFENesin 200 MG/10 ML CUP JT (20:12)
[2021-05-07] VITALS (8 sets, daily range): BP systolic 92–100; BP diastolic 52–63; PULSE 90–95; RESP 1–20; TEMP 36.4–36.8; O2SAT 94–96
[2021-05-07] MEDS: Normal Saline Flush 10 ML SYR IVP ×3 (03:06→20:40)
[2021-05-07] MEDS: Dexamethasone 4 MG/ML VIAL IVP ×2 (03:06→10:22)
[2021-05-07] MEDS: levETIRAcetam 1,000 MG in Normal Saline 100 ML 400 MG IVPB (03:07)
[2021-05-07] MEDS: Albuterol/Ipratropium 3 ML UPD VIAL UPD ×4 (08:25→20:40)
[2021-05-07] MEDS: Tiotropium Bromide-Respimat 10 PUFF INH 2 PUFF IH (08:26)
[2021-05-07] MEDS: Pantoprazole 40 MG VIAL IVP (08:53)
[2021-05-07] MEDS: Amoxicillin 600 MG/Clav. 42.9 MG 75 ML BTL 7.2 ML JT ×2 (09:54→21:26)
--- NOTE | 2021-05-07 15:59 | W.PM.PROGNOT ---
Date of Service Date of service: 05/07/21 Time of Service: 15:59 Assessment and Plan Assessment and plan (1) Bedbound: Status: Acute Assessment and plan: Will need to go home by ambulance and be transferred from stretcher to hospital bed. Too weak to stand. Now he has agreed to hospice; hospital bed ordered. (2) Decubitus ulcer of buttock, stage 4: Status: Acute Assessment and plan: I did not examine ulcer today; per nursing, some minimal improvement with introduction of rectal tube and urinary catheter, and increase in tube feeds. Needs to stay off buttocks. Will needs specialized mattress ordered from hospice. (3) Oxygen dependent: Status: Acute Assessment and plan: Will need to go home on oxygen. (4) Protein-calorie malnutrition, severe: Status: Acute Assessment and plan: Taking in more by feeding tube. Asked that he feed himself, with supervision and help if needed from nursing staff. (5) Bone metastases: Status: Acute Assessment and plan: Widely metastatic esophageal cancer. Cause of his pain. Pain controlled with basal/bolus morphine pump. (6) Cancer related pain: Status: Acute Assessment and plan: On morphine pump at 2 mg/hr continuously with a 1 mg bolus available q 15 minutes. (7) Encounter for hospice care discussion: Status: Acute Assessment and plan: Vaughn and his Nichelle agreed to plan that he go home with hospice on May 08. (8) Discharge planning issues: Status: Acute Assessment and plan: Doesn't want to go to SNF. needs maximal help at home. Will ask for DAILY NURSING visit Wed-Wednesday and see how they do after that. (9) Fecal incontinence: Status: Acute Assessment and plan: Has rectal tube. Checked with nurses; if this one comes out, ok to reinsert it. (10) Urinary incontinence: Status: Acute Assessment and plan: Will keep ann in place when he goes home. (11) Emphysema lung: Status: Acute Assessment and plan: s/p chest tube. Convert from Zosyn to oral Augmentin. Plan a total of a 14 day course beginning from the time Zosyn initiated. Qualifiers: Emphysema type: unilateral Qualified Code(s): J43.0 - Unilateral pulmonary emphysema [MacLeod's syndrome] Subjective Subjective Patient reports: no new complaints and afebrile; denies nausea and vomiting Interval history since last seen: Pain controlled. Rectal tube remains in place. No c/o discomfort with ann catheter. Exam Narrative Exam Narrative: Cachectic male sitting up in bed. No acute respiratory distress. Pleasant and conversational. Lungs: diminished breath sounds at the bases. no rhonchi or wheezing Heart: regular rate, rhythm. S1 S2. Abdomen: nondistended. G tube in place. Rectal tube in place with brown liquid stool in bag. : ann catheter in place with light yellow urine in bag. Ext: No edema. No calf tenderness. Psych Speech and Movement: speech and movement normal Affect: normal affect Attitude: cooperative Thought Process: illogical and impoverished Insight: limited Judgment: limited Objective Last Vital Signs Temp 36.8 C 05/07/21 15:30 Pulse 90 05/07/21 15:30 Resp 16 05/07/21 15:30 BP 96/52 L 05/07/21 15:30 Pulse Ox 95 05/07/21 15:30
--- NOTE | 2021-05-07 16:31 | PCPN_ITS ---
Date of service: 05/07/21 Assessment and Plan Assessment and plan (1) Difficulty clearing secretions: Status: Acute Assessment and plan: Going home with suction. Will try mucinex at home too. (2) Urinary incontinence: Status: Acute Assessment and plan: ann in place (3) Fecal incontinence: Status: Acute Assessment and plan: rectal catheter in place stool is quite loose (4) Cancer related pain: Status: Acute Assessment and plan: controlled now at 2 mg/hr of morphine CADD pump (5) Oxygen dependent: Status: Acute Assessment and plan: will go home with oxygen (6) Bedbound: Status: Acute Assessment and plan: he has not walked in more than a month, he's not sure when he last walked likely will not need WC at home as he is too weak to transfer will need ambulance crew to put him into bed (7) Decubitus ulcer of buttock, stage 4: Status: Acute Assessment and plan: Hospice nurses will follow wound instructions for now (8) Decubitus ulcer of sacral region, stage 4: Status: Acute (9) Protein-calorie malnutrition, severe: Status: Acute Assessment and plan: is able to tolerate his tube feeds again has been trained he is being trained too (10) Bone metastases: Status: Acute (11) 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: Status: Chronic (12) Liver metastases: Status: Acute (13) Brain metastases: Status: Acute (14) Esophageal cancer: Status: Acute Qualifiers: Malignant neoplasm of esophagus location: lower third Qualified Code(s): C15.5 - Malignant neoplasm of lower third of esophagus (15) Discharge planning issues: Status: Acute Assessment and plan: Goal is to be discharged home by ambulance to his home. Hospice nurse will admit him to service same day. I will see him at home next week. He will remain DNI. He does want chest compressions and/or shocking if indicated. has been told that when he dies, she will need to call EMS to come work on/CODE him or pronounce him, depending on his condition. Subjective Subjective Patient reports: no new complaints, feels better, pain is less and shortness of breath Interval history since last seen: Vaughn is beginning to look forward to going home. He's due to be discharged by ambulance home on , to be admitted directly to hospice. I have ordered suction and a specialized mattress for him. He will have both his urinary and rectal catheters in place. He is comfortable on his morphine pump at 2 mg/hr. He is only getting boluses prior to personal care or movement. Exam Const General: frail appearing and ill appearing Nutritional Appearance: cachectic and malnourished Orientation: alert, awake and oriented x3 [facility] Other: Vision and hearing appear intact. There is no thrush. He has no sores in his mouth. He has extremely poor dentition. Eyes Conjunctivae: conjunctivae normal Sclera: sclerae normal (no jaundice noted) Chest Chest: normal inspection of the chest and normal palpation of entire chest wall Resp Effort & Inspection: normal respiratory effort and able to speak in complete sentences Auscultation: diminished lung sounds (Right greater than left) Cardio Rate: regular rate Rhythm: regular rhythm GI Other: Abdomen soft with minimal bowel sounds. Feeding tube site shows some mild excoriation. He has multiple stage IV sacral and buttock decubitus ulcers. He also has a ulceration on the left side at the base of the penis. He has necrotic tissue on the decubitus ulcers. Neuro General: patient alert, patient awake, patient oriented x3 and unable to assess gait (bed-bound; too weak to stand) Cognition: normal cognition Speech: speech normal Extrem Other: Severe muscle wasting and atrophy clubbing of his fingernails, c/w years of smoking Psych Appearance: disheveled Speech and Movement: speech and movement normal Mood: anxious mood (only when talking about going home, otherwise wnl) Affect: normal affect Attitude: cooperative Thought Process: illogical and impoverished Thought Content: delusions Insight: limited Judgment: limited Objective Last Vital Signs Temp 98.2 F 05/07/21 15:30 Pulse 90 05/07/21 15:30 Resp 16 05/07/21 15:30 BP 96/52 L 05/07/21 15:30 Pulse Ox 95 05/07/21 15:30
[2021-05-07] MEDS: levETIRAcetam Oral Solution 100 MG/ML 1000 MG JT (17:00)
[2021-05-07] MEDS: Heparin 500 UNITS/5 ML SYRINGE IVP (17:47)
--- NOTE | 2021-05-07 17:49 | CMPROGNOTE_ITS ---
- If Service Date Differs Date of service: 05/07/21 Time of Service: 17:49 Care Management Progress Note S/O: Vaughn is planning on discharging home on Hospice tomorrow after Molly delivers his home equipment. Per Molly, they will know the delivery time tomorrow after 9am. CM will arrange EMS transportation and notify [facility] when transportation is set and discharge time is known. CM continues to follow. A: 50 year old male admitted to [facility] 04/21/21 for Dehydration P: Vaughn remains at [facility], on IV ABX and will be returning home on Hospice on ; he and Nichelle are looking forward to this and verbalized understanding of the plan. Dr. Anton completed Hospice orders, and equipment including a Hospital bed will be delivered by Molly fuchs prior to discharge. Vaughn will go home with Morphine pump and rectal catheter in place. CM continues to follow.
[2021-05-07] MEDS: guaiFENesin 200 MG/10 ML CUP JT (21:26)
[2021-05-08 01:37] VITALS: BP 96/59; PULSE 89; RESP 17; TEMP 36.1; O2SAT 96
[2021-05-08 06:03] VITALS: BP 101/65; PULSE 96; RESP 19; TEMP 37.3; O2SAT 91
[2021-05-08] MEDS: levETIRAcetam Oral Solution 100 MG/ML 1000 MG JT (06:08)
[2021-05-08] MEDS: Tiotropium Bromide-Respimat 10 PUFF INH 2 PUFF IH (07:55)
[2021-05-08 07:56] VITALS: PULSE 120; RESP 20; RESP 8; O2SAT 92
[2021-05-08] MEDS: Albuterol/Ipratropium 3 ML UPD VIAL UPD (07:56)
[2021-05-08 07:57] VITALS: O2SAT 92
[2021-05-08] MEDS: Dexamethasone 4 MG TAB NG (09:10)
[2021-05-08] MEDS: Amoxicillin 600 MG/Clav. 42.9 MG 75 ML BTL 7.2 ML JT (09:12)
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
--- NOTE | 2021-05-08 10:52 | PDOC.CMDIS ---
- If Service Date Differs Date of service: 05/08/21 Time of Service: 18:16 LACE Index Scoring Tool - Questions: Length of Stay (in days): 14 or more Acuity (Admit via E.D.?): Yes Comorbidities: Metastatic Solid Tumor E.D. Visits: 3 - Answers: Total Score: 18 Risk of Readmission: High Risk Care Management Discharge Reason for Hospitalization: Dehydration
[2021-05-08] MEDS: MORPHine 1,000 MG in CADD PUMP CASSETTE 1 EACH, Normal Saline 80 ML 0.2 MG SC INF (11:18)
--- NOTE | 2021-05-08 15:16 | CHAPLAIN ---
I visited Vaughn shortly before he was discharged today. He said his is looking forward to having him home. He said most of the equipment for him has arrived at this house. Vaughn is worried about requiring more care than Nichelle, his , can offer. He knows he can return here for pain management and/or respite if needed.
== END 2021-05-08 12:04 | disposition home or self-care (01) | DRG 393 ==
LOC: ER 17:42 → MS 22:11 → ICU 05-01 18:03 → MS 05-01 18:13
PROVIDERS: Internal Medicine; Student in an Organized Health Care Education/Training Program; Surgery; Admitting Provider General Practice; Emergency Provider Emergency Medicine; PCP Nurse Practitioner; Visit Provider General Practice
PROC: 0W993ZZ Drainage of Right Pleural Cavity, Percutaneous Approach (ICD-10-PCS; CPT 32554; principal; 2021-04-22 11:00)
PROC: 0W993ZZ Drainage of Right Pleural Cavity, Percutaneous Approach (ICD-10-PCS; CPT 32551; 2021-04-22 11:00)
DX: K94.23 Gastrostomy malfunction (principal); L89.153 Pressure ulcer of sacral region, stage 3; L89.154 Pressure ulcer of sacral region, stage 4; L89.304 Pressure ulcer of unspecified buttock, stage 4; J86.9 Pyothorax without fistula; J93.0 Spontaneous tension pneumothorax; J96.01 Acute respiratory failure with hypoxia; E43 Unspecified severe protein-calorie malnutrition; C78.7 Secondary malignant neoplasm of liver and intrahepatic bile duct; C77.2 Secondary and unspecified malignant neoplasm of intra-abdominal lymph nodes; C79.31 Secondary malignant neoplasm of brain; Z68.1 Body mass index [BMI] 19.9 or less, adult; C15.5 Malignant neoplasm of lower third of esophagus; J90 Pleural effusion, not elsewhere classified; C79.51 Secondary malignant neoplasm of bone; E86.0 Dehydration; Z87.891 Personal history of nicotine dependence; D64.9 Anemia, unspecified; M54.32 Sciatica, left side; J43.0 Unilateral pulmonary emphysema [MacLeod's syndrome]; L98.491 Non-pressure chronic ulcer of skin of other sites limited to breakdown of skin; B96.20 Unspecified Escherichia coli [E. coli] as the cause of diseases classified elsewhere; E83.42 Hypomagnesemia; E83.51 Hypocalcemia; G89.3 Neoplasm related pain (acute) (chronic); I48.0 Paroxysmal atrial fibrillation; Z74.01 Bed confinement status; R33.9 Retention of urine, unspecified; R15.9 Full incontinence of feces
CPT/HCPCS: 32554; 32551; 32560 ×4; 36415; 71045; 71275; 80048; 80053; 80076; 82664; 83721; 84145; 84311; 84478; 86850; 86900; 86901; 86920; 87040; 87077; 87081; 87493; 87635; 94640; 96360; 96361; 99213; 99231; 99232; 99233; 99285; 99291; J1650; 74177; 80202; 81003; 81015; 81373; 82040; 82150; 82570; 82607; 82728; 82746; 83540; 83550; 83615; 83735; 83880; 83986; 84100; 84155; 84157; 85014; 85018; 85025; 85045; 87070; 87075; 87186; 87205; 88104; 89051; 93005; 93010; 99219; 99225; 99239; 99284; 99292; G0378; J0131; J0295; J1100; J1756; J1940; J1941; J1953; J2270; J2543; J2765; J2997; J3010; J3480; J3490; J7608; J7620; J7639; J8540; P9016; Q9967